=== PATIENT | female | born 1970 | race Caucasian/White ===

== ENCOUNTER 2018-09-27 21:00 | Emergency (ER) | payer OTHER ==
[~2018-09-27] VITALS: Ht 170.2 cm; Wt 120.2 kg
[~2018-09-27 21:00] MED LIST: ALPR.25T PO; ASP81TEC PO; LISI20TA PO; SERT25TA PO
--- OUTSIDE RECORDS SUMMARY | 2018-09-27 21:05 | XMS REPORT ---
Author Author Migration, Doctor Organization [facility] Address Unknown Phone Unavailable Care Team Providers Care Station Baggage Agent Name Role Phone Migration, Doctor Unavailable Unavailable PROBLEMS Type Condition ICD9-CM Code [id number] Code Onset Dates Condition Status SNOMED Code Problem Acute pyelonephritis N10 13 Jan, 2018 0 99858402 Problem Migraine, unspecified, without mention of intractable migraine without mention of status migrainosus G43.909 0 43272196 Problem History of pneumonia Z87.01 14 May, 2013 0 694378325 Problem Hiatal hernia K44.9 16 Oct, 2009 0 84796476 Problem Bipolar I disorder F31.9 0 586427400 Problem Tendonitis of wrist, left M77.8 Apr, 0 36341820 Problem Chest pain R07.9 May, 0 25902709 Problem Wheezing 786.07 Active 89149681 Problem Chronic blood loss anemia 280.0 Aug, 0 982618477 Problem Cough 786.2 Active 37353902 Problem Mammographic microcalcification R92.0 Mar, 0 98398319973813 Problem Chronic blood loss anemia D50.0 Aug, 0 281301012 Problem Migraine, unspecified, without mention of intractable migraine without mention of status migrainosus 346.90 0 08152000 Problem Hiatal hernia 553.3 16 Oct, 2009 0 88498877 Problem Acute pyelonephritis 590.10 13 Jan, 2018 0 04646702 Problem Essential hypertension 401.9 0 06935444 Problem Chest pain 786.50 May, 0 82612200 Problem Asthma 493.90 14 Jan, 2014 0 833804677 Problem Status post right breast biopsy V45.89 17 Mar, 2011 0 48082016 Problem Bipolar I disorder 296.7 0 296099634 Problem History of pneumonia V12.61 14 May, 2013 0 477677342 Problem Mammographic microcalcification 793.81 10 Mar, 2011 0 22469705008481 Problem Tendonitis of wrist, left 727.05 Apr, 0 905853418 Problem Fall from other slipping, tripping, or stumbling E885.9 Active 580969357 Problem Status post right breast biopsy Z98.890 17 Mar, 2011 0 137416007 Problem Disturbance of skin sensation 782.0 Active 485472212 Problem Fever, unspecified 780.60 Active 147198970 Problem Syncope and collapse 780.2 Active 001640577 Problem Acute sinusitis, unspecified 461.9 Active 60110581 Problem Essential hypertension I10 0 23760566 Problem Unspecified hereditary and idiopathic peripheral neuropathy 356.9 Active 362793438 Problem Acute bronchitis J20.9 Jul, 0 16077694 Problem Asthma J45.909 14 Jan, 2014 0 139387932 Problem Pain in joint, lower leg 719.46 Active 822287784 Problem Contact dermatitis and other eczema, due to unspecified cause 692.9 Active 17588111 Problem Acute bronchitis 466.0 Active 50760576 Problem Acute upper respiratory infections of unspecified site 465.9 Active 15933168 ALLERGIES No Information ENCOUNTERS Encounter Location Date Diagnosis [address] [address] Aug, [facility] [id number] [place] [address] Jun, [facility] [id number] [place] [address] Apr, [facility] [id number] [place] [address] Apr, [facility] [id number] [place] [address] Apr, [facility] [id number] [place] [address] Jan, [facility] [id number] [place] [address] 14 Aug, 2014 [facility] [id number] [place] [address] Aug, [facility] [id number] [place] [address] Jan, [facility] [address] [id number] [place] [address] Jan, [facility] [address] [id number] [place] [address] Dec, [facility] [place] [facility] [address] [id number] [place] [address] Oct, [facility] [place] [facility] [address] [id number] [place] [address] Aug, [facility] [place] [facility] [address] [id number] [place] [address] Aug, [facility] [place] [facility] [address] [id number] [place] [address] Aug, [facility] [address] [id number] [place] [address] Jul, [facility] [place] [facility] [address] [id number] [place] [address] Jun, [facility] [address] [id number] [place] [address] Jun, [facility] [address] [id number] [place] [address] Jun, [facility] [place] [facility] [address] [id number] [place] [address] May, [facility] [place] [facility] [address] [id number] [place] [address] May, [facility] [place] [facility] [address] [id number] [place] [address] Apr, [facility] [place] [facility] [address] [id number] [place] [address] Apr, [facility] [place] [facility] [address] [id number] [place] [address] Jan, [facility] [place] [facility] [address] [id number] [place] [address] Jan, [facility] [address] [facility][[address]] [id number] [place] [id number] Oct, [facility] [address] [facility] [address] [id number] [address] Oct, [facility] [address] [facility] [address] [id number] [place] [address] Oct, [facility] [address] [facility] [address] [id number] [address] August, IMMUNIZATIONS No Known Immunizations SOCIAL HISTORY Never Assessed REASON FOR VISIT EMR[place] PLAN OF CARE VITAL SIGNS MEDICATIONS Unknown Medications RESULTS No Results PROCEDURES No Known procedures INSTRUCTIONS MEDICATIONS ADMINISTERED No Known Medications
--- OUTSIDE RECORDS SUMMARY | 2018-09-27 21:05 | XMS REPORT ---
Author Author Migration, Doctor Organization [facility] Address Unknown Phone Unavailable Care Team Providers Care School Vocational Educator Name Role Phone Migration, Doctor Unavailable Unavailable PROBLEMS Type Condition ICD9-CM Code [id number] Code Onset Dates Condition Status SNOMED Code Problem Acute pyelonephritis N10 13 Jan, 2018 0 45265207 Problem Migraine, unspecified, without mention of intractable migraine without mention of status migrainosus G43.909 0 83169521 Problem History of pneumonia Z87.01 May, 0 269797498 Problem Hiatal hernia K44.9 16 Oct, 2009 0 43547999 Problem Bipolar I disorder F31.9 0 846832702 Problem Tendonitis of wrist, left M77.8 Apr, 0 82977885 Problem Chest pain R07.9 May, 0 21991966 Problem Wheezing 786.07 Active 76426307 Problem Chronic blood loss anemia 280.0 Aug, 0 811013710 Problem Cough 786.2 Active 11741088 Problem Mammographic microcalcification R92.0 Mar, 0 92078321168082 Problem Chronic blood loss anemia D50.0 Aug, 0 486643069 Problem Migraine, unspecified, without mention of intractable migraine without mention of status migrainosus 346.90 0 42708008 Problem Hiatal hernia 553.3 16 Oct, 2009 0 23773856 Problem Acute pyelonephritis 590.10 13 Jan, 2018 0 08497525 Problem Essential hypertension 401.9 0 48787269 Problem Chest pain 786.50 May, 0 26221910 Problem Asthma 493.90 14 Jan, 2014 0 755627763 Problem Status post right breast biopsy V45.89 17 Mar, 2011 0 40997405 Problem Bipolar I disorder 296.7 0 358212269 Problem History of pneumonia V12.61 14 May, 2013 0 707797430 Problem Mammographic microcalcification 793.81 10 Mar, 2011 0 76905804701195 Problem Tendonitis of wrist, left 727.05 Apr, 0 753646448 Problem Fall from other slipping, tripping, or stumbling E885.9 Active 537042284 Problem Status post right breast biopsy Z98.890 17 Mar, 2011 0 521478766 Problem Disturbance of skin sensation 782.0 Active 832784754 Problem Fever, unspecified 780.60 Active 404282136 Problem Syncope and collapse 780.2 Active 116337226 Problem Acute sinusitis, unspecified 461.9 Active 74504631 Problem Essential hypertension I10 0 57839813 Problem Unspecified hereditary and idiopathic peripheral neuropathy 356.9 Active 071980840 Problem Acute bronchitis J20.9 Jul, 0 55221354 Problem Asthma J45.909 14 Jan, 2014 0 555458868 Problem Pain in joint, lower leg 719.46 Active 040105940 Problem Contact dermatitis and other eczema, due to unspecified cause 692.9 Active 16175626 Problem Acute bronchitis 466.0 Active 15566457 Problem Acute upper respiratory infections of unspecified site 465.9 Active 56597596 ALLERGIES No Information ENCOUNTERS Encounter Location Date Diagnosis [address] [address] August, [facility] [id number] [place] [address] Jun, [facility] [id number] [place] [address] Apr, [facility] [id number] [place] [address] Apr, [facility] [id number] [place] [address] Apr, [facility] [id number] [place] [address] Jan, [facility] [id number] [place] [address] Aug, [facility] [id number] [place] [address] Aug, [facility] [id number] [place] [address] Jan, [facility] [address] [id number] [place] [address] Jan, [facility] [address] [id number] [place] [address] Dec, [facility] [place] [facility] [address] [id number] [place] [address] Oct, [facility] [place] [facility] [address] [id number] [place] [address] Aug, [facility] [place] [facility] [address] [id number] [place] [address] Aug, [facility] [place] [facility] [address] [id number] [place] [address] Aug, [facility] [address] [id number] [place] [address] Jul, [facility] [place] [facility] [address] [id number] [place] [address] Jun, [facility] [address] [id number] [place] [address] Jun, [facility] [address] [id number] [place] [address] Jun, [facility] [place] [facility] [address] [id number] [place] [address] May, [facility] [place] [facility] [address] [id number] [place] [address] May, [facility] [place] [facility] [address] [id number] [place] [address] Apr, [facility] [place] [facility] [address] [id number] [place] [address] Apr, [facility] [place] [facility] [address] [id number] [place] [address] Jan, [facility] [place] [facility] [address] [id number] [place] [address] Jan, [facility] [address] [facility] [id number] [place] [id number] Oct, [facility] [address] [facility] [id number] [address] Oct, [facility] [address] [facility] [id number][place] [address] Oct, [facility] [address] [facility] [id number], [place] [address] August, IMMUNIZATIONS No Known Immunizations SOCIAL HISTORY Never Assessed REASON FOR VISIT E[facility] PLAN OF CARE VITAL SIGNS MEDICATIONS Unknown Medications RESULTS No Results PROCEDURES No Known procedures INSTRUCTIONS MEDICATIONS ADMINISTERED No Known Medications
--- OUTSIDE RECORDS SUMMARY | 2018-09-27 21:05 | XMS REPORT ---
Author Author Migration, Doctor Organization [facility] Address Unknown Phone Unavailable Care Team Providers Care Centralized Traffic Control Operator Name Role Phone Migration, Doctor Unavailable Unavailable PROBLEMS Type Condition ICD9-CM Code TDA87-AS Code Onset Dates Condition Status SNOMED Code Problem Acute pyelonephritis N10 13 Jan, 2018 0 65908089 Problem Migraine, unspecified, without mention of intractable migraine without mention of status migrainosus G43.909 0 69916159 Problem History of pneumonia Z87.01 May, 0 167717211 Problem Hiatal hernia K44.9 16 Oct, 2009 0 60141874 Problem Bipolar I disorder F31.9 0 442576631 Problem Tendonitis of wrist, left M77.8 Apr, 0 52415900 Problem Chest pain R07.9 May, 0 95830200 Problem Wheezing 786.07 Active 20191232 Problem Chronic blood loss anemia 280.0 Aug, 0 905489137 Problem Cough 786.2 Active 26911760 Problem Mammographic microcalcification R92.0 Mar, 0 63271112648386 Problem Chronic blood loss anemia D50.0 Aug, 0 305243365 Problem Migraine, unspecified, without mention of intractable migraine without mention of status migrainosus 346.90 0 91102744 Problem Hiatal hernia 553.3 16 Oct, 2009 0 02969869 Problem Acute pyelonephritis 590.10 13 Jan, 2018 0 28284932 Problem Essential hypertension 401.9 0 03560195 Problem Chest pain 786.50 May, 0 82740345 Problem Asthma 493.90 14 Jan, 2014 0 216307670 Problem Status post right breast biopsy V45.89 17 Mar, 2011 0 39359158 Problem Bipolar I disorder 296.7 0 789813769 Problem History of pneumonia V12.61 14 May, 2013 0 659161053 Problem Mammographic microcalcification 793.81 10 Mar, 2011 0 50803302245734 Problem Tendonitis of wrist, left 727.05 Apr, 0 399345930 Problem Fall from other slipping, tripping, or stumbling E885.9 Active 785588674 Problem Status post right breast biopsy Z98.890 17 Mar, 2011 0 886685504 Problem Disturbance of skin sensation 782.0 Active 294472497 Problem Fever, unspecified 780.60 Active 086374366 Problem Syncope and collapse 780.2 Active 442704426 Problem Acute sinusitis, unspecified 461.9 Active 87218904 Problem Essential hypertension I10 0 17790562 Problem Unspecified hereditary and idiopathic peripheral neuropathy 356.9 Active 178692183 Problem Acute bronchitis J20.9 Jul, 0 05116578 Problem Asthma J45.909 14 Jan, 2014 0 337288587 Problem Pain in joint, lower leg 719.46 Active 132570768 Problem Contact dermatitis and other eczema, due to unspecified cause 692.9 Active 92530552 Problem Acute bronchitis 466.0 Active 84950468 Problem Acute upper respiratory infections of unspecified site 465.9 Active 45410733 ALLERGIES No Information ENCOUNTERS Encounter Location Date Diagnosis [address] [address] Aug, [facility] [id number] [place] [address] Jun, [facility] [id number] [place] [address] Apr, [facility] [id number] [place] [address] Apr, [facility] [id number] [place] [address] Apr, [facility] [id number] [place] [address] Jan, [facility] [id number] [place] [address] 14 Aug, 2014 [facility] [id number] [place] [address] Aug, [facility] [id number] [place] [address] Jan, [facility] [address] [id number] [place] [address] Jan, [facility] [address] [id number] [place] [address] Dec, [facility] [place] [facility] [address] [id number] [place] [address] Oct, [facility] [place] [facility] [address] [id number] [place] [address] Aug, [facility] [place] [facility] [address] [id number] [place] [address] Aug, [facility] [place] [facility] [address] [id number] [place] [address] Aug, [facility] [address] [id number] [place] [address] Jul, [facility] [place] [facility] [address] [id number] [place] [address] Jun, [facility] [address] [id number] [place] [address] Jun, [facility] [address] [id number] [place] [address] Jun, [facility] [place] [facility] [address] [id number] [place] [address] May, [facility] [place] [facility] [address] [id number] [place] [address] May, [facility] [place] [facility] [address] [id number] [place] [address] Apr, [facility] [place] [facility] [address] [id number] [place] [address] Apr, [facility] [place] [facility] [address] [id number] [place] [address] Jan, [facility] [place] [facility] [address] [id number] [place] [address] Jan, [facility] [address] [facility] [id number] [place] [id number] Oct, [facility] [address] [facility] [id number], [place] [address] Oct, [facility] [address] [facility] [id number], [place] [address] Oct, [facility] [address] [facility] [id number], [place] [address] August, IMMUNIZATIONS No Known Immunizations SOCIAL HISTORY Never Assessed REASON FOR VISIT [place] [place] C[place] VITAL SIGNS MEDICATIONS Unknown Medications RESULTS No Results PROCEDURES No Known procedures INSTRUCTIONS MEDICATIONS ADMINISTERED No Known Medications
--- OUTSIDE RECORDS SUMMARY | 2018-09-27 21:06 | XMS REPORT | Continuity of Care Document ---
Author Organization Unknown Address Unknown Allergies Active Description Code Type Severity Reaction Onset Reported/Identified Relationship to Patient Clinical Status Yes Penicillins Drug Allergy 09/03/2011 Yes Penicillins Drug Allergy N/A N/A 09/03/2011 Medications There is no data. Problems Date Dx Coded Attending Type Code Diagnosis Diagnosed By 09/03/2011 719.46 KNEE PAIN 09/03/2011 E885.9 ACCIDENTAL FALL FROM OTHER SLIPPING TRIPPING OR STUMBLING 09/03/2011 719.46 KNEE PAIN 09/03/2011 E885.9 ACCIDENTAL FALL FROM OTHER SLIPPING TRIPPING OR STUMBLING 09/03/2011 WARREN ORTEGA DO 719.46 KNEE PAIN 09/03/2011 WARREN ORTEGA DO E885.9 ACCIDENTAL FALL FROM OTHER SLIPPING TRIPPING OR STUMBLING 09/03/2011 719.46 KNEE PAIN 09/03/2011 E885.9 ACCIDENTAL FALL FROM OTHER SLIPPING TRIPPING OR STUMBLING 09/03/2011 PADMAJA GOMEZ APRN 719.46 KNEE PAIN 09/03/2011 PADMAJA GOMEZ APRN E885.9 ACCIDENTAL FALL FROM OTHER SLIPPING TRIPPING OR STUMBLING 09/03/2011 719.46 KNEE PAIN 09/03/2011 E885.9 ACCIDENTAL FALL FROM OTHER SLIPPING TRIPPING OR STUMBLING 09/03/2011 USMAN FERNANDEZ APRN 719.46 KNEE PAIN 09/03/2011 USMAN FERNANDEZ APRN E885.9 ACCIDENTAL FALL FROM OTHER SLIPPING TRIPPING OR STUMBLING 09/03/2011 WARREN ORTEGA DO 719.46 KNEE PAIN 09/03/2011 WARREN ORTEGA DO E885.9 ACCIDENTAL FALL FROM OTHER SLIPPING TRIPPING OR STUMBLING 11/25/2011 356.9 PERIPHERAL NEUROPATHY 11/25/2011 356.9 PERIPHERAL NEUROPATHY 11/25/2011 WARREN ORTEGA DO 356.9 PERIPHERAL NEUROPATHY 11/25/2011 356.9 PERIPHERAL NEUROPATHY 11/25/2011 PADMAJA GOMEZ APRN 356.9 PERIPHERAL NEUROPATHY 11/25/2011 356.9 PERIPHERAL NEUROPATHY 11/25/2011 USMAN FERNANDEZ APRN 356.9 PERIPHERAL NEUROPATHY 11/25/2011 ORTEGA DO, WARREN K 356.9 PERIPHERAL NEUROPATHY 04/06/2012 465.9 UPPER RESPIRATORY INFECTION 04/06/2012 786.07 WHEEZING 04/06/2012 786.2 COUGH 04/06/2012 465.9 UPPER RESPIRATORY INFECTION 04/06/2012 786.07 WHEEZING 04/06/2012 786.2 COUGH 04/06/2012 JORDAN DO WARREN K 465.9 UPPER RESPIRATORY INFECTION 04/06/2012 ORTEGA DO, WARREN K 786.07 WHEEZING 04/06/2012 ORTEGA DO, WARREN K 786.2 COUGH 04/06/2012 465.9 UPPER RESPIRATORY INFECTION 04/06/2012 786.07 WHEEZING 04/06/2012 786.2 COUGH 04/06/2012 PADMAJA GOMEZ APRN 465.9 UPPER RESPIRATORY INFECTION 04/06/2012 PADMAJA GOMEZ APRN 786.07 WHEEZING 04/06/2012 PADMAJA GOMEZ APRN 786.2 COUGH 04/06/2012 465.9 UPPER RESPIRATORY INFECTION 04/06/2012 786.07 WHEEZING 04/06/2012 786.2 COUGH 04/06/2012 USMAN FERNANDEZ APRN 465.9 UPPER RESPIRATORY INFECTION 04/06/2012 USMAN FERNANDEZ APRN 786.07 WHEEZING 04/06/2012 USMAN FERNANDEZ APRN 786.2 COUGH 04/06/2012 KYLE ORTEGA DOA K 465.9 UPPER RESPIRATORY INFECTION 04/06/2012 JORDAN DO WARREN K 786.07 WHEEZING 04/06/2012 ORTEGA DO, WARREN K 786.2 COUGH 05/06/2012 466.0 BRONCHITIS, ACUTE 05/06/2012 780.60 FEVER, UNSPECIFIED 05/06/2012 466.0 BRONCHITIS, ACUTE 05/06/2012 780.60 FEVER, UNSPECIFIED 05/06/2012 ORTEGA DO, WARREN K 466.0 BRONCHITIS, ACUTE 05/06/2012 ORTEGA DO, WARREN K 780.60 FEVER, UNSPECIFIED 05/06/2012 466.0 BRONCHITIS, ACUTE 05/06/2012 780.60 FEVER, UNSPECIFIED 05/06/2012 PADMAJA GOMEZ APRN 466.0 BRONCHITIS, ACUTE 05/06/2012 PADMAJA GOMEZ APRN 780.60 FEVER, UNSPECIFIED 05/06/2012 466.0 BRONCHITIS, ACUTE 05/06/2012 780.60 FEVER, UNSPECIFIED 05/06/2012 USMAN FERNANDEZ APRN 466.0 BRONCHITIS, ACUTE 05/06/2012 USMAN FERNANDEZ APRN 780.60 FEVER, UNSPECIFIED 06/07/2012 780.2 SYNCOPE AND COLLAPSE 06/07/2012 782.0 DISTURBANCE OF SKIN SENSATION 06/07/2012 ORTEGA DO, WARREN K 780.2 SYNCOPE AND COLLAPSE 06/07/2012 ORTEGA DO, WARREN K 782.0 DISTURBANCE OF SKIN SENSATION 06/07/2012 780.2 SYNCOPE AND COLLAPSE 06/07/2012 782.0 DISTURBANCE OF SKIN SENSATION 06/07/2012 PADMAJA GOMEZ APRN 780.2 SYNCOPE AND COLLAPSE 06/07/2012 PADMAJA GOMEZ APRN 782.0 DISTURBANCE OF SKIN SENSATION 06/07/2012 780.2 SYNCOPE AND COLLAPSE 06/07/2012 782.0 DISTURBANCE OF SKIN SENSATION 06/07/2012 USMAN FERNANDEZ APRN 780.2 SYNCOPE AND COLLAPSE 06/07/2012 USMNA FERNANDEZ APRN 782.0 DISTURBANCE OF SKIN SENSATION 08/02/2012 PADMAJA GOMEZ APRN 461.9 SINUSITIS ACUTE 08/02/2012 461.9 SINUSITIS ACUTE 08/02/2012 USMAN FERNANDEZ APRN 461.9 SINUSITIS ACUTE 11/05/2012 692.9 DERMATITIS CONTACT UNSPECIFIED 11/05/2012 USMAN FERNANDEZ APRN 692.9 DERMATITIS CONTACT UNSPECIFIED Procedures Code [place] [address] INFLUENZA A & B (IN-HOUSE) 04/06/2012 63899 INFLUENZA A & B (IN-HOUSE) 05/06/2012 42791 XRAY CHEST 2 VIEW 05/06/2012 78938 MRI BRAIN W/O CONTRAST 06/07/2012 02221 ECHO EXAMINATION PROCEDURE 06/07/2012 56302 EKG, TRACING (IN-HOUSE) 06/07/2012 79264 US CAROTID DOPPLER 06/07/2012 KENDRA GRACE 06/07/2012 65159 ROUTINE VENIPUNCTURE 06/08/2012 65007 CMP 06/08/2012 40127 LIPID PANEL 06/08/2012 60850 BNP 06/08/2012 47725 TSH 06/08/2012 79165 CBC 06/08/2012 07544 CRP HS (CARDIO) 06/08/2012 90865 NUCLEAR STRESS TESTING 07/06/2012 13397 EKG, TRACING (IN-HOUSE) 07/06/2012 42211 HOLTER MONITOR 07/06/2012 Results There is no data. Encounters ACCT No. Visit Date/Time Discharge Status Pt. Type Provider Facility Loc./Unit Complaint [id number] 01/31/2014 17:49:00 01/31/2014 23:59:59 CLS Outpatient USMAN FERNANDEZ APRN [id number] 08/02/2012 16:26:00 08/02/2012 23:59:59 CLS Outpatient PADMAJA GOMEZ APRN [id number] 07/06/2012 08:13:00 07/06/2012 23:59:59 CLS Outpatient [id number] 06/08/2012 08:00:00 06/08/2012 23:59:59 CLS Outpatient WARREN ORTEGA DO [id number] 06/07/2012 13:58:00 06/07/2012 23:59:59 CLS Outpatient [id number] 05/06/2012 08:29:00 05/06/2012 23:59:59 CLS Outpatient [id number] 03/03/2012 10:54:00 03/03/2012 23:59:59 CLS Outpatient WARREN ORTEGA DO [id number] 11/05/2012 10:40:00 Document Registration
--- OUTSIDE RECORDS SUMMARY | 2018-09-27 21:06 | XMS REPORT ---
Author Author Migration, Doctor Organization [facility] Address Unknown Phone Unavailable Care Team Providers Care Imaging Aide Name Role Phone Migration, Doctor Unavailable Unavailable PROBLEMS Type Condition ICD9-CM Code FYB26-IW Code Onset Dates Condition Status SNOMED Code Problem Acute pyelonephritis N10 13 Jan, 2018 0 38166931 Problem Migraine, unspecified, without mention of intractable migraine without mention of status migrainosus G43.909 0 44211789 Problem History of pneumonia Z87.01 May, 0 198054267 Problem Hiatal hernia K44.9 16 Oct, 2009 0 40224764 Problem Bipolar I disorder F31.9 0 318188650 Problem Tendonitis of wrist, left M77.8 Apr, 0 83518333 Problem Chest pain R07.9 May, 0 96625184 Problem Wheezing 786.07 Active 70371220 Problem Chronic blood loss anemia 280.0 Aug, 0 804043918 Problem Cough 786.2 Active 24270635 Problem Mammographic microcalcification R92.0 Mar, 0 [id number] Problem Chronic blood loss anemia D50.0 Aug, 0 828863847 Problem Migraine, unspecified, without mention of intractable migraine without mention of status migrainosus 346.90 0 68579251 Problem Hiatal hernia 553.3 16 Oct, 2009 0 31406166 Problem Acute pyelonephritis 590.10 13 Jan, 2018 0 19952145 Problem Essential hypertension 401.9 0 85192575 Problem Chest pain 786.50 May, 0 60811761 Problem Asthma 493.90 14 Jan, 2014 0 190402052 Problem Status post right breast biopsy V45.89 17 Mar, 2011 0 90832395 Problem Bipolar I disorder 296.7 0 232856466 Problem History of pneumonia V12.61 14 May, 2013 0 456730728 Problem Mammographic microcalcification 793.81 10 Mar, 2011 0 [id number] Problem Tendonitis of wrist, left 727.05 Apr, 0 751693443 Problem Fall from other slipping, tripping, or stumbling E885.9 Active 416820792 Problem Status post right breast biopsy Z98.890 17 Mar, 2011 0 940202192 Problem Disturbance of skin sensation 782.0 Active 253400051 Problem Fever, unspecified 780.60 Active 821278358 Problem Syncope and collapse 780.2 Active 437888916 Problem Acute sinusitis, unspecified 461.9 Active 72303207 Problem Essential hypertension I10 0 37340611 Problem Unspecified hereditary and idiopathic peripheral neuropathy 356.9 Active 681150349 Problem Acute bronchitis J20.9 Jul, 0 03920624 Problem Asthma J45.909 14 Jan, 2014 0 612325365 Problem Pain in joint, lower leg 719.46 Active 897242625 Problem Contact dermatitis and other eczema, due to unspecified cause 692.9 Active 71794900 Problem Acute bronchitis 466.0 Active 27320979 Problem Acute upper respiratory infections of unspecified site 465.9 Active 73822497 ALLERGIES No Information ENCOUNTERS Encounter Location Date Diagnosis [facility] [address] [address] Jun, [facility] [address] [address] Apr, [facility] [address] [address] Apr, [facility] [id number] [place] [address] Apr, [facility] [id number] [place] [address] Jan, [facility] [id number] [place] [address] Aug, [facility] [address] [address] Aug, [facility] [id number] [place] [address] Jan, [facility] [address] [address] Jan, [facility] [address] [id number], [place] [address] Dec, [facility] [address] [facility] [id number], [place] [address] Oct, [facility] [address] [facility] [id number], [place] [address] Aug, [facility] [address] [id number], [place] [address] Aug, [facility] [address] [facility] [id number], [place] [address] Aug, [facility] [address] [id number], [place] [address] Jul, [facility] [address] [id number], [place] [address] Jun, [facility] [address] [id number], [place] [address] Jun, [facility] [address] [facility] [id number], [place] [address] Jun, [facility] [address] [id number], [place] [address] May, [facility] [address] [facility] [id number], [place] [address] May, [facility] [address] [id number], [place] [address] Apr, [facility] [address] [facility] [id number], [place] [address] Apr, [facility] [address] [facility] [id number], [place] [address] Jan, [facility] [address] [id number], [place] [address] Jan, [facility] [address] [id number] [place] [id number] Oct, [facility] [address] [facility] [id number] [place] [address] Oct, [facility] [address] [facility] [id number], [place] [address] Oct, [facility] [address] [facility] [id number] [place] [address] August, IMMUNIZATIONS No Known Immunizations SOCIAL HISTORY Never Assessed REASON FOR VISIT EMR-[facility] [place] OF CARE VITAL SIGNS MEDICATIONS Unknown Medications RESULTS No Results PROCEDURES No Known procedures INSTRUCTIONS MEDICATIONS ADMINISTERED No Known Medications
[2018-09-27] MEDS ORDERED: ACETAMINOPHEN 500 MG TAB (TYLENOL) PO ONE (21:15)
--- NOTE | 2018-09-27 21:19 | ED Fall/Injury ---
General Stated Complaint: LT FOOT INJ Source: patient Exam Limitations: no limitations History of Present Illness Date Seen by Provider: September 27, 2018 Time Seen by Provider: 21:10 Initial Comments Patient presents to ER by private conveyance with her significant other and chief complaint that about 15 minutes prior to arrival she had a fall stumbling into a hole in the yard. She did not strike her head nor lose consciousness. She's having some pain in her left ankle and heel. She has chronic peripheral neuropathy secondary to diabetes on gabapentin. She has not taken anything for the pain or used any ice yet. She is had a fractured right ankle in the past. No previous surgery or injury to her left foot. No other injury or pain elsewhere. Allergies and Home Medications Allergies Coded Allergies: Penicillins (Verified Allergy, 07/28/12) Home Medications Alprazolam 0.25 Mg Tablet, 1 TAB PO DAILY, (Reported) Aspirin 81 Mg Tabec, 81 MG PO DAILY, (Reported) Lisinopril 20 Mg Tablet, 20 MG PO DAILY, (Reported) Sertraline Hcl 25 Mg Tablet, 25 MG PO DAILY, (Reported) Patient Home Medication List Home Medication List Reviewed: Yes Review of Systems Review of Systems Constitutional: No chills Eyes: Denies Blindness, Denies Blurred Vision Ears, Nose, Mouth, Throat: denies ear pain, denies ear discharge Respiratory: No cough, No phlegm, No short of breath Past Eqrfrjc-Qvsxvp-Xqylop Hx Patient Social History Alcohol Use: Denies Use Recreational Drug Use: No Smoking Status: Never a Smoker Recent Foreign Travel: No Contact w/Someone Who Travel: No Physical Exam Vital Signs Vital Signs - First Documented 09/27/18 21:12 Temp 98.4 Pulse 94 Resp 22 B/P (MAP) 124/73 (90) Pulse Ox 97 O2 Delivery Room Air Capillary Refill : Height, Weight, BMI Height: '" Weight: lbs. oz. kg; BMI Method: General Appearance: WD/WN, mild distress HEENT: normal ENT inspection, pharynx normal Cardiovascular: normal peripheral pulses, regular rate, rhythm, no edema Respiratory: no respiratory distress, no accessory muscle use Peripheral Pulses: 2+ Dorsalis Pedis (R), 2+ Left Dors-Pedis (L) Extremities: normal capillary refill, other (medial malleolus posteriorly is tender to palpation as well as the calcaneus medially is tender. Dorsum of the foot is nontender. Range of motion active and passive is completely intact.) 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: no motor/sensory deficits, alert, normal mood/affect, oriented x 3 Skin: normal color, warm/dry Lisa Coma Score Best Eye Response: (4) Open Spontaneously Best Verbal Response: (5) Oriented Best Motor Response: (6) Obeys Commands [place] Total: 15 Progress/Results/Core Measures Results/Orders My Orders Orders - GEMMA WASSERMAN Acetaminophen Tablet (Tylenol Tablet) (09/27/18 21:15) Ankle 3 View Left (09/27/18 21:13) Foot 3 View Left (09/27/18 21:13) Medications Given in ED Current Medications Medications Dose Ordered Sig/Gregg Route Start Time Stop Time Status Last Admin Dose Admin Acetaminophen 1,000 mg ONCE ONCE PO 09/27/18 21:15 09/27/18 21:16 DC 09/27/18 21:31 1,000 MG Vital Signs/I&O 09/27/18 21:12 Temp 98.4 Pulse 94 Resp 22 B/P (MAP) 124/73 (90) Pulse Ox 97 O2 Delivery Room Air Progress Progress Note : Time: 21:16 Progress Note Left foot 2-3 views of the ankle and get some views of the foot so he can make sure there is not a fracture on the calcaneus. Diagnostic Imaging Diagonstic Imaging: Xray Plain Films/CT/US/NM/MRI: ankle (left), other (left foot) Comments NAME: PAMELLA SALINAS MED REC#: [id number] PT STATUS: REG ER : 1970 PHYSICIAN: GEMMA WASSERMAN MD ADMIT DATE: 09/27/18/ER FS Draft Date of Exam:09/27/18 FOOT 3 VIEW LEFT INDICATION: Pain. TECHNIQUE: 3 views were obtained FINDINGS: The alignment is normal. There is no fracture or dislocation. There are mild degenerative changes. IMPRESSION: Mild degenerative changes however no acute fracture or dislocation Dictated on workstation # [id number] Dict: 09/27/182142 Trans: 09/27/182155 B [id number] Interpreted by: DOROTHEA BARCENAS MD Electronically signed by: NAME: PAMELLA SALINAS [facility] REC#: [id number] PT STATUS: REG ER : 1970 PHYSICIAN: GEMMA WASSERMAN MD ADMIT DATE: 09/27/18/ER FS Signed Date of Exam:09/27/18 ANKLE 3 VIEW LEFT INDICATION: Pain. TECHNIQUE: 3 views were obtained FINDINGS: Alignment is normal. The plafonds and talar dome are intact. Ankle mortise is symmetric. No fracture or dislocation. IMPRESSION: No acute fracture or dislocation. Dictated by: Dictated on workstation # [id number] Dict: 09/27/182136 Trans: 09/27/182151 [facility] [id number] Interpreted by: DOROTHEA BARCENAS MD Electronically signed by: DOROTHEA BARCENAS MD 09/27/182151 Reviewed: Reviewed by Me Departure Impression Primary Impression: Fall Qualified Codes: W19.XXXA - Unspecified fall, initial encounter Additional Impression: Acute left ankle pain Disposition: 01 HOME, SELF-CARE Condition: Stable Departure-Patient Inst. Decision time for Depature: 22:00 Referrals: ORIANA DEE MD (PCP) Primary Care Physician Patient Instructions: Ankle Sprain (DC) Add. Discharge Instructions: Stay off the foot and use the crutches and wrapped the ankle with an Oli bandage. Elevate the foot above the level of your heart for the next couple days when not in use and apply ice for 20 minutes every 4 hours for the first 2 days. Afterwards heat, topical creams such as icy hot or Biofreeze can be helpful. Tylenol 1000 g every 8 hours as needed for pain in addition to ibuprofen 800 mg every 8 hours as necessary. Follow-up with primary care if you're still having significant pain in 7-10 days. Expect improvement over 2-4 weeks. GEMMA WASSERMAN September 27, 2018 21:19
--- NOTE | 2018-09-27 21:41 | Diagnostic Imaging Report ---
INDICATION: Pain. TECHNIQUE: 3 views were obtained FINDINGS: Alignment is normal. The plafonds and talar dome are intact. Ankle mortise is symmetric. No fracture or dislocation. IMPRESSION: No acute fracture or dislocation. Dictated by: Dictated on workstation # [id number]
--- NOTE | 2018-09-27 21:56 | Diagnostic Imaging Report ---
INDICATION: Pain. TECHNIQUE: 3 views were obtained FINDINGS: The alignment is normal. There is no fracture or dislocation. There are mild degenerative changes. IMPRESSION: Mild degenerative changes however no acute fracture or dislocation Dictated by: Dictated on workstation # [id number]
[2018-09-27 22:13] VITALS: BP 124/73
== END 2018-09-27 22:13 | disposition home or self-care (01) ==
LOC: EDUNIT# 21:00 → ER FS 21:01
DX: M25.572 Pain in left ankle and joints of left foot (principal); E11.40 Type 2 diabetes mellitus with diabetic neuropathy, unspecified; R40.2142 Coma scale, eyes open, spontaneous, at arrival to emergency department; R40.2252 Coma scale, best verbal response, oriented, at arrival to emergency department; R40.2362 Coma scale, best motor response, obeys commands, at arrival to emergency department; Z88.0 Allergy status to penicillin; Z79.82 Long term (current) use of aspirin; W17.2XXA Fall into hole, initial encounter; Y92.007 Garden or yard of unspecified non-institutional (private) residence as the place of occurrence of the external cause
CPT/HCPCS: 73610; 73630

== ENCOUNTER 2018-12-17 13:05 | Emergency (ER) | payer OTHER ==
[~2018-12-17] VITALS: Ht 170.2 cm; Wt 117.0 kg
--- NOTE | 2018-12-17 13:08 | NUR ---
Ambulatory from registartion to ED Rm 6. See triage. Pt was referred to Ed from [facility] for severe bladder pain, dysuria with a fairly clear urinalysis verbally reported. Sx began Thur.
--- NOTE | 2018-12-17 13:10 | NUR ---
Urine obtained clean catch.
--- NOTE | 2018-12-17 13:13 | ED GU-Female ---
General Chief Complaint: - Urinary Stated Complaint: LOWER BACK PAIN,NAUSEA,PAINFUL URINATON Source: patient History of Present Illness Date Seen by Provider: Dec 17, 2018 Time Seen by Provider: 13:13 Initial Comments Patient is a 48-year-old female who comes to the emergency department today complaining of 2 day history of left flank pain. Her pain started as a dull ache yesterday. Today, her symptoms became much more severe. She had some associated nausea but no vomiting. No fevers. She does endorse a dark color and malodorous urine. She does have prior history of urinary tract infections as well as one kidney stone many years earlier which she passed without intervention. No fever. No recent travel. No ill contacts. No respiratory symptoms. No shortness of breath or chest pain. Allergies and Home Medications Allergies Coded Allergies: Penicillins (Verified Allergy, Unknown, 12/17/18) cephalexin (Unverified Adverse Reaction, Unknown, 12/17/18) Home Medications Alprazolam 0.25 Mg Tablet, 1 TAB PO DAILY, (Reported) Aspirin 81 Mg Tabec, 81 MG PO DAILY, (Reported) Cyclobenzaprine HCl 10 Mg Tablet, 10 MG PO TID PRN for MUSCLE SPASMS Prescribed by: PARIS MORALES on 12/17/18 1430 Hydrocodone/Acetaminophen 1 Each Tablet, 2 TAB PO Q6H Prescribed by: PARIS MORALES on 12/17/18 1430 Lisinopril 40 Mg Tablet, 40 MG PO DAILY, (Reported) Nitrofurantoin Monohyd/M-Cryst 100 Mg Capsule, 1 TAB PO BID Prescribed by: PARIS MORALES on 12/17/18 1430 Patient Home Medication List Home Medication List Reviewed: Yes Review of Systems Review of Systems Constitutional: no symptoms reported EENTM: no symptoms reported Respiratory: no symptoms reported Cardiovascular: no symptoms reported Gastrointestinal: no symptoms reported Genitourinary: flank pain, hematuria, pain Musculoskeletal: no symptoms reported Skin: no symptoms reported Endocrine: No Symptoms Reported All Other Systemes Reviewed Negative Unless Noted: Yes Past Hdbafyn-Buqanc-Rdtfgr Hx Patient Social History 2nd Hand Smoke Exposure: No Recent Hopitalizations: No Seasonal Allergies Seasonal Allergies: No Past Medical History Surgeries: Yes Appendectomy, Section, Gallbladder Respiratory: Yes COPD Cardiac: Yes Hypertension, Irregular Heartbeat Neurological: Yes Neuropathy Genitourinary: No Gastrointestinal: No Musculoskeletal: No Endocrine: No HEENT: No Cancer: No Psychosocial: No Integumentary: No Physical Exam Vital Signs Vital Signs - First Documented 12/17/18 13:08 Temp 97.2 Pulse 96 Resp 20 B/P (MAP) 141/84 (103) Pulse Ox 98 O2 Delivery Room Air Capillary Refill : Height, Weight, BMI Height: 5'7.00" Weight: 265lbs. 0oz. 120.393431fe; BMI Method:Stated General Appearance: WD/WN, mild distress HEENT: PERRL/EOMI, TMs normal Neck: non-tender, full range of motion Cardiovascular: regular rate, rhythm, no edema Respiratory: lungs clear, normal breath sounds Gastrointestinal: normal bowel sounds, non tender, soft Extremities: normal range of motion, no pedal edema 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: alert, oriented x 3 Skin: normal color Lymphatic: no adenopathy Progress/Results/Core Measures Suspected Sepsis SIRS Temperature: Pulse: Respiratory Rate: Laboratory Tests 12/17/18 13:42: White Blood Count 9.2 Blood Pressure / Mean: Laboratory Tests 12/17/18 13:42: Creatinine 0.84, Platelet Count 355 Results/Orders Lab Results Laboratory Tests Test 12/17/18 13:10 12/17/18 13:42 Range/Units Urine Color YELLOW Urine Clarity CLEAR Urine pH 6.5 5-9 Urine Specific Rupert 1.010 L 1.016-1.022 Urine Protein NEGATIVE NEGATIVE Urine Glucose (UA) NEGATIVE NEGATIVE Urine Ketones NEGATIVE NEGATIVE Urine Nitrite NEGATIVE NEGATIVE Urine Bilirubin NEGATIVE NEGATIVE Urine Urobilinogen 0.2 NORMAL MG/DL Urine Leukocyte Esterase NEGATIVE NEGATIVE Urine RBC (Auto) NEGATIVE NEGATIVE Urine RBC NONE /HPF Urine WBC NONE /HPF Urine Squamous Epithelial Cells 10-25 H /HPF Urine Crystals NONE /LPF Urine Bacteria TRACE /HPF Urine Casts NONE /LPF Urine Mucus NEGATIVE /LPF Urine Culture Indicated NO White Blood Count 9.2 4.3-11.0 10^3/uL Red Blood Count 4.13 L 4.35-5.85 10^6/uL Hemoglobin 12.5 11.5-16.0 G/DL Hematocrit 39 35-52 % Mean Corpuscular Volume 94 80-99 FL Mean Corpuscular Hemoglobin 30 25-34 PG Mean Corpuscular Hemoglobin Concent 32 32-36 G/DL Red Cell Distribution Width 12.3 10.0-14.5 % Platelet Count 355 130-400 10^3/uL Mean Platelet Volume 9.5 7.4-10.4 FL Neutrophils (%) (Auto) 53 42-75 % Lymphocytes (%) (Auto) 35 12-44 % Monocytes (%) (Auto) 9 0-12 % Eosinophils (%) (Auto) 2 0-10 % Basophils (%) (Auto) 1 0-10 % Neutrophils # (Auto) 4.8 1.8-7.8 X 10^3 Lymphocytes # (Auto) 3.3 1.0-4.0 X 10^3 Monocytes # (Auto) 0.8 0.0-1.0 X 10^3 Eosinophils # (Auto) 0.2 0.0-0.3 10^3/uL Basophils # (Auto) 0.1 0.0-0.1 10^3/uL Sodium Level 141 135-145 MMOL/L Potassium Level 4.6 3.6-5.0 MMOL/L Chloride Level 101 98-107 MMOL/L Carbon Dioxide Level 23 21-32 MMOL/L Anion Gap 17 H 5-14 MMOL/L Blood Urea Nitrogen 13 7-18 MG/DL Creatinine 0.84 0.60-1.30 MG/DL Estimat Glomerular Filtration Rate > 60 BUN/Creatinine Ratio 15 Glucose Level 107 H 70-105 MG/DL Calcium Level 9.8 8.5-10.1 MG/DL My Orders Orders - PARIS MORALES DO Urinalysis (12/17/18 13:12) Ct Abdomen/Pelvis Wo (12/17/18 13:33) Cbc With Automated Diff (12/17/18 13:33) Basic Metabolic Panel (12/17/18 13:33) Ketorolac Injection (Toradol Injection) (12/17/18 13:45) Ondansetron Injection (Zofran Injectio (12/17/18 13:45) Ns Iv 1000 Ml (Sodium Chloride 0.9%) (12/17/18 13:45) Ns Iv 1000 Ml (Sodium Chloride 0.9%) (12/17/18 13:30) Hydrocodone/Apap 5/325 Tablet (Lortab 5 (12/17/18 14:30) Medications Given in ED Current Medications Medications Dose Ordered Sig/Gregg Route Start Time Stop Time Status Last Admin Dose Admin Acetaminophen/ Hydrocodone Bitart 2 tab ONCE ONCE PO 12/17/18 14:30 12/17/18 14:31 DC 12/17/18 14:35 2 TAB Ketorolac Tromethamine 30 mg ONCE ONCE IVP 12/17/18 13:45 12/17/18 13:46 DC 12/17/18 13:44 30 MG Ondansetron HCl 4 mg ONCE ONCE IVP 12/17/18 13:45 12/17/18 13:46 DC 12/17/18 13:44 4 MG Vital Signs/I&O 12/17/18 12/17/18 13:08 14:35 Temp 97.2 97.2 Pulse 96 Resp 20 B/P (MAP) 141/84 (103) Pulse Ox 98 O2 Delivery Room Air Capillary Refill : Progress Note : Time: 13:37 Progress Note Patient is seen and examined. She does seem to be uncomfortable and currently complaining of nausea. Urinalysis is ordered along with CBC and BMP. CT scan without contrast to evaluate for kidney stone is also ordered. We'll give pain medication, nausea medication, and IV fluids. 14:45: All results are reviewed and discussed with the patient. Urine was contaminated but no acute additional findings on the urine dip. That said, the patient has prior history of UTIs. She endorses similar symptoms. I will treat her empirically today. CT scan does not reveal acute findings. Other considerations for her pain are musculoskeletal strain. Her pain is worse with certain movements. She has no red flags on her physical exam or history of present illness. No weakness, numbness, tingling. No radiation of pain symptoms. Overall, this is a nontoxic-appearing female who came to the emergency department with left flank pain. In the ER, she was given Toradol 30 mg as well as 2 [place] by mouth. These interventions did significantly improve her pain symptoms. She is discharged home with antibiotic as lety above. She is also given some [place] and Flexeril to use at home. Appropriate use of these medications is discussed prior to discharge and opiate precautions are also discussed. All of her questions were answered prior to discharge. She is accompanied by her today who is driving her home. Departure Impression Primary Impression: Urinary tract infection Additional Impression: Musculoskeletal pain Disposition: HOME, SELF-CARE Condition: Improved Departure-Patient Inst. Referrals: ORIANA DEE MD (PCP/Family) Primary Care Physician Scripts Nitrofurantoin Monohyd/M-Cryst (Macrobid 100 mg Capsule) 100 Mg Capsule 1 TAB PO BID for 5 Days, #10 CAP Prov: PARIS MORALES DO 12/17/18 Cyclobenzaprine HCl (Cyclobenzaprine HCl) 10 Mg Tablet 10 MG PO TID PRN for MUSCLE SPASMS for 7 Days, #21 TAB Prov: PARIS MORALES DO 12/17/18 Hydrocodone/Acetaminophen ([place] 5-325 Tablet) 1 Each Tablet 2 TAB PO Q6H for Pain MDD 10 TABS for 7 Days, #16 TAB Prov: PARIS MORALES DO 12/17/18 PARIS MORALES DO Dec 17, 2018 13:13
[2018-12-17] MEDS ORDERED: PRAZ1CAP2 (13:23)
[2018-12-17] MEDS ORDERED: LISI40TA PO (13:23)
[2018-12-17] MEDS ORDERED: LURA60TA2 (13:23)
[2018-12-17] MEDS ORDERED: GABA-486 (13:23)
[2018-12-17 13:30] LABS: BACTERIA,URINE TRACE /HPF; BILIRUBIN,URINE NEGATIVE (NEGATIVE); CLARITY,URINE CLEAR; COLOR,URINE YELLOW; GLUCOSE, URINE (UA) NEGATIVE (NEGATIVE); KETONES,URINE NEGATIVE (NEGATIVE); LEUKOCYTE ESTERASE ,URINE NEGATIVE (NEGATIVE); NITRITE,URINE NEGATIVE (NEGATIVE); PH,URINE 6.5 (5-9); PROTEIN,URINE NEGATIVE (NEGATIVE); UROBILINOGEN,URINE 0.2 MG/DL (NORMAL)
[2018-12-17] MEDS ORDERED: NS IV 1000 ML 1,000 ML ONE (13:30)
--- NOTE | 2018-12-17 13:30 | NUR ---
Dr Alarcon assessing patient. Discussed verbally orders planned.
--- NOTE | 2018-12-17 13:42 | NUR ---
20 ga SL placed to LAC without difficulty. Labs drawn.
--- NOTE | 2018-12-17 13:44 | NUR ---
Medications given IV per eMAR.
[2018-12-17] MEDS ORDERED: ONDANSETRON 4 MG/2 ML (SDV) Z0FRAN IVP ONE (13:45)
[2018-12-17] MEDS ORDERED: NS IV 1000 ML 1,000 ML IV SCH (13:45)
[2018-12-17] MEDS ORDERED: KETOROLAC 30 MG/ML VIAL IVP ONE (13:45)
--- NOTE | 2018-12-17 13:52 | NUR ---
To CT at this time.
[2018-12-17 13:55] LABS: BASOPHILS # (AUTO) 0.1 10^3/uL (0.0-0.1); BASOPHILS % (AUTO) 1 % (0-10); EOSINOPHILS # (AUTO) 0.2 10^3/uL (0.0-0.3); EOSINOPHILS % (AUTO) 2 % (0-10); HEMATOCRIT 39 % (35-52); HEMOGLOBIN 12.5 G/DL (11.5-16.0); LYMPHOCYTES # (AUTO) 3.3 X 10^3 (1.0-4.0); LYMPHOCYTES % (AUTO) 35 % (12-44); MEAN CORPUSCULAR HEMOGLOBIN 30 PG (25-34); MEAN CORPUSCULAR HGB CONC 32 G/DL (32-36); MEAN CORPUSCULAR VOLUME 94 FL (80-99); MEAN PLATELET VOLUME 9.5 FL (7.4-10.4); MONOCYTES # (AUTO) 0.8 X 10^3 (0.0-1.0); MONOCYTES % (AUTO) 9 % (0-12); NEUTROPHILS # (AUTO) 4.8 X 10^3 (1.8-7.8); NEUTROPHILS % (AUTO) 53 % (42-75); PLATELET COUNT 355 10^3/uL (130-400); RED CELL DISTRIBUTION WIDTH 12.3 % (10.0-14.5); WHITE BLOOD COUNT 9.2 10^3/uL (4.3-11.0)
--- NOTE | 2018-12-17 14:02 | NUR ---
Returned to room from CT, NS continues to infuse wide open. IV site patent, no redness or swelling.
--- NOTE | 2018-12-17 14:14 | Diagnostic Imaging Report ---
PROCEDURE: CT abdomen and pelvis without contrast. TECHNIQUE: Multiple contiguous axial images were obtained through the abdomen and pelvis without the use of intravenous contrast. Auto Exposure Controls were utilized during the CT exam to meet ALARA standards for radiation dose reduction. INDICATION: Bladder pain. FINDINGS: The heart size is normal. The lung bases are clear. There is some fatty Infiltration of liver. Gallbladder is surgically absent. No biliary duct dilatation. Spleen is normal. The pancreas and adrenal glands are unremarkable. Kidneys are normal in appearance. Aorta is nonaneurysmal. Bowel gas pattern is nonspecific. Small fat-containing umbilical hernia. There is no free air. No ascites. No focal inflammatory changes. Bladder is normal. There is no pelvic mass, adenopathy or free fluid. The osseous structures are unremarkable. IMPRESSION: 1. Fatty infiltration of liver. 2. No other acute abnormality in the abdomen or pelvis. 3. Small fat-containing umbilical hernia. Dictated by: Dictated on workstation # [id number]
[2018-12-17 14:24] LABS: BUN/CREATININE RATIO 15; CALCIUM 9.8 MG/DL (8.5-10.1); CARBON DIOXIDE 23 MMOL/L (21-32); CHLORIDE 101 MMOL/L (98-107); CREATININE SERUM 0.84 MG/DL (0.60-1.30); GFR ESTIMATED > 60; GLUCOSE 107 MG/DL (70-105); POTASSIUM 4.6 MMOL/L (3.6-5.0); SODIUM 141 MMOL/L (135-145)
[2018-12-17] MEDS ORDERED: CYCL10TA9 PO (14:30)
[2018-12-17] MEDS ORDERED: HYDR-4226 PO (14:30)
[2018-12-17] MEDS ORDERED: NITR-65 PO (14:30)
[2018-12-17] MEDS ORDERED: HYDROcodone/APAP 5 MG/325 MG (LORTAB) TAB PO ONE (14:30)
--- NOTE | 2018-12-17 14:35 | NUR ---
Hydrocodone 5/325 2 tabs given p.o. for c/o bladder pain "6 05/04 -. Pt states pain more intense before the bladder empties.
--- NOTE | 2018-12-17 15:00 | NUR ---
Pt discharged to home with . Pain was improved rated "4"/10. Pt reviewed home instructions and verbalizes understanding of this.
[2018-12-17 15:03] VITALS: BP 99/54
== END 2018-12-17 15:00 | disposition home or self-care (01) ==
LOC: EDUNIT# 13:05 → ER FS 13:07
DX: N39.0 Urinary tract infection, site not specified (principal); M79.10 Myalgia, unspecified site; J44.9 Chronic obstructive pulmonary disease, unspecified; I10 Essential (primary) hypertension; G62.9 Polyneuropathy, unspecified; Z88.0 Allergy status to penicillin; Z88.1 Allergy status to other antibiotic agents; Z79.82 Long term (current) use of aspirin; Z90.49 Acquired absence of other specified parts of digestive tract
CPT/HCPCS: 36415; 74176; 80048; 81000; 85025; 96374; 96375

== ENCOUNTER 2019-01-23 17:11 | Observation (INO) | payer OTHER ==
[~2019-01-23] VITALS: Ht 170.2 cm; Wt 115.9 kg
[~2019-01-23 17:11] MED LIST changes: +CYCL10TA9 PO; +GABA-486 PO; +HYDR-4226 PO; +LISI40TA PO; +LURA60TA2 PO; +NITR-65 PO; +PRAZ1CAP2
[2019-01-23] MEDS ORDERED: morphine INJ 10 MG/ML 1ML (SYR OR VIAL) IVP STA ×2 (17:34→20:20)
--- NOTE | 2019-01-23 17:42 | ED Chest Pain ---
General Chief Complaint: Chest Pain Stated Complaint: CHEST PAIN Nursing Triage Note: CHEST PAIN STARTED THIS AM. DR MURILLO NURSE SENT PT HERE. SHE REPORTS SHE HAS ANXIETY BUT THIS FEELS DIFFERENT THAN HER NORMAL ANXIETY. Nursing Sepsis Screen: No Definite Risk (SUGAR NOEL MD) History of Present Illness Date Seen by Provider: Jan 23, 2019 Time Seen by Provider: 17:37 Initial Comments The patient is a 48-year-old female with a history of hypertension and anxiety who presents with concern for acute onset of squeezing, dull, quite severe left- sided chest discomfort with radiation up toward the left shoulder, all with onset about 45 minutes prior to arrival. Discomfort was about 10 out of 10 in severity initially. It is now about 2 out of 10 in severity but still present. Associated nausea. Associated mild diaphoresis. No associated shortness of breath. No fevers, cough, abdominal pain, flank pain, back pain, dysuria or hematuria, changes in bowel habits. Patient states symptoms occurred in the setting of worsen usual palpitations. She has had these for years but noticed more of them prior to onset of symptoms earlier today. (SUGAR NOEL MD) Allergies and Home Medications Allergies Coded Allergies: Penicillins (Verified Allergy, Unknown, 12/17/18) cephalexin (Unverified Adverse Reaction, Unknown, 12/17/18) Home Medications Alprazolam 0.25 Mg Tablet, 1 TAB PO DAILY, (Reported) Aspirin 81 Mg Tabec, 81 MG PO DAILY, (Reported) Cyclobenzaprine HCl 10 Mg Tablet, 10 MG PO TID PRN for MUSCLE SPASMS Prescribed by: PARIS MORALES on 12/17/18 1430 Hydrocodone/Acetaminophen 1 Each Tablet, 2 TAB PO Q6H Prescribed by: PARIS MORALES on 12/17/18 1430 Lisinopril 40 Mg Tablet, 40 MG PO DAILY, (Reported) Nitrofurantoin Monohyd/M-Cryst 100 Mg Capsule, 1 TAB PO BID Prescribed by: PARIS MORALES on 12/17/18 1430 Patient Home Medication List Home Medication List Reviewed: Yes (SUGAR NOEL MD) Review of Systems Review of Systems Constitutional: see HPI (SUGAR NOEL MD) Respiratory: Denies Cough, Denies Shortness of Air Cardiovascular: See HPI, Chest Pain; Denies Edema Gastrointestinal: Denies Abdomen Distended, Denies Abdominal Pain, Denies Blood Streaked Stools Genitourinary: Denies Burning, Denies Discharge (GEMMA PALMER) All Other Systems Reviewed Negative Unless Noted: Yes (Negative excepted noted.) (SUGAR NOEL MD) Past Vylslrz-Krofbb-Rmjoye Hx Past Med/Social Hx: Reviewed Nursing Past Med/Soc Hx (SUGAR NOEL MD) Patient Social History 2nd Hand Smoke Exposure: No Recent Foreign Travel: No Contact w/Someone Who Travel: No Recent Infectious Disease Expo: No Recent Hopitalizations: No Physical Abuse: No Sexual Abuse: No Mistreated: No Fear: No (SUGAR NOEL MD) Immunizations Up To Date Date of Influenza Vaccine: Jan 01, 2018 (SUGAR NOEL MD) Seasonal Allergies Seasonal Allergies: No (SUGAR NOEL MD) Past Medical History Surgeries: Yes Appendectomy, Section, Gallbladder Respiratory: Yes COPD Cardiac: Yes Hypertension, Irregular Heartbeat Neurological: Yes Neuropathy Genitourinary: Yes UTI-Chronic Gastrointestinal: No Musculoskeletal: No Endocrine: No HEENT: No Cancer: No Psychosocial: Yes Anxiety Integumentary: No Blood Disorders: No (SUGAR NOEL MD) Family Medical History Reviewed Nursing Family Hx (SUGAR NOEL MD) Physical Exam Vital Signs Vital Signs - First Documented 01/23/19 17:28 Temp 36.3 Pulse 93 Resp 18 B/P (MAP) 135/87 (103) Pulse Ox 99 O2 Delivery Room Air (GEMMA PALMER) Vital Signs Capillary Refill : Less Than 3 Seconds (SUGAR NOEL MD) Height, Weight, BMI Height: 5'7.00" Weight: 258lbs. 0oz. [id number]; 40.00 BMI Method:Stated General Appearance: No Apparent Distress Other comments This is an older female appearing nontoxic and in no acute distress. Head is normocephalic and atraumatic. Neck is supple and nontender. Oropharynx is moist. Lungs are clear to auscultation in all stations. There is a normal S1 and S2 without rubs or gallops and capillary refill is appropriate, less than 2 seconds globally. Abdomen is soft, nontender and nondistended. Skin is warm and dry without cyanosis, clubbing or edema. Psychiatrically, the patient demonstrates appropriate mood and affect is alert. (SUGAR NOEL MD) HEENT: Normal ENT Inspection, Pharynx Normal, Moist Mucous Membranes Neck: Full Range of Motion, Normal Inspection Respiratory: Chest Non Tender, Lungs Clear, Normal Breath Sounds, No Accessory Muscle Use, No Respiratory Distress Cardiovascular: Regular Rate, Rhythm, No Edema, Normal Peripheral Pulses Gastrointestinal: Normal Bowel Sounds, No Organomegaly, Non Tender, Soft (LISY,GEMMA J) Progress/Results/Core Measures Results/Orders Lab Results Laboratory Tests Test 01/23/19 17:20 Range/Units White Blood Count 12.6 H 4.3-11.0 10^3/uL Red Blood Count 4.48 4.35-5.85 10^6/uL Hemoglobin 13.5 11.5-16.0 G/DL Hematocrit 42 35-52 % Mean Corpuscular Volume 95 80-99 FL Mean Corpuscular Hemoglobin 30 25-34 PG Mean Corpuscular Hemoglobin Concent 32 32-36 G/DL Red Cell Distribution Width 12.2 10.0-14.5 % Platelet Count 379 130-400 10^3/uL Mean Platelet Volume 10.0 7.4-10.4 FL Neutrophils (%) (Auto) 51 42-75 % Lymphocytes (%) (Auto) 40 12-44 % Monocytes (%) (Auto) 6 0-12 % Eosinophils (%) (Auto) 2 0-10 % Basophils (%) (Auto) 1 0-10 % Neutrophils # (Auto) 6.5 1.8-7.8 X 10^3 Lymphocytes # (Auto) 5.0 H 1.0-4.0 X 10^3 Monocytes # (Auto) 0.8 0.0-1.0 X 10^3 Eosinophils # (Auto) 0.2 0.0-0.3 10^3/uL Basophils # (Auto) 0.1 0.0-0.1 10^3/uL Prothrombin Time 13.5 12.2-14.7 SEC INR Comment 1.0 0.8-1.4 Activated Partial Thromboplast Time 26 24-35 SEC Sodium Level 141 135-145 MMOL/L Potassium Level 4.2 3.6-5.0 MMOL/L Chloride Level 104 98-107 MMOL/L Carbon Dioxide Level 24 21-32 MMOL/L Anion Gap 13 5-14 MMOL/L Blood Urea Nitrogen 10 7-18 MG/DL Creatinine 0.98 0.60-1.30 MG/DL Estimat Glomerular Filtration Rate 60 BUN/Creatinine Ratio 10 Glucose Level 128 H 70-105 MG/DL Calcium Level 9.6 8.5-10.1 MG/DL Corrected Calcium 8.5-10.1 MG/DL Total Bilirubin 0.4 0.1-1.0 MG/DL Aspartate Amino Transf (AST/SGOT) 22 5-34 U/L Alanine Aminotransferase (ALT/SGPT) 21 0-55 U/L Alkaline Phosphatase 80 40-136 U/L Troponin I < 0.30 <0.30 NG/ML Pro-B-Type Natriuretic Peptide 29.2 <75.0 PG/ML Total Protein 7.6 6.4-8.2 GM/DL Albumin 4.7 H 3.2-4.5 GM/DL (GEMMA PALMER) Medications Given in ED Current Medications Medications Dose Ordered Sig/Gregg Route Start Time Stop Time Status Last Admin Dose Admin Aspirin 324 mg ONCE ONCE PO 01/23/19 17:45 01/23/19 17:46 DC 01/23/19 17:55 324 MG Nitroglycerin 1 TAB Q 5 MIN X 3 NEEDED PRN SL 01/23/19 17:45 01/23/19 19:09 0.4 MG (GEMMA PALMER) Vital Signs/I&O 01/23/19 17:28 Temp 36.3 Pulse 93 Resp 18 B/P (MAP) 135/87 (103) Pulse Ox 99 O2 Delivery Room Air (GEMMA PALMER) Blood Pressure Mean: 103 Progress Progress Note : Progress Note Vital signs and clinical examination generally reassuring. Initial EKG nonacute. Patient with rather concerning episode of substernal chest pain, squeezing in character and initially quite severe with associated nausea and diaphoresis. Symptoms have nearly abated now but are still mildly present. We will check labs and chest x-ray and give a full strength aspirin and sublingual nitroglycerin small dose of morphine. We will then reevaluate. Patient will minimally be an admit for observation on telemetry, dictation from cardiology and further care as indicated. Transition of care to Dr. Palmer at this time. (SUGAR NOEL MD) Progress Note : Time: 19:15 Progress Note Assume care of the patient at shift change. Negative initial troponin and EKG 45 minutes after presentation of symptoms. Heart score 4 points based on convincing history of present illness. Dr. Noel has already spoke with Dr. Ortiz. We will update and elevate, Dr. Gar. (GEMMA PALMER) Comment Sinus rhythm, no acute ST elevation or depression, EP interpretation. (SUGAR NOEL MD) Initial ECG Impression Date: Jan 23, 2019 Initial ECG Impression Time: 17:20 Initial ECG Rate: 88 Initial ECG Rhythm: Normal Sinus Initial ECG Intervals: Normal Initial ECG Impression: Normal Comment No clinically significant ST changes. (GEMMA PALMER) Departure Communication (Admissions) Time/Spoke to Admitting Phy: 18:00 Dr Noel discussed with Dr Ortiz and she accepts observation. Time/Spoke to Consulting Phy: 19:35 Discussed case lab EKG imaging with Dr. Gar and he agrees to consult on the patient. (GEMMA PALMER) Impression Primary Impression: Other chest pain Disposition: ADMITTED INPATIENT Condition: Stable Admissions Decision to Admit Reason: Admit from ER (General) Decision to Admit/Date: Jan 23, 2019 Time/Decision to Admit Time: 18:00 (GEMMA PALMER) Departure-Patient Inst. Referrals: ORIANA DEE MD (PCP/Family) Primary Care Physician SUGAR NOEL MD Jan 23, 2019 17:42 GEMMA PALMER Jan 23, 2019 19:19
[2019-01-23] MEDS ORDERED: NITROGLYCERIN 0.4 MG SL TABS BTL 25'S SL PRN (17:45)
[2019-01-23] MEDS ORDERED: ASPIRIN 81 MG CHEW (CHILDREN'S ASA) PO ONE (17:45)
[2019-01-23 17:48] LABS: HEMATOCRIT 42 % (35-52); HEMOGLOBIN 13.5 G/DL (11.5-16.0); MEAN CORPUSCULAR HEMOGLOBIN 30 PG (25-34); MEAN CORPUSCULAR HGB CONC 32 G/DL (32-36); MEAN CORPUSCULAR VOLUME 95 FL (80-99); WHITE BLOOD COUNT 12.6 10^3/uL (4.3-11.0)
[2019-01-23 17:49] LABS: BASOPHILS # (AUTO) 0.1 10^3/uL (0.0-0.1); BASOPHILS % (AUTO) 1 % (0-10); EOSINOPHILS # (AUTO) 0.2 10^3/uL (0.0-0.3); EOSINOPHILS % (AUTO) 2 % (0-10); LYMPHOCYTES % (AUTO) 40 % (12-44); MONOCYTES # (AUTO) 0.8 X 10^3 (0.0-1.0); MONOCYTES % (AUTO) 6 % (0-12); NEUTROPHILS # (AUTO) 6.5 X 10^3 (1.8-7.8); NEUTROPHILS % (AUTO) 51 % (42-75); PLATELET COUNT 379 10^3/uL (130-400); RED CELL DISTRIBUTION WIDTH 12.2 % (10.0-14.5)
--- NOTE | 2019-01-23 18:06 | Diagnostic Imaging Report ---
INDICATION: Chest pain COMPARISON: None. FINDINGS: Frontal view of the chest demonstrates clear lungs bilaterally. The heart size is normal. There is no pneumothorax. Osseous structures are normal. IMPRESSION: No acute findings. Normal chest. Dictated by: Dictated on workstation # [id number]
[2019-01-23 18:22] LABS: PROTHROMBIN TIME PATIENT 13.5 SEC (12.2-14.7)
[2019-01-23 18:23] LABS: BUN/CREATININE RATIO 10; CARBON DIOXIDE 24 MMOL/L (21-32); CHLORIDE 104 MMOL/L (98-107); CREATININE SERUM 0.98 MG/DL (0.60-1.30); GFR ESTIMATED 60; GLUCOSE 128 MG/DL (70-105); POTASSIUM 4.2 MMOL/L (3.6-5.0); SODIUM 141 MMOL/L (135-145)
[2019-01-23 18:24] LABS: ALANINE AMINOTRANSFERASE 21 U/L (0-55); ALBUMIN 4.7 GM/DL (3.2-4.5); ALKALINE PHOSPHATASE 80 U/L (40-136); BILIRUBIN,TOTAL 0.4 MG/DL (0.1-1.0); CALCIUM 9.6 MG/DL (8.5-10.1); TOTAL PROTEIN 7.6 GM/DL (6.4-8.2)
[2019-01-23 21:41] VITALS: BP 110/62
[2019-01-23 21:56] VITALS: BP 98/65
[2019-01-23 22:10] VITALS: BP 134/64
[2019-01-23 22:25] VITALS: BP 116/80
[2019-01-23 22:45] VITALS: BP 110/62
[2019-01-23] MEDS ORDERED: morphine INJ 4 MG/ML 1 ML (VIAL/SYRINGE) IV PRN (22:45)
[2019-01-23] MEDS ORDERED: ONDANSETRON 4 MG/2 ML (SDV) Z0FRAN IV PRN (22:45)
[2019-01-23] MEDS ORDERED: LORazepam 0.5 MG (ATIVAN) TABLET PO PRN (22:45)
[2019-01-23 23:40] VITALS: BP 93/57
[2019-01-24 02:00] VITALS: BP 104/69
[2019-01-24 03:00] VITALS: BP 104/62
[2019-01-24 04:00] VITALS: BP 106/67
[2019-01-24 06:51] LABS: BASOPHILS # (AUTO) 0.1 10^3/uL (0.0-0.1); BASOPHILS % (AUTO) 1 % (0-10); EOSINOPHILS # (AUTO) 0.2 10^3/uL (0.0-0.3); EOSINOPHILS % (AUTO) 2 % (0-10); HEMATOCRIT 39 % (35-52); HEMOGLOBIN 12.5 G/DL (11.5-16.0); LYMPHOCYTES # (AUTO) 2.8 X 10^3 (1.0-4.0); LYMPHOCYTES % (AUTO) 35 % (12-44); MEAN CORPUSCULAR HEMOGLOBIN 30 PG (25-34); MEAN CORPUSCULAR HGB CONC 32 G/DL (32-36); MEAN CORPUSCULAR VOLUME 93 FL (80-99); MEAN PLATELET VOLUME 9.8 FL (7.4-10.4); MONOCYTES # (AUTO) 0.6 X 10^3 (0.0-1.0); MONOCYTES % (AUTO) 7 % (0-12); NEUTROPHILS # (AUTO) 4.3 X 10^3 (1.8-7.8); NEUTROPHILS % (AUTO) 55 % (42-75); PLATELET COUNT 317 10^3/uL (130-400); RED CELL DISTRIBUTION WIDTH 12.8 % (10.0-14.5); WHITE BLOOD COUNT 7.9 10^3/uL (4.3-11.0)
[2019-01-24 07:05] LABS: ALANINE AMINOTRANSFERASE 20 U/L (0-55); ALBUMIN 4.2 GM/DL (3.2-4.5); ALKALINE PHOSPHATASE 75 U/L (40-136); BILIRUBIN,TOTAL 0.5 MG/DL (0.1-1.0); BUN/CREATININE RATIO 15; CALCIUM 9.2 MG/DL (8.5-10.1); CARBON DIOXIDE 22 MMOL/L (21-32); CHLORIDE 108 MMOL/L (98-107); CHOLESTEROL 192 MG/DL (< 200); CREATININE SERUM 0.81 MG/DL (0.60-1.30); GFR ESTIMATED > 60; GLUCOSE 103 MG/DL (70-105); HDL CHOLESTEROL 35 MG/DL (40-60); POTASSIUM 4.3 MMOL/L (3.6-5.0); SODIUM 140 MMOL/L (135-145); TOTAL PROTEIN 6.9 GM/DL (6.4-8.2); TRIGLYCERIDES 249 MG/DL (<150); VLDL CHOLESTEROL 50 MG/DL (5-40)
--- NOTE | 2019-01-24 07:29 | Consultation-Cardiology ---
HPI-Cardiology Cardiology Consultation Date of Consultation 01/24/19 Date of Admission Time Seen by Provider: 07:26 Indication: Chest pain HPI 48 years old lady with history of hypertension, depression, anxiety, seen in [place] emergency room for chest pain, described it as dull achiness on the left side of her chest not radiating, responsive to nitroglycerin. Had another episode early this morning mild discomfort. Reported diaphoresis, no shortness of breath. No palpitation, no syncope or near syncopal episodes. No claudications Home Medications & Allergies Allergies: Coded Allergies: Penicillins (Verified Allergy, Unknown, 12/17/18) cephalexin (Unverified Adverse Reaction, Unknown, 12/17/18) Home Medication List Reviewed: Yes NUL-Zsygum-Tgmfox Hx Patient Social History Marital Status: Employed/Student: employed Alcohol Use: Denies Use Recreational Drug Use: No 2nd Hand Smoke Exposure: No Recent Foreign Travel: No Recent Infectious Disease Expo: No Recent Hopitalizations: No Immunizations Up To Date Date of Influenza Vaccine: Jan 01, 2018 Past Medical History Discussed below Family Medical History Family History: Cardiovascular disease 19 MOTHER Diabetes mellitus G8 BROTHER FH: breast cancer 19 MOTHER Hypertension G8 BROTHER Irregular Heartbeat 19 MOTHER Lung Cancer 19 FATHER Myocardial infarction 19 MOTHER Review of Systems-General Review of Systems Constitutional: see HPI, malaise EENTM: see HPI, no symptoms reported Respiratory: no symptoms reported, see HPI Cardiovascular: see HPI, chest pain; No edema, No Hx of Intervention, No palpitations, No syncope, No vascular heart diseas, No other Gastrointestinal: no symptoms reported, see HPI Genitourinary: no symptoms reported, see HPI Musculoskeletal: no symptoms reported, see HPI Skin: no symptoms reported, see HPI Psychiatric/Neurological: No Symptoms Reported, See HPI All Other Systems Reviewed Negative Unless Noted: Yes (Negative excepted noted.) Reviewed Test Results Reviewed Test Results Lab Laboratory Tests Test 01/23/19 17:20 01/23/19 23:31 01/24/19 06:36 Range/Units White Blood Count 12.6 H 7.9 4.3-11.0 10^3/uL Red Blood Count 4.48 4.21 L 4.35-5.85 10^6/uL Hemoglobin 13.5 12.5 11.5-16.0 G/DL Hematocrit 42 39 35-52 % Mean Corpuscular Volume 95 93 80-99 FL Mean Corpuscular Hemoglobin 30 30 25-34 PG Mean Corpuscular Hemoglobin Concent 32 32 32-36 G/DL Red Cell Distribution Width 12.2 12.8 10.0-14.5 % Platelet Count 379 317 130-400 10^3/uL Mean Platelet Volume 10.0 9.8 7.4-10.4 FL Neutrophils (%) (Auto) 51 55 42-75 % Lymphocytes (%) (Auto) 40 35 12-44 % Monocytes (%) (Auto) 6 7 0-12 % Eosinophils (%) (Auto) 2 2 0-10 % Basophils (%) (Auto) 1 1 0-10 % Neutrophils # (Auto) 6.5 4.3 1.8-7.8 X 10^3 Lymphocytes # (Auto) 5.0 H 2.8 1.0-4.0 X 10^3 Monocytes # (Auto) 0.8 0.6 0.0-1.0 X 10^3 Eosinophils # (Auto) 0.2 0.2 0.0-0.3 10^3/uL Basophils # (Auto) 0.1 0.1 0.0-0.1 10^3/uL Prothrombin Time 13.5 12.2-14.7 SEC INR Comment 1.0 0.8-1.4 Activated Partial Thromboplast Time 26 24-35 SEC Sodium Level 141 140 135-145 MMOL/L Potassium Level 4.2 4.3 3.6-5.0 MMOL/L Chloride Level 104 108 H 98-107 MMOL/L Carbon Dioxide Level 24 22 21-32 MMOL/L Anion Gap 13 10 5-14 MMOL/L Blood Urea Nitrogen 10 12 7-18 MG/DL Creatinine 0.98 0.81 0.60-1.30 MG/DL Estimat Glomerular Filtration Rate 60 > 60 BUN/Creatinine Ratio 10 15 Glucose Level 128 H 103 70-105 MG/DL Calcium Level 9.6 9.2 8.5-10.1 MG/DL Corrected Calcium 9.0 8.5-10.1 MG/DL Total Bilirubin 0.4 0.5 0.1-1.0 MG/DL Aspartate Amino Transf (AST/SGOT) 22 20 5-34 U/L Alanine Aminotransferase (ALT/SGPT) 21 20 0-55 U/L Alkaline Phosphatase 80 75 40-136 U/L Troponin I < 0.30 < 0.028 < 0.028 <0.028 NG/ML Pro-B-Type Natriuretic Peptide 29.2 <75.0 PG/ML Total Protein 7.6 6.9 6.4-8.2 GM/DL Albumin 4.7 H 4.2 3.2-4.5 GM/DL Triglycerides Level 249 H <150 MG/DL Cholesterol Level 192 < 200 MG/DL LDL Cholesterol Direct 124 1-129 MG/DL VLDL Cholesterol 50 H 5-40 MG/DL HDL Cholesterol 35 L 40-60 MG/DL Physical Exam Physical Exam Vital Signs Vital Signs - First Documented 01/23/19 17:28 Temp 36.3 Pulse 93 Resp 18 B/P (MAP) 135/87 (103) Pulse Ox 99 O2 Delivery Room Air Capillary Refill : Less Than 3 Seconds Height, Weight, BMI Height: 5'7.00" Weight: 258lbs. 0oz. 117.783656an; 40.00 BMI Method:Stated General Appearance: No Apparent Distress HEENT: Normal ENT Inspection, Pharynx Normal, Moist Mucous Membranes Neck: Full Range of Motion, Normal Inspection Respiratory: Chest Non Tender, Lungs Clear, Normal Breath Sounds, No Accessory Muscle Use, No Respiratory Distress Cardiovascular: Regular Rate, Rhythm, No Edema, Normal Peripheral Pulses Gastrointestinal: Normal Bowel Sounds, No Organomegaly, Non Tender, Soft A/P-Cardiology Admission Diagnosis Chest pain Hypertension Family history of atherosclerosis Depression Assessment/Plan Chest pain nonspecific etiology, resembling angina, responsive to nitroglycerin, EKG and Cardec and then did not show any acute abnormality, planning to evaluate exercise stress test Hypertension, restart home medication monitor blood pressure Depression, anxiety, managed by primary care physician Obesity, BMI 40, discussed weight loss Strong family history of atherosclerosis, mother had a stent in her 60s Clinical Quality Measures AMI/AHF: ASA po Prior to arrival: No DVT/VTE Risk/Contraindication: Risk Factor Score Per Nursin RFS Level Per Nursing on Admit: 4+=Very High ZAMZAM ARTHUR MD Jan 24, 2019 07:28
[2019-01-24] MEDS ORDERED: REGADENOSON 0.4 MG/5 ML SYR (LEXISCAN) IV ONE ×3 (07:30→08:30)
[2019-01-24 08:24] VITALS: BP 133/73
[2019-01-24] MEDS ORDERED: ASPIRIN E.C. 81 MG (ECOTRIN) TAB PO SCH (09:00)
[2019-01-24] MEDS ORDERED: meTOprolol TARTRATE 25 MG (LOPRESSOR) TABLET PO SCH (09:00)
[2019-01-24 10:04] VITALS: BP 122/78
[2019-01-24] MEDS ORDERED: LORA10TA76 PO (10:47)
[2019-01-24] MEDS ORDERED: ALPR0.254 PO (10:47)
[2019-01-24] MEDS ORDERED: SERT50TA9 PO (10:47)
[2019-01-24] MEDS ORDERED: RT-ALBUINH INH (10:47)
[2019-01-24] MEDS ORDERED: FERR-84 PO (10:47)
[2019-01-24] MEDS ORDERED: ASPI-983 PO (10:47)
--- NOTE | 2019-01-24 10:48 | NUR ---
SPOKE WITH THE PATIENT ABOUT HER MEDICATIONS. SHE WAS ABLE TO LIST WHAT SHE TAKES AND I VERIFIED IT WITH THE EXT MED HX. SHE NO LONGER TAKES PRAZOSIN 1MG THAT WAS FILLED 12-21-18. SHE TAKES THE FOLLOWING OTC: CLARITIN 10MG DAILY PRN ASPIRIN 81MG DAILY IRON DAILY
[2019-01-24 12:02] VITALS: BP 125/75
[2019-01-24] MEDS ORDERED: ATOR40TA PO (12:44)
[2019-01-24] MEDS ORDERED: METO-333 PO (12:44)
[2019-01-24] MEDS ORDERED: GABAPENTIN 100 MG (NEURONTIN) CAP PO SCH (13:00)
--- NOTE | 2019-01-24 13:49 | NUR ---
RD ASSESSMENT Pt was awake and pleasant during consult for MST score. Pt states current appetite is good and has been for the past several weeks. Pt states no issues with n/v/c/d at this time, and states last BM was 01/23. Pt states recent 30# wt loss x 6mon. Note unable to determine recent wt hx, per chart review. Note while weight loss is significant (10.6%), pt does not meet criteria for malnutrition per ASPEN guidelines. PES Statement: Inadequate oral intake related to NPO status as evidenced by patient interview Est. kcal needs: 3835-0394 kcal (15-20 kcal/kg) Est. Pro needs: 92-115 g Pro (0.8-1.0 g Pro/kg) INTERVENTION: Advance to Heart Healthy, when medically able. MONITOR/EVALUATE: PO Intake Weight Status Hydration Status Lab values Ester Dawson, MS, RD [phone]
--- NOTE | 2019-01-24 15:12 | STRESS TEST ---
DATE OF SERVICE: 01/24/2019 LEXISCAN MYOVIEW STRESS TEST REPORT REFERRING PHYSICIAN: Dr. Nassar. Baseline heart rate is 67. Baseline blood pressure 108/75. Baseline EKG is sinus rhythm with no ischemic changes. In summary, the patient was scheduled for exercise stress test. She was given 10.58 mCi of technetium-99 Myoview, was unable to exercise on treadmill, test was converted to Lexiscan Myoview stress, she received 0.4 mg of Lexiscan followed by 32.1 mCi of technetium-99 Myoview. Throughout the test, there were no EKG changes, she was asymptomatic. The resting and stress images were reviewed and compared in the short axis, horizontal long axis, and vertical long axis views. Review of the images showed breast attenuation. There is no significant ischemia or infarction. There is mild decreased uptake at the base of the inferior wall with mild reversibility. SSS is 4, SDS is 4, TID value 1.19. On the gated images, the left ventricle appeared to be normal size with normal contractility. Calculated ejection fraction 69%. IN CONCLUSION: 1. The patient tolerated Lexiscan well. 2. Breast attenuation with typical female pattern. No significant ischemia or infarction on SPECT images. 3. Normal left ventricular size with normal contractility. Calculated ejection fraction 69%. Job ID: [id number] DocumentID: [id number] Dictated Date: 01/24/2019 12:20:25 Financial Services Agent Date: 01/24/2019 15:10:35 Dictated By: ZAMZAM ARTHUR MD
--- NOTE | 2019-01-24 15:32 | NUR ---
Initial Community Educator visit made by Chaplain Zena Chavis.
--- NOTE | 2019-01-24 19:02 | Short Stay Summary-Hospitalist ---
[facility] 01/24/19 1902: History of Present Illness HPI/Chief Complaint CC: Chest Pain Mrs. Allen is a 48 yo WF who present to the [place] ER with complaint of Chest Pain. Her symptoms started Wednesday morning, where she didn't feel well. By the late afternoon she felt a squeezing in her chest that was accompanied by an unbearable, sharp chest pain. She rates the pain at its worst as 10/10. She states that the pain radiated to her L shoulder and was mildly diaphoretic. Nothing seemed to aggravate her chest pain. In order to make sure that her symptoms where anxiety related, the patient took XANAX. She stated that she has previously had one of these episodes before. She also took ASA 81 mg. Neither one of these provided relief. She called her PCP and was told by the office to go to the ER for IA eval. She has a history that is significant for A. Fib. Source: patient Date Seen 01/24/19 Time Seen by a Provider: 11:30 Attending Physician Lainey Mccallum Pankaj K MD Referring Physician Date of Admission Jan 23, 2019 at 19:40 Home Medications & Allergies Home Medications Reviewed patient Home Medication Reconciliation performed by pharmacy medication reconciliations pharmacy technician instructor and/or nursing. Patients Allergies have been reviewed. Allergies Allergies Coded Allergies Penicillins (Verified Allergy, Unknown, 12/17/18) cephalexin (Unverified Adverse Reaction, Unknown, 12/17/18) Past Dwdjwyz-Rselqt-Qslybo Hx Past Med/Social Hx: Reviewed Nursing Past Med/Soc Hx Patient Social History Marrital Status: Employed/Student: employed Alcohol Use: Denies Use Recreational Drug Use: No Smoking Status: Never a Smoker 2nd Hand Smoke Exposure: No Recent Foreign Travel: No Contact w/other who traveled: No Recent Hopitalizations: No Recent Infectious Disease Expo: No Immunizations Up To Date Date of Influenza Vaccine: Jan 01, 2018 Seasonal Allergies Seasonal Allergies: No Past Medical History Surgeries: Appendectomy, Section, Gallbladder, Tubal Ligation Cardiac: Hypertension, Irregular Heartbeat Neurological: Neuropathy : No 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: No Sexually Transmitted Disease: No Female 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 Disorders: Denies Tubal Ligation Genitourinary: UTI-Chronic Gastrointestinal: Hemorrhoids Are Your Blood Sugars Over 250: No Loss of Vision: Denies Hearing Impairment: Denies Psychosocial: Anxiety History of Blood Disorders: No Family History Reviewed Nursing Family Hx Cardiovascular disease 19 MOTHER Diabetes mellitus G8 BROTHER FH: breast cancer 19 MOTHER Hypertension G8 BROTHER Irregular Heartbeat 19 MOTHER Lung Cancer 19 FATHER Myocardial infarction 19 MOTHER Review of Systems Constitutional: No no symptoms reported, No see HPI, No chills, No diaphoresis, No dizziness, No fever, No malaise, No weakness, No weight gain, No weight loss, No other EENTM: No see HPI, No no symptoms reported, No ear discharge, No hearing loss, No ear pain, No blurred vision, No double vision, No eye pain, No tearing, No vision loss, No dental problems, No hoarseness, No mouth pain, No mouth swelling, No epistaxis, No nose congestion, No nose pain, No throat pain, No throat swelling, No other Respiratory: No no symptoms reported, No see HPI, No cough, No dyspnea on exertion, No hemoptysis, No orthopnea, No phlegm; short of breath; No stridor, No wheezing, No other Cardiovascular: No no symptoms reported, No see HPI; chest pain; No edema, No Hx of Intervention, No palpitations, No syncope, No vascular heart diseas, No other Gastrointestinal: No RUQ, No LUQ, No RLQ, No LLQ, No no symptoms reported, No see HPI, No abdominal pain, No constipation, No diarrhea, No dysphagia, No hematemesis, No heartburn, No jaundice, No loss of appetite, No melena; nausea; No vomiting, No other Genitourinary: No no symptoms reported, No see HPI, No decreased output, No discharge, No dysuria, No frequency, No hematuria, No hesitancy, No incontinence, No nocturia, No pain, No other : No Musculoskeletal: No no symptoms reported, No see HPI, No back pain, No gout, No joint pain, No joint swelling, No muscle pain, No muscle stiffness, No muscle cramps, No muscle twitching, No muscle weakness, No neck pain, No other Skin: No no symptoms reported, No see HPI, No change in color, No change in hair/nails, No dryness, No hx of skin cancer, No lesions, No lumps, No pruritus, No rash, No other Psychiatric/Neurological: Denies No Symptoms Reported, Denies See HPI; Anxiety; Denies Depressed, Denies Emotional Problems, Denies Headache, Denies Numbness, Denies Paresthesia, Denies Pre-Existing Deficit, Denies Seizure, Denies Tin gling, Denies Tremors, Denies Weakness, Denies Other Physical Exam Physical Exam Vital Signs Vital Signs - First Documented 01/23/19 17:28 Temp 36.3 Pulse 93 Resp 18 B/P (MAP) 135/87 (103) Pulse Ox 99 O2 Delivery Room Air Capillary Refill : Less Than 3 Seconds Height, Weight, BMI Height: 5'7.00" Weight: 258lbs. 0oz. 117.579206fk; 40.00 BMI Method:Stated General Appearance: No Apparent Distress Eyes: Bilateral Eye Normal Inspection, Bilateral Eye PERRL, Bilateral Eye EOMI HEENT: Normal ENT Inspection, Pharynx Normal, Moist Mucous Membranes Neck: Full Range of Motion, Normal Inspection, Supple Respiratory: Chest Non Tender, Lungs Clear, Normal Breath Sounds, No Accessory Muscle Use, No Respiratory Distress Cardiovascular: Regular Rate, Rhythm, No Edema, No Gallop, No JVD, No Murmur, Normal Peripheral Pulses Gastrointestinal: Normal Bowel Sounds, No Organomegaly, Non Tender, Soft Extremity: Normal Capillary Refill, Non Tender, No Calf Tenderness, No Pedal Edema 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: Alert, Oriented x3, No Motor/Sensory Deficits, Normal Mood/Affect, technical document writer II-XII Norm as Tested Skin: Normal Color, Warm/Dry Lymphatic: No Adenopathy Results Results/Procedures Labs Laboratory Tests 01/23/19 17:20 01/24/19 06:36 Patient resulted labs reviewed. Short Stay Diagnosis Discharge Diagnosis-Short Stay Admission Diagnosis Acute Chest pain and SOB Final Discharge Diagnosis Acute Chest Pain and SOB Conclusion Plan 1. Continue to take BP medicine. 2. Monitor BP 3. Look out for worsening symptoms 4. Continue to treat Anxiety 5. Continue to treat neuropathy symptoms Clinical Quality Measures AMI/AHF: ASA po Prior to arrival: No DVT/VTE Risk/Contraindication: Risk Factor Score Per Nursin RFS Level Per Nursing on Admit: 4+=Very High LAINEY MCCALLUM DO 01/24/192031: History of Present Illness HPI/Chief Complaint Chief complaint: Chest pain, Chest pressure. HPI: This is a 48yoWF clinic Pt of Dr. Nassar in [place] who presented to the ER with a squeezing chest pressure all afternoon yesterday. She was found to have a negative Troponin, so Dr. Gar was consulted, underwent lexiscan and the results are pending at this current time. She denies any other significant issues, she is hungry, wants to eat and denies any other significant problems. We will evaluate the results of the lexiscan and then likely discharge home. Past Xlzluvd-Ttvxyk-Fckedn Hx Family History Cardiovascular disease 19 MOTHER Diabetes mellitus G8 BROTHER FH: breast cancer 19 MOTHER Hypertension G8 BROTHER Irregular Heartbeat 19 MOTHER Lung Cancer 19 FATHER Myocardial infarction 19 MOTHER Short Stay Diagnosis Discharge Diagnosis-Short Stay Admission Diagnosis Chest pain Final Discharge Diagnosis Chest pain not cardiac Conclusion Plan DC home Diagnosis/Problems Diagnosis/Problems (1) CP R/O ACS (2) Musculoskeletal pain Status: Acute Supervisory-Addendum Brief Verification & Attestation Participated in pt care: history, MDM, physical Personally performed: exam, history, MDM, supervision of care Care discussed with: Medical Student Procedures: n/a Results interpretation: Verified all documentation Verification and Attestation of Medical Student E/M Service A medical student performed and documented this service in my presence. I reviewed and verified all information documented by the medical student and made modifications to such information, when appropriate. I personally performed the physical exam and medical decision making. Lainey Mccallum, Jan 24, 2019,20:30 [facility] Jan 24, 2019 19:02 LAINEY MCCALLUM DO Jan 24, 2019 20:32
== END 2019-01-24 14:10 | disposition home or self-care (01) ==
LOC: EDUNIT# 17:11 → ER FS 17:12 → 4TH 19:40
PROVIDERS: ADMIT Internal Medicine; ATTEND Internal Medicine
DX: R07.9 Chest pain, unspecified (principal); I10 Essential (primary) hypertension; J44.9 Chronic obstructive pulmonary disease, unspecified; G62.9 Polyneuropathy, unspecified; F41.9 Anxiety disorder, unspecified; Z88.1 Allergy status to other antibiotic agents; Z88.0 Allergy status to penicillin; Z79.82 Long term (current) use of aspirin; Z79.891 Long term (current) use of opiate analgesic; Z79.899 Other long term (current) drug therapy; Z90.89 Acquired absence of other organs; Z98.51 Tubal ligation status; Z82.49 Family history of ischemic heart disease and other diseases of the circulatory system; Z83.3 Family history of diabetes mellitus; Z80.1 Family history of malignant neoplasm of trachea, bronchus and lung; Z80.3 Family history of malignant neoplasm of breast
CPT/HCPCS: 36415; 71045; 78452; 80053; 80061; 83880; 84484; 85025; 85610; 85730; 93005; 93017; 96374; 96376; G0378

== ENCOUNTER 2019-11-15 05:53 | Outpatient (RCR) | payer OTHER ==
[~2019-11-15] VITALS: Ht 172.7 cm; Wt 121.8 kg
[~2019-11-15 05:53] MED LIST changes: -ARIP5TAB12 PO; -FLUT1DIS26 IH; -GABA300C PO
[2019-11-15] MEDS ORDERED: GABA300C PO (09:52)
[2019-11-15] MEDS ORDERED: METO-333 PO (09:54)
[2019-11-15] MEDS ORDERED: FLUT1DIS26 IH (09:54)
[2019-11-15] MEDS ORDERED: ARIP5TAB12 PO (09:54)
== END 2019-11-15 10:16 | disposition home or self-care (01) ==
LOC: PREOP 05:53
PROVIDERS: ATTEND Surgery
DX: Z01.818 Encounter for other preprocedural examination (principal)

== ENCOUNTER → 2019-11-15 | Outpatient (CLI) | payer OTHER ==
[~2019-11-15] MED LIST changes: +ALPR0.254 PO; +ARIP5TAB12 PO; +ASPI-983 PO; +ATOR40TA PO; +FERR-84 PO; +FLUT1DIS26 IH; +GABA300C PO; +LORA10TA76 PO; +METO-333 PO; +RT-ALBUINH INH; +SERT50TA9 PO
== END ==
LOC: LAB FS 09:59
PROVIDERS: ATTEND Surgery
DX: K92.1 Melena (principal); Z20.828 Contact with and (suspected) exposure to other viral communicable diseases; Z85.038 Personal history of other malignant neoplasm of large intestine
CPT/HCPCS: 87635

== ENCOUNTER 2019-11-20 08:24 | Day surgery (SDC) | payer OTHER ==
[~2019-11-20] VITALS: Ht 165 cm; Wt 121.8 kg
[~2019-11-20 08:24] MED LIST changes: +ARIP5TAB12 PO; +FLUT1DIS26 IH; +GABA300C PO
[2019-11-20] MEDS ORDERED: LACTATED RINGERS 1,000 ML IV ONE (08:31)
[2019-11-20] MEDS ORDERED: LACTATED RINGERS 1,000 ML IV STA (08:35)
[2019-11-20 08:40] VITALS: BP 115/89
--- OUTSIDE RECORDS SUMMARY | 2019-11-20 08:50 | XMS REPORT ---
Author Author Tiffanie MISHRA Organization [facility] Address [address] [place] [address] Care Team Providers Care Helicopter Engineer Name Role Phone ROSALINA MISHRA Unavailable PROBLEMS Type Condition ICD9-CM Code QAF42-LT Code Onset Dates Condition S tatus SNOMED Code Problem Status post right breast biopsy Z98.890 17 Mar, 2011 Active 363866078 Problem Chronic blood loss anemia D50.0 Aug, A ctive 059891263 Problem Mammographic microcalcification R92.0 10 Mar, 2011 Active 48637617323799 Problem Essential hypertension I10 Active 00435350 Problem Asthma J45.909 14 Jan, 2014 Active 4443902 01 Problem Hiatal hernia K44.9 16 Oct, 2009 Active 840 42795 Problem Mood disorder F39 Active 044586 05 Problem Migraine, unspecified, witho ut mention of intractable migraine without mention of status migrainosus G43.909 Active 23667041 Problem COPD with exacerbation J44.1 Active 485848013 Problem Acute pyelonephritis N10 13 Jan, 2018 Active 32440208 Problem PTSD (post-traumatic stress disorder) F43.10 Active 18761876 Problem Mixed hyperlipidemia E78.2 Active 799067916 Problem Angina pectoris, unstable I20.0 Acti ve 3020669 Problem Chronic bronchitis with COPD (chronic obstructiv e pulmonary disease) J44.9 Active 91220697 ALLERGIES No Information ENCOUNTERS Encounter Location Date Diagnosis [facility] [address] [facility] [id number] [address] [place] [address] Dec, [facility] [address] [facility] [id number] [address] [place] [address] Oct, [facility] [address] [facility] [id number] [address] [place] [address] 03 Oct, 2019 [facility] [address] [facility] [id number] [address] [place] [address] 14 Sep, 2019 PTSD (post-traumatic stress disorder) F43.10 and Mood disorder F39 [place] [address] [facility] [id number] [address] [place] [address] 23 Aug, 2019 PTSD (post-traumatic stress disorder) F43.10 and Bipolar I disorder F31.9 [place] [address] [facility] [id number] [address] [place] [address] Aug, PTSD (post-traumatic stress disorder) F43.10 and Mood disorder F39 [place] [address] [facility] [id number] [address] [place] [address] 14 Aug, 2019 PTSD (post-traumatic stress disorder) F43.10 and Bipolar I disorder F31.9 [place] [address] [facility] [id number] [address] [place] [address] 10 Jul, 2019 Bipolar I disorder F31.9 and PTSD (post-traumatic stress disorder) F43.10 [place] [address] [facility] [id number] [address] [place] [address] 10 Jul, [address] [id number], [place] [address] 04 Jul, 2019 Chronic bronchitis with COPD (chronic obstructive pulmonary disease) J44.9 ; Mixed hyperlipidemia E78.2 ; Essential hypertension I10 and Family history of colon cancer Z80.0 [facility] WALK IN [facility] [address] [id number], [place] [address] Jun, Influenza A J10.1 ; Wheezing R06.2 and Flu-like symptoms R68.89 [place] [address] [facility] [id number] [address] [place] [address] 19 Jun, 2019 PTSD (post-traumatic stress disorder) F43.10 [place] [address] [facility] [id number] [address] [place] [address] 18 Jun, [address] [id number], [place] [address] Jun, [facility] [address] [id number] [place] [address] May, PTSD (post-traumatic stress disorder) F43.10 [facility] [address] [facility] [id number] [address] [place] [address] May, PTSD (post-traumatic stress disorder) F43.10 and Bipolar I disorder F31.[address] [id number] [place] [address] Apr, PTSD (post-traumatic stress disorder) F43.[address] [id number], [place] [address] Apr, Chronic bronchitis with COPD (chronic obstructive pulmonary disease) J44.9 [facility] [place] [facility] IN [facility] [address] [id number] [place] [address] Apr, Puncture wound of plantar as pect of right foot, initial encounter S91.331A and Local infection of the skin and subcutaneous tissue, unspecified L08.9 [facility] [address] [id number] [place] [address] Mar, PTSD (post-traumatic stress disorder) F43.[address] [id number] [place] [address] Mar, [facility] [address] [id number], [place] [address] Mar, [address] [id number] [place] [address] Mar, PTSD (post-traumatic stress disorder) F43.10 [facility] [address] [id number] [place] [address] Mar, [facility] [address] [id number], [place] [address] Jan, Breast cancer screening Z12. 39 [facility] [address] [id number] [place] [address] Jan, [address] [id number], [place] [address] Jan, Essential hypertension I10 ; High risk medications (not anticoagulants) long-term use Z79.899 ; Angina pectoris, unstable I20.0 ; Mixed hyperlipidemia E78.2 ; Encounter for immunization Z23 ; Mammographic microcalcification R92.0 and Breast cancer screening Z12.[address] [id number], [place] [address] 07 Jan, 2019 PTSD (post-traumatic stress disorder) F43.[address] [id number], [place] [address] Jan, PTSD (post-traumatic stress disorder) F43.10 [facility] [address] [facility] [id number] [address] [place] [address] Jan, PTSD (post-traumatic stress disorder) F43.10 and Bipolar I disorder F31.9 [facility] [address] [id number] [address] [place] [address] Jan, Bipolar I disorder F31.9 and PTSD (post-traumatic stress disorder) F43.[address] [id number] [place] [address] Jan, PTSD (post-traumatic stress disorder) F43.10 [facility] [address] [id number] [address] [place] [address] Dec, [facility] [address] [id number] [address] [place] [address] Dec, Bipolar I disorder F31.9 and PTSD (post-traumatic stress disorder) F43.10 [facility] [address] [id number] [address] [place] [address] Dec, PTSD (post-traumatic stress disorder) F43.10 and Bipolar I disorder F31.[address] [id number] [place] [address] Dec, [facility] [address] [id number] [place] [address] Dec, Flank pain R10.9 and Dysuria R30.0 [facility] [address] [facility] [id number] [address] [place] [address] Dec, PTSD (post-traumatic stress disorder) F43.[address] [id number], [place] [address] Dec, PTSD (post-traumatic stress disorder) F43.10 [facility] [address] [facility] [id number] [address] [place] [address] Dec, Bipolar I disorder F31.9 and PTSD (post-traumatic stress disorder) F43.10 [facility] [address] [facility] [id number] [address] [place] [address] Oct, Bipolar I disorder F31.9 and PTSD (post-traumatic stress disorder) F43.10 [facility] [address] [id number], [place] [address] Oct, [facility] [address] [id number], [place] [address] Oct, Essential hypertension I10 [facility] [address] [facility] [id number] [address] [place] [address] Oct, [facility] [address] [facility] [id number] [address] [place] [address] Oct, Bipolar I disorder F31.9 and PTSD (post-traumatic stress disorder) F43.10 [facility] [address] [id number] [place] [address] Oct, [facility] [address] [id number] [place] [address] Oct, [facility] [address] [id number], [place] [address] Oct, Morbid obesity E66.01 ; Migr sundar, unspecified, without mention of intractable migraine without mention of status migrainosus G43.909 ; Bipolar I disorder F31.9 and Essential hypertension I10 [facility] [address] [id number] [place] [address] Oct, Well woman exam with routine gynecological exam Z01.419 ; Morbid obesity E66.01 ; Pap test, as part of routine gynecological examination Z01.419 and Breast cancer screening Z12.39 [facility] [address] [id number], [place] [address] Oct, [address] [id number], [place] [address] August, [facility] [address] [facility] [id number] [address] [place] [address] Jun, [facility] [address] [id number] [address] [place] [address] Apr, [facility] [address] [id number] [address] [place] [address] Apr, [facility] [address] [id number] [address] [place] [address] Apr, [facility] [address] [facility] [id number] [address] [place] [address] Jan, [facility] [address] [id number] [address] [place] [address] Aug, [facility] [address] [id number] [address] [place] [address] Aug, [facility] [address] [id number] [address] [place] [address] Jan, [facility] [address] [id number] [address] [place] [address] Jan, [facility] [address] [id number] [address] [place] [address] Dec, [facility] [address] [id number] [address] [place] [address], [place] [address] Oct, [facility] [address] [id number] [address] [place] [address], [place] [address] Aug, [facility] [address] [id number] [address] [place] [address], [place] [address] Aug, [facility] [address] [id number] [address] [place] [address], [place] [address] Aug, [facility] [address] [id number] [address] [place] [address], [place] [address] Jul, [facility] [address] [id number] [address] [place] [address], [place] [address] Jun, [facility] [address] [id number] [address] [place] [address], [place] [address] Jun, [facility] [address] [id number] [address] [place] [address] Jun, [facility] [address] [id number] [address] [place] [address] May, [facility] [address] [id number] [address] [place] [address] May, [facility] [address] [id number] [address] [place] [address] Apr, [facility] [address] [id number] [address] [place] [address] Apr, [facility] [address] [id number] [address] [place] [address] Jan, [facility] [address] [id number] [address] [place] [address] Jan, [facility] [address] [id number] [place] [id number] Oct, [facility] [address] [id number] [address] [place] [address] Oct, [facility] [address] [facility] [id number] [address] [place] [address] Oct, [facility] [address] [facility] [id number] [address] [place] [address] August, IMMUNIZATIONS No Known Immunizations SOCIAL HISTORY Never Assessed REASON FOR VISIT PLAN OF CARE VITAL SIGNS MEDICATIONS Unknown Medications RESULTS No Results PROCEDURES No Known procedures INSTRUCTIONS MEDICATIONS ADMINISTERED No Known Medications MEDICAL (GENERAL) HISTORY Type Description Date Medical History Hypertension Medical History Asthma Medical History no hx of seizures Medical History arrhythmia Medical History hands bilaterally numbness and tingling Medical History Depression Medical History pneumonia Surgical History appendectomy Surgical History Breast Bx Surgical History x2 Surgical History cholecystectomy Surgical History section Surgical History Lap Appy Surgical History Lap [place] Surgical History lumpectomy, right breast Surgical History Hemorroidectomy Hospitalization History early 20s inpatient psychiatric karen tment Hospitalization History [facility] 01/2019 Hospitalization History pneumona
--- OUTSIDE RECORDS SUMMARY | 2019-11-20 08:50 | XMS REPORT ---
Author Author Tiffanie MISHRA Organization [facility] Address [address] [place] [address] Care Team Providers Care Light Out Examiner Name Role Phone ROSALINA MISHRA Unavailable PROBLEMS Type Condition ICD9-CM Code [id number] Code Onset Dates Condition S tatus SNOMED Code Problem Status post right breast biopsy Z98.890 17 Mar, 2011 Active 684814532 Problem Chronic blood loss anemia D50.0 Aug, A ctive 380200465 Problem Mammographic microcalcification R92.0 10 Mar, 2011 Active [id number] Problem Essential hypertension I10 Active 62896354 Problem Asthma J45.909 14 Jan, 2014 Active 7708704 01 Problem Hiatal hernia K44.9 16 Oct, 2009 Active 840 14091 Problem Mood disorder F39 Active 349027 05 Problem Migraine, unspecified, witho ut mention of intractable migraine without mention of status migrainosus G43.909 Active 05717585 Problem COPD with exacerbation J44.1 Active 407572882 Problem Acute pyelonephritis N10 13 Jan, 2018 Active 21682606 Problem PTSD (post-traumatic stress disorder) F43.10 Active 72621024 Problem Mixed hyperlipidemia E78.2 Active 951489810 Problem Angina pectoris, unstable I20.0 Acti ve 5195337 Problem Chronic bronchitis with COPD (chronic obstructiv e pulmonary disease) J44.9 Active 00301012 ALLERGIES No Information ENCOUNTERS Encounter Location Date Diagnosis [facility] [address] [facility] [id number] [address] [place] [id number] Dec, [facility] [address] [facility] [id number] [address] [place] [address] Oct, [facility] [address] [facility] [id number] [address] [place] [address] August, [facility] [address] [facility] [id number] [address] [place] [id number] 14 Sep, 2019 PTSD (post-traumatic stress disorder) F43.10 and Mood disorder F39 [place] [address] [facility] [id number] [address] [place] [address] 23 Aug, 2019 PTSD (post-traumatic stress disorder) F43.10 and Bipolar I disorder F31.9 [place] [address] [facility] [id number] [address] [place] [address] Aug, PTSD (post-traumatic stress disorder) F43.10 and Mood disorder F39 [place] [address] [facility] [id number] [address] [place] [address] 14 Aug, 2019 PTSD (post-traumatic stress disorder) F43.10 and Bipolar I disorder F31.9 [place] [address] [facility] [id number] [address] [place] [address] 10 Jul, 2019 Bipolar I disorder F31.9 and PTSD (post-traumatic stress disorder) F43.10 [place] [address] [facility] [id number] [address] [place] [id number] 10 Jul, [address] [id number] [address] 04 Jul, 2019 Chronic bronchitis with COPD (chronic obstructive pulmonary disease) J44.9 ; Mixed hyperlipidemia E78.2 ; Essential hypertension I10 and Family history of colon cancer Z80.0 [facility] W[facility] IN [facility] [address] [id number] [address] Jun, Influenza A J10.1 ; Wheezing R06.2 and Flu-like symptoms R68.89 [place] [address] [facility] [id number] [address] [place] [id number] 19 Jun, 2019 PTSD (post-traumatic stress disorder) F43.10 [place] [address] [facility] [id number] [address] [place] [address] 18 Jun, [address] [id number], [place] [address] Jun, [facility] [address] [id number] [place] [address] May, PTSD (post-traumatic stress disorder) F43.10 [facility] [address] [facility] [id number] [address] [place] [address] May, PTSD (post-traumatic stress disorder) F43.10 and Bipolar I disorder F31.[address] [id number] [place] [address] Apr, PTSD (post-traumatic stress disorder) F43.[address] [id number], [place] [address] Apr, Chronic bronchitis with COPD (chronic obstructive pulmonary disease) J44.9 [facility] [place] [facility] [address] [id number] [place] [address] Apr, Puncture wound of plantar as pect of right foot, initial encounter S91.331A and Local infection of the skin and subcutaneous tissue, unspecified L08.9 [facility] [address] [id number] [place] [address] Mar, PTSD (post-traumatic stress disorder) F43.[address] [id number] [place] [address] Mar, [facility] [address] [id number], [place] [address] Mar, [address] [id number] [place] [address] Mar, PTSD (post-traumatic stress disorder) F43.10 [facility] [address] [id number] [place] [address] Mar, [facility] [address] [id number], [place] [address] Jan, Breast cancer screening Z12. 39 [facility] [address] [id number] [place] [address] Jan, [address] [id number], [place] [address] Jan, Essential hypertension I10 ; High risk medications (not anticoagulants) long-term use Z79.899 ; Angina pectoris, unstable I20.0 ; Mixed hyperlipidemia E78.2 ; Encounter for immunization Z23 ; Mammographic microcalcification R92.0 and Breast cancer screening Z12.[address] [id number], [place] [address] 07 Jan, 2019 PTSD (post-traumatic stress disorder) F43.[address] [id number], [place] [address] Jan, PTSD (post-traumatic stress disorder) F43.10 [facility] [address] [facility] [id number] [address] [place] [address] Jan, PTSD (post-traumatic stress disorder) F43.10 and Bipolar I disorder F31.9 [facility] [address] [id number] [address] [place] [address] Jan, Bipolar I disorder F31.9 and PTSD (post-traumatic stress disorder) F43.[address] [id number] [place] [address] Jan, PTSD (post-traumatic stress disorder) F43.10 [facility] [address] [id number] [address] [place] [address] Dec, [facility] [address] [id number] [address] [place] [address] Dec, Bipolar I disorder F31.9 and PTSD (post-traumatic stress disorder) F43.10 [facility] [address] [id number] [address] [place] [address] Dec, PTSD (post-traumatic stress disorder) F43.10 and Bipolar I disorder F31.[address] [id number] [place] [address] Dec, [facility] [address] [id number] [place] [address] Dec, Flank pain R10.9 and Dysuria R30.0 [facility] [address] [facility] [id number] [address] [place] [address] Dec, PTSD (post-traumatic stress disorder) F43.[address] [id number], [place] [address] Dec, PTSD (post-traumatic stress disorder) F43.10 [facility] [address] [facility] [id number] [address] [place] [address] Dec, Bipolar I disorder F31.9 and PTSD (post-traumatic stress disorder) F43.10 [facility] [address] [facility] [id number] [address] [place] [address] Oct, Bipolar I disorder F31.9 and PTSD (post-traumatic stress disorder) F43.10 [facility] [address] [id number], [place] [address] Oct, [facility] [address] [id number], [place] [address] Oct, Essential hypertension I10 [facility] [address] [facility] [id number] [address] [place] [address] Oct, [facility] [address] [facility] [id number] [address] [place] [address] Oct, Bipolar I disorder F31.9 and PTSD (post-traumatic stress disorder) F43.10 [facility] [address] [id number] [place] [address] Oct, [facility] [address] [id number] [place] [address] Oct, [facility] [address] [id number] [address] Oct, Morbid obesity E66.01 ; Migr sundar, unspecified, without mention of intractable migraine without mention of status migrainosus G43.909 ; Bipolar I disorder F31.9 and Essential hypertension I10 [facility] [address] [id number] [place] [address] Oct, Well woman exam with routine gynecological exam Z01.419 ; Morbid obesity E66.01 ; Pap test, as part of routine gynecological examination Z01.419 and Breast cancer screening Z12.39 [facility] [address] [id number], [place] [address] Oct, [address] [id number], [place] [address] August, [facility] [address] [facility] [id number] [address] [place] [address] Jun, [facility] [address] [id number] [address] [place] [address] Apr, [facility] [address] [id number] [address] [place] [address] Apr, [facility] [address] [id number] [address] [place] [address] Apr, [facility] [address] [facility] [id number] [address] [place] [address] Jan, [facility] [address] [id number] [address] [place] [address] Aug, [facility] [address] [id number] [address] [place] [address] Aug, [facility] [address] [id number] [address] [place] [address] Jan, [facility] [address] [id number] [address] [place] [address] Jan, [facility] [address] [id number] [address] [place] [address] Dec, [facility] [address] [id number] [address] [place] [address], [place] [address] Oct, [facility] [address] [id number] [address] [place] [address], [place] [address] Aug, [facility] [address] [id number] [address] [place] [address], [place] [address] Aug, [facility] [address] [id number] [address] [place] [address], [place] [address] Aug, [facility] [address] [id number] [address] [place] [address], [place] [address] Jul, [facility] [address] [id number] [address] [place] [address], [place] [address] Jun, [facility] [address] [id number] [address] [place] [address], [place] [address] Jun, [facility] [address] [id number] [address] [place] [address] Jun, [facility] [address] [id number] [address] [place] [address] May, [facility] [address] [id number] [address] [place] [address] May, [facility] [address] [id number] [address] [place] [address] Apr, [facility] [address] [id number] [address] [place] [address] Apr, [facility] [address] [id number] [address] [place] [id number] Jan, [facility] [address] [id number] [address] [place] [address] Jan, [facility] [address] [id number] [place] [id number] Oct, [facility] [address] [id number] [address] [place] [address] Oct, [facility] [address] [facility] [id number] [address] [place] [address] Oct, [facility] [address] [facility] [id number] [address] [place] [address] August, IMMUNIZATIONS No Known Immunizations SOCIAL HISTORY Never Assessed REASON FOR VISIT PLAN OF CARE VITAL SIGNS Height 67 in 2012-11-05 Weight 254.79 lbs 2012-11-05 Temperature 97.8 degrees Fahrenheit 2012-11-05 Heart Rate 88 bpm 2012-11-05 Respiratory Rate 20 2012-11-05 Blood pressure systolic 138 mmHg 2012-11-05 Blood pressure diastolic 80 mmHg 2012-11-05 MEDICATIONS Unknown Medications RESULTS No Results PROCEDURES Procedure Date Ordered Result Body Site INJ METHYLPRDNISLN SODIM TO 125 MG November 05, 2012 INSTRUCTIONS MEDICATIONS ADMINISTERED No Known Medications MEDICAL [...]
--- OUTSIDE RECORDS SUMMARY | 2019-11-20 08:50 | XMS REPORT ---
Author Author Tiffanie FERNANDEZ Organization [facility] Address [address] [place] [address] Care Team Providers Care Steffen House Supervisor Name Role Phone USMAN FERNANDEZ Unavailable PROBLEMS Type Condition ICD9-CM Code VWF40-WW Code Onset Dates Condition S tatus SNOMED Code Problem Hiatal hernia K44.9 16 Oct, 2009 Active 840 14173 Problem Mammographic microcalcification R92.0 10 Mar, 2011 Active [id number] Problem Status post right breast biopsy Z98.890 17 Mar, 2011 Active 967501911 Problem Migraine, unspecified, witho ut mention of intractable migraine without mention of status migrainosus G43.909 Active 84261320 Problem Bipolar I disorder F31.9 Active 3 38463360 Problem Asthma J45.909 14 Jan, 2014 Active 2939642 01 Problem Chronic bronchitis with COPD (chronic obstructiv e pulmonary disease) J44.9 Active 76836719 Problem Acute pyelonephritis N10 13 Jan, 2018 Active 18401369 Problem COPD with exacerbation J44.1 Active 791838652 Problem Chronic blood loss anemia D50.0 30 Aug, 2014 A ctive 862282181 Problem Essential hypertension I10 Active 00526524 Problem PTSD (post-traumatic stress disorder) F43.10 Active 42400309 Problem Mixed hyperlipidemia E78.2 Active 949214200 Problem Angina pectoris, unstable I20.0 Acti ve 0059452 ALLERGIES No Information ENCOUNTERS Encounter Location Date Diagnosis [facility] [address] [facility] [place] [id number] [address] [place] [address] August, [facility] [address] [facility] [place] [id number] [address] [place] [address] Aug, [facility] [address] [facility] [place] [id number] [address] [place] [address] Aug, [facility] [address] [facility] [place] [id number] [address] [place] [address] 14 Aug, 2019 PTSD (post-traumatic stress disorder) F43.10 and Bipolar I disorder F31.9 [facility] [address] [facility] [place] [id number] [address] [place] [address] 10 Jul, 2019 Bipolar I disorder F31.9 and PTSD (post-traumatic stress disorder) F43.10 [place] [address] [facility] [place] [id number] [address] [place] [address] 10 Jul, [address] [id number], [place] [address] 04 Jul, 2019 Chronic bronchitis with COPD (chronic obstructive pulmonary disease) J44.9 ; Mixed hyperlipidemia E78.2 ; Essential hypertension I10 and Family history of colon cancer Z80.0 [facility] [address] [id number] [place] [address] 28 Jun, 2019 Influenza A J10.1 ; Wheezing R06.2 and Flu-like symptoms R68.89 [place] [address] [facility] [place] [id number] [address] [place] [address] 19 Jun, 2019 PTSD (post-traumatic stress disorder) F43.10 [place] [address] [facility] [place] [id number] [address] [place] [address] 18 Jun, [address] [id number], [place] [address] Jun, [address] [id number], [place] [address] May, PTSD (post-traumatic stress disorder) F43.10 [place] [address] [facility] [place] [id number] [address] [place] [address] 21 May, 2019 PTSD (post-traumatic stress disorder) F43.10 and Bipolar I disorder F31.[address] [id number], [place] [address] Apr, PTSD (post-traumatic stress disorder) F43.10 [facility] [address] [id number] [place] [address] Apr, Chronic bronchitis with COPD (chronic obstructive pulmonary disease) J44.9 [facility] [address] [id number] [place] [address] Apr, Puncture wound of plantar as pect of right foot, initial encounter S91.331A and Local infection of the skin and subcutaneous tissue, unspecified L08.9 [facility] [address] [id number] [place] [address] Mar, PTSD (post-traumatic stress disorder) F43.10 [facility] [address] [id number] [place] [address] Mar, [facility] [address] [id number] [place] [address] Mar, [facility] [address] [id number] [place] [address] Mar, PTSD (post-traumatic stress disorder) F43.10 [facility] [address] [id number] [place] [address] Mar, [facility] [address] [id number] [place] [address] Jan, Breast cancer screening Z12. 39 [facility] [address] [id number] [place] [address] Jan, [facility] [address] [id number], [place] [address] Jan, Essential hypertension I10 ; High risk medications (not anticoagulants) long-term use Z79.899 ; Angina pectoris, unstable I20.0 ; Mixed hyperlipidemia E78.2 ; Encounter for immunization Z23 ; Mammographic microcalcification R92.0 and Breast cancer screening Z12.39 [facility] [address] [id number] [place] [address] Jan, PTSD (post-traumatic stress disorder) F43.10 [facility] [address] [id number] [place] [address] Jan, PTSD (post-traumatic stress disorder) F43.10 [facility] [address] [facility] [place] [id number] [address] [place] [address] Jan, PTSD (post-traumatic stress disorder) F43.10 and Bipolar I disorder F31.9 [facility] [address] [facility] [place] [id number] [address] [place] [address] Jan, Bipolar I disorder F31.9 and PTSD (post-traumatic stress disorder) F43.10 [facility] [address] 340[address] [id number], [place] [address] Jan, PTSD (post-traumatic stress disorder) F43.10 [place] [address] [facility] [place] [id number] [address] [place] [address] Dec, [facility] [address] [facility] [place] [id number] [address] [place] [address] Dec, Bipolar I disorder F31.9 and PTSD (post-traumatic stress disorder) F43.10 [facility] [address] [facility] [place] [id number] [address] [place] [address] Dec, PTSD (post-traumatic stress disorder) F43.10 and Bipolar I disorder F31.9 [facility] [address] [id number], [place] [address] Dec, [facility] [address] [id number] [place] [address] Dec, Flank pain R10.9 and Dysuria R30.0 [facility] [address] [facility] [place] [id number] [address] [place] [address] Dec, PTSD (post-traumatic stress disorder) F43.10 [facility] [address] [id number] [place] [address] Dec, PTSD (post-traumatic stress disorder) F43.10 [facility] [address] [facility] [place] [id number] [place] [address] Dec, Bipolar I disorder F31.9 and PTSD (post-traumatic stress disorder) F43.10 [facility] [address] [facility] [place] [id number] [place] [address] Oct, Bipolar I disorder F31.9 and PTSD (post-traumatic stress disorder) F43.10 [facility] [address] [id number] [place] [address] Oct, [address] [id number] [place] [address] Oct, Essential hypertension I10 [facility] [address] [facility] [place] [id number] [address] [place] [address] Oct, [facility] [address] [facility] [place] [id number] [address] [place] [address] Oct, Bipolar I disorder F31.9 and PTSD (post-traumatic stress disorder) F43.10 [facility] [place] [address] [id number], [place] [address] Oct, [facility] [address] [id number], [place] [address] Oct, [facility] [address] [id number], [place] [address] Oct, Morbid obesity E66.01 ; Migr sundar, unspecified, without mention of intractable migraine without mention of status migrainosus G43.909 ; Bipolar I disorder F31.9 and Essential hypertension I10 [facility] [address] [id number], [place] [address] Oct, Well woman exam with routine gynecological exam Z01.419 ; Morbid obesity E66.01 ; Pap test, as part of routine gynecological examination Z01.419 and Breast cancer screening Z12.39 [facility] [address] [id number], [place] [address] Oct, [facility] [address] [id number] [place] [address] August, [facility] [address] [id number] [address] [place] [address], [place] [address] Jun, [facility] [address] [id number] [address] [place] [address], [place] [address] Apr, [facility] [address] [id number] [address] [place] [address], [place] [address] Apr, [facility] [address] [id number] [address] [place] [address], [place] [address] Apr, [facility] [address] [id number] [address] [place] [address], [place] [address] Jan, [facility] [address] [id number] [address] [place] [address], [place] [address] Aug, [facility] [address] [id number] [address] [place] [address], [place] [address] Aug, [facility] [address] [id number] [address] [place] [address], [place] [address] Jan, [facility] [address] [id number] [address] [place] [address] Jan, [facility] [address] [id number] [address] [place] [address], [place] [address] Dec, [facility] [address] [id number] [address] [place] [address] Oct, [facility] [address] [id number] [address] [place] [address], [place] [address] Aug, [facility] [address] [id number] [address] [place] [address], [place] [address] Aug, [facility] [address] [id number] [address] [place] [address] Aug, [facility] [address] [id number] [address] [place] [address] Jul, [facility] [address] [id number] [address] [place] [address] Jun, [facility] [address] [id number] [address] [place] [address] Jun, [facility] [address] [id number] [address] [place] [address] Jun, [facility] [address] [id number] [address] [place] [address] May, [facility] [address] [id number] [address] [place] [address] May, [facility] [address] [id number] [address] [place] [address] Apr, [facility] [address] [id number] [address] [place] [address] Apr, [facility] [address] [id number] [address] [place] [address] Jan, [facility] [address] [facility] [place] [id number] [address] [place] [address] Jan, [facility] [address] [id number] [place] [id number] Oct, [facility] [address] [id number] [address] [place] [address] Oct, [facility] [address] [id number] [address] [place] [address] Oct, [facility] [address] [id number] [address] [place] [address] August, IMMUNIZATIONS No Known Immunizations SOCIAL HISTORY Never Assessed REASON FOR VISIT PLAN OF CARE VITAL SIGNS Height 67 in 2014-01-31 Weight 264.9 lbs 2014-01-31 Temperature 97.9 degrees Fahrenheit 2014-01-31 Heart Rate 90 bpm 2014-01-31 Respiratory Rate 22 2014-01-31 Blood pressure systolic 138 mmHg 2014-01-31 Blood pressure diastolic 84 mmHg 2014-01-31 MEDICATIONS Unknown Medications RESULTS No Results PROCEDURES [...]
[2019-11-20] MEDS ORDERED: MIDAZOLAM 2 MG/2 ML (VERSED) VIAL ONE (08:51)
[2019-11-20] MEDS ORDERED: proPOfol 200 MG/20 ML (DIPRIVAN) VIAL IV ONE ×2 (08:51→09:19)
--- OUTSIDE RECORDS SUMMARY | 2019-11-20 08:51 | XMS REPORT | Continuity of Care Document ---
Author Organization Unknown Address Unknown Phone Unavailable Allergies Active Description Code Type Severity Reaction Onset Reported/Identified Relationship to Patient Clinical Status Yes Penicillins Drug Allergy 09/03/2011 Yes Penicillins Drug Allergy N/A N/A 09/03/2011 Yes cephalexin [id number] Drug Allerg y Unknown N/A 12/17/2018 Yes Penicillins [id number] Drug Aller gy Unknown N/A 12/17/2018 Medications There is no data. Problems Date Dx Coded Attending Type Code Diagnosis Diagnosed By 04/01/1015 ROSARIO MERCHANT DO Ot Z01.8 18 ENCOUNTER FOR OTHER PREPROCEDURAL EXAMIN 09/03/2011 719.46 KNE E PAIN 09/03/2011 E885.9 ACC IDENTAL FALL FROM OTHER SLIPPING TRIPPING OR STUMBLING 09/03/2011 719.46 KNE E PAIN 09/03/2011 E885.9 ACC IDENTAL FALL FROM OTHER SLIPPING TRIPPING OR STUMBLING 09/03/2011 WARREN ORTEGA DO 719.46 KNEE PAIN 09/03/2011 WARREN ORTEGA DO E885.9 ACCIDENTAL FALL FROM OTHER SLIPPING TRIPPING OR STUMBLING 09/03/2011 719.46 KNE E PAIN 09/03/2011 E885.9 ACC IDENTAL FALL FROM OTHER SLIPPING TRIPPING OR STUMBLING 09/03/2011 PADMAJA GOMEZ APRN 719.46 KNEE PAIN 09/03/2011 PADMAJA GOMEZ APRN E885.9 ACCIDENTAL FALL FROM OTHER SLIPPING TRIPPING OR STUMBL ING 09/03/2011 719.46 KNE E PAIN 09/03/2011 E885.9 ACC IDENTAL FALL FROM OTHER SLIPPING TRIPPING OR STUMBLING 09/03/2011 USMAN FERNANDEZ APRN 719.46 KNEE PAIN 09/03/2011 USMAN FERNANDEZ APRN E885.9 ACCIDENTAL FALL FROM OTHER SLIPPING TRIPPING OR STUMBL ING 09/03/2011 WARREN ORTEGA DO 719.46 KNEE PAIN 09/03/2011 WARREN ORTEGA DO E885.9 ACCIDENTAL FALL FROM OTHER SLIPPING TRIPPING OR STUMBLING 11/25/2011 356.9 TOMMIE PHERAL NEUROPATHY 11/25/2011 356.9 TOMMIE PHERAL NEUROPATHY 11/25/2011 WARREN ORTEGA DO K 356.9 PERIPHERAL NEUROPATHY 11/25/2011 356.9 TOMMIE PHERAL NEUROPATHY 11/25/2011 PADMAJA GOMEZ APRN 356.9 PERIPHERAL NEUROPATHY 11/25/2011 356.9 TOMMIE PHERAL NEUROPATHY 11/25/2011 USMAN FERNANDEZ APRN 35 6.9 PERIPHERAL NEUROPATHY 11/25/2011 KYLE ORTEGA DOA K 356.9 PERIPHERAL NEUROPATHY 04/06/2012 465.9 UPPE R RESPIRATORY INFECTION 04/06/2012 786.07 WHE EZING 04/06/2012 786.2 COUGH 04/06/2012 465.9 UPPE R RESPIRATORY INFECTION 04/06/2012 786.07 WHE EZING 04/06/2012 786.2 COUGH 04/06/2012 KYLE ORTEGA DOA K 465.9 UPPER RESPIRATORY INFECTION 04/06/2012 KYLE ORTEGA DOA K 786.07 WHEEZING 04/06/2012 ORTEGA DO WARREN K 786.2 COUGH 04/06/2012 465.9 UPPE R RESPIRATORY INFECTION 04/06/2012 786.07 WHE EZING 04/06/2012 786.2 COUGH 04/06/2012 PADMAJA GOMEZ APRN 465.9 UPPER RESPIRATORY INFECTION 04/06/2012 PADMAJA GOMEZ APRN 786.07 WHEEZING 04/06/2012 PADMAJA GOMEZ APRN 786.2 COUGH 04/06/2012 465.9 UPPE R RESPIRATORY INFECTION 04/06/2012 786.07 WHE EZING 04/06/2012 786.2 COUGH 04/06/2012 USMAN FERNANDEZ APRN 46 5.9 UPPER RESPIRATORY INFECTION 04/06/2012 USMAN FERNANDEZ APRN 786.07 WHEEZING 04/06/2012 USMAN FERNANDEZ APRN 78 6.2 COUGH 04/06/2012 KYLE ORTEGA DOA K 465.9 UPPER RESPIRATORY INFECTION 04/06/2012 JORDAN DO WARREN K 786.07 WHEEZING 04/06/2012 ORTEGA DO, WARREN K 786.2 COUGH 05/06/2012 466.0 BRON CHITIS, ACUTE 05/06/2012 780.60 FEV ER, UNSPECIFIED 05/06/2012 466.0 BRON CHITIS, ACUTE 05/06/2012 780.60 FEV ER, UNSPECIFIED 05/06/2012 ORTEGA DO, WARREN K 466.0 BRONCHITIS, ACUTE 05/06/2012 ORTEGA DO, WARREN K 780.60 FEVER, UNSPECIFIED 05/06/2012 466.0 BRON CHITIS, ACUTE 05/06/2012 780.60 FEV ER, UNSPECIFIED 05/06/2012 PADMAJA GOMEZ APRN 466.0 BRONCHITIS, ACUTE 05/06/2012 PADMAJA GOMEZ APRN 780.60 FEVER, UNSPECIFIED 05/06/2012 466.0 BRON CHITIS, ACUTE 05/06/2012 780.60 FEV ER, UNSPECIFIED 05/06/2012 USMAN FERNANDEZ APRN 46 6.0 BRONCHITIS, ACUTE 05/06/2012 USMAN FERNANDEZ APRN 780.60 FEVER, UNSPECIFIED 06/07/2012 780.2 SYNC OPE AND COLLAPSE 06/07/2012 782.0 DIST URBANCE OF SKIN SENSATION 06/07/2012 ORTEGA DO WARREN K 780.2 SYNCOPE AND COLLAPSE 06/07/2012 KYLE ORTEGA DOA K 782.0 DISTURBANCE OF SKIN SENSATION 06/07/2012 780.2 SYNC OPE AND COLLAPSE 06/07/2012 782.0 DIST URBANCE OF SKIN SENSATION 06/07/2012 PADMAJA GOMEZ APRN 780.2 SYNCOPE AND COLLAPSE 06/07/2012 PADMAJA GOMEZ APRN 782.0 DISTURBANCE OF SKIN SENSATION 06/07/2012 780.2 SYNC OPE AND COLLAPSE 06/07/2012 782.0 DIST URBANCE OF SKIN SENSATION 06/07/2012 USMAN FERNANDEZ APRN 78 0.2 SYNCOPE AND COLLAPSE 06/07/2012 USMAN FERNANDEZ APRN 78 2.0 DISTURBANCE OF SKIN SENSATION 08/02/2012 PADMAJA GOMEZ APRN 461.9 SINUSITIS ACUTE 08/02/2012 461.9 SINU SITIS ACUTE 08/02/2012 USMAN FERNANDEZ APRN 46 1.9 SINUSITIS ACUTE 11/05/2012 692.9 DERM ATITIS CONTACT UNSPECIFIED 11/05/2012 USMAN FERNANDEZ APRN 69 2.9 DERMATITIS CONTACT UNSPECIFIED 09/27/2018 LISY FOWLER, GEMMA Romero Ot E11. 40 TYPE 2 DIABETES MELLITUS WITH DIABETIC N 09/27/2018 LISY FOWLER, GEMMA Romero Ot M25.572 PAIN IN LEFT ANKLE AND JOINTS OF LEFT FO 09/27/2018 GEMMA WASSERMAN MD Ot R40.2142 COMA SCALE, EYES OPEN, SPONTANEOUS, EMR 09/27/2018 GEMMA WASSERMAN MD Ot R40.2252 COMA SCALE, BEST VERBAL RESPONSE, ORIENT 09/27/2018 GEMMA WASSERMAN MD Ot R40.2362 COMA SCALE, BEST MOTOR RESPONSE, OBEYS C 09/27/2018 GEMMA WASSERMAN MD Ot W17.2XXA FALL INTO HOLE, INITIAL ENCOUNTER 09/27/2018 GEMMA WASSERMAN MD Ot Y92.007 [place] [facility] RESI 09/27/2018 GEMMA WASSERMAN MD, Ot Z79. 82 [facility] (CURRENT) USE OF ASPIRIN 09/27/2018 GEMMA WASSERMAN MD Ot Z88. 0 ALLERGY STATUS TO PENICILLIN 09/30/2018 GEMMA WASSERMAN MD Ot E11. 40 TYPE 2 DIABETES MELLITUS WITH DIABETIC N 09/30/2018 GEMMA WASSERMAN MD Ot M25.572 PAIN IN LEFT ANKLE AND JOINTS OF LEFT FO 09/30/2018 GEMMA WASSERMAN MD Ot R40.2142 COMA SCALE, EYES OPEN, SPONTANEOUS, EMR 09/30/2018 GEMMA WASSERMAN MD Ot R40.2252 COMA SCALE, BEST VERBAL RESPONSE, ORIENT 09/30/2018 GEMMA WASSERMAN MD Ot R40.2362 COMA SCALE, BEST MOTOR RESPONSE, OBEYS C 09/30/2018 GEMMA WASSERMAN MD Ot W17.2XXA FALL INTO HOLE, INITIAL ENCOUNTER 09/30/2018 GEMMA WASSERMAN MD Ot Y92.007 [place] [facility] RESI 09/30/2018 GEMMA WASSERMAN MD Ot Z79. 82 WAFER FABRICATION OPERATOR (CURRENT) USE OF ASPIRIN 09/30/2018 GEMMA WASSERMAN MD Ot Z88. 0 ALLERGY STATUS TO PENICILLIN 12/17/2018 PARIS MORALES DO Ot G62 .9 POLYNEUROPATHY, UNSPECIFIED 12/17/2018 PARIS MORALES DO Ot I10 ESSENTIAL (PRIMARY) HYPERTENSION 12/17/2018 PARIS MORALES DO, Ot J44 .9 CHRONIC OBSTRUCTIVE PULMONARY DISEASE, U 12/17/2018 MORALES DO, PARIS L Ot M79.10 MYALGIA, UNSPECIFIED SITE 12/17/2018 MORALES DO, PARIS L Ot N39 .0 URINARY TRACT INFECTION, SITE NOT SPECIF 12/17/2018 MORALES DO PARIS L Ot R30 .0 DYSURIA 12/17/2018 MORALES DO PARIS L Ot Z79.82 [facility] (CURRENT) USE OF ASPIRIN 12/17/2018 MORALES DORANPARIS L Ot Z88 .0 ALLERGY STATUS TO PENICILLIN 12/17/2018 MORALES DO PARIS L Ot Z88 .1 ALLERGY STATUS TO OTHER ANTIBIOTIC AGENT 12/17/2018 MORALES DO PARIS L Ot Z90.49 ACQUIRED ABSENCE OF OTHER SPECIFIED PART 12/20/2018 MORALES DO PARIS L Ot G62 .9 POLYNEUROPATHY, UNSPECIFIED 12/20/2018 MORALES DO, PARIS L Ot I10 ESSENTIAL (PRIMARY) HYPERTENSION 12/20/2018 MORALES DORANPARIS L Ot J44 .9 CHRONIC OBSTRUCTIVE PULMONARY DISEASE, U 12/20/2018 MORALES DORANPARIS L Ot M79.10 MYALGIA, UNSPECIFIED SITE 12/20/2018 MORALES DORANPARIS L Ot N39 .0 URINARY TRACT INFECTION, SITE NOT SPECIF 12/20/2018 MORALES DORANPARIS L Ot R30 .0 DYSURIA 12/20/2018 MORALES DORANPARIS L Ot Z79.82 WAFER FABRICATION OPERATOR (CURRENT) USE OF ASPIRIN 12/20/2018 MORALES DORANPARIS L Ot Z88 .0 ALLERGY STATUS TO PENICILLIN 12/20/2018 MORALES DORANPARIS L Ot Z88 .1 ALLERGY STATUS TO OTHER ANTIBIOTIC AGENT 12/20/2018 MORALES DORANPARIS L Ot Z90.49 ACQUIRED ABSENCE OF OTHER SPECIFIED PART 12/20/2018 MORALES DORANPARIS L Ot G62 .9 POLYNEUROPATHY, UNSPECIFIED 12/20/2018 MORALES DO, PARIS L Ot I10 ESSENTIAL (PRIMARY) HYPERTENSION 12/20/2018 MORALES DO PARIS L Ot J44 .9 CHRONIC OBSTRUCTIVE PULMONARY DISEASE, U 12/20/2018 MORALES DO PARIS L Ot M79.10 MYALGIA, UNSPECIFIED SITE 12/20/2018 MORALES DORANPARIS L Ot N39 .0 URINARY TRACT INFECTION, SITE NOT SPECIF 12/20/2018 MORALES DO, PARIS L Ot R30 .0 DYSURIA 12/20/2018 PARIS MORALES DO Ot Z79.82 WAFER FABRICATION OPERATOR (CURRENT) USE OF ASPIRIN 12/20/2018 PARIS MORALES DO Ot Z88 .0 ALLERGY STATUS TO PENICILLIN 12/20/2018 PARIS MORALES DO Ot Z88 .1 ALLERGY STATUS TO OTHER ANTIBIOTIC AGENT 12/20/2018 PARIS MORALES DO Ot Z90.49 ACQUIRED ABSENCE OF OTHER SPECIFIED PART 01/24/2019 ALESSIO CHURCH PATRICK Ot F41.9 ANXIETY DISORDER, UNSPECIFIED 01/24/2019 ALESSIO CHURCH PATRICK Ot G62.9 POLYNEUROPATHY, UNSPECIFIED 01/24/2019 ALESSIO CHURCH PATRICK Ot I10 ESSENTIAL (PRIMARY) HYPERTENSION 01/24/2019 CIELO MCCALLUM DOI Ot J44.9 CHRONIC OBSTRUCTIVE PULMONARY DISEASE, U 01/24/2019 CIELO MCCALLUM DOI Ot R07.9 CHEST PAIN, UNSPECIFIED 01/24/2019 CIELO MCCALLUM DOI Ot Z79.82 [facility] (CURRENT) USE OF ASPIRIN 01/24/2019 CIELO MCCALLUM DOI Ot Z79.89 1 [facility] (CURRENT) USE OF OPIATE ANALGE 01/24/2019 CIELO MCCALLUM DOI Ot Z79.89 9 OTHER WAFER FABRICATION OPERATOR (CURRENT) DRUG THERAPY 01/24/2019 CIELO MCCALLUM DOI Ot Z80.1 FAMILY HISTORY OF MALIG NEOPLASM OF TRAC 01/24/2019 ALESSIO CHURCH PATRICK Ot Z80.3 FAMILY HISTORY OF MALIGNANT NEOPLASM OF 01/24/2019 CIELO MCCALLUM DOI Ot Z82.49 FAMILY HX OF ISCHEM HEART DIS AND OTH DI 01/24/2019 CIELO MCCALLUM DOI Ot Z83.3 FAMILY HISTORY OF DIABETES MELLITUS 01/24/2019 CIELO MCCALLUM DOI Ot Z88.0 ALLERGY STATUS TO PENICILLIN 01/24/2019 ALESSIO CHURCH PATRICK Ot Z88.1 ALLERGY STATUS TO OTHER ANTIBIOTIC AGENT 01/24/2019 CIELO MCCALLUM DOI Ot Z90.89 ACQUIRED ABSENCE OF OTHER ORGANS 01/24/2019 ALESSIO CHURCH PATRICK Ot Z98.51 TUBAL LIGATION STATUS 01/24/2019 ALESSIO CHURCH PATRICK Ot F41.9 ANXIETY DISORDER, UNSPECIFIED 01/24/2019 ALESSIO CHURCH PATRICK Ot G62.9 POLYNEUROPATHY, UNSPECIFIED 01/24/2019 PATRICK MCCALLUM DO Ot I10 ESSENTIAL (PRIMARY) HYPERTENSION 01/24/2019 PATRICK MCCALLUM DO Ot J44.9 CHRONIC OBSTRUCTIVE PULMONARY DISEASE, U 01/24/2019 PATRICK MCCALLUM DO Ot R07.9 CHEST PAIN, UNSPECIFIED 01/24/2019 PATRICK MCCALLUM DO Ot Z79.82 WAFER FABRICATION OPERATOR (CURRENT) USE OF ASPIRIN 01/24/2019 PATRICK MCCALLUM DO Ot Z79.89 1 WAFER FABRICATION OPERATOR (CURRENT) USE OF OPIATE ANALGE 01/24/2019 CIELO MCCALLUM DOI Ot Z79.89 9 OTHER [facility] (CURRENT) DRUG THERAPY 01/24/2019 CIELO MCCALLUM DOI Ot Z80.1 FAMILY HISTORY OF MALIG NEOPLASM OF TRAC 01/24/2019 PATRICK MCCALLUM DO Ot Z80.3 FAMILY HISTORY OF MALIGNANT NEOPLASM OF 01/24/2019 CIELO MCCALLUM DOI Ot Z82.49 FAMILY HX OF ISCHEM HEART DIS AND OTH DI 01/24/2019 PATRICK MCCALLUM DO Ot Z83.3 FAMILY HISTORY OF DIABETES MELLITUS 01/24/2019 PATRICK MCCALLUM DO Ot Z88.0 ALLERGY STATUS TO PENICILLIN 01/24/2019 CIELO MCCALLUM DOI Ot Z88.1 ALLERGY STATUS TO OTHER ANTIBIOTIC AGENT 01/24/2019 CIELO MCCALLUM DOI Ot Z90.89 ACQUIRED ABSENCE OF OTHER ORGANS 01/24/2019 CIELO MCCALLUM DOI Ot Z98.51 TUBAL LIGATION STATUS 01/31/2019 PATRICK MCCALLUM DO Ot F41.9 ANXIETY DISORDER, UNSPECIFIED 01/31/2019 PATRICK MCCALLUM DO Ot G62.9 POLYNEUROPATHY, UNSPECIFIED 01/31/2019 PATRICK MCCALLUM DO Ot I10 ESSENTIAL (PRIMARY) HYPERTENSION 01/31/2019 PATRICK MCCALLUM DO Ot J44.9 CHRONIC OBSTRUCTIVE PULMONARY DISEASE, U 01/31/2019 PATRICK MCCALLUM DO Ot R07.9 CHEST PAIN, UNSPECIFIED 01/31/2019 PATRICK MCCALLUM DO Ot Z79.82 WAFER FABRICATION OPERATOR (CURRENT) USE OF ASPIRIN 01/31/2019 PATRICK MCCALLUM DO Ot Z79.89 1 WAFER FABRICATION OPERATOR (CURRENT) USE OF OPIATE ANALGE 01/31/2019 PATRICK MCCALLUM DO Ot Z79.89 9 OTHER WAFER FABRICATION OPERATOR (CURRENT) DRUG THERAPY 01/31/2019 PATRICK MCCALLUM DO Ot Z80.1 FAMILY HISTORY OF MALIG NEOPLASM OF TRAC 01/31/2019 PATRICK MCCALLUM DO Ot Z80.3 FAMILY HISTORY OF MALIGNANT NEOPLASM OF 01/31/2019 CIELO MCCALLUM DOI Ot Z82.49 FAMILY HX OF ISCHEM HEART DIS AND OTH DI 01/31/2019 CIELO MCCALLUM DOI Ot Z83.3 FAMILY HISTORY OF DIABETES MELLITUS 01/31/2019 PATRICK MCCALLUM DO Ot Z88.0 ALLERGY STATUS TO PENICILLIN 01/31/2019 CIELO MCCALLUM DOI Ot Z88.1 ALLERGY STATUS TO OTHER ANTIBIOTIC AGENT 01/31/2019 CIELO MCCALLUM DOI Ot Z90.89 ACQUIRED ABSENCE OF OTHER ORGANS 01/31/2019 CIELO MCCALLUM DOI Ot Z98.51 TUBAL LIGATION STATUS 01/31/2019 PATRICK MCCALLUM DO Ot F41.9 ANXIETY DISORDER, UNSPECIFIED 01/31/2019 CIELO MCCALLUM DOI Ot G62.9 POLYNEUROPATHY, UNSPECIFIED 01/31/2019 CIELO MCCALLUM DOI Ot I10 ESSENTIAL (PRIMARY) HYPERTENSION 01/31/2019 CIELO MCCALLUM DOI Ot J44.9 CHRONIC OBSTRUCTIVE PULMONARY DISEASE, U 01/31/2019 PATRICK MCCALLUM DO Ot R07.9 CHEST PAIN, UNSPECIFIED 01/31/2019 CIELO MCCALLUM DOI Ot Z79.82 [facility] (CURRENT) USE OF ASPIRIN 01/31/2019 CIELO MCCALLUM DOI Ot Z79.89 1 [facility] (CURRENT) USE OF OPIATE ANALGE 01/31/2019 PATRICK MCCALLUM DO Ot Z79.89 9 OTHER WAFER FABRICATION OPERATOR (CURRENT) DRUG THERAPY 01/31/2019 PATRICK MCCALLUM DO Ot Z80.1 FAMILY HISTORY OF MALIG NEOPLASM OF TRAC 01/31/2019 PATRICK MCCALLUM DO Ot Z80.3 FAMILY HISTORY OF MALIGNANT NEOPLASM OF 01/31/2019 PATRICK MCCALLUM DO Ot Z82.49 FAMILY HX OF ISCHEM HEART DIS AND OTH DI 01/31/2019 CIELO MCCALLUM DOI Ot Z83.3 FAMILY HISTORY OF DIABETES MELLITUS 01/31/2019 CIELO MCCALLUM DOI Ot Z88.0 ALLERGY STATUS TO PENICILLIN 01/31/2019 CIELO MCCALLUM DOI Ot Z88.1 ALLERGY STATUS TO OTHER ANTIBIOTIC AGENT 01/31/2019 PATRICK MCCALLUM DO Ot Z90.89 ACQUIRED ABSENCE OF OTHER ORGANS 01/31/2019 PATRICK MCCALLUM DO Ot Z98.51 TUBAL LIGATION STATUS 11/15/2019 ROSARIO MERCHANT DO Ot Z01.8 18 ENCOUNTER FOR OTHER PREPROCEDURAL EXAMIN Procedures Code Description [place] [address] INFL UENZA A & B (IN-HOUSE) 04/06/2012 17010 INFL UENZA A & B (IN-HOUSE) 05/06/2012 86660 XRAY CHEST 2 VIEW 05/06/2012 94617 MRI BRAIN W/O CONTRAST 06/07/2012 47998 ECHO EXAMINATION PROCEDURE 06/07/2012 88184 EKG, TRACING (IN-HOUSE) 06/07/2012 12676 US C AROTID DOPPLER 06/07/2012 CARDI BAQI R, KENDRA 06/07/2012 34455 ROUT INE VENIPUNCTURE 06/08/2012 40654 CMP 06/08/2012 84303 LIPI D PANEL 06/08/2012 24089 BNP 06/08/2012 99485 TSH 06/08/2012 19875 CBC 06/08/2012 14368 CRP HS (CARDIO) 06/08/2012 09192 NUCL EAR STRESS TESTING 07/06/2012 12392 EKG, TRACING (IN-HOUSE) 07/06/2012 35263 VELÁSQUEZ ER MONITOR 07/06/2012 Results Test Result Range SUREPATH PAP AND HPV mRNA E6/E7 - 14:44 CLINICAL INFORMATION: NRG LMP: NRG PREV. PAP: NRG PREV. BX: NRG SOURCE: Cervix NRG STATEMENT OF ADEQUACY: NRG INTERPRETATION/RESULT: NRG ROVING HAND: NRG HPV mRNA E6/E7, SUREPATH VIAL Not Detected NOT DETECTED COMMENT NRG LIPID PANEL - 11/24/18 08:05 CHOLESTEROL, TOTAL 210 mg/dL <200 HDL CHOLESTEROL 40 mg/dL >50 TRIGLYCERIDES 345 mg/dL <150 LDL-CHOLESTEROL 121 mg/dL (calc) NRG CHOL/HDLC RATIO 5.3 (calc) <5.0 NON HDL CHOLESTEROL 170 mg/dL (calc) <13 0 CMP - 11/24/18 08:05 GLUCOSE 101 mg/dL 65-99 UREA NITROGEN (BUN) 10 mg/dL 7-25 CREATININE 0.84 mg/dL 0.50-1.10 eGFR NON-AFR. BULGARIAN 82 mL/min/1.73m2 > OR = 60 eGFR 95 mL/min/1.73m2 > OR = 60 BUN/CREATININE RATIO NOT APPLICABLE (calc) 6-22 SODIUM 138 mmol/L 135-146 POTASSIUM 4.4 mmol/L 3.5-5.3 CHLORIDE 105 mmol/L 98-110 CARBON DIOXIDE 24 mmol/L 20-32 CALCIUM 9.5 mg/dL 8.6-10.2 PROTEIN, TOTAL 6.6 g/dL 6.1-8.1 ALBUMIN 4.3 g/dL 3.6-5.1 GLOBULIN 2.3 g/dL (calc) 1.9-3.7 ALBUMIN/GLOBULIN RATIO 1.9 (calc) 1.0-2. 5 BILIRUBIN, TOTAL 0.5 mg/dL 0.2-1.2 ALKALINE PHOSPHATASE 66 U/L 33-115 AST 17 U/L 10-35 ALT 15 U/L 6-29 CBC - 11/24/18 08:05 WHITE BLOOD CELL COUNT 8.8 Thousand/uL 3 .8-10.8 RED BLOOD CELL COUNT 4.18 Million/uL 3.8 0-5.10 HEMOGLOBIN 12.8 g/dL 11.7-15.5 HEMATOCRIT 39.4 % 35.0-45.0 MCV 94.3 fL 80.0-100.0 MCH 30.6 pg 27.0-33.0 MCHC 32.5 g/dL 32.0-36.0 RDW 12.6 % 11.0-15.0 PLATELET COUNT 329 Thousand/uL 140-400 MPV 9.9 fL 7.5-12.5 ABSOLUTE NEUTROPHILS 5298 cells/uL 1500- 7800 ABSOLUTE LYMPHOCYTES 2684 cells/uL 850-3 900 ABSOLUTE MONOCYTES 458 cells/uL 200-950 ABSOLUTE EOSINOPHILS 246 cells/uL 15-500 ABSOLUTE BASOPHILS 114 cells/uL 0-200 NEUTROPHILS 60.2 % NRG LYMPHOCYTES 30.5 % NRG MONOCYTES 5.2 % NRG EOSINOPHILS 2.8 % NRG BASOPHILS 1.3 % NRG Complete urinalysis with reflex to cultu re - 12/17/18 13:10 Urine color determination YELLOW NRG Urine clarity determination CLEAR NR G Urine pH measurement by test strip 6.5 5-9 Specific gravity of urine by test strip 1.010 1.016-1.022 Urine protein assay by test strip, semi-quantitative NEGATIVE NEGATIVE Urine glucose detection by automated test strip NE GATIVE NEGATIVE Erythrocytes detection in urine sediment by light micr oscopy NEGATIVE NEGATIVE Urine ketones detection by automated test strip NE GATIVE NEGATIVE Urine nitrite detection by test strip NEGATIVE NEGATIVE Urine total bilirubin detection by test strip NEGA TIVE NEGATIVE Urine urobilinogen measurement by automated test strip (mass/volume) 0.2 mg/dL NORMAL Urine leukocyte esterase detection by dipstick NEG ATIVE NEGATIVE Automated urine sediment erythrocyte cou nt by microscopy (number/high power field) NONE NRG Automated urine sediment leukocyte count by microscopy (number/high power field) NONE NRG Bacteria detection in urine sediment by light microsco py TRACE NRG Squamous epithelial cells detection in u rine sediment by light microscopy 10-25 NRG Crystals detection in urine sediment by light microsco py NONE NRG Casts detection in urine sediment by light microscopy NONE NRG Mucus detection in urine sediment by light microscopy NEGATIVE NRG Complete urinalysis with reflex to culture NO NRG Complete blood count (CBC) with automate d white blood cell (WBC) differential - 12/17/18 13:42 Blood leukocytes automated count (number/volume) 9.2 10*3/uL 4.3-11.0 Blood erythrocytes automated count (number/volume) 4.13 10*6/uL 4.35-5.85 Venous blood hemoglobin measurement (mass/volume) 12.5 g/dL 11.5-16.0 Blood hematocrit (volume fraction) 39 % 35-52 Automated erythrocyte mean corpuscular volume 94 [ foz_us] 80-99 Automated erythrocyte mean corpuscular h emoglobin (mass per erythrocyte) 30 pg 25-34 Automated erythrocyte mean corpuscular h emoglobin concentration measurement (mass/volume) 32 g/dL 32-36 Automated erythrocyte distribution width ratio 12. 3 % 10.0- 14.5 Automated blood platelet count (count/volume) 355 10*3/uL 130-400 Automated blood platelet mean volume measurement 9.5 [foz_us] 7.4-10.4 Automated blood neutrophils/100 leukocytes 53 % 42-75 Automated blood lymphocytes/100 leukocytes 35 % 12-44 Blood monocytes/100 leukocytes 9 % 0-12 Automated blood eosinophils/100 leukocytes 2 % 0-10 Automated blood basophils/100 leukocytes 1 % 0-10 Blood neutrophils automated count (number/volume) 4.8 10*3 1.8-7.8 Blood lymphocytes automated count (number/volume) 3.3 10*3 1.0-4.0 Blood monocytes automated count (number/volume) 0. 8 10*3 0.0-1.0 Automated eosinophil count 0.2 10*3/uL 0 .0-0.3 Automated blood basophil count (count/volume) 0.1 10*3/uL 0.0-0.1 Whole blood basic metabolic panel - 12/01 11/18 13:42 Serum or plasma sodium measurement (moles/volume) 141 mmol/L 135-145 Serum or plasma potassium measurement (moles/volume) 4.6 mmol/L 3.6-5.0 Serum or plasma chloride measurement (moles/volume) 101 mmol/L 98-107 Carbon dioxide 23 mmol/L 21-32 Serum or plasma anion gap determination (moles/volume) 17 mmol/L 5-14 Serum or plasma urea nitrogen measurement (mass/volume ) 13 mg/dL 7-18 Serum or plasma creatinine measurement (mass/volume) 0.84 mg/dL 0.60-1.30 Serum or plasma urea nitrogen/creatinine mass ratio 15 NRG Serum or plasma creatinine measurement w ith calculation of estimated glomerular filtration rate > NRG Serum or plasma glucose measurement (mass/volume) 107 mg/dL 70-105 Serum or plasma calcium measurement (mass/volume) 9.8 mg/dL 8.5-10.1 Complete blood count (CBC) with automate d white blood cell (WBC) differential - 01/23/19 17:20 Blood leukocytes automated count (number/volume) 12.6 10*3/uL 4.3-11.0 Blood erythrocytes automated count (number/volume) 4.48 10*6/uL 4.35-5.85 Venous blood hemoglobin measurement (mass/volume) 13.5 g/dL 11.5-16.0 Blood hematocrit (volume fraction) 42 % 35-52 Automated erythrocyte mean corpuscular volume 95 [ foz_us] 80-99 Automated erythrocyte mean corpuscular h emoglobin (mass per erythrocyte) 30 pg 25-34 Automated erythrocyte mean corpuscular h emoglobin concentration measurement (mass/volume) 32 g/dL 32-36 Automated erythrocyte distribution width ratio 12. 2 % 10.0- 14.5 Automated blood platelet count (count/volume) 379 10*3/uL 130-400 Automated blood platelet mean volume measurement 10.0 [foz_us] 7.4-10.4 Automated blood neutrophils/100 leukocytes 51 % 42-75 Automated blood lymphocytes/100 leukocytes 40 % 12-44 Blood monocytes/100 leukocytes 6 % 0-12 Automated blood eosinophils/100 leukocytes 2 % 0-10 Automated blood basophils/100 leukocytes 1 % 0-10 Blood neutrophils automated count (number/volume) 6.5 10*3 1.8-7.8 Blood lymphocytes automated count (number/volume) 5.0 10*3 1.0-4.0 Blood monocytes automated count (number/volume) 0. 8 10*3 0.0-1.0 Automated eosinophil count 0.2 10*3/uL 0 .0-0.3 Automated blood basophil count (count/volume) 0.1 10*3/uL 0.0-0.1 PT panel in platelet poor plasma by coag ulation assay - 01/23/19 17:20 Prothrombin time (PT) in platelet poor plasma by coagu lation assay 13.5 s 12.2-14.7 INR in platelet poor plasma or blood by coagulation as say 1.0 0.8-1.4 Activated partial thromboplastin time (a PTT) in platelet poor plasma bycoagulation assay - 01/23/19 17:20 Activated partial thromboplastin time (a PTT) in platelet poor plasma bycoagulation assay 26 s 24-35 Comprehensive metabolic panel - 01/23/19 17:20 Serum or plasma sodium measurement (moles/volume) 141 mmol/L 135-145 Serum or plasma potassium measurement (moles/volume) 4.2 mmol/L 3.6-5.0 Serum or plasma chloride measurement (moles/volume) 104 mmol/L 98-107 Carbon dioxide 24 mmol/L 21-32 Serum or plasma anion gap determination (moles/volume) 13 mmol/L 5-14 Serum or plasma urea nitrogen measurement (mass/volume ) 10 mg/dL 7-18 Serum or plasma creatinine measurement (mass/volume) 0.98 mg/dL 0.60-1.30 Serum or plasma urea nitrogen/creatinine mass ratio 10 NRG Serum or plasma creatinine measurement w ith calculation of estimated glomerular filtration rate 60 NRG Serum or plasma glucose measurement (mass/volume) 128 mg/dL 70-105 Serum or plasma calcium measurement (mass/volume) 9.6 mg/dL 8.5-10.1 Serum or plasma total bilirubin measurement (mass/volu me) 0.4 mg/dL 0.1-1.0 Serum or plasma alkaline phosphatase adriana surement (enzymatic activity/volume) 80 U/L 40-136 Serum or plasma aspartate aminotransfera se measurement (enzymatic activity/volume) 22 U/L 5-34 Serum or plasma alanine aminotransferase measurement (enzymatic activity/volume) 21 U/L 0-55 Serum or plasma protein measurement (mass/volume) 7.6 g/dL 6.4-8.2 Serum or plasma albumin measurement (mass/volume) 4.7 g/dL 3.2-4.5 Serum or plasma troponin i.cardiac measu rement (mass/volume) - 01/23/19 17:20 Serum or plasma troponin i.cardiac measurement (mass/v olume) < ng/mL <0.30 PROBNP FS - 01/23/19 17:20 PROBNP FS 29.2 pg/mL <75.0 Serum or plasma troponin i.cardiac measu rement (mass/volume) - 01/23/19 23:31 Serum or plasma troponin i.cardiac measurement (mass/v olume) < ng/mL <0.028 Complete blood count (CBC) with automate d white blood cell (WBC) differential - 01/24/19 06:36 Blood leukocytes automated count (number/volume) 7.9 10*3/uL 4.3-11.0 Blood erythrocytes automated count (number/volume) 4.21 10*6/uL 4.35-5.85 Venous blood hemoglobin measurement (mass/volume) 12.5 g/dL 11.5-16.0 Blood hematocrit (volume fraction) 39 % 35-52 Automated erythrocyte mean corpuscular volume 93 [ foz_us] 80-99 Automated erythrocyte mean corpuscular h emoglobin (mass per erythrocyte) 30 pg 25-34 Automated erythrocyte mean corpuscular h emoglobin concentration measurement (mass/volume) 32 g/dL 32-36 Automated erythrocyte distribution width ratio 12. 8 % 10.0- 14.5 Automated blood platelet count (count/volume) 317 10*3/uL 130-400 Automated blood platelet mean volume measurement 9.8 [foz_us] 7.4-10.4 Automated blood neutrophils/100 leukocytes 55 % 42-75 Automated blood lymphocytes/100 leukocytes 35 % 12-44 Blood monocytes/100 leukocytes 7 % 0-12 Automated blood eosinophils/100 leukocytes 2 % 0-10 Automated blood basophils/100 leukocytes 1 % 0-10 Blood neutrophils automated count (number/volume) 4.3 10*3 1.8-7.8 Blood lymphocytes automated count (number/volume) 2.8 10*3 1.0-4.0 Blood monocytes automated count (number/volume) 0. 6 10*3 0.0-1.0 Automated eosinophil count 0.2 10*3/uL 0 .0-0.3 Automated blood basophil count (count/volume) 0.1 10*3/uL 0.0-0.1 Comprehensive metabolic panel - 01/24/19 06:36 Serum or plasma sodium measurement (moles/volume) 140 mmol/L 135-145 Serum or plasma potassium measurement (moles/volume) 4.3 mmol/L 3.6-5.0 Serum or plasma chloride measurement (moles/volume) 108 mmol/L 98-107 Carbon dioxide 22 mmol/L 21-32 Serum or plasma anion gap determination (moles/volume) 10 mmol/L 5-14 Serum or plasma urea nitrogen measurement (mass/volume ) 12 mg/dL 7-18 Serum or plasma creatinine measurement (mass/volume) 0.81 mg/dL 0.60-1.30 Serum or plasma urea nitrogen/creatinine mass ratio 15 NRG Serum or plasma creatinine measurement w ith calculation of estimated glomerular filtration rate > NRG Serum or plasma glucose measurement (mass/volume) 103 mg/dL 70-105 Serum or plasma calcium measurement (mass/volume) 9.2 mg/dL 8.5-10.1 Serum or plasma total bilirubin measurement (mass/volu me) 0.5 mg/dL 0.1-1.0 Serum or plasma alkaline phosphatase adriana surement (enzymatic activity/volume) 75 U/L 40-136 Serum or plasma aspartate aminotransfera se measurement (enzymatic activity/volume) 20 U/L 5-34 Serum or plasma alanine aminotransferase measurement (enzymatic activity/volume) 20 U/L 0-55 Serum or plasma protein measurement (mass/volume) 6.9 g/dL 6.4-8.2 Serum or plasma albumin measurement (mass/volume) 4.2 g/dL 3.2-4.5 CALCIUM CORRECTED 9.0 mg/dL 8.5-10.1 Serum or plasma troponin i.cardiac measu rement (mass/volume) - 01/24/19 06:36 Serum or plasma troponin i.cardiac measurement (mass/v olume) < ng/mL <0.028 Lipid 1996 panel - 01/24/19 06:36 Serum or plasma triglyceride measurement (mass/volume) 249 mg/dL <150 Serum or plasma cholesterol measurement (mass/volume) 192 mg/dL < 200 Serum or plasma cholesterol in HDL measurement (mass/v olume) 35 mg/dL 40-60 Cholesterol in LDL [mass/volume] in serum or plasma by direct assay 124 mg/dL 1-129 Serum or plasma cholesterol in VLDL measurement (mass/ volume) 50 mg/dL 5-40 PANEL (PROFILE 1) - 02/14/19 14 :23 Prescribed Drug 1 Xanax(TM) NRG Creatinine 77.1 mg/dL > or = 20.0 pH 6.8 4.5-9.0 Oxidant NEGATIVE mcg/mL <200 Amphetamines NEGATIVE ng/mL <500 medMATCH Amphetamines CONSISTENT NRG Benzodiazepines POSITIVE ng/mL <100 Marijuana Metabolite NEGATIVE ng/mL <20 medMATCH Marijuana Metab CONSISTENT NRG Cocaine Metabolite NEGATIVE ng/mL <150 medMATCH Cocaine Metab CONSISTENT NRG Opiates NEGATIVE ng/mL <100 medMATCH Opiates CONSISTENT NRG Oxycodone NEGATIVE ng/mL <100 medMATCH Oxycodone CONSISTENT NRG COMMENT NRG Alphahydroxyalprazolam 67 ng/mL <25 medMATCH aOH alprazolam CONSISTENT NRG Alphahydroxymidazolam NEGATIVE ng/mL < 50 medMATCH aOH midazolam CONSISTENT NRG Alphahydroxytriazolam NEGATIVE ng/mL < 50 medMATCH aOH triazolam CONSISTENT NRG Aminoclonazepam NEGATIVE ng/mL <25 medMATCH Aminoclonazepam CONSISTENT NRG Hydroxyethylflurazepam NEGATIVE ng/mL <50 medMATCH OH,Et flurazepam CONSISTENT NR G Lorazepam NEGATIVE ng/mL <50 medMATCH Lorazepam CONSISTENT NRG Nordiazepam NEGATIVE ng/mL <50 medMATCH Nordiazepam CONSISTENT NRG Oxazepam NEGATIVE ng/mL <50 medMATCH Oxazepam CONSISTENT NRG Temazepam NEGATIVE ng/mL <50 medMATCH Temazepam CONSISTENT NRG Barbiturates NEGATIVE ng/mL <300 medMATCH Barbiturates CONSISTENT NRG Methadone Metabolite NEGATIVE ng/mL <100 medMATCH Methadone Metab CONSISTENT NRG Phencyclidine NEGATIVE ng/mL <25 medMATCH Phencyclidine CONSISTENT NRG LIPID PANEL - 07/05/19 08:56 CHOLESTEROL, TOTAL 164 mg/dL <200 HDL CHOLESTEROL 38 mg/dL > OR = 50 TRIGLYCERIDES 368 mg/dL <150 LDL-CHOLESTEROL 82 mg/dL (calc) NRG CHOL/HDLC RATIO 4.3 (calc) <5.0 NON HDL CHOLESTEROL 126 mg/dL (calc) <13 0 CMP - 07/05/19 08:56 GLUCOSE 98 mg/dL 65-99 UREA NITROGEN (BUN) 10 mg/dL 7-25 CREATININE 0.76 mg/dL 0.50-1.10 eGFR NON-AFR. BULGARIAN 92 mL/min/1.73m2 > OR = 60 eGFR 107 mL/min/1.73m2 > OR = 60 BUN/CREATININE RATIO NOT APPLICABLE (calc) 6-22 SODIUM 143 mmol/L 135-146 POTASSIUM 4.0 mmol/L 3.5-5.3 CHLORIDE 110 mmol/L 98-110 CARBON DIOXIDE 25 mmol/L 20-32 CALCIUM 8.9 mg/dL 8.6-10.2 PROTEIN, TOTAL 6.3 g/dL 6.1-8.1 ALBUMIN 4.1 g/dL 3.6-5.1 GLOBULIN 2.2 g/dL (calc) 1.9-3.7 ALBUMIN/GLOBULIN RATIO 1.9 (calc) 1.0-2. 5 BILIRUBIN, TOTAL 0.5 mg/dL 0.2-1.2 ALKALINE PHOSPHATASE 63 U/L 31-125 AST 14 U/L 10-35 ALT 14 U/L 6-29 CBC - 07/05/19 08:56 WHITE BLOOD CELL COUNT 10.3 Thousand/uL 3.8-10.8 RED BLOOD CELL COUNT 3.52 Million/uL 3.8 0-5.10 HEMOGLOBIN 10.9 g/dL 11.7-15.5 HEMATOCRIT 33.3 % 35.0-45.0 MCV 94.6 fL 80.0-100.0 MCH 31.0 pg 27.0-33.0 MCHC 32.7 g/dL 32.0-36.0 RDW 13.2 % 11.0-15.0 PLATELET COUNT 324 Thousand/uL 140-400 MPV 10.6 fL 7.5-12.5 ABSOLUTE NEUTROPHILS 6932 cells/uL 1500- 7800 ABSOLUTE LYMPHOCYTES 2544 cells/uL 850-3 900 ABSOLUTE MONOCYTES 556 cells/uL 200-950 ABSOLUTE EOSINOPHILS 206 cells/uL 15-500 ABSOLUTE BASOPHILS 62 cells/uL 0-200 NEUTROPHILS 67.3 % NRG LYMPHOCYTES 24.7 % NRG MONOCYTES 5.4 % NRG EOSINOPHILS 2.0 % NRG BASOPHILS 0.6 % NRG Coronavirus SARS-CoV-2 SO 2018 0 10:08 Coronavirus Ab [Units/volume] in Serum Negative Negative Encounters ACCT No. Visit Date/Time Discharge Status Pt. Type Provider Facility Loc./Unit Complaint [id number] 10/04/2019 12:00:00 10/04/2019 23:59: 59 CLS Outpatient [facility] [id number] 07/05/2019 08:30:00 Document Registration [id number] 02/14/2019 14:00:00 Document Registration [id number] 11/24/2018 08:00:00 Document Registration [id number] 10/18/2018 13:40:00 Document Registration [id number] 01/31/2014 17:49:00 01/31/2014 23:59: 59 CLS Outpatient USMAN FERNANDEZ APRN [id number] 08/02/2012 16:26:00 08/02/2012 23:59: 59 CLS Outpatient PADMAJA GOMEZ APRN [id number] 07/06/2012 08:13:00 07/06/2012 23:59: 59 CLS Outpatient [id number] 06/08/2012 08:00:00 06/08/2012 23:59: 59 CLS Outpatient WARREN ORTEGA DO [id number] 06/07/2012 13:58:00 06/07/2012 23:59: 59 CLS Outpatient [id number] 05/06/2012 08:29:00 05/06/2012 23:59: 59 CLS Outpatient [id number] 03/03/2012 10:54:00 03/03/2012 23:59:5 9 CLS Outpatient WARREN ORTEGA DO [id number] 11/05/2012 10:40:00 Document Registration [id number] 11/15/2019 09:59:00 23:59:59 CLS Outpatient ROSARIO MERCHANT DO [facility] LAB FS COVID SWAB [id number] 11/15/2019 05:53:00 10:16:00 DIS Outpatient ROSARIO MERCHANT DO [facility] PREOP COLONOSCOPY [id number] 01/23/2019 21:25:00 12:42:00 DIS Inpatient PATRICK MCCALLUM DO, [facility] 4TH CHEST PAIN, R/O ACS [id number] 12/17/2018 13:07:00 15:00:00 DIS Emergency PARIS MORALES DO [facility] ER FS LOWER BACK PAIN,NAUSEA, PAINFUL URINATON [id number] 09/27/2018 21:01:00 22:13:00 DIS Emergency GEMMA WASSERMAN MD [facility] ER FS LT FOOT INJ [id number] 11/20/2019 12:45:00 P EN Preadmit ROSARIO MERCHANT DO [facility] SDC BLOOD IN STOOL/FAMILY HX COL ON CA
--- NOTE | 2019-11-20 08:57 | Progress Note-Pre Operative ---
Pre-Operative Progress Note H&P Reviewed The H&P was reviewed, patient examined and no changes noted. Time Seen by Provider: 08:55 Date H&P Reviewed: Nov 20, 2019 Time H&P Reviewed: 08:55 Pre-Operative Diagnosis: rectal bleed, fam hx of colon ca ROSARIO MERCHANT DO Nov 20, 2019 08:57
[2019-11-20 09:25] VITALS: BP 92/54
[2019-11-20 09:30] VITALS: BP 85/54
--- NOTE | 2019-11-20 09:33 | Progress Note-Post Operative ---
Post-Operative Progess Note Surgeon (s)/Surveillance Officer (s) Surgeon ROSARIO MERCHANT DO Surveillance Officer: none Pre-Operative Diagnosis rectal bleed, fam hx of colon ca Post-Operative Diagnosis Colon polyps Diverticula Int Hemorrhoids Procedure & Operative Findings Date of Procedure 11/20/19 Procedure Performed/Findings Colon with snare Anesthesia Type IV sedation by anesthesia Estimated Blood Loss Estimated blood loss (mL): scant Specimens/Packing Specimens Removed transverse polyp cecal polyp asc polyp x 3 ROSARIO MERCHANT DO Nov 20, 2019 09:33
--- NOTE | 2019-11-20 09:34 | Endoscopy Discharge Instruct ---
Endo Procedure/Findings Findings 1.: Polyp 2.: Diverticulosis 3.: Internal Hemorrhoids Discharge Instructions - Activity: You might feel a little sleepy until tomorrow. This is due to the medicine you received to relax you. Until tomorrow, you should: NOT drive a car, operate machinery or power tools. NOT drink any alcoholic beverages. NOT make any important decisions or sign importortant papers. Do not return to work until tomorrow, unless otherwise instructed. Resume previous activities tomorrow. Diet: Start by taking liquids. If you tolerate liquids, advance to solid food. make an appoinment for one week 1.: Colonscopy in 3 years Notify Physician - If you experience excessive bleeding, unusual abdominal pain, fever, or chest pain, contact your doctor immediately. ROSARIO MERCHANT DO Nov 20, 2019 09:34
[2019-11-20 09:35] VITALS: BP 85/54
--- NOTE | 2019-11-20 09:42 | Anesthesia-General Post-Op ---
MAC Patient Condition Mental Status/LOC: Same as Preop Cardiovascular: Satisfactory Nausea/Vomiting: Absent Respiratory: Satisfactory Pain: Controlled Complications: Absent Post Op Complications Complications None Follow Up Care/Instructions Patient Instructions None needed. Anesthesiology Discharge Order Discharge Order Patient is doing well, no complaints, stable vital signs, no apparent adverse anesthesia problems. SEMAJ SHERIFF DO Nov 20, 2019 09:42
[2019-11-20 10:07] VITALS: BP 110/72
--- NOTE | 2019-11-21 04:06 | OPERATIVE REPORT ---
DATE OF SERVICE: 11/20/2019 PREOPERATIVE DIAGNOSES: Rectal bleed, family history of colon cancer. POSTOPERATIVE DIAGNOSES: Multiple colon polyps, diverticula, internal hemorrhoids. PROCEDURE: Colonoscopy with snare polypectomy. SURGEON: Eliezer Ybarra DO MEDICATION AIDE: None. ANESTHESIA: IV sedation by the anesthesiologist. SPECIMEN: Polyp from the transverse colon, one from the cecum and three from the ascending colon. BLOOD LOSS: Scant. FLUIDS: Per anesthesia. POSTOPERATIVE CONDITION: Stable. INDICATION FOR PROCEDURE: The patient is a 49-year-old female who noted some rectal bleeding and was very concerned because both her father and brother have stage IV colon cancer. She has never had a colonoscopy before. FINDINGS: The patient had multiple polyps seen transverse cecum and 3 in the ascending colon. No other obvious masses. She also had some internal hemorrhoids and some diverticula. PROCEDURE NOTE: After informed consent was obtained, the patient was brought to the endoscopy suite, placed in bed in the left lateral decubitus position. She was administered IV sedation by the anesthesiologist who then monitored her vitals the entire time, heart rate, blood pressure and pulse ox and the scope was inserted, pushing in on the way to about 160 cm, on the way in noted a polyp in the transverse colon, a snare polypectomy was done. Also saw diverticula on the right side and then actually some on the left side, able to get all the way to cecum, took a picture of appendiceal orifice, noted the ileocecal valve and then slowly withdrew the scope insufflating the circumferential grande looking the cecum. In the cecum, saw another polyp, did snare polypectomy of this and then pulled up into the ascending colon and saw three polyps next to each other, did snare polypectomies of these as well and suctioned all the way up to be sent to pathology, then continued up to the hepatic flexure and then down the transverse colon, the splenic flexure, into the descending colon and finally down through the sigmoid and into the rectum, retroflexed in the rectal vault, saw some minimal internal hemorrhoids, took a picture of this and then removed the scope. The patient tolerated the procedure, recovered in endoscopy suite. Job ID: [id number] DocumentID: [id number] Dictated Date: 11/20/2019 20:34:42 Blockers Skiver Date: 11/21/2019 04:06:08 Dictated By: ELIEZER YBARRA DO
== END 2019-11-20 10:00 | disposition home or self-care (01) ==
LOC: SDC 08:24
PROVIDERS: ATTEND Surgery
DX: D12.3 Benign neoplasm of transverse colon (principal); D12.0 Benign neoplasm of cecum; D12.2 Benign neoplasm of ascending colon; K64.8 Other hemorrhoids; K57.30 Diverticulosis of large intestine without perforation or abscess without bleeding; K62.5 Hemorrhage of anus and rectum; R19.4 Change in bowel habit; F32.9 Major depressive disorder, single episode, unspecified; F41.9 Anxiety disorder, unspecified; E78.1 Pure hyperglyceridemia; I10 Essential (primary) hypertension; J44.9 Chronic obstructive pulmonary disease, unspecified; D64.9 Anemia, unspecified; N39.0 Urinary tract infection, site not specified; G62.9 Polyneuropathy, unspecified; E66.9 Obesity, unspecified; Z68.41 Body mass index [BMI] 40.0-44.9, adult; Z79.82 Long term (current) use of aspirin; Z79.899 Other long term (current) drug therapy; Z79.51 Long term (current) use of inhaled steroids; Z88.0 Allergy status to penicillin; Z88.1 Allergy status to other antibiotic agents; Z83.3 Family history of diabetes mellitus; Z80.0 Family history of malignant neoplasm of digestive organs
CPT/HCPCS: 88305

== ENCOUNTER 2019-12-03 19:10 | Emergency (ER) | payer OTHER ==
--- OUTSIDE RECORDS SUMMARY | 2019-12-03 19:18 | XMS REPORT ---
Author Author Tiffanie MISHRA Organization [facility] Address [address] [place] [address] Care Team Providers Care Deputy Jailer Name Role Phone ROSALINA MISHRA Unavailable PROBLEMS Type Condition ICD9-CM Code RIS27-YE Code Onset Dates Condition S tatus SNOMED Code Problem Status post right breast biopsy Z98.890 17 Mar, 2011 Active 917281144 Problem Chronic blood loss anemia D50.0 Aug, A ctive 102527890 Problem Mammographic microcalcification R92.0 10 Mar, 2011 Active [id number] Problem Essential hypertension I10 Active 30132058 Problem Asthma J45.909 14 Jan, 2014 Active 4336787 01 Problem Hiatal hernia K44.9 16 Oct, 2009 Active 840 88316 Problem Mood disorder F39 Active 740465 05 Problem Migraine, unspecified, witho ut mention of intractable migraine without mention of status migrainosus G43.909 Active 03936549 Problem COPD with exacerbation J44.1 Active 892177843 Problem Acute pyelonephritis N10 13 Jan, 2018 Active 86162459 Problem PTSD (post-traumatic stress disorder) F43.10 Active 17797212 Problem Mixed hyperlipidemia E78.2 Active 084705047 Problem Angina pectoris, unstable I20.0 Acti ve 0788211 Problem Chronic bronchitis with COPD (chronic obstructiv e pulmonary disease) J44.9 Active 23918447 ALLERGIES No Information ENCOUNTERS Encounter Location Date Diagnosis [facility] [address] [facility] [id number] [address] [place] [address] Dec, [address] [id number], [place] [address] Oct, Mood disorder F39 [address] [id number], [place] [address] Oct, [address] [id number] [place] [address] Oct, [facility] [place] [address] [id number] [place] [address] Oct, Mood disorder F39 [facility] [address] [facility] [id number] [address] [place] [address] 03 Oct, 2019 PTSD (post-traumatic stress disorder) F43.10 and Bipolar I disorder F31.9 [facility] [address] [facility] [id number] [address] [place] [phone] August, PTSD (post-traumatic stress disorder) F43.10 and Mood disorder F39 [place] [address] [facility] [id number] [address] [place] [address] 23 Aug, 2019 PTSD (post-traumatic stress disorder) F43.10 and Bipolar I disorder F31.9 [facility] [address] [facility] [id number] [address] [place] [address] Aug, PTSD (post-traumatic stress disorder) F43.10 and Mood disorder F39 [facility] [address] [facility] [id number] [address] [place] [address] 14 Aug, 2019 PTSD (post-traumatic stress disorder) F43.10 and Bipolar I disorder F31.9 [facility] [address] [facility] [id number] [address] [place] [address] 10 Jul, 2019 Bipolar I disorder F31.9 and PTSD (post-traumatic stress disorder) F43.10 [facility] [address] [facility] [id number] [address] [place] [phone] 10 Jul, [address] [facility] [place] [address] 340B [id number] [place] [address] 04 Jul, 2019 Chronic bronchitis with COPD (chronic obstructive pulmonary disease) J44.9 ; Mixed hyperlipidemia E78.2 ; Essential hypertension I10 and Family history of colon cancer Z80.0 [facility] [place] [facility] [address] [id number] [place] [address] Jun, Influenza A J10.1 ; Wheezing R06.2 and Flu-like symptoms R68.89 [facility] [address] [facility] [id number] [address] [place] [phone] 19 Jun, 2019 PTSD (post-traumatic stress disorder) F43.10 [facility] [address] [facility] [id number] [address] [place] [address] 18 Jun, [address] 340B [id number], [place] [address] Jun, [address] 340[address] [id number], [place] [address] May, PTSD (post-traumatic stress disorder) F43.10 [facility] [address] [facility] [id number] [address] [place] [address] May, PTSD (post-traumatic stress disorder) F43.10 and Bipolar I disorder F31.[address] 340B [id number], [place] [address] Apr, PTSD (post-traumatic stress disorder) F43.[address] 340[address] [id number], [place] [address] Apr, Chronic bronchitis with COPD (chronic obstructive pulmonary disease) J44.9 [facility] WALK IN [facility] [address] [facility] [address] [id number] [place] [address] Apr, Puncture wound of plantar as pect of right foot, initial encounter S91.331A and Local infection of the skin and subcutaneous tissue, unspecified L08.[address] 340B [id number] [place] [address] Mar, PTSD (post-traumatic stress disorder) F43.[address] 340B [id number] [place] [address] Mar, [address] 340[address] [id number], [place] [address] Mar, [facility] [address] 340B [id number] [place] [address] Mar, PTSD (post-traumatic stress disorder) F43.[address] 340B [id number] [place] [address] Mar, [facility] [place] [address] 340[address] [id number] [place] [address] Jan, Breast cancer screening Z12. [address] [facility] [place] [address] 340 [id number], [place] [address] Jan, [address] 340 [id number], [place] [address] Jan, Essential hypertension I10 ; High risk medications (not anticoagulants) long-term use Z79.899 ; Angina pectoris, unstable I20.0 ; Mixed hyperlipidemia E78.2 ; Encounter for immunization Z23 ; Mammographic microcalcification R92.0 and Breast cancer screening Z12.[address] [facility] [place] [address] 340 [id number] [place] [address] Jan, PTSD (post-traumatic stress disorder) F43.[address] 340 [id number], [place] [address] Jan, PTSD (post-traumatic stress disorder) F43.10 [facility] [address] [facility] [id number] [address] [place] [address] Jan, PTSD (post-traumatic stress disorder) F43.10 and Bipolar I disorder F31.9 [facility] [address] [facility] [id number] [address] [place] [address] Jan, Bipolar I disorder F31.9 and PTSD (post-traumatic stress disorder) F43.[address] 340B [id number] [place] [address] Jan, PTSD (post-traumatic stress disorder) F43.10 [facility] [address] [facility] [id number] [address] [place] [address] Dec, [facility] [address] [facility] [id number] [address] [place] [address] Dec, Bipolar I disorder F31.9 and PTSD (post-traumatic stress disorder) F43.10 [facility] [address] [facility] [id number] [address] [place] [address] Dec, PTSD (post-traumatic stress disorder) F43.10 and Bipolar I disorder F31.[address] [facility] [place] [address] 340B [id number] [place] [address] Dec, [facility] [place] [facility] [address] 340 [id number] [place] [address] Dec, Flank pain R10.9 and Dysuria R30.0 [facility] [address] [facility] [id number] [address] [place] [address] Dec, PTSD (post-traumatic stress disorder) F43.[address] 340B [id number], [place] [address] Dec, PTSD (post-traumatic stress disorder) F43.10 [facility] [address] [facility] [id number] [address] [place] [address] Dec, Bipolar I disorder F31.9 and PTSD (post-traumatic stress disorder) F43.10 [facility] [address] [facility] [id number] [address] [place] [address] Oct, Bipolar I disorder F31.9 and PTSD (post-traumatic stress disorder) F43.[address] [facility] [place] [address] 340B [id number] [place] [address] Oct, [address] 340B [id number], [place] [address] Oct, Essential hypertension I10 [facility] [address] [facility] [id number] [address] [place] [address] Oct, [facility] [address] [facility] [id number] [address] [place] [address] Oct, Bipolar I disorder F31.9 and PTSD (post-traumatic stress disorder) F43.[address] [facility] [place] [address] 340B [id number], [place] [address] Oct, [facility] [place] [address] 340B [id number], [place] [address] Oct, [facility] [place] [address] 340B [id number], [place] [address] Oct, Morbid obesity E66.01 ; Migr sundar, unspecified, without mention of intractable migraine without mention of status migrainosus G43.909 ; Bipolar I disorder F31.9 and Essential hypertension I10 [facility] [place] [address] 340B [id number], [place] [address] Oct, Well woman exam with routine gynecological exam Z01.419 ; Morbid obesity E66.01 ; Pap test, as part of routine gynecological examination Z01.419 and Breast cancer screening Z12.[address] [facility] [place] [address] 340B [id number], [place] [address] Oct, [address] 340B [id number], [place] [address] August, [facility] [address] [facility] [id number] [address] [place] [address] Jun, [facility] [address] [facility] [id number] [address] [place] [address] Apr, [facility] [address] [id number] [address] [place] [address] Apr, [facility] [address] [id number] [address] [place] [address] Apr, [facility] [address] [facility] [id number] [address] [place] [address] Jan, [facility] [address] [id number] [address] [place] [address] Aug, [facility] [address] [id number] [address] [place] [address], [place] [address] Aug, [facility] [address] [id number] [address] [place] [address], [place] [address] Jan, [facility] [address] [id number] [address] [place] [address], [place] [address] Jan, [facility] [address] [id number] [address] [place] [address], [place] [address] Dec, [facility] [address] [id number] [address] [place] [address], [place] [address] Oct, [facility] [address] [id number] [address] [place] [address], [place] [address] Aug, [facility] [address] [id number] [address] [place] [address], [place] [address] Aug, [facility] [address] [id number] [address] [place] [address], [place] [address] Aug, [facility] [address] [id number] [address] [place] [address], [place] [address] Jul, [facility] [address] [id number] [address] [place] [address], [place] [address] Jun, [facility] [address] [id number] [address] [place] [address], [place] [address] Jun, [facility] [address] [id number] [address] [place] [address], [place] [address] Jun, [facility] [address] [id number] [address] [place] [address], [place] [address] May, [facility] [address] [id number] [address] [place] [address], [place] [address] May, [facility] [address] [id number] [address] [place] [address], [place] [address] Apr, [facility] [address] [id number] [address] [place] [address] Apr, [facility] [address] [facility] [id number] [address] [place] [address] Jan, [facility] [address] [facility] [id number] [address] [place] [address] Jan, [facility] [place] [facility] [address] [facility] [id number] [facility] [id number] Oct, [facility] [address] [facility] [id number] [address] [place] [address] Oct, [facility] [address] [facility] [id number] [address] [place] [address] Oct, [facility] [address] [facility] [id number] [address] [place] [address] August, IMMUNIZATIONS No Known Immunizations SOCIAL HISTORY [...]
--- OUTSIDE RECORDS SUMMARY | 2019-12-03 19:19 | XMS REPORT | Continuity of Care Document ---
Author Organization Unknown Address Unknown Phone Unavailable Allergies Active Description Code Type Severity Reaction Onset Reported/Identified Relationship to Patient Clinical Status Yes Penicillins Drug Allergy 09/03/2011 Yes Penicillins Drug Allergy N/A N/A 09/03/2011 Yes cephalexin [id number] Drug Allerg y Unknown N/A 12/17/2018 Yes Penicillins [id number] Drug Aller gy Unknown N/A 12/17/2018 Medications [...] DO, WARREN K 466.0 BRONCHITIS, ACUTE 05/06/2012 ORETGA DO, WARREN K 780.60 FEVER, UNSPECIFIED 05/06/2012 [...] MD Ot Y92.007 [place] [facility] 09/27/2018 GEMMA WASSERMAN MD, Ot Z79. 82 PENITENTIARY (CURRENT) USE OF ASPIRIN 09/27/2018 GEMMA WASSERMAN [...] MD Ot Y92.007 [place] 09/30/2018 GEMMA WASSERMAN MD Ot Z79. 82 GARMENT INSPECTOR (CURRENT) USE OF ASPIRIN 09/30/2018 GEMMA WASSERMAN [...] 12/17/2018 MORALES DO PARIS L Ot Z79.82 PENITENTIARY (CURRENT) USE OF ASPIRIN 12/17/2018 MORALES DORANPARIS [...] DYSURIA 12/20/2018 MORALES DORANPARIS L Ot Z79.82 GARMENT INSPECTOR (CURRENT) USE OF ASPIRIN 12/20/2018 MORALES DORANPARIS [...] DYSURIA 12/20/2018 PARIS MORALES DO Ot Z79.82 GARMENT INSPECTOR (CURRENT) USE OF ASPIRIN 12/20/2018 PARIS MORALES [...] UNSPECIFIED 01/24/2019 CIELO MCCALLUM DOI Ot Z79.82 PENITENTIARY (CURRENT) USE OF ASPIRIN 01/24/2019 CIELO MCCALLUM DOI Ot Z79.89 1 PENITENTIARY (CURRENT) USE OF OPIATE ANALGE 01/24/2019 CIELO MCCALLUM DOI Ot Z79.89 9 OTHER GARMENT INSPECTOR (CURRENT) DRUG THERAPY 01/24/2019 CIELO MCCALLUM DOI [...] UNSPECIFIED 01/24/2019 PATRICK MCCALLUM DO Ot Z79.82 GARMENT INSPECTOR (CURRENT) USE OF ASPIRIN 01/24/2019 PATRICK MCCALLUM DO Ot Z79.89 1 GARMENT INSPECTOR (CURRENT) USE OF OPIATE ANALGE 01/24/2019 CIELO MCCALLUM DOI Ot Z79.89 9 OTHER PENITENTIARY (CURRENT) DRUG THERAPY 01/24/2019 CIELO MCCALLUM DOI [...] UNSPECIFIED 01/31/2019 PATRICK MCCALLUM DO Ot Z79.82 GARMENT INSPECTOR (CURRENT) USE OF ASPIRIN 01/31/2019 PATRICK MCCALLUM DO Ot Z79.89 1 GARMENT INSPECTOR (CURRENT) USE OF OPIATE ANALGE 01/31/2019 PATRICK MCCALLUM DO Ot Z79.89 9 OTHER GARMENT INSPECTOR (CURRENT) DRUG THERAPY 01/31/2019 PATRICK MCCALLUM DO [...] UNSPECIFIED 01/31/2019 CIELO MCCALLUM DOI Ot Z79.82 PENITENTIARY (CURRENT) USE OF ASPIRIN 01/31/2019 CIELO MCCALLUM DOI Ot Z79.89 1 PENITENTIARY (CURRENT) USE OF OPIATE ANALGE 01/31/2019 PATRICK MCCALLUM DO Ot Z79.89 9 OTHER GARMENT INSPECTOR (CURRENT) DRUG THERAPY 01/31/2019 PATRICK MCCALLUM DO [...] Z01.8 18 ENCOUNTER FOR OTHER PREPROCEDURAL EXAMIN 11/20/2019 ROSARIO MERCHANT DO Ot K64.8 OTHER HEMORRHOIDS 11/20/2019 ROSARIO MERCHANT DO B Ot K92.1 MELENA 11/20/2019 ROSARIO MERCHANT DO B Ot Z20.8 28 CONTACT W AND EXPOSURE TO OTH VIRAL COMM 11/20/2019 ROSARIO MERCHANT DO B Ot Z85.0 38 PERSONAL HISTORY OF MALIGNANT NEOPLASM O 11/28/2019 ROSARIO MERCHANT DO Ot K92.1 MELENA 11/28/2019 ROSARIO MERCHANT DO B Ot Z20.8 28 CONTACT W AND EXPOSURE TO OTH VIRAL COMM 11/28/2019 ROSARIO MERCHANT DO B Ot Z85.0 38 PERSONAL HISTORY OF MALIGNANT NEOPLASM O Procedures Code [place] [address] INFL UENZA A & B (IN-HOUSE) 04/06/2012 55591 INFL UENZA A & B (IN-HOUSE) 05/06/2012 86441 XRAY CHEST 2 VIEW 05/06/2012 80249 MRI BRAIN W/O CONTRAST 06/07/2012 58250 ECHO EXAMINATION PROCEDURE 06/07/2012 89838 EKG, TRACING (IN-HOUSE) 06/07/2012 89791 US C AROTID DOPPLER 06/07/2012 CARDI BAQI R, KENDRA 06/07/2012 45505 ROUT INE VENIPUNCTURE 06/08/2012 85568 CMP 06/08/2012 47230 LIPI D PANEL 06/08/2012 85163 BNP 06/08/2012 36949 TSH 06/08/2012 90490 CBC 06/08/2012 40265 CRP HS (CARDIO) 06/08/2012 73768 NUCL EAR STRESS TESTING 07/06/2012 21058 EKG, TRACING (IN-HOUSE) 07/06/2012 30573 VELÁSQUEZ ER MONITOR 07/06/2012 Results Test Result Range SUREPATH PAP AND HPV mRNA E6/E7 - 14:44 CLINICAL INFORMATION: NRG LMP: NRG PREV. PAP: NRG PREV. BX: NRG SOURCE: Cervix NR STATEMENT OF ADEQUACY: NR INTERPRETATION/RESULT: NR WEATHER [place]: HOG HPV mRNA E6/E7, SUREPATH VIAL Not Detected NOT DETECTED COMMENT NR LIPID PANEL - 11/24/18 08:05 CHOLESTEROL, TOTAL 210 mg/dL <200 HDL CHOLESTEROL 40 mg/dL >50 TRIGLYCERIDES 345 mg/dL <150 LDL-CHOLESTEROL 121 mg/dL (calc) NRG CHOL/HDLC RATIO 5.3 (calc) <5.0 NON HDL CHOLESTEROL 170 mg/dL (calc) <13 0 CMP - 11/24/18 08:05 GLUCOSE 101 mg/dL 65-99 UREA NITROGEN (BUN) 10 mg/dL 7-25 CREATININE 0.84 mg/dL 0.50-1.10 eGFR NON-AFR. ICELANDIC 82 mL/min/1.73m2 > OR = 60 eGFR [...] 7-25 CREATININE 0.76 mg/dL 0.50-1.10 eGFR NON-AFR. ICELANDIC 92 mL/min/1.73m2 > OR = 60 eGFR [...] Status Pt. Type Provider Facility Loc./Unit Complaint [id number] 10/04/2019 12:00:00 10/04/2019 23:59: 59 CLS Outpatient [facility] [id number] 07/05/2019 08:30:00 Document Registration [id number] 02/14/2019 14:00:00 Document Registration [id number] 11/24/2018 08:00:00 Document Registration [id number] 10/18/2018 13:40:00 Document Registration [id number] 01/31/2014 17:49:00 01/31/2014 23:59: 59 CLS Outpatient USMAN FERNANDEZ APRN [id number] 08/02/2012 16:26:00 08/02/2012 23:59: 59 CLS Outpatient PADMAJA GOMEZ APRN [id number] 07/06/2012 08:13:00 07/06/2012 23:59: 59 CLS Outpatient [id number] 06/08/2012 08:00:00 06/08/2012 23:59: 59 CLS Outpatient WARREN ORTEGA DO [id number] 06/07/2012 13:58:00 06/07/2012 23:59: 59 CLS Outpatient [id number] 05/06/2012 08:29:00 05/06/2012 23:59: 59 CLS Outpatient [id number] 03/03/2012 10:54:00 03/03/2012 23:59:5 9 CLS Outpatient WARREN ORTEGA DO [id number] 11/05/2012 10:40:00 Document Registration [id number] 11/20/2019 08:24:00 10:00:00 DIS Outpatient ROSARIO MERCHANT DO [facility] SDC BLOOD IN STOOL/FAMILY H X COLON CA [id number] 11/15/2019 09:59:00 23:59:59 CLS Outpatient ROSARIO MERCHANT DO [facility] LAB FS COVID SWAB [id number] 11/15/2019 05:53:00 10:16:00 DIS Outpatient ROSARIO MERCHANT DO [facility] PREOP COLONOSCOPY [id number] 01/23/2019 21:25:00 019 12:42:00 DIS Inpatient PATRICK MCCALLUM DO, [facility] 4TH CHEST PAIN, R/O ACS [id number] 12/17/2018 13:07:00 019 15:00:00 DIS Emergency PARIS MORALES DO [facility] ER FS LOWER BACK PAIN,NAUSEA, PAINFUL URINATON [id number] 09/27/2018 21:01:00 019 22:13:00 DIS Emergency GEMMA WASSERMAN MD [facility] ER FS LT FOOT INJ
--- NOTE | 2019-12-03 19:36 | ED Lower Extremity ---
General Chief Complaint: Lower Extremity Stated Complaint: RIGHT KNEE INJURY History of Present Illness Date Seen by Provider: Dec 03, 2019 Time Seen by Provider: 19:10 Initial Comments Patient is here with there's been described as a dislocated right patella has had a previous dislocation on the left today was standing with her knee twisting and felt a pop out of place verified in urgent care and sent here in the brace for evaluation. She has pain in that area cannot bear weight on Onset: just prior to arrival Pain/Injury Location: right knee Method of Injury: twisted Modifying Factors: Improves With Immobilization; Worse With Movement Allergies and Home Medications Allergies Coded Allergies: Penicillins (Verified Allergy, Unknown, 12/17/18) cephalexin (Unverified Adverse Reaction, Unknown, 12/17/18) Home Medications Albuterol Sulfate 1 Puff Puff, 2 PUFF INH Q6H PRN for SHORTNESS OF BREATH, (Reported) Alprazolam 0.25 Mg Tablet, 0.25 MG PO TID PRN for ANXIETY, (Reported) Aripiprazole 5 Mg Tablet, 5 MG PO DAILY, (Reported) Aspirin 81 Mg Tablet.dr, 81 MG PO DAILY, (Reported) Ferrous Sulfate 325 Mg Tablet, 325 MG PO DAILY, (Reported) Fluticasone/Salmeterol 1 Each Blst.w.dev, 1 EACH IH BID, (Reported) Gabapentin 300 Mg Capsule, 300 MG PO TID, (Reported) Loratadine 10 Mg Tablet, 10 MG PO DAILY PRN for ALLERGIES, (Reported) Metoprolol Tartrate 25 Mg Tablet, 25 MG PO BID, (Reported) Sertraline HCl 50 Mg Tablet, 50 MG PO DAILY, (Reported) Patient Home Medication List Home Medication List Reviewed: Yes Review of Systems Constitutional: no symptoms reported; No chills, No fever Musculoskeletal: joint pain, joint swelling; No muscle weakness Skin: No lesions, No rash Past Zrstzid-Zwtlha-Vknqrb Hx Past Med/Social Hx: Reviewed Nursing Past Med/Soc Hx Patient Social History Alcohol Use: Denies Use Recreational Drug Use: No 2nd Hand Smoke Exposure: No Recent Foreign Travel: No Contact w/Someone Who Travel: No Recent Hopitalizations: No Immunizations Up To Date Date of Influenza Vaccine: Jan 01, 2018 Seasonal Allergies Seasonal Allergies: No Past Medical History Surgeries: Yes (c/s x2, hemorrhoidectomy, ) Appendectomy, Section, Gallbladder, Tubal Ligation Respiratory: Yes COPD Cardiac: Yes Hypertension, Irregular Heartbeat Neurological: Yes Neuropathy 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 Disorders: No Female 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 Disorders: Denies 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 Sexually Transmitted Disease: No Genitourinary: Yes UTI-Chronic Gastrointestinal: No Hemorrhoids Musculoskeletal: No Endocrine: No HEENT: No Loss of Vision: Denies Hearing Impairment: Denies Cancer: No Psychosocial: Yes Anxiety Integumentary: No Blood Disorders: Yes (anemia) Family Medical History Cardiovascular disease 19 MOTHER Diabetes mellitus G8 BROTHER FH: breast cancer 19 MOTHER Hypertension G8 BROTHER Irregular Heartbeat 19 MOTHER Lung Cancer 19 FATHER Myocardial infarction 19 MOTHER Physical Exam Vital Signs Vital Signs - First Documented 12/03/19 19:18 Temp 36.2 Pulse 86 Resp 18 B/P (MAP) 146/83 (104) Pulse Ox 98 O2 Delivery Room Air Capillary Refill : Height, Weight, BMI Height: 5'7.00" Weight: 258lbs. 0oz. 117.187974qt; 44.73 BMI Method:Stated General Appearance: WD/WN, mild distress HEENT: PERRL/EOMI Hips: bilateral hip non-tender, bilateral hip normal inspection Legs: bilateral leg non-tender, bilateral leg normal inspection Knees: left knee non-tender, left knee normal inspection, left knee normal range of motion; right knee other (kneecap displaced laterally gentle manipulation but it back into place with immediate resolution of pain.) Neurologic/Tendon: normal sensation, normal motor functions 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: no motor/sensory deficits, alert, normal mood/affect, oriented x 3 Skin: normal color, warm/dry Progress/Results/Core Measures Results/Orders My Orders Orders - NANNETTE KEN JR, MD Knee 3 View Right (12/03/19 19:20) Vital Signs/I&O 12/03/19 19:18 Temp 36.2 Pulse 86 Resp 18 B/P (MAP) 146/83 (104) Pulse Ox 98 O2 Delivery Room Air Departure Impression Primary Impression: Patellar dislocation Qualified Codes: S83.004A - Unspecified dislocation of right patella, initial encounter Disposition: HOME, SELF-CARE Condition: Stable Departure-Patient Inst. Referrals: ORIANA DEE MD (PCP/Family) Primary Care Physician Patient Instructions: Dislocated Kneecap (DC) NANNETTE KEN JR, MD Dec 03, 2019 19:35
--- NOTE | 2019-12-03 19:40 | Diagnostic Imaging Report ---
INDICATION: History of patellar subluxation, status post reduction. EXAMINATION: AP, oblique and lateral views of the right knee were obtained. FINDINGS: No acute fracture or acute bony abnormality is seen. There is mild posterior patellar spurring with questionable small joint effusion. There is no dislocation at this time. IMPRESSION: No dislocation at this time. No acute fracture. Mild posterior patellar spurring with small joint effusion. Dictated by: Dictated on workstation # [id number]
[2019-12-03 20:07] VITALS: BP 114/57
== END 2019-12-03 20:07 | disposition home or self-care (01) ==
LOC: EDUNIT# 19:10 → ER FS 19:13
DX: S83.004A Unspecified dislocation of right patella, initial encounter (principal); J44.9 Chronic obstructive pulmonary disease, unspecified; I10 Essential (primary) hypertension; I49.9 Cardiac arrhythmia, unspecified; F41.9 Anxiety disorder, unspecified; Z79.899 Other long term (current) drug therapy; Z79.82 Long term (current) use of aspirin; Z88.0 Allergy status to penicillin; Z88.1 Allergy status to other antibiotic agents; X50.1XXA Overexertion from prolonged static or awkward postures, initial encounter
CPT/HCPCS: 73562

== ENCOUNTER → 2020-01-01 | Outpatient (CLI) | payer OTHER ==
--- NOTE | 2020-01-01 10:30 | Diagnostic Imaging Report ---
PROCEDURE: MRI right joint lower extremity without contrast. TECHNIQUE: Multiplanar, multisequence non contrast-enhanced MRI of the right lower extremity was accomplished. INDICATION: Right knee pain FINDINGS: The anterior cruciate and posterior cruciate ligaments are intact. Both the superficial and deep components of the medial collateral ligament are intact. The biceps, femoris, tibial collateral and iliotibial band are intact. Popliteus tendon is intact. There is some mild myxoid degeneration in the posterior horn medial meniscus. There is no discrete tear. Lateral meniscus is normal signal intensity morphology. Quadriceps tendon and patellar tendons are intact. There is a small knee joint effusion. Small intra-articular loose bodies cannot be excluded. Also appears to be some synovitis. There is some irregularity of the articular cartilage along the medial femoral condyle with a small amount of underlying marrow edema. There are also degenerative changes in the patellofemoral joint. IMPRESSION: Irregularity of the articular cartilage along the medial femoral condyle with underlying marrow edema compatible with osteoarthritic change. There are also osteoarthritic changes in the patellofemoral joint. Small knee joint effusion with some questionable synovitis and possible small intra-articular loose bodies No other internal derangement of the knee. Dictated by: Dictated on workstation # [id number]
== END ==
LOC: RAD 08:09
PROVIDERS: ATTEND Nurse Practitioner
DX: S83.281A Other tear of lateral meniscus, current injury, right knee, initial encounter (principal); M17.11 Unilateral primary osteoarthritis, right knee
CPT/HCPCS: 73721

== ENCOUNTER → 2020-06-06 | Outpatient (CLI) | payer OTHER ==
[~2020-06-06] MED LIST changes: -ALPR0.254 PO; +ASPI-1238 PO; -ASPI-983 PO
[2020-06-06 14:07] LABS: BASOPHILS # (AUTO) 0.1 10^3/uL (0.0-0.1); BASOPHILS % (AUTO) 1 % (0-10); EOSINOPHILS # (AUTO) 0.2 10^3/uL (0.0-0.3); EOSINOPHILS % (AUTO) 2 % (0-10); HEMATOCRIT 40 % (35-52); HEMOGLOBIN 12.9 G/DL (11.5-16.0); LYMPHOCYTES # (AUTO) 4.2 X 10^3 (1.0-4.0); LYMPHOCYTES % (AUTO) 40 % (12-44); MEAN CORPUSCULAR HEMOGLOBIN 31 PG (25-34); MEAN CORPUSCULAR HGB CONC 32 G/DL (32-36); MEAN CORPUSCULAR VOLUME 95 FL (80-99); MEAN PLATELET VOLUME 9.8 FL (7.4-10.4); MONOCYTES # (AUTO) 0.8 X 10^3 (0.0-1.0); MONOCYTES % (AUTO) 7 % (0-12); NEUTROPHILS # (AUTO) 5.2 X 10^3 (1.8-7.8); NEUTROPHILS % (AUTO) 50 % (42-75); PLATELET COUNT 335 10^3/uL (130-400); WHITE BLOOD COUNT 10.4 10^3/uL (4.3-11.0)
--- NOTE | 2020-06-06 14:30 | Diagnostic Imaging Report ---
INDICATION: Left upper abdominal pain for five days. TIME OF EXAM: 01:30 p.m. FINDINGS: The heart size is normal. Lungs are clear. No infiltrates are seen. There is no effusion. Upright view is without evidence of free air. There are surgical clips in the gallbladder fossa. The bowel gas pattern is nonobstructed. No pathologic calcifications are seen. IMPRESSION: No acute abnormality is detected. Dictated by: Dictated on workstation # [id number]
[2020-06-06 15:06] LABS: ALANINE AMINOTRANSFERASE 21 U/L (0-55); ALBUMIN 4.2 GM/DL (3.2-4.5); ALKALINE PHOSPHATASE 80 U/L (40-136); BILIRUBIN,TOTAL 0.2 MG/DL (0.1-1.0); BUN/CREATININE RATIO 13; CALCIUM 9.5 MG/DL (8.5-10.1); CARBON DIOXIDE 25 MMOL/L (21-32); CHLORIDE 104 MMOL/L (98-107); CREATININE SERUM 0.89 MG/DL (0.60-1.30); GFR ESTIMATED > 60; GLUCOSE 89 MG/DL (70-105); POTASSIUM 4.6 MMOL/L (3.6-5.0); SODIUM 139 MMOL/L (135-145); TOTAL PROTEIN 7.2 GM/DL (6.4-8.2)
[2020-06-06 17:22] LABS: AMYLASE 35 U/L (25-125); LIPASE 37 U/L (8-78)
== END ==
LOC: LAB FS 13:17
PROVIDERS: ATTEND Family Medicine
DX: R10.84 Generalized abdominal pain (principal)
CPT/HCPCS: 36415; 74022; 80053; 82150; 83690; 85025

== ENCOUNTER 2020-08-02 02:10 | Emergency (ER) | payer OTHER ==
[~2020-08-02] VITALS: Ht 170 cm; Wt 117.0 kg
[~2020-08-02 02:10] MED LIST changes: -LISI40TA PO; +LISI40TA9 PO; +SERT-413 PO; -SERT50TA9 PO
[2020-08-02] MEDS ORDERED: NS IV 1000 ML 1,000 ML IV STA (02:31)
[2020-08-02] MEDS ORDERED: CLINDAMYCIN 600 MG/50 ML IVPB 50 ML IV STA (02:31)
[2020-08-02] MEDS ORDERED: ONDANSETRON 4 MG/2 ML (SDV) Z0FRAN IVP STA (02:31)
[2020-08-02] MEDS ORDERED: KETOROLAC 30 MG/ML VIAL IVP STA (02:36)
--- NOTE | 2020-08-02 02:36 | ED EENT ---
History of Present Illness General Chief Complaint: Dental Problems/Pain Stated Complaint: FACIAL INFECTION Nursing Triage Note: PT AMBULATE TO ROOM FS02 WITH C/O DENTAL INFECTION. PT STATES THAT SHE WAS SEEN IN CLINIC AND WAS PRESCRIBED ABX. PT STATES THAT SHE WAS TOLD TO COME TO THE ED IF SYMPTOMS BECAME WORSE. Source: patient History of Present Illness Date Seen by Provider: Aug 02, 2020 Time Seen by Provider: 02:11 Initial Comments 49 yo female presents with complaints of increasing dental pain and facial pain since Wednesday. She was seen in Urgent care on Wednesday and started on Clindamycin for infection. She was told that if her symptoms worsened or she was not getting better to come to the ED because she could get sepsis. She was having increased pain and felt it was swollen on left side of face in cheek and nose. She also started to have yellow drainage and congestion from her nose. She reports having fever up to 102 F at home and having to take medicine for it but that within a few hours her fever returns. She was worried it was getting worse and was upset about the pain and fever not improving. Timing/Duration: gradual (over the last 5 days) Severity: severe Location: mouth, facial, dental Prearrival Treatment: over the counter meds (acetaminophen at 0030 for fever and pain), prescription meds Associated Symptoms: No change in hearing, No cough, No drooling, No ear drainage; facial pain/swelling, fever, malaise, nasal congestion/drainage; No poor fluid intake, No poor solids intake, No sore throat; tooth pain; No voice change Allergies and Home Medications Allergies Coded Allergies: Penicillins (Verified Allergy, Unknown, 12/17/18) cephalexin (Unverified Adverse Reaction, Unknown, 12/17/18) Home Medications ALPRAZolam 0.25 Mg Tablet, 0.25 MG PO TID PRN for ANXIETY, (Reported) Albuterol Sulfate 1 Puff Puff, 2 PUFF INH Q6H PRN for SHORTNESS OF BREATH, (Reported) Aripiprazole 5 Mg Tablet, 5 MG PO DAILY, (Reported) Aspirin 81 Mg Tablet.dr, 81 MG PO DAILY, (Reported) Ferrous Sulfate 325 Mg Tablet, 325 MG PO DAILY, (Reported) Fluticasone/Salmeterol 1 Each Blst.w.dev, 1 EACH IH BID, (Reported) Gabapentin 300 Mg Capsule, 300 MG PO TID, (Reported) Loratadine 10 Mg Tablet, 10 MG PO DAILY PRN for ALLERGIES, (Reported) Metoprolol Tartrate 25 Mg Tablet, 25 MG PO BID, (Reported) Sertraline HCl 50 Mg Tablet, 50 MG PO DAILY, (Reported) Tramadol HCl 50 Mg Tablet, 50 MG PO Q6H PRN for PAIN-SEVERE (8-10) Prescribed by: ADELINE TAO on 08/02/20 0332 Patient Home Medication List Home Medication List Reviewed: Yes Review of Systems Review of Systems Constitutional: chills, fever, malaise Eyes: No Symptoms Reported Ears: No Symptoms Reported Nose: see HPI, congestion (yellow colored congestion draining since starting antibiotic Wednesday) Mouth: pain (dental pain and swelling on left upper mouth) Throat: no symptoms reported Respiratory: no symptoms reported Cardiovascular: no symptoms reported Gastrointestinal: nausea; No vomiting Musculoskeletal: no symptoms reported Skin: no symptoms reported Neurological: Headache (left facial pain); Denies Numbness, Denies Paresthesia Past Jkutrgm-Ujhlba-Qkciyr Hx Past Med/Social Hx: Reviewed Nursing Past Med/Soc Hx Patient Social History Alcohol Use: Denies Use Smoking Status: Never a Smoker 2nd Hand Smoke Exposure: No Recent Infectious Disease Expo: No Recent Hopitalizations: No Immunizations Up To Date Date of Influenza Vaccine: Jan 01, 2018 Seasonal Allergies Seasonal Allergies: No Past Medical History Surgeries: Yes (c/s x2, hemorrhoidectomy, ) Appendectomy, Section, Gallbladder, Tubal Ligation Respiratory: Yes COPD Cardiac: Yes Hypertension, Irregular Heartbeat Neurological: Yes Neuropathy 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 Disorders: No 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 Sexually Transmitted Disease: No Genitourinary: Yes UTI-Chronic Gastrointestinal: No Hemorrhoids Musculoskeletal: No Endocrine: No HEENT: No Loss of Vision: Denies Hearing Impairment: Denies Cancer: No Psychosocial: Yes Anxiety Integumentary: No Blood Disorders: Yes (anemia) Family Medical History Cardiovascular disease 19 MOTHER Diabetes mellitus G8 BROTHER FH: breast cancer 19 MOTHER Hypertension G8 BROTHER Irregular Heartbeat 19 MOTHER Lung Cancer 19 FATHER Myocardial infarction 19 MOTHER Physical Exam Vital Signs Vital Signs - First Documented 08/02/20 02:21 Temp 36.8 Pulse 108 Resp 17 B/P (MAP) 133/84 (100) O2 Delivery Room Air Height, Weight, BMI Height: 5'7.00" Weight: 258lbs. 0oz. 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 as tested, alert, oriented x 3 Skin: normal color, warm/dry Progress/Results/Core Measures Results/Orders Lab Results Laboratory Tests Test 08/02/20 02:37 Range/Units White Blood Count 9.0 4.3-11.0 10^3/uL Red Blood Count 4.21 L 4.35-5.85 10^6/uL Hemoglobin 13.1 11.5-16.0 G/DL Hematocrit 40 35-52 % Mean Corpuscular Volume 95 80-99 FL Mean Corpuscular Hemoglobin 31 25-34 PG Mean Corpuscular Hemoglobin Concent 33 32-36 G/DL Red Cell Distribution Width 12.5 10.0-14.5 % Platelet Count 309 130-400 10^3/uL Mean Platelet Volume 9.8 7.4-10.4 FL Immature Granulocyte % (Auto) 0 % Neutrophils (%) (Auto) 52 42-75 % Lymphocytes (%) (Auto) 38 12-44 % Monocytes (%) (Auto) 7 0-12 % Eosinophils (%) (Auto) 2 0-10 % Basophils (%) (Auto) 1 0-10 % Neutrophils # (Auto) 4.7 1.8-7.8 X 10^3 Lymphocytes # (Auto) 3.4 1.0-4.0 X 10^3 Monocytes # (Auto) 0.6 0.0-1.0 X 10^3 Eosinophils # (Auto) 0.2 0.0-0.3 10^3/uL Basophils # (Auto) 0.1 0.0-0.1 10^3/uL Immature Granulocyte # (Auto) 0.0 0.0-0.1 10^3/uL Sodium Level 136 135-145 MMOL/L Potassium Level 4.0 3.6-5.0 MMOL/L Chloride Level 104 98-107 MMOL/L Carbon Dioxide Level 20 L 21-32 MMOL/L Anion Gap 12 5-14 MMOL/L Blood Urea Nitrogen 14 7-18 MG/DL Creatinine 0.97 0.60-1.30 MG/DL Estimat Glomerular Filtration Rate > 60 BUN/Creatinine Ratio 14 Glucose Level 161 H 70-105 MG/DL Lactic Acid Level 1.75 0.50-2.00 MMOL/L Calcium Level 9.1 8.5-10.1 MG/DL Corrected Calcium 8.9 8.5-10.1 MG/DL Total Bilirubin 0.2 0.1-1.0 MG/DL Aspartate Amino Transf (AST/SGOT) 13 5-34 U/L Alanine Aminotransferase (ALT/SGPT) 12 0-55 U/L Alkaline Phosphatase 83 40-136 U/L C-Reactive Protein 1.48 H <0.50 MG/DL Total Protein 6.9 6.4-8.2 GM/DL Albumin 4.3 3.2-4.5 GM/DL My Orders Orders - ADELINE TAO MD Cbc With Automated Diff (08/02/20 02:29) Comprehensive Metabolic Panel (08/02/20 02:29) Lactic Acid Analyzer (08/02/20 02:29) Ed Iv/Invasive Line Start (08/02/20 02:29) Crp Fs (08/02/20 02:29) Ct Maxillofacial Wo (08/02/20 02:29) Ns Iv 1000 Ml (Sodium Chloride 0.9%) (08/02/20 02:31) Clindamycin 600 Mg/50 Ml Ivpb (Cleocin P (08/02/20 02:31) Dexamethasone Injection (Decadron Inje (08/02/20 02:31) Ondansetron Injection (Zofran Injectio (08/02/20 02:31) Ketorolac Injection (Toradol Injection) (08/02/20 02:36) Vital Signs/I&O 08/02/20 02:21 Temp 36.8 Pulse 108 Resp 17 B/P (MAP) 133/84 (100) O2 Delivery Room Air Blood Pressure Mean: 100 Progress Progress Note #1: Progress Note Reassured pt that it sounds like the dental infection was causing some sinus infection as well and that the antibiotics she has only been taking for just over 24 hours so they have not really had time to fully get up to an effective dose in her system. Will check labs and CT of her face to evaluate for sepsis and sinusitis or abscess. Try a dose of Clindamycin to boost her oral meds, Toradol for pain, Decadron for pain and swelling, Zofran for nausea. IVF for hydration. Since she has already been taking antibiotic will defer cultures but will check a lactic acid and CRP in addition to CBC and Chemistry. Differential Diagnosis includes sinusitis, sepsis, dental caries with abscess, facial cellulitis, facial abscess Progress Note #2: Time: 03:27 Progress Note CBC no acute significant abnormality. Chemistry stable as well with negative Lactic acid. CRP is elevated to go with infection and inflammation. On my review of her CT scan of maxillofacial area she has no large abscess or fluid collection. Will have her proceed with antibiotics and give more time for the medicine to work. 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 Pt does report improved pain and pressure and feels more comfortable. Will discharge to home and continue with plan as detailed above. Diagnostic Imaging Diagonstic Imaging: CT Plain Films/CT/US/NM/MRI: facial bones Comments Impression diagnostic sensitivity diminished by the absence of IV contrast utilization. Mild reticulation of the underlying subcutaneous fat bilateral periorbital and midline near the anterior body of the mandible extending into the submental space. Findings are consistent with cellulitis. Negative for loculated abscesses. There are no post septal inflammatory changes in the orbits. There are multiple dental caries. Read by radiologist Odin Handley, DO at [id number] and faxed at [phone] Reviewed: Reviewed Night Hawk Study, Reviewed by Me Departure Impression Primary Impression: Acute maxillary sinusitis Qualified Codes: J01.00 - Acute maxillary sinusitis, unspecified Additional Impressions: Pain due to dental caries Dental abscess Facial cellulitis Disposition: HOME, SELF-CARE Condition: Improved Departure-Patient Inst. Decision time for Depature: 03:30 Referrals: ORIANA DEE MD (PCP/Family) Primary Care Physician Patient Instructions: Sinusitis, Adult ED, Dental Pain ED, Tooth Abscess (DC) Add. Discharge Instructions: Continue on your antibiotics. Make sure to sleep with your head elevated at least 30 to 45 degrees to help limit swelling and pain in face. May try alternating ice and heat to your face to help with pain Check with Dentist for definitive care of your teeth as soon as possible. If your symptoms are worsening after another 48 to 72 hours of the medicine then get rechecked to see if you need further IV antibiotics All discharge instructions reviewed with patient and/or family. Voiced understanding. Scripts Tramadol HCl (Tramadol HCl) 50 Mg Tablet 50 MG PO Q6H PRN for PAIN-SEVERE (8-10) for 3 Days, #12 TAB 0 Refills Prov: ADELINE TAO MD 08/02/20 ADELINE TAO MD Aug 02, 2020 02:36
[2020-08-02 02:57] LABS: HEMATOCRIT 40 % (35-52); HEMOGLOBIN 13.1 G/DL (11.5-16.0); MEAN CORPUSCULAR HEMOGLOBIN 31 PG (25-34); MEAN CORPUSCULAR VOLUME 95 FL (80-99)
[2020-08-02 02:58] LABS: BASOPHILS # (AUTO) 0.1 10^3/uL (0.0-0.1); BASOPHILS % (AUTO) 1 % (0-10); EOSINOPHILS # (AUTO) 0.2 10^3/uL (0.0-0.3); EOSINOPHILS % (AUTO) 2 % (0-10); LYMPHOCYTES # (AUTO) 3.4 X 10^3 (1.0-4.0); LYMPHOCYTES % (AUTO) 38 % (12-44); MEAN CORPUSCULAR HGB CONC 33 G/DL (32-36); MEAN PLATELET VOLUME 9.8 FL (7.4-10.4); MONOCYTES # (AUTO) 0.6 X 10^3 (0.0-1.0); MONOCYTES % (AUTO) 7 % (0-12); NEUTROPHILS # (AUTO) 4.7 X 10^3 (1.8-7.8); NEUTROPHILS % (AUTO) 52 % (42-75); PLATELET COUNT 309 10^3/uL (130-400)
[2020-08-02 03:14] LABS: ALKALINE PHOSPHATASE 83 U/L (40-136); BILIRUBIN,TOTAL 0.2 MG/DL (0.1-1.0); BUN/CREATININE RATIO 14; CALCIUM 9.1 MG/DL (8.5-10.1); CARBON DIOXIDE 20 MMOL/L (21-32); CHLORIDE 104 MMOL/L (98-107); CREATININE SERUM 0.97 MG/DL (0.60-1.30); GFR ESTIMATED > 60; GLUCOSE 161 MG/DL (70-105); SODIUM 136 MMOL/L (135-145)
[2020-08-02 03:15] LABS: ALANINE AMINOTRANSFERASE 12 U/L (0-55); ALBUMIN 4.3 GM/DL (3.2-4.5); TOTAL PROTEIN 6.9 GM/DL (6.4-8.2)
[2020-08-02] MEDS ORDERED: TRM50T PO (03:31)
[2020-08-02 03:49] VITALS: BP 120/71
--- NOTE | 2020-08-02 07:26 | Diagnostic Imaging Report ---
PROCEDURE: CT maxillofacial without contrast. TECHNIQUE: Multiple contiguous axial images were obtained through the facial bones without the use of intravenous contrast. Auto Exposure Controls were utilized during the CT exam to meet ALARA standards for radiation dose reduction. INDICATION: Dental pain with history of infection. Now with left-sided facial swelling. COMPARISON: None FINDINGS: Multiple advanced bilateral maxillary and mandibular dental caries are identified. There is prominent periapical lucency involving the posterior mandibular molar on the right. Findings may be on the basis of periapical abscess. Overlying soft tissue structures are unremarkable, bilaterally. There is no significant soft tissue stranding. No suspicious focal fluid collection is identified to suggest abscess. There is no soft tissue emphysema. No unexpected radiopaque foreign bodies are seen. Paranasal sinuses show minimal mucosal thickening of the left maxillary sinus, but are otherwise clear. No abnormal air-fluid levels are seen. No other lytic or blastic osseous process is identified. Included portions of the intracranial structures show no additional acute abnormalities. IMPRESSION: 1. Advanced dental caries with findings concerning for periapical abscess of a posterior right mandibular molar. 2. No abnormality of the overlying soft tissues of the face to suggest soft tissue abscess. Dictated by: Dictated on workstation # [id number]
== END 2020-08-02 03:49 | disposition home or self-care (01) ==
LOC: EDUNIT# 02:10 → ER FS 02:12
DX: L03.211 Cellulitis of face (principal); K04.7 Periapical abscess without sinus; K02.9 Dental caries, unspecified; J01.00 Acute maxillary sinusitis, unspecified; R00.0 Tachycardia, unspecified; I10 Essential (primary) hypertension; J44.9 Chronic obstructive pulmonary disease, unspecified; F41.9 Anxiety disorder, unspecified; D64.9 Anemia, unspecified; Z85.3 Personal history of malignant neoplasm of breast; Z79.2 Long term (current) use of antibiotics; Z79.891 Long term (current) use of opiate analgesic; Z79.82 Long term (current) use of aspirin; Z88.0 Allergy status to penicillin; Z88.1 Allergy status to other antibiotic agents
CPT/HCPCS: 36415; 70486; 80053; 83605; 85025; 86141

== ENCOUNTER → 2020-10-07 | Outpatient (CLI) | payer OTHER ==
[~2020-10-07] MED LIST changes: +TRM50T PO
[2020-10-07 10:51] LABS: HEMATOCRIT 41 % (35-52); MEAN CORPUSCULAR HEMOGLOBIN 30 PG (25-34); MEAN CORPUSCULAR HGB CONC 32 G/DL (32-36); MEAN CORPUSCULAR VOLUME 95 FL (80-99); PLATELET COUNT 338 10^3/uL (130-400); WHITE BLOOD COUNT 9.3 10^3/uL (4.3-11.0)
[2020-10-07 10:52] LABS: BASOPHILS # (AUTO) 0.1 10^3/uL (0.0-0.1); BASOPHILS % (AUTO) 1 % (0-10); EOSINOPHILS # (AUTO) 0.1 10^3/uL (0.0-0.3); EOSINOPHILS % (AUTO) 2 % (0-10); LYMPHOCYTES # (AUTO) 3.1 X 10^3 (1.0-4.0); LYMPHOCYTES % (AUTO) 33 % (12-44); MEAN PLATELET VOLUME 9.6 FL (7.4-10.4); MONOCYTES # (AUTO) 0.5 X 10^3 (0.0-1.0); MONOCYTES % (AUTO) 6 % (0-12); NEUTROPHILS # (AUTO) 5.4 X 10^3 (1.8-7.8); NEUTROPHILS % (AUTO) 59 % (42-75)
[2020-10-07 12:50] LABS: POTASSIUM 5.4 MMOL/L (3.6-5.0)
[2020-10-07 12:51] LABS: ALBUMIN 4.2 GM/DL (3.2-4.5); BILIRUBIN,TOTAL 0.3 MG/DL (0.1-1.0); CALCIUM 9.8 MG/DL (8.5-10.1); CREATININE SERUM 1.09 MG/DL (0.60-1.30); TOTAL PROTEIN 7.2 GM/DL (6.4-8.2)
== END ==
LOC: LAB FS 10:35
PROVIDERS: ATTEND Nurse Practitioner Family
DX: D50.0 Iron deficiency anemia secondary to blood loss (chronic) (principal)
CPT/HCPCS: 36415; 80053; 84443; 85025

== ENCOUNTER 2020-10-10 10:26 | Observation (INO) | payer OTHER ==
[~2020-10-10] VITALS: Ht 170.1 cm; Wt 129.4 kg
--- NOTE | 2020-10-10 10:43 | ED Syncope ---
General Chief Complaint: Dizziness/Syncope Stated Complaint: FALL W/ LOC; HEAD/FACIAL INJ History of Present Illness Date Seen by Provider: Oct 10, 2020 Time Seen by Provider: 10:42 Initial Comments 49-year-old female presents with intermittent lightheadedness and dizziness over the past 2 weeks having 2 syncopal events the last several days, most recently this morning. Patient states both times she was standing when it occurred and she said that she was feeling fine and then suddenly she feels dizzy, lightheaded and she fell to the floor before she can catch her self. Did see her PCP on Wednesday after starting a fall this week and had lab work and was sent home. Denies any history of heart attack, however does have history of irregular heartbeat for which he takes metoprolol. She fell and hit her forehead on a door jam and she does have a headache as well as swelling between her eyes. Change her medication, no history of anemia, no change to her diet or activity. Recent illness, fever chills or weight loss. Allergies and Home Medications Allergies Coded Allergies: Penicillins (Verified Allergy, Unknown, 12/17/18) cephalexin (Unverified Adverse Reaction, Unknown, 12/17/18) Home Medications ALPRAZolam 0.25 Mg Tablet, 0.25 MG PO TID PRN for ANXIETY, (Reported) Albuterol Sulfate 1 Puff Puff, 2 PUFF INH Q6H PRN for SHORTNESS OF BREATH, (Reported) Aripiprazole 5 Mg Tablet, 5 MG PO DAILY, (Reported) Aspirin 81 Mg Tablet.dr, 81 MG PO DAILY, (Reported) Ferrous Sulfate 325 Mg Tablet, 325 MG PO DAILY, (Reported) Fluticasone/Salmeterol 1 Each Blst.w.dev, 1 EACH IH BID, (Reported) Gabapentin 300 Mg Capsule, 300 MG PO TID, (Reported) Loratadine 10 Mg Tablet, 10 MG PO DAILY PRN for ALLERGIES, (Reported) Metoprolol Tartrate 25 Mg Tablet, 25 MG PO BID, (Reported) Sertraline HCl 50 Mg Tablet, 50 MG PO DAILY, (Reported) Tramadol HCl 50 Mg Tablet, 50 MG PO Q6H PRN for PAIN-SEVERE (8-10) Prescribed by: ADELINE TAO on 08/02/20 1158 Patient Home Medication List Home Medication List Reviewed: Yes Review of Systems Constitutional: No fever, No malaise, No weakness EENTM: see HPI, other (injury to face/ nose 2 to fall) Respiratory: No cough, No short of breath Cardiovascular: see HPI; No chest pain, No edema, No palpitations; syncope; No vascular heart diseas Gastrointestinal: No abdominal pain, No loss of appetite, No nausea, No vomiting Musculoskeletal: No back pain, No joint pain, No muscle weakness, No neck pain Skin: No change in color, No lesions, No rash Psychiatric/Neurological: See HPI, Headache; Denies Numbness, Denies Paresthesia, Denies Seizure, Denies Tingling, Denies Tremors, Denies Weakness Past Aczggmf-Rqdldq-Wocbda Hx Past Med/Social Hx: Reviewed Nursing Past Med/Soc Hx Patient Social History Alcohol Use: Denies Use Smoking Status: Never a Smoker 2nd Hand Smoke Exposure: No Recent Hopitalizations: No Immunizations Up To Date Date of Influenza Vaccine: Jan 01, 2018 Seasonal Allergies Seasonal Allergies: No Past Medical History Surgeries: Yes (c/s x2, hemorrhoidectomy, ) Appendectomy, Section, Gallbladder, Tubal Ligation Respiratory: Yes COPD Cardiac: Yes Hypertension, Irregular Heartbeat Neurological: Yes Neuropathy 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 Disorders: No Female 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 Disorders: Denies 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 Sexually Transmitted Disease: No Genitourinary: Yes UTI-Chronic Gastrointestinal: No Hemorrhoids Musculoskeletal: No Endocrine: No HEENT: No Loss of Vision: Denies Hearing Impairment: Denies Cancer: No Psychosocial: Yes Anxiety Integumentary: No Blood Disorders: Yes (anemia) Family Medical History Cardiovascular disease 19 MOTHER Diabetes mellitus G8 BROTHER FH: breast cancer 19 MOTHER Hypertension G8 BROTHER Irregular Heartbeat 19 MOTHER Lung Cancer 19 FATHER Myocardial infarction 19 MOTHER Physical Exam Vital Signs Vital Signs - First Documented 10/10/20 10:41 Temp 36.3 Pulse 68 Resp 16 B/P (MAP) 130/75 (93) Pulse Ox 97 O2 Delivery Room Air Capillary Refill : Height, Weight, BMI Height: 5'7.00" Weight: 258lbs. 0oz. [id number]; 40.00 BMI Method:Stated General Appearance: No Apparent Distress, WD/WN, Obese HEENT: PERRL/EOMI, Normal ENT Inspection Neck: Full Range of Motion, Normal Inspection, Non Tender, Supple Cardiovascular: Regular Rate, Rhythm, No Edema, No JVD, Normal Peripheral Pulses Respiratory: Chest Non Tender, Lungs Clear, Normal Breath Sounds, No Accessory Muscle Use, No Respiratory Distress Gastrointestinal: Non Tender, Soft; No Distended, No Guarding Back: Normal Inspection, No CVA Tenderness, No Vertebral Tenderness Extremities: Normal Capillary Refill, Normal Inspection, Non Tender 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: Alert, Oriented x3, No Motor/Sensory Deficits, Normal Mood/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, 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 Cranial Nerves: Normal Hearing, Normal Speech, PERRL Coordination/Gait: Normal Finger to Nose, Normal Gait Motor/Sensory: No Motor Deficit, No Sensory Deficit, No Pronator Drift, Negative Babinski's Sign Skin: Normal Color, Warm/Dry + orthostatic BP drop when standing- see NN Progress/Results/Core Measures Results/Orders Lab Results Laboratory Tests Test 10/10/20 10:52 10/10/20 11:03 Range/Units White Blood Count 12.6 H 4.3-11.0 10^3/uL Red Blood Count 4.20 L 4.35-5.85 10^6/uL Hemoglobin 12.8 11.5-16.0 G/DL Hematocrit 39 35-52 % Mean Corpuscular Volume 94 80-99 FL Mean Corpuscular Hemoglobin 30 25-34 PG Mean Corpuscular Hemoglobin Concent 33 32-36 G/DL Red Cell Distribution Width 12.5 10.0-14.5 % Platelet Count 341 130-400 10^3/uL Mean Platelet Volume 9.7 7.4-10.4 FL Immature Granulocyte % (Auto) 0 % Neutrophils (%) (Auto) 73 42-75 % Lymphocytes (%) (Auto) 19 12-44 % Monocytes (%) (Auto) 6 0-12 % Eosinophils (%) (Auto) 1 0-10 % Basophils (%) (Auto) 1 0-10 % Neutrophils # (Auto) 9.1 H 1.8-7.8 X 10^3 Lymphocytes # (Auto) 2.4 1.0-4.0 X 10^3 Monocytes # (Auto) 0.7 0.0-1.0 X 10^3 Eosinophils # (Auto) 0.1 0.0-0.3 10^3/uL Basophils # (Auto) 0.1 0.0-0.1 10^3/uL Immature Granulocyte # (Auto) 0.1 0.0-0.1 10^3/uL Sodium Level 136 135-145 MMOL/L Potassium Level 5.0 3.6-5.0 MMOL/L Chloride Level 105 98-107 MMOL/L Carbon Dioxide Level 20 L 21-32 MMOL/L Anion Gap 11 5-14 MMOL/L Blood Urea Nitrogen 15 7-18 MG/DL Creatinine 1.00 0.60-1.30 MG/DL Estimat Glomerular Filtration Rate 59 BUN/Creatinine Ratio 15 Glucose Level 138 H 70-105 MG/DL Calcium Level 9.5 8.5-10.1 MG/DL Corrected Calcium 9.3 8.5-10.1 MG/DL Total Bilirubin 0.4 0.1-1.0 MG/DL Aspartate Amino Transf (AST/SGOT) 18 5-34 U/L Alanine Aminotransferase (ALT/SGPT) 14 0-55 U/L Alkaline Phosphatase 82 40-136 U/L Troponin I < 0.30 <0.30 NG/ML Total Protein 7.1 6.4-8.2 GM/DL Albumin 4.2 3.2-4.5 GM/DL Urine Color YELLOW Urine Clarity SLT CLOUDY Urine pH 6.0 5-9 Urine Specific [place] 1.015 L 1.016-1.022 Urine Protein NEGATIVE NEGATIVE Urine Glucose (UA) NEGATIVE NEGATIVE Urine Ketones NEGATIVE NEGATIVE Urine Nitrite NEGATIVE NEGATIVE Urine Bilirubin NEGATIVE NEGATIVE Urine Urobilinogen 0.2 < = 1.0 MG/DL Urine Leukocyte Esterase 2+ H NEGATIVE Urine RBC (Auto) 1+ H NEGATIVE Urine RBC NONE /HPF Urine WBC 10-25 H /HPF Urine Squamous Epithelial Cells 0-2 /HPF Urine Renal Epithelial Cells 0-2 /HPF Urine Crystals NONE /LPF Urine Bacteria TRACE /HPF Urine Casts NONE /LPF Urine Mucus NEGATIVE /LPF Urine Culture Indicated YES My Orders Orders - ROVENSTINE,ABRIL L DO Ed Iv/Invasive Line Start (10/10/20 10:43) Ekg Tracing (10/10/20 10:43) Chest 1 View Ap/Pa Only (10/10/20 10:43) Troponin I Fs (10/10/20 10:43) Urinalysis (10/10/20 10:43) Cbc With Automated Diff (10/10/20 10:43) Comprehensive Metabolic Panel (10/10/20 10:43) Ns Iv 1000 Ml (Sodium Chloride 0.9%) (10/10/20 11:00) Ct Head Wo (10/10/20 10:56) Urine Culture (10/10/20 11:03) Vital Signs/I&O 10/10/20 10:41 Temp 36.3 Pulse 68 Resp 16 B/P (MAP) 130/75 (93) Pulse Ox 97 O2 Delivery Room Air Initial ECG Impression Date: Oct 10, 2020 Initial ECG Impression Time: 10:49 Initial ECG Rate: 70 Initial ECG Rhythm: Normal Sinus Initial ECG Intervals: Normal Initial ECG Impression: Normal Initial ECG Comparisson: No Previous ECG Available Diagnostic Imaging Diagonstic Imaging: Xray, CT Comments Normal CT head, Normal CXR Departure Communication (Admissions) Time/Spoke to Admitting Phy: 11:[address] Mariza ann pt HPI, labs, CT and ECG without any acute changes. Agrees for OBS admisison to Cardiac step down w Cardio consult. Time/Spoke to Consulting Phy: 11:[address] Brittani ann consultation for Syncopal episodes Impression Primary Impression: Syncope Qualified Codes: R55 - Syncope and collapse Disposition: 30 STILL A PATIENT Condition: Stable Admissions Decision to Admit Reason: Admit from ER (General) Decision to Admit/Date: Oct 10, 2020 Time/Decision to Admit Time: 11:00 Departure-Patient Inst. Referrals: ORIANA DEE MD (PCP/Family) Primary Care Physician ABRIL STEVENSON DO Oct 10, 2020 10:43
--- NOTE | 2020-10-10 10:53 | Diagnostic Imaging Report ---
INDICATION: Syncope. Portal chest obtained at 10:37 a.m. and compared with 01/23/2019. Heart and mediastinal silhouette are normal in appearance. The lungs are clear. There is no pneumothorax or pleural fluid. IMPRESSION: Negative chest. Dictated by: Dictated on workstation # [id number]
[2020-10-10] MEDS ORDERED: NS IV 1000 ML 1,000 ML IV SCH (11:00)
[2020-10-10 11:04] LABS: HEMATOCRIT 39 % (35-52); HEMOGLOBIN 12.8 G/DL (11.5-16.0); MEAN CORPUSCULAR HEMOGLOBIN 30 PG (25-34); MEAN CORPUSCULAR VOLUME 94 FL (80-99); WHITE BLOOD COUNT 12.6 10^3/uL (4.3-11.0)
[2020-10-10 11:05] LABS: BASOPHILS # (AUTO) 0.1 10^3/uL (0.0-0.1); BASOPHILS % (AUTO) 1 % (0-10); EOSINOPHILS # (AUTO) 0.1 10^3/uL (0.0-0.3); EOSINOPHILS % (AUTO) 1 % (0-10); LYMPHOCYTES # (AUTO) 2.4 X 10^3 (1.0-4.0); LYMPHOCYTES % (AUTO) 19 % (12-44); MEAN CORPUSCULAR HGB CONC 33 G/DL (32-36); MEAN PLATELET VOLUME 9.7 FL (7.4-10.4); MONOCYTES # (AUTO) 0.7 X 10^3 (0.0-1.0); MONOCYTES % (AUTO) 6 % (0-12); NEUTROPHILS # (AUTO) 9.1 X 10^3 (1.8-7.8); NEUTROPHILS % (AUTO) 73 % (42-75); PLATELET COUNT 341 10^3/uL (130-400)
[2020-10-10 11:17] LABS: CLARITY,URINE SLT CLOUDY; COLOR,URINE YELLOW
[2020-10-10 11:18] LABS: BACTERIA,URINE TRACE /HPF; BILIRUBIN,URINE NEGATIVE (NEGATIVE); GLUCOSE, URINE (UA) NEGATIVE (NEGATIVE); KETONES,URINE NEGATIVE (NEGATIVE); LEUKOCYTE ESTERASE ,URINE 2+ (NEGATIVE); NITRITE,URINE NEGATIVE (NEGATIVE); PROTEIN,URINE NEGATIVE (NEGATIVE); RENAL EPITHELIAL CELLS,URINE 0-2 /HPF; SQUAMOUS EPITHELIAL CELL,UR 0-2 /HPF
--- NOTE | 2020-10-10 11:18 | Diagnostic Imaging Report ---
INDICATION: Syncope. Trauma to the head. TECHNIQUE: Routine non contrast-enhanced axial images were obtained from the skull base to the vertex. Auto Exposure Controls were utilized during the CT exam to meet ALARA standards for radiation dose reduction COMPARISON: None. FINDINGS: The ventricles and cortical sulci are age-appropriate. There is no midline shift or mass-effect. No acute intra-axial hemorrhage is seen. There are no abnormal areas of increased or decreased density to suggest acute hemorrhage or edema. No extra-axial masses or collections are present. The bony calvarium is intact. The visualized paranasal sinuses are unremarkable. The mastoid air cells are clear. IMPRESSION: 1. No acute intracranial abnormality. No CT evidence of mass, acute infarct or intracranial hemorrhage. Dictated by: Dictated on workstation # [id number]
[2020-10-10 11:27] LABS: BUN/CREATININE RATIO 15; CARBON DIOXIDE 20 MMOL/L (21-32); CHLORIDE 105 MMOL/L (98-107); GFR ESTIMATED 59; GLUCOSE 138 MG/DL (70-105); SODIUM 136 MMOL/L (135-145)
[2020-10-10 11:28] LABS: ALANINE AMINOTRANSFERASE 14 U/L (0-55); ALBUMIN 4.2 GM/DL (3.2-4.5); ALKALINE PHOSPHATASE 82 U/L (40-136); BILIRUBIN,TOTAL 0.4 MG/DL (0.1-1.0); CALCIUM 9.5 MG/DL (8.5-10.1); TOTAL PROTEIN 7.1 GM/DL (6.4-8.2)
[2020-10-10 13:45] VITALS: BP 113/69
[2020-10-10] MEDS ORDERED: TRZ50T PO (14:08)
[2020-10-10] MEDS ORDERED: CATHETER FLUSH 10 ML SYR IV PRN (14:15)
[2020-10-10] MEDS: NS IV 1000 ML 1,000 ML IV SCH (14:30)
[2020-10-10] MEDS ORDERED: ALPR0.254 PO (15:30)
[2020-10-10] MEDS ORDERED: TRAZ-227 PO (15:30)
[2020-10-10] MEDS ORDERED: LISI40TA9 PO (15:30)
[2020-10-10] MEDS ORDERED: ACET-2267 PO (15:30)
[2020-10-10 15:55] VITALS: BP 115/94
[2020-10-10] MEDS ORDERED: ACETAMINOPHEN 325 MG TABLET PO PRN (16:45)
--- NOTE | 2020-10-10 19:19 | Consultation-Cardiology ---
HPI-Cardiology Cardiology Consultation: Date of Consultation 10/10/20 Date of Admission Attending Physician Broko Dawkins MD Admitting Physician Damon Nassar MD Consulting Physician SUBHA GUERRA JR, MD HPI: Time Seen by a Provider: 19:13 Chief Complaint: Reason for consultation: Syncope. I had the pleasure of seeing Tiffanie in the cardiology stepdown unit today. She has no previous history of cardiac disease other than hypertension. On Wednesday she was in her kitchen with her and suddenly felt like she had passed out. Her saw that she was disoriented and went immediately to her side to prevent her from falling on the floor. He helped her sit down on the floor. He is not sure if she ever quite lost consciousness. However, within a few minutes, she was back to her normal self. They did not seek medical attention at that time. Then today she was going to the bathroom and she cannot remember if she was sitting down or had finished but the next thing she knew, she was on the floor and her was standing above her. She had somehow fallen off the toilet and hit her head on the door jam and suffered an abrasion to her face. She then went to [place] emergency room for further evaluation. Because of the syncope, she was transferred to our hospital for further evaluation. She denies any previous history of syncope other than these 2 recent events. She takes her antihypertensive medication every day and there have not been any recent changes in the medication. She did recently see her primary care provider due to some extreme fatigue and drowsiness during the day. She is supposed to have a sleep study arranged as an outpatient in the near future but this is not yet scheduled. She denies any chest discomfort. She does get some occasional dyspnea on exertion although she admits that she is not all that active. She is able to walk around the supermarket without difficulty. She denies paroxysmal nocturnal dyspnea, orthopnea, palpitations, or lower extremity edema. Review of Systems-Cardiology Review of Systems Other comments Review 10 organ systems is as per the history of present illness, otherwise negative. OID-Ppbtnv-Voqyxv Hx Patient Social History Marrital Status: Smoking Status: Never a Smoker 2nd Hand Smoke Exposure: No Alcohol Use?: No Pt feels they are or have been: No Immunizations Up To Date Date of Influenza Vaccine: Feb 06, 2020 Past Medical History PMH As described under Assessment. Family Medical History Family History: Cardiovascular disease 19 MOTHER Diabetes mellitus G8 BROTHER FH: breast cancer 19 MOTHER Hypertension G8 BROTHER Irregular Heartbeat 19 MOTHER Lung Cancer 19 FATHER Myocardial infarction 19 MOTHER Allergies and Home Medications Allergies Coded Allergies: Penicillins (Verified Allergy, Unknown, 12/17/18) cephalexin (Unverified Adverse Reaction, Unknown, 12/17/18) Home Medications ALPRAZolam 0.25 Mg Tablet, 0.25 MG PO DAILY, (Reported) Last Action: Reviewed ALPRAZolam 0.25 Mg Tablet, 0.25 MG PO BID PRN for ANXIETY, (Reported) Last Action: Reviewed Acetaminophen 500 Mg Tablet, 1,000 MG PO Q8H PRN for PAIN-MILD (1-4), (Reported) Last Action: Reviewed Albuterol Sulfate 1 Puff Puff, 2 PUFF INH Q6H PRN for SHORTNESS OF BREATH, (Reported) Last Action: Reviewed Aripiprazole 5 Mg Tablet, 5 MG PO DAILY, (Reported) Last Action: Reviewed Ferrous Sulfate 325 Mg Tablet, 325 MG PO 1200,1600, (Reported) Last Action: Reviewed Gabapentin 300 Mg Capsule, 300 MG PO TID, (Reported) Last Action: Reviewed Lisinopril 40 Mg Tablet, 40 MG PO DAILY, (Reported) Last Action: Reviewed Loratadine 10 Mg Tablet, 10 MG PO 1200, (Reported) Last Action: Reviewed Metoprolol Tartrate 25 Mg Tablet, 25 MG PO DAILY, (Reported) Last Action: Reviewed Sertraline HCl 50 Mg Tablet, 50 MG PO DAILY, (Reported) Last Action: Reviewed Trazodone HCl 100 Mg Tablet, 100 MG PO HS PRN for SLEEP, (Reported) Last Action: Reviewed Patient Home Medication List Home Medication List Reviewed: Yes Physical Exam-Cardiology Physical Exam Vital Signs/I&O 10/10/20 10/10/20 10/10/20 10/10/20 10:41 12:29 13:45 13:55 Temp 36.3 36.3 Pulse 68 72 72 Resp 16 16 20 B/P (MAP) 130/75 (93) 125/68 (93) 113/69 (84) Pulse Ox 97 98 97 O2 Delivery Room Air Room Air Room Air 10/10/20 10/10/20 15:55 16:06 Temp 37.3 Pulse 81 81 Resp 29 B/P (MAP) 115/94 (101) Pulse Ox 96 O2 Delivery Room Air Capillary Refill : Less Than 3 Seconds Constitutional: appears stated age, AAO x 3, well-developed, well-nourished, other (Reason for consultation: Atrial fibrillation.) HEENT: other (She has an abrasion on her cheek.), EOMI Neck: non-tender, full range of motion, supple, normal inspection, carotid pulses are 2 + bilaterally, with good upstrokes Respiratory: lungs clear to auscultation Cardiovascular: regular rate-rhythm, S1 and S2, other (No murmurs, rubs or gallops.) Gastrointestinal: other (Soft, nondistended and nontender.) Rectal: deferred Extremities: normal range of motion, non-tender, normal inspection, no lower extremity edema bilateral 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: 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 tested, no motor/sensory deficits, alert, normal mood/affect, oriented x 3 Data Review Labs Laboratory Tests 10/10/20 10:52: White Blood Count 12.6H, Red Blood Count 4.20L, Hemoglobin 12.8, Hematocrit 39, Mean Corpuscular Volume 94, Mean Corpuscular Hemoglobin 30, Mean Corpuscular Hemoglobin Concent 33, Red Cell Distribution Width 12.5, Platelet Count 341, Mean Platelet Volume 9.7, Immature Granulocyte % (Auto) 0, Neutrophils (%) (Auto) 73, Lymphocytes (%) (Auto) 19, Monocytes (%) (Auto) 6, Eosinophils (%) (Auto) 1, Basophils (%) (Auto) 1, Neutrophils # (Auto) 9.1H, Lymphocytes # (Auto) 2.4, Monocytes # (Auto) 0.7, Eosinophils # (Auto) 0.1, Basophils # (Auto) 0.1, Immature Granulocyte # (Auto) 0.1, Sodium Level 136, Potassium Level 5.0, Chloride Level 105, Carbon Dioxide Level 20L, Anion Gap 11, Blood Urea Nitrogen 15, Creatinine 1.00, Estimat Glomerular Filtration Rate 59, BUN/Creatinine Ratio 15, Glucose Level 138H, Calcium Level 9.5, Corrected Calcium 9.3, Total Bilirubin 0.4, Aspartate Amino Transf (AST/SGOT) 18, Alanine Aminotransferase (ALT/SGPT) 14, Alkaline Phosphatase 82, Troponin I < 0.30, Total Protein 7.1, Albumin 4.2 10/10/20 11:03: Urine Color YELLOW, Urine Clarity SLT CLOUDY, Urine pH 6.0, Urine Specific [place] 1.015L, Urine Protein NEGATIVE, Urine Glucose (UA) NEGATIVE, Urine Ketones NEGATIVE, Urine Nitrite NEGATIVE, Urine Bilirubin NEGATIVE, Urine Urobilinogen 0.2, Urine Leukocyte Esterase 2+H, Urine RBC (Auto) 1+H, Urine RBC NONE, Urine WBC 10-25H, Urine Squamous Epithelial Cells 0-2, Urine Renal Epithelial Cells 0-2, Urine Crystals NONE, Urine Bacteria TRACE, Urine Casts NONE, Urine Mucus NEGATIVE, Urine Culture Indicated YES 10/10/20 14:40: Troponin I < 0.028 ECG Impression ECG Comment Sinus rhythm with nonspecific T wave changes. A/P-Cardiology Assessment/Admission Diagnosis Syncope. Exact etiology unclear. There is no evidence of Emllj-Chyuorcts-Xjuyc, Brugada syndrome, or prolonged or short QT on her resting electrocardiogram. She is on beta-bob for her hypertension. It is conceivable she may have had a bradycardia event leading to syncope. She has not had any significant arrhyt hmias on telemetry monitoring. I recommend we hold her metoprolol for the time being. If her blood pressure becomes elevated, I would consider adding a non-AV nickolas blocking agent for the hypertension. I will obtain an echocardiogram in the morning. If we do not see any rhythm abnormalities on telemetry overnight, she can most likely be discharged home tomorrow morning after the ec hocardiogram. I will arrange for an outpatient 30-day external event monitor. At this point, I do not think a tilt table test would be of any utility. Essential hypertension.I recommend resuming lisinopril. We will need to watch her blood pressure closely when we stop the metoprolol. Morbid obesity.It sounds as though she may have symptoms consistent with sleep apnea. Obviously, this is much more frequent and obese patients. Sleep apnea can certainly cause bradycardia arrhythmias. She will need to proceed with her sleep study after discharge. She also needs lifestyle modification with exercise, diet, and weight loss. Plan As above. SUBHA GUERRA JR, MD Oct 10, 2020 19:19
[2020-10-10 19:27] VITALS: BP 100/57
[2020-10-11] VITALS: BP 111/60
[2020-10-11] MEDS: NS IV 1000 ML 1,000 ML IV SCH ×3 (00:23→11:00)
[2020-10-11 04:00] VITALS: BP 126/63
[2020-10-11 04:39] VITALS: BP 126/63
[2020-10-11 05:04] LABS: BASOPHILS # (AUTO) 0.1 10^3/uL (0.0-0.1); BASOPHILS % (AUTO) 1 % (0-10); EOSINOPHILS # (AUTO) 0.1 10^3/uL (0.0-0.3); EOSINOPHILS % (AUTO) 2 % (0-10); HEMATOCRIT 37 % (35-52); HEMOGLOBIN 11.6 g/dL (11.5-16.0); LYMPHOCYTES # (AUTO) 2.8 10^3/uL (1.0-4.0); LYMPHOCYTES % (AUTO) 41 % (12-44); MEAN CORPUSCULAR HEMOGLOBIN 30 pg (25-34); MEAN CORPUSCULAR HGB CONC 32 g/dL (32-36); MEAN CORPUSCULAR VOLUME 96 fL (80-99); MEAN PLATELET VOLUME 9.8 fL (9.0-12.2); MONOCYTES # (AUTO) 0.6 10^3/uL (0.0-1.0); MONOCYTES % (AUTO) 8 % (0-12); NEUTROPHILS # (AUTO) 3.4 10^3/uL (1.8-7.8); NEUTROPHILS % (AUTO) 49 % (42-75); PLATELET COUNT 252 10^3/uL (130-400); WHITE BLOOD COUNT 6.9 10^3/uL (4.3-11.0)
[2020-10-11 05:22] LABS: ALBUMIN 3.9 GM/DL (3.2-4.5); POTASSIUM 4.7 MMOL/L (3.6-5.0)
[2020-10-11 05:23] LABS: CALCIUM 9.2 MG/DL (8.5-10.1)
[2020-10-11 05:25] LABS: TOTAL PROTEIN 6.8 GM/DL (6.4-8.2)
[2020-10-11 05:27] LABS: BILIRUBIN,TOTAL 0.4 MG/DL (0.1-1.0)
[2020-10-11 05:28] LABS: CREATININE SERUM 0.98 MG/DL (0.60-1.30)
--- NOTE | 2020-10-11 06:22 | Short Stay Summary-Hospitalist ---
History of Present Illness HPI/Chief Complaint Chief complaint: Syncope History of present illness: This is a 49-year-old white female clinic patient of [facility] who presents to the ER with syncopal episode. Apparently she has had a few of these episodes. Cardiology has been consulted and will place an event monitor for 30 days and may need loop recorder placed. Echocardiogram done today reveals no acute findings and patient feels well and will have close follow-up with primary care provider and cardiology. Source: patient Exam Limitations: no limitations Date Seen 10/11/20 Time Seen by a Provider: 11:00 Attending Physician Brook Dawkins MD PCP Damon Nassar MD Referring Physician Date of Admission Oct 10, 2020 at 13:45 Home Medications & Allergies Home Medications Reviewed patient Home Medication Reconciliation performed by pharmacy medication reconciliations sleep technician and/or nursing. Patients Allergies have been reviewed. Allergies Allergies Coded Allergies Penicillins (Verified Allergy, Unknown, 12/17/18) cephalexin (Unverified Adverse Reaction, Unknown, 12/17/18) Past Mfvisqe-Lpibtf-Rhofwp Hx Patient Social History Marrital Status: Tobacco Use?: No Smoking Status: Never a Smoker Use of E-Cig and/or Vaping dev: No Substance use?: No Alcohol Use?: No Pt feels they are or have been: No Immunizations Up To Date Date of Influenza Vaccine: Feb 06, 2020 First/Initial COVID19 Vaccinat: July 2020 Second COVID19 Vaccination Nathan: August 2020 Hepatitis A: Yes Hepatitis B: Yes Seasonal Allergies Seasonal Allergies: No Current Status Advance Directives: No Communicates: Verbally Primary Language: Chinese Preferred Spoken Language: Chinese Is interpretation needed?: Yes Implanted or Applied Medical D: None Past Medical History Surgeries: Appendectomy, Section, Gallbladder, Tubal Ligation COPD Hypertension, Irregular Heartbeat Neuropathy 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 Sexually Transmitted Disease: No UTI-Chronic Hemorrhoids Loss of Vision: Denies Hearing Impairment: Denies Anxiety Blood Disorders: Yes (anemia) Family Medical History Cardiovascular disease 19 MOTHER Diabetes mellitus G8 BROTHER FH: breast cancer 19 MOTHER Hypertension G8 BROTHER Irregular Heartbeat 19 MOTHER Lung Cancer 19 FATHER Myocardial infarction 19 MOTHER Review of Systems Constitutional: see HPI, dizziness, malaise, weakness Physical Exam Physical Exam Vital Signs Vital Signs - First Documented 10/10/20 10:41 Temp 36.3 Pulse 68 Resp 16 B/P (MAP) 130/75 (93) Pulse Ox 97 O2 Delivery Room Air Capillary Refill : Less Than 3 Seconds Height, Weight, BMI Height: 5'7.00" Weight: 258lbs. 0oz. 117.020803cg; 42.51 BMI Method:Stated General Appearance: No Apparent Distress, WD/WN, Obese HEENT: PERRL/EOMI, Normal ENT Inspection Neck: Full Range of Motion, Normal Inspection, Non Tender, Supple Respiratory: Chest Non Tender, Lungs Clear, Normal Breath Sounds, No Accessory Muscle Use, No Respiratory Distress Cardiovascular: Regular Rate, Rhythm, No Edema, No JVD, Normal Peripheral Pulses Gastrointestinal: Non Tender, Soft; No Distended, No Guarding Back: Normal Inspection, No CVA Tenderness, No Vertebral Tenderness Extremity: Normal Capillary Refill, Normal Inspection, Non Tender 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: Alert, Oriented x3, No Motor/Sensory Deficits, Normal 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 Short Stay Diagnosis Discharge Diagnosis-Short Stay Admission Diagnosis Assessment: Syncope Final Discharge Diagnosis Assessment: Syncope Conclusion Plan Discharge home with event monitor Diagnosis/Problems Diagnosis/Problems (1) Syncope Status: Acute Qualifiers: Qualified Codes: R55 - Syncope and collapse (2) Morbid obesity (3) Essential hypertension PATRICK MCCALLUM DO Oct 11, 2020 06:22
[2020-10-11 07:47] VITALS: BP 102/66
--- NOTE | 2020-10-11 11:58 | Cardiology Progress Note ---
Cardiology Progess Note Progress Date Seen by Provider: Oct 11, 2020 Time Seen by Provider: 11:56 We are seeing her for syncope. She denies any recurrent syncope or lightheaded spells. She denies chest pain, dyspnea, palpitations, or lower extremity edema. She would like to go home. Focused Exam Respiratory: Lungs Clear, Normal Breath Sounds Cardiovascular: Regular Rate, Rhythm, No Edema, No JVD, No Murmur, Normal Peripheral Pulses Skin: normal color, warm/dry A/P-Cardiology Assessment/Plan Plan See below. Diagnosis/Problems Diagnosis/Problems (1) Syncope Status: Acute Assessment & Plan: No recurrent syncope. No arrhythmias on telemetry. Her echocardiogram did not show any structural heart disease that was worrisome in the setting of syncope. I suspect she may have had some sort of arrhythmogenic event. We will arrange for an outpatient 30-day event monitor. Then she will follow-up with me in the office in approximately 6 weeks. From a cardiac standpoint, the patient can be discharged home. Qualifiers: Qualified Codes: R55 - Syncope and collapse (2) Essential hypertension Assessment & Plan: Blood pressure has been reasonably controlled in the hospital. I stopped her beta-bob in the event she had bradycardia contributing to the syncope. I have asked her to monitor her blood pressures at home closely and either notify her primary provider or our office if her blood pressure becomes elevated when she stops the metoprolol. (3) Morbid obesity Assessment & Plan: She needs to continue with lifestyle modification with exercise, diet and weight loss. She probably would benefit from a sleep study. We can certainly suggest this to her primary provider after discharge. SUBHA GUERRA JR, MD Oct 11, 2020 11:58
[2020-10-11 12:17] VITALS: BP 101/63
== END 2020-10-11 13:33 | disposition home or self-care (01) ==
LOC: EDUNIT# 10:26 → ER FS 10:28 → CSD 13:45
PROVIDERS: ADMIT Family Medicine; ATTEND Family Medicine
DX: R55 Syncope and collapse (principal); I11.9 Hypertensive heart disease without heart failure; J44.9 Chronic obstructive pulmonary disease, unspecified; I49.9 Cardiac arrhythmia, unspecified; G62.9 Polyneuropathy, unspecified; N39.0 Urinary tract infection, site not specified; K64.9 Unspecified hemorrhoids; F41.9 Anxiety disorder, unspecified; D64.9 Anemia, unspecified; E66.01 Morbid (severe) obesity due to excess calories; Z98.51 Tubal ligation status; Z79.82 Long term (current) use of aspirin; Z79.899 Other long term (current) drug therapy; Z79.891 Long term (current) use of opiate analgesic; Z68.41 Body mass index [BMI] 40.0-44.9, adult
CPT/HCPCS: 36415; 70450; 71045; 80053; 80061; 81000; 84484; 85025; 87077; 87088; 87186; 93005; 93306

== ENCOUNTER 2020-10-22 13:00 | Outpatient (RCR) | payer OTHER ==
[~2020-10-22 13:00] MED LIST changes: +ACET-2267 PO; +ALPR0.254 PO; +TRAZ-227 PO; +TRZ50T PO
--- NOTE | 2020-11-25 12:05 | 30 Day Event Recorder ---
30-DAY EVENT RECORDER 30-DAY MOBILE CARDIAC OUTPATIENT TELEMETRY DATE OF PROCEDURE: 10/22/2020-11/20/2020. INDICATION: Syncope. PROCEDURE: A 30-day mobile cardiac outpatient telemetry was obtained for a total of 30 days. 32 rhythm strips were presented for review. The study quality is adequate. RESULTS: 1. Baseline sinus rhythm with an average heart rate of 80 bpm, ranging from 50- 160 bpm. 2. There were rare, isolated premature supraventricular complexes as well as one 11-second run of atrial tachycardia at a heart rate of 160 bpm. 2. There were rare, isolated premature ventricular complexes. 3. There is no evidence of atrial fibrillation. 4. There were 7 patient triggered events that correlated mainly to sinus tachycardia but also 1 episode of sinus rhythm with heart rates ranging from 82- 150 bpm with no significant arrhythmias. IMPRESSION: 1. This is a 30-day mobile cardiac outpatient telemetry report. 2. Baseline sinus rhythm with an average heart rate of 80 bpm, ranging from 50- 160 bpm with rare, isolated premature supraventricular and premature ventricular complexes as well as one 11-second run of atrial tachycardia at heart rate of 160 bpm. 3. There were 7 patient triggered events that correlated mainly to sinus tach ycardia but also 1 episode of sinus rhythm with heart rates ranging from 82-150 bpm with no significant arrhythmias. SUBHA GUERRA JR, MD Nov 25, 2020 12:05
== END 2021-01-20 | disposition home or self-care (01) ==
LOC: CARD 13:00
PROVIDERS: ATTEND Internal Medicine Cardiovascular Disease
DX: R55 Syncope and collapse (principal)

== ENCOUNTER 2021-02-09 23:50 | Emergency (ER) | payer OTHER ==
--- OUTSIDE RECORDS SUMMARY | 2021-02-09 23:57 | XMS REPORT | Clinical Summary ---
Author Author [facility] Organization [facility] Address Unknown Phone Unavailable Care Team Providers [employer] Name Role Phone Aditya Prieto MD PCP Mitesh Garcia MD Unavailable Source Comments Some departments are not documenting in the electronic medical record. If you d o not see the information that you expected, contact Release of Information in [facility] Information Management department at [phone] for further assistan ce in locating additional records.[facility] Allergies Comments Active Allergy Reactions Severity Noted Date Cephalexin HIVES 05/21/2011 Penicillins HIVES, 05/21/2011 SHORTNESS OF BREATH Medications End Date Status Medication Sig Dispensed Refills Start Date Active sertraline (ZOLOFT) 50 mg Take 50 mg by 0 tablet mouth daily. Active lisinopril (PRINIVIL, Take 40 mg by 0 ZESTRIL) 40 mg tablet mouth daily. Active ALPRAZolam (XANAX) 0.25 Take 0.25 mg 0 mg tablet by mouth twice daily. Active Problems Problem Noted Date Breast mass in female 05/31/2011 Surgical History Surgery Date Site/Laterality Comments HX CHOLECYSTECTOMY HX APPENDECTOMY BREAST BIOPSY 2011 right breast Medical History Medical History Date Comments Depression Anxiety Essential hypertension Family History Medical History Relation Name Comments Cancer Maternal lymphoma Grandfather Cancer-Breast Maternal Grandmother Cancer-Breast Mother Heart Disease Mother Cancer-Breast Paternal Grandmother Relation Name Status Comments Father Alive Maternal Grandfather Maternal Grandmother Mother Alive Paternal Grandmother Social History Date Tobacco Use Types Packs/Day Years Used Never Smoker Smokeless Tobacco: Never Used Comments Alcohol Use Standard Drinks/Week Yes 0 (1 standard drink = 0.6 o z pure alcohol) Sex Assigned at Date Recorded Not on file Last Filed Vital Signs Reading Time Taken Comments Vital Sign 123/85 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 Blood Pressure 109 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 Pulse 36.9 C (98.4 F) 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 Temperature - - Respiratory Rate 96% 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 Oxygen Saturation - - Inhaled Oxygen Concentration 112.7 kg (248 lb 6.4 oz) 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 Weight 174.6 cm (5' 8.75") 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 Height 36.95 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 Body Mass Index Plan of Treatment Health Maintenance Due Date Last Done Comments HIV SCREENING 1984 DTAP/TDAP VACCINES (1 - 10/27/1987 Tdap) HEPATITIS C SCREENING 10/27/1987 PHYSICAL (COMPREHENSIVE) 10/27/1987 EXAM CERVICAL CANCER SCREENING 1990 BREAST CANCER SCREENING 2009 COLORECTAL CANCER 10/27/2019 SCREENING SHINGLES RECOMBINANT 10/27/2019 VACCINE (1 of 2) INFLUENZA VACCINE 12/01/2020 Results Not on filefrom Last 3 Months 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
--- NOTE | 2021-02-10 00:01 | ED GU-Female ---
General Stated Complaint: LOWER BACK PAIN/UTI Source: patient Exam Limitations: no limitations History of Present Illness Date Seen by Provider: Feb 10, 2021 Time Seen by Provider: 00:01 Initial Comments 50-year-old female presents with right flank pain. Patient reports that the flank pain started around 7 PM this evening is gotten worse. Patient reports that she been having dysuria for about 2 weeks and has been treated with 2 different antibiotics. That she has a history of kidney stones in the past and this seems very similar. She does have some mild nausea. No fevers chills or other systemic complaints. Allergies and Home Medications Allergies Coded Allergies: Penicillins (Verified Allergy, Unknown, 12/17/18) cephalexin (Unverified Adverse Reaction, Unknown, 12/17/18) Patient Home Medication List Home Medication List Reviewed: Yes ALPRAZolam (Xanax Tablet) 0.25 Mg Tablet, 0.25 MG PO DAILY, (Reported) Entered as Reported by: TESSA HANEY on 01/24/19 1047 ALPRAZolam (ALPRAZolam) 0.25 Mg Tablet, 0.25 MG PO BID PRN for ANXIETY, (Reported) Entered as Reported by: ROLANDO AMADOR on 10/10/20 1530 Acetaminophen (Tylenol Extra Strength) 500 Mg Tablet, 1,000 MG PO Q8H PRN for PAIN-MILD (1-4), (Reported) Entered as Reported by: ROLANDO AMADOR on 10/10/20 1530 Albuterol Sulfate (Proair Hfa) 1 Puff Puff, 2 PUFF INH Q6H PRN for SHORTNESS OF BREATH, (Reported) Entered as Reported by: TESSA HANEY on 01/24/19 1047 Aripiprazole (Abilify) 5 Mg Tablet, 5 MG PO DAILY, (Reported) Entered as Reported by: IRASEMA MAGUIRE on 11/15/19 0954 Ferrous Sulfate (Iron) 325 Mg Tablet, 325 MG PO 1200,1600, (Reported) Entered as Reported by: TESSA HANEY on 01/24/19 1047 Gabapentin (Neurontin) 300 Mg Capsule, 300 MG PO TID, (Reported) Entered as Reported by: IRASEMA MAGUIRE on 11/15/19 0952 Hydrocodone/Acetaminophen (Hydrocodone-Acetamin 5-325 mg) 1 Each Tablet, 1 TAB PO Q8H PRN for PAIN-MODERATE (5-7) Prescribed by: BLAIRE ARNETT on 02/10/21 0302 Lisinopril (Lisinopril) 40 Mg Tablet, 40 MG PO DAILY, (Reported) Entered as Reported by: ROLANDO AMADOR on 10/10/20 1530 Loratadine (Claritin) 10 Mg Tablet, 10 MG PO 1200, (Reported) Entered as Reported by: TESSA HANEY on 01/24/19 1047 Metoprolol Tartrate (Metoprolol Tartrate) 25 Mg Tablet, 25 MG PO DAILY, (Reported) Entered as Reported by: IRASEMA MAGUIRE on 11/15/19 0954 Sertraline HCl (Sertraline HCl) 50 Mg Tablet, 50 MG PO DAILY, (Reported) Entered as Reported by: TESSA HANEY on 01/24/19 1047 Trazodone HCl (Trazodone HCl) 100 Mg Tablet, 100 MG PO HS PRN for SLEEP, (Reported) Entered as Reported by: ROLANDO AMADOR on 10/10/20 1530 Review of Systems Review of Systems Constitutional: No chills, No fever Respiratory: no symptoms reported Cardiovascular: no symptoms reported Gastrointestinal: see HPI Genitourinary: see HPI, dysuria, flank pain Musculoskeletal: no symptoms reported Skin: no symptoms reported Psychiatric/Neurological: No Symptoms Reported Endocrine: No Symptoms Reported Past Sddrrvc-Nksoil-Mlsznt Hx Seasonal Allergies Seasonal Allergies: No Past Medical History Surgeries: Yes (c/s x2, hemorrhoidectomy, ) Appendectomy, Section, Gallbladder, Tubal Ligation Respiratory: Yes COPD Cardiac: Yes Hypertension, Irregular Heartbeat Neurological: Yes Neuropathy 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 Disorders: No Female 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 Disorders: Denies [employer] History: Tubal Ligation Sexually Transmitted Disease: No Genitourinary: Yes UTI-Chronic Gastrointestinal: No Hemorrhoids Musculoskeletal: No Endocrine: No HEENT: No Loss of Vision: Denies Hearing Impairment: Denies Cancer: No Psychosocial: Yes Anxiety Integumentary: No Blood Disorders: Yes (anemia) Family Medical History Cardiovascular disease 19 MOTHER Diabetes mellitus G8 BROTHER FH: breast cancer 19 MOTHER Hypertension G8 BROTHER Irregular Heartbeat 19 MOTHER Lung Cancer 19 FATHER Myocardial infarction 19 MOTHER Physical Exam Vital Signs Vital Signs - First Documented 02/09/21 23:56 Pulse 102 Resp 20 B/P (MAP) 148/79 (102) Pulse Ox 97 O2 Delivery Room Air Capillary Refill : Height, Weight, BMI Height: 5'7.00" Weight: 258lbs. 0oz. [id number]; 42.51 BMI Method:Stated General Appearance: WD/WN, mild distress Cardiovascular: normal peripheral pulses, regular rate, rhythm Respiratory: lungs clear, normal breath sounds Gastrointestinal: non tender, soft Back: CVA tenderness (R) (Mild) Extremities: non-tender 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: alert, normal mood/affect, oriented x 3 Skin: normal color, warm/dry Progress/Results/Core Measures Suspected Sepsis SIRS Temperature: Pulse: Respiratory Rate: Laboratory Tests 02/10/21 00:14: White Blood Count 9.0 Blood Pressure / Mean: Laboratory Tests 02/10/21 00:14: Creatinine 1.38H, Platelet Count 310, Total Bilirubin 0.2 Results/Orders Lab Results Laboratory Tests Test 02/10/21 00:14 02/10/21 00:26 Range/Units White Blood Count 9.0 4.3-11.0 10^3/uL Red Blood Count 4.04 3.80-5.11 10^6/uL Hemoglobin 12.3 11.5-16.0 g/dL Hematocrit 39 35-52 % Mean Corpuscular Volume 97 80-99 fL Mean Corpuscular Hemoglobin 30 25-34 pg Mean Corpuscular Hemoglobin Concent 32 32-36 g/dL Red Cell Distribution Width 12.8 10.0-14.5 % Platelet Count 310 130-400 10^3/uL Mean Platelet Volume 9.9 9.0-12.2 fL Immature Granulocyte % (Auto) 1 % Neutrophils (%) (Auto) 46 42-75 % Lymphocytes (%) (Auto) 42 12-44 % Monocytes (%) (Auto) 9 0-12 % Eosinophils (%) (Auto) 2 0-10 % Basophils (%) (Auto) 1 0-10 % Neutrophils # (Auto) 4.1 1.8-7.8 X 10^3 Lymphocytes # (Auto) 3.8 1.0-4.0 X 10^3 Monocytes # (Auto) 0.8 0.0-1.0 X 10^3 Eosinophils # (Auto) 0.2 0.0-0.3 10^3/uL Basophils # (Auto) 0.1 0.0-0.1 10^3/uL Immature Granulocyte # (Auto) 0.1 0.0-0.1 10^3/uL Sodium Level 135 135-145 MMOL/L Potassium Level 5.7 H 3.6-5.0 MMOL/L Chloride Level 106 98-107 MMOL/L Carbon Dioxide Level 18 L 21-32 MMOL/L Anion Gap 11 5-14 MMOL/L Blood Urea Nitrogen 41 H 7-18 MG/DL Creatinine 1.38 H 0.60-1.30 MG/DL Estimat Glomerular Filtration Rate 40 BUN/Creatinine Ratio 30 Glucose Level 117 H 70-105 MG/DL Calcium Level 9.7 8.5-10.1 MG/DL Corrected Calcium 9.5 8.5-10.1 MG/DL Total Bilirubin 0.2 0.1-1.0 MG/DL Aspartate Amino Transf (AST/SGOT) 20 5-34 U/L Alanine Aminotransferase (ALT/SGPT) 23 0-55 U/L Alkaline Phosphatase 81 40-136 U/L Total Protein 7.1 6.4-8.2 GM/DL Albumin 4.2 3.2-4.5 GM/DL Urine Color YELLOW Urine Clarity CLEAR Urine pH 6.0 5-9 Urine Specific Caspar 1.015 L 1.016-1.022 Urine Protein NEGATIVE NEGATIVE Urine Glucose (UA) NEGATIVE NEGATIVE Urine Ketones NEGATIVE NEGATIVE Urine Nitrite NEGATIVE NEGATIVE Urine Bilirubin NEGATIVE NEGATIVE Urine Urobilinogen 0.2 < = 1.0 MG/DL Urine Leukocyte Esterase NEGATIVE NEGATIVE Urine RBC (Auto) NEGATIVE NEGATIVE Urine RBC NONE /HPF Urine WBC 0-2 /HPF Urine Squamous Epithelial Cells RARE /HPF Urine Crystals NONE /LPF Urine Bacteria NEGATIVE /HPF Urine Casts NONE /LPF Urine Mucus NEGATIVE /LPF Urine Culture Indicated NO My Orders Orders - ARNETT,BLAIRE L DO Ct Abdomen/Pelvis Wo (02/10/21 00:05) Ed Iv/Invasive Line Start (02/10/21 00:05) Ua Culture If Indicated (02/10/21 00:05) Cbc With Automated Diff (02/10/21 00:05) Comprehensive Metabolic Panel (02/10/21 00:05) Ketorolac Injection (Toradol Injection) (02/10/21 00:05) Ondansetron Injection (Zofran Injectio (02/10/21 00:15) Hydrocodone/Apap 5/325 Tablet (Lortab 5 (02/10/21 03:00) Medications Given in ED Current Medications Medications Dose Ordered Sig/Gregg Route Start Time Stop Time Status Last Admin Dose Admin Acetaminophen/ Hydrocodone Bitart 1 ea ONCE ONCE PO 02/10/21 03:00 02/10/21 03:01 DC 02/10/21 03:03 1 EA Ondansetron HCl 4 mg ONCE ONCE IVP 02/10/21 00:15 02/10/21 00:16 DC 02/10/21 00:18 4 MG Vital Signs/I&O 02/09/21 02/10/21 23:56 03:07 Pulse 102 88 Resp 20 18 B/P (MAP) 148/79 (102) 144/75 Pulse Ox 97 96 O2 Delivery Room Air Room Air Capillary Refill : Progress Note : Progress Note Patient has a negative CT abdomen pelvis. Patient has a negative UA. She does have elevated BUN and creatinine for mild acute kidney injury. Patient is able to oral intake fluids so I discussed her possibly being mildly dehydrated. I recommended she drink electrolyte containing replacement fluids such as Gatorade, smart water or body armor. Patient has taken 4 doses of her nitrofurantoin, this following a prior antibiotic. I recommended she stop this at this time. I would like her to follow-up with her primary care provider in approximately 3 to 5 days for recheck of her kidney function. Patient was having moderate flank pain so I prescribed her some hydrocodone that she would not take any ibuprofen for a few days. If her flank pain worsen she should follow-up with her primary care provider. Patient stable and discharged Diagnostic Imaging Diagonstic Imaging: CT Plain Films/CT/US/NM/MRI: abdomen Comments No hydronephrosis nephrolithiasis or ureteral stone, scattered diverticulosis but no diverticulitis, fatty liver [facility]ed: [facility] Primary Impression: Acute kidney injury (nontraumatic) Additional Impression: Flank pain Disposition: HOME, SELF-CARE Condition: Stable Departure-Patient Inst. Referrals: ORIANA DEE MD (PCP/Family) Primary Care Physician Patient Instructions: Flank Pain ED, Acute Kidney Injury Add. Discharge Instructions: Follow-up with your primary care provider in the next couple days to recheck your kidney labs Scripts Hydrocodone/Acetaminophen (Hydrocodone-Acetamin 5-325 mg) 1 Each Tablet 1 TAB PO Q8H PRN for PAIN-MODERATE (5-7), #10 TAB Prov: BLAIRE ARNETT DO 02/10/21 BLAIRE ARNETT DO Feb 10, 2021 00:01
[2021-02-10] MEDS ORDERED: KETOROLAC 30 MG/ML VIAL IVP STA (00:05)
[2021-02-10] MEDS ORDERED: ONDANSETRON 4 MG/2 ML (SDV) Z0FRAN IVP ONE (00:15)
[2021-02-10 00:40] LABS: BILIRUBIN,URINE NEGATIVE (NEGATIVE); CLARITY,URINE CLEAR; COLOR,URINE YELLOW; GLUCOSE, URINE (UA) NEGATIVE (NEGATIVE); KETONES,URINE NEGATIVE (NEGATIVE); LEUKOCYTE ESTERASE ,URINE NEGATIVE (NEGATIVE); NITRITE,URINE NEGATIVE (NEGATIVE); PROTEIN,URINE NEGATIVE (NEGATIVE)
[2021-02-10 00:51] LABS: BACTERIA,URINE NEGATIVE /HPF; SQUAMOUS EPITHELIAL CELL,UR RARE /HPF; WBC,URINE 0-2 /HPF
[2021-02-10 01:05] LABS: BASOPHILS % (AUTO) 1 % (0-10); EOSINOPHILS % (AUTO) 2 % (0-10); HEMATOCRIT 39 % (35-52); HEMOGLOBIN 12.3 g/dL (11.5-16.0); LYMPHOCYTES % (AUTO) 42 % (12-44); MEAN CORPUSCULAR HEMOGLOBIN 30 pg (25-34); MEAN CORPUSCULAR HGB CONC 32 g/dL (32-36); MEAN CORPUSCULAR VOLUME 97 fL (80-99); MEAN PLATELET VOLUME 9.9 fL (9.0-12.2); MONOCYTES % (AUTO) 9 % (0-12); NEUTROPHILS % (AUTO) 46 % (42-75); PLATELET COUNT 310 10^3/uL (130-400)
[2021-02-10 01:06] LABS: BASOPHILS # (AUTO) 0.1 10^3/uL (0.0-0.1); EOSINOPHILS # (AUTO) 0.2 10^3/uL (0.0-0.3); LYMPHOCYTES # (AUTO) 3.8 X 10^3 (1.0-4.0); MONOCYTES # (AUTO) 0.8 X 10^3 (0.0-1.0); NEUTROPHILS # (AUTO) 4.1 X 10^3 (1.8-7.8)
[2021-02-10 01:09] LABS: CREATININE SERUM 1.38 MG/DL (0.60-1.30); POTASSIUM 5.7 MMOL/L (3.6-5.0)
[2021-02-10 01:10] LABS: ALBUMIN 4.2 GM/DL (3.2-4.5); BILIRUBIN,TOTAL 0.2 MG/DL (0.1-1.0); CALCIUM 9.7 MG/DL (8.5-10.1); TOTAL PROTEIN 7.1 GM/DL (6.4-8.2)
[2021-02-10] MEDS ORDERED: HYDROcodone/APAP 5 MG/325 MG (LORTAB) TAB PO ONE (03:00)
[2021-02-10] MEDS ORDERED: ACHD5005 PO ×2 (03:01→06:55)
[2021-02-10 03:07] VITALS: BP 144/75
--- NOTE | 2021-02-10 06:52 | Diagnostic Imaging Report ---
PROCEDURE: CT abdomen and pelvis without contrast. TECHNIQUE: Multiple contiguous axial images were obtained through the abdomen and pelvis without the use of intravenous contrast. Auto Exposure Controls were utilized during the CT exam to meet ALARA standards for radiation dose reduction. INDICATION: Right flank pain COMPARISON: 12/17/2018 Low density is again seen throughout the liver. Gallbladder surgically absent. There is no biliary ductal dilatation. No pancreatic, adrenal gland or splenic abnormality is seen. Unenhanced images of the kidneys are unremarkable. There is no evidence of nephrolithiasis or urinary tract dilatation. Occasional calcified phleboliths are seen in the right retroperitoneum. There is a small fat-containing umbilical hernia. Urinary bladder is partially collapsed which limits evaluation. Otherwise, there is no evidence of focal inflammation or organized fluid collection. IMPRESSION: No acute abnormality is identified. There is hepatic steatosis similar to previous study. Dictated by: Dictated on workstation # [id number]
== END 2021-02-10 03:08 | disposition home or self-care (01) ==
LOC: EDUNIT# 23:50 → ER FS 23:54
DX: N17.9 Acute kidney failure, unspecified (principal); J44.9 Chronic obstructive pulmonary disease, unspecified; I10 Essential (primary) hypertension; F41.9 Anxiety disorder, unspecified; Z79.899 Other long term (current) drug therapy
CPT/HCPCS: 36415; 74176; 80053; 81000; 85025

== ENCOUNTER → 2021-02-13 | Outpatient (CLI) | payer OTHER ==
[~2021-02-13] MED LIST changes: +ACHD5005 PO
[2021-02-13 12:54] LABS: CALCIUM 9.4 MG/DL (8.5-10.1)
== END ==
LOC: LAB FS 12:20
PROVIDERS: ATTEND Family Medicine
DX: R79.9 Abnormal finding of blood chemistry, unspecified (principal)
CPT/HCPCS: 36415; 80048

== ENCOUNTER 2021-03-04 17:33 | Emergency (ER) | payer OTHER ==
[~2021-03-04] VITALS: Ht 170 cm; Wt 118.0 kg
[2021-03-04 18:11] LABS: CLARITY,URINE CLEAR; COLOR,URINE YELLOW; GLUCOSE, URINE (UA) NEGATIVE (NEGATIVE); KETONES,URINE TRACE (NEGATIVE); LEUKOCYTE ESTERASE ,URINE NEGATIVE (NEGATIVE); NITRITE,URINE NEGATIVE (NEGATIVE); PH,URINE 5.5 (5-9); PROTEIN,URINE NEGATIVE (NEGATIVE)
[2021-03-04 18:29] LABS: AMPHETAMINE SCREEN, URINE NEGATIVE (NEGATIVE); BARBITURATE SCREEN URINE NEGATIVE (NEGATIVE); BENZODIAZEPINES SCREEN URINE POSITIVE (NEGATIVE); CANNABINOID SCREEN, URINE NEGATIVE (NEGATIVE); COCAINE SCREEN URINE NEGATIVE (NEGATIVE); METHADONE STAT NEGATIVE (NEGATIVE); METHAMPHETAMINE SCREEN URINE S NEGATIVE (NEGATIVE); OPIATE SCREEN URINE NEGATIVE (NEGATIVE); OXYCODONE STAT POSITIVE (NEGATIVE); PROPOXYPHENE STAT NEGATIVE (NEGATIVE); TRICYCLIC ANTIDEPRESSANTS SCRE NEGATIVE (NEGATIVE)
--- NOTE | 2021-03-04 18:31 | ED General ---
General Chief Complaint: General Problems/Pain Stated Complaint: WEAKNESS,LIGHTHEADED,ALL OVER BODY PAIN Source of Information: Patient History of Present Illness Date Seen by Provider: Mar 04, 2021 Time Seen by Provider: 18:29 Initial Comments 50-year-old female presenting with complaints of generalized body aches and not feeling well. She states that she feels weak all over and lightheaded. This is worse when she stands up. This has been going on for several days but she felt that it was worse today. She was seen in the clinic yesterday for similar symptoms and told that she had blood in her urine and likely had kidney stones. She is scheduled for CT scan tomorrow but because of her symptoms feeling worse tonight she came to the emergency department. She has had something similar in the past with low blood pressure but the did not know why her blood pressure was low. She states that she has been drinking water throughout the day but does have nausea. She denies vomiting, diarrhea, cough, shortness of breath, headache, fever, chills. Timing/Duration: 2-3 Days Severity: Severe Associated Systoms: No Chest Pain, No Cough, No Diaphoresis, No Fever/Chills, No Headaches, No Loss of Appetite; Malaise, Nausea/Vomiting (nausea but no vomiting); No Rash, No Seizure, No Shortness of Air, No Syncope; Weakness (general) Allergies and Home Medications Allergies Coded Allergies: Penicillins (Verified Allergy, Unknown, 12/17/18) cephalexin (Unverified Adverse Reaction, Unknown, 12/17/18) Patient Home Medication List Home Medication List Reviewed: Yes ALPRAZolam (Xanax Tablet) 0.25 Mg Tablet, 0.25 MG PO DAILY, (Reported) Entered as Reported by: TESSA HANEY on 01/24/19 1047 ALPRAZolam (ALPRAZolam) 0.25 Mg Tablet, 0.25 MG PO BID PRN for ANXIETY, (Reported) Entered as Reported by: ROLANDO AMADOR on 10/10/20 1530 Acetaminophen (Tylenol Extra Strength) 500 Mg Tablet, 1,000 MG PO Q8H PRN for PAIN-MILD (1-4), (Reported) Entered as Reported by: ROLANDO AMADOR on 10/10/20 1530 Albuterol Sulfate (Proair Hfa) 1 Puff Puff, 2 PUFF INH Q6H PRN for SHORTNESS OF BREATH, (Reported) Entered as Reported by: TESSA HANEY on 01/24/19 104 Aripiprazole (Abilify) 5 Mg Tablet, 5 MG PO DAILY, (Reported) Entered as Reported by: IRASEMA MAGUIRE on 11/15/19 0954 Ferrous Sulfate (Iron) 325 Mg Tablet, 325 MG PO 1200,1600, (Reported) Entered as Reported by: TESSA HANEY on 01/24/19 104 Gabapentin (Neurontin) 300 Mg Capsule, 300 MG PO TID, (Reported) Entered as Reported by: IRASEMA MAGUIRE on 11/15/19 0952 Hydrocodone/Acetaminophen (Hydrocodone-Acetamin 5-325 mg) 1 Each Tablet, 1 TAB PO Q8H PRN for PAIN-MODERATE (5-7) Prescribed by: BLAIRE ARNETT on 02/10/21 0302 Hydrocodone/Acetaminophen (Hydrocodone-Acetamin 5-325 mg) 1 Each Tablet, 1 TAB PO Q8H PRN for PAIN-MODERATE (5-7) Prescribed by: BLAIRE ARNETT on 02/10/21 0656 Lisinopril (Lisinopril) 40 Mg Tablet, 40 MG PO DAILY, (Reported) Entered as Reported by: ROLANDO AMADOR on 10/10/20 153 Loratadine (Claritin) 10 Mg Tablet, 10 MG PO 1200, (Reported) Entered as Reported by: TESSA HANEY on 01/24/19 104 Methocarbamol (Methocarbamol) 500 Mg Tablet, 1,000 MG PO Q8H PRN for MUSCLE SPASMS Prescribed by: ADELINE TAO on 03/04/21 2243 Metoprolol Tartrate (Metoprolol Tartrate) 25 Mg Tablet, 25 MG PO DAILY, (Reported) Entered as Reported by: IRASEMA MAGUIRE on 11/15/19 0954 Sertraline HCl (Sertraline HCl) 50 Mg Tablet, 50 MG PO DAILY, (Reported) Entered as Reported by: TESSA HANEY on 01/24/19 104 Trazodone HCl (Trazodone HCl) 100 Mg Tablet, 100 MG PO HS PRN for SLEEP, (Reported) Entered as Reported by: ROLANDO AMADOR on 10/10/20 1530 Review of Systems Review of Systems Constitutional: see HPI, dizziness, malaise EENTM: No nose congestion Respiratory: no symptoms reported Cardiovascular: no symptoms reported Gastrointestinal: see HPI Genitourinary: see HPI Musculoskeletal: back pain (right flank pain), muscle pain (generalized body aches and pains) Skin: No rash Psychiatric/Neurological: Weakness (general) Past Wdtnkee-Ctqgdy-Faooqz Hx Patient Social History Tobacco Use?: No Smoking Status: Never a Smoker Smokeless Tobacco Frequency: Never a User Use of E-Cig and/or Vaping dev: No Use of E-Cig and/or Vaping Dawit: Never a User Substance use?: No Alcohol Use?: No Seasonal Allergies Seasonal Allergies: No Past Medical History Surgeries: Yes (c/s x2, hemorrhoidectomy, ) Appendectomy, Section, Gallbladder, Tubal Ligation Respiratory: Yes COPD Cardiac: Yes Hypertension, Irregular Heartbeat Neurological: Yes Neuropathy 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 Disorders: No Female 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 Disorders: Denies [employer] History: Tubal Ligation Sexually Transmitted Disease: No Genitourinary: Yes UTI-Chronic Gastrointestinal: No Hemorrhoids Musculoskeletal: No Endocrine: No HEENT: No Loss of Vision: Denies Hearing Impairment: Denies Cancer: No Psychosocial: Yes Anxiety Integumentary: No Blood Disorders: Yes (anemia) Family Medical History Cardiovascular disease 19 MOTHER Diabetes mellitus G8 BROTHER FH: breast cancer 19 MOTHER Hypertension G8 BROTHER Irregular Heartbeat 19 MOTHER Lung Cancer 19 FATHER Myocardial infarction 19 MOTHER Physical Exam Vital Signs Vital Signs - First Documented 03/04/21 18:24 Temp 36.0 Pulse 77 Resp 18 B/P (MAP) 97/63 (74) Pulse Ox 96 O2 Delivery Room Air Capillary Refill : Height, Weight, BMI Height: 5'7.00" Weight: 258lbs. 0oz. [id number]; 42.51 BMI Method:Stated General Appearance: No Apparent Distress, Obese HEENT: PERRL/EOMI; No Moist Mucous Membranes (slightly dry mucous membranes) Neck: Full Range of Motion, Normal Inspection, Non Tender, Supple Respiratory: Chest Non Tender, Lungs Clear, Normal Breath Sounds, No Accessory Muscle Use, No Respiratory Distress Cardiovascular: Regular Rate, Rhythm, Normal Peripheral Pulses Gastrointestinal: Normal Bowel Sounds, No Pulsatile Mass, Non Tender, Soft Rectal: Deferred Back: No Vertebral Tenderness, CVA Tenderness (R), Muscle Spasm Extremity: Normal Capillary Refill, Normal Inspection, No Pedal Edema 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: Alert, Oriented x3, home demonstrator II-XII Norm as Tested Skin: Normal Color, Warm/Dry Progress/Results/Core Measures Suspected Sepsis SIRS Temperature: Pulse: Respiratory Rate: Laboratory Tests 03/04/21 17:54: White Blood Count 12.3H Blood Pressure / Mean: Laboratory Tests 03/04/21 17:54: Creatinine 1.35H, Platelet Count 317, Total Bilirubin 0.2 Results/Orders Lab Results Laboratory Tests Test 03/04/21 17:54 03/04/21 17:55 Range/Units White Blood Count 12.3 H 4.3-11.0 10^3/uL Red Blood Count 3.86 3.80-5.11 10^6/uL Hemoglobin 11.7 11.5-16.0 g/dL Hematocrit 37 35-52 % Mean Corpuscular Volume 97 80-99 fL Mean Corpuscular Hemoglobin 30 25-34 pg Mean Corpuscular Hemoglobin Concent 31 L 32-36 g/dL Red Cell Distribution Width 13.1 10.0-14.5 % Platelet Count 317 130-400 10^3/uL Mean Platelet Volume 10.0 9.0-12.2 fL Immature Granulocyte % (Auto) 1 % Neutrophils (%) (Auto) 53 42-75 % Lymphocytes (%) (Auto) 36 12-44 % Monocytes (%) (Auto) 8 0-12 % Eosinophils (%) (Auto) 2 0-10 % Basophils (%) (Auto) 1 0-10 % Neutrophils # (Auto) 6.6 1.8-7.8 X 10^3 Lymphocytes # (Auto) 4.4 H 1.0-4.0 X 10^3 Monocytes # (Auto) 1.0 0.0-1.0 X 10^3 Eosinophils # (Auto) 0.3 0.0-0.3 10^3/uL Basophils # (Auto) 0.1 0.0-0.1 10^3/uL Immature Granulocyte # (Auto) 0.1 0.0-0.1 10^3/uL Sodium Level 137 135-145 MMOL/L Potassium Level 4.3 3.6-5.0 MMOL/L Chloride Level 102 98-107 MMOL/L Carbon Dioxide Level 24 21-32 MMOL/L Anion Gap 11 5-14 MMOL/L Blood Urea Nitrogen 17 7-18 MG/DL Creatinine 1.35 H 0.60-1.30 MG/DL Estimat Glomerular Filtration Rate 41 BUN/Creatinine Ratio 13 Glucose Level 110 H 70-105 MG/DL Calcium Level 9.3 8.5-10.1 MG/DL Corrected Calcium 9.1 8.5-10.1 MG/DL Total Bilirubin 0.2 0.1-1.0 MG/DL Aspartate Amino Transf (AST/SGOT) 24 5-34 U/L Alanine Aminotransferase (ALT/SGPT) 21 0-55 U/L Alkaline Phosphatase 79 40-136 U/L Total Protein 7.1 6.4-8.2 GM/DL Albumin 4.3 3.2-4.5 GM/DL Lipase 33 8-78 U/L Urine Color YELLOW Urine Clarity CLEAR Urine pH 5.5 5-9 Urine Specific [place] 1.015 L 1.016-1.022 Urine Protein NEGATIVE NEGATIVE Urine Glucose (UA) NEGATIVE NEGATIVE Urine Ketones TRACE H NEGATIVE Urine Nitrite NEGATIVE NEGATIVE Urine Bilirubin 1+ H NEGATIVE Urine Urobilinogen 0.2 < = 1.0 MG/DL Urine Leukocyte Esterase NEGATIVE NEGATIVE Urine RBC (Auto) NEGATIVE NEGATIVE Urine RBC NONE /HPF Urine WBC 2-5 /HPF Urine Squamous Epithelial Cells 0-2 /HPF Urine Crystals NONE /LPF Urine Bacteria TRACE /HPF Urine Casts PRESENT /LPF Urine Hyaline Casts 0-2 H /LPF Urine Mucus SMALL H /LPF Urine Culture Indicated NO Urine Opiates Screen NEGATIVE NEGATIVE Urine Oxycodone Screen POSITIVE H NEGATIVE Urine Methadone Screen NEGATIVE NEGATIVE Urine Propoxyphene Screen NEGATIVE NEGATIVE Urine Barbiturates Screen NEGATIVE NEGATIVE Ur Tricyclic Antidepressants Screen NEGATIVE NEGATIVE Urine Phencyclidine Screen NEGATIVE NEGATIVE Urine Amphetamines Screen NEGATIVE NEGATIVE Urine Methamphetamines Screen NEGATIVE NEGATIVE Urine Benzodiazepines Screen POSITIVE H NEGATIVE Urine Cocaine Screen NEGATIVE NEGATIVE Urine Cannabinoids Screen NEGATIVE NEGATIVE My Orders Orders - ADELINE TAO MD Ua Culture If Indicated (03/04/21 18:05) Drug Screen Stat (Urine) (03/04/21 18:05) Comprehensive Metabolic Panel (03/04/21 18:31) Lipase (03/04/21 18:31) Ed Iv/Invasive Line Start (03/04/21 18:31) Cbc With Automated Diff (03/04/21 18:31) Ns Iv 1000 Ml (Sodium Chloride 0.9%) (03/04/21 19:11) Ketorolac Injection (Toradol Injection) (03/04/21 19:11) Ondansetron Injection (Zofran Injectio (03/04/21 19:11) Ct Abd/Pelvis Wo(Kidney Stone) (03/04/21 19:11) Orphenadrine Inj (Ed Only) (Norflex Inje (03/04/21 21:08) Orthostatic Vital Signs (Adult (03/04/21 21:08) Ns Iv 1000 Ml (Sodium Chloride 0.9%) (03/04/21 21:21) Medications Given in ED Current Medications Medications Dose Ordered Sig/Gregg Route Start Time Stop Time Status Last Admin Dose Admin Sodium Chloride 1,000 ml @ STK-MED ONCE .ROUTE 03/04/21 21:21 03/04/21 21:23 DC 03/04/21 21:25 1,000 MLS/HR Vital Signs/I&O 03/04/21 03/04/21 03/04/21 18:24 21:45 22:30 Temp 36.0 Pulse 77 61 63 63 70 Resp 18 17 B/P (MAP) 97/63 (74) 100/52 (68) 124/79 113/62 (79) 105/62 (76) Pulse Ox 96 97 O2 Delivery Room Air Room Air Capillary Refill : Progress Note #1: Progress Note Obtain urinalysis as well as basic labs. Try IV fluids for hydration, Zofran for nausea, Toradol for possible kidney stone pain. Obtain a CT scan of the abdomen pelvis without contrast for evaluation of kidney stones. Progress Note #2: Progress Note Urinalysis is not showing any definite blood or sign of infection. Her CBC had a mild elevation of the white blood cell count to 12.3. Hemoglobin is low normal at 11.7. Chemistry did not show any acute significant abnormality other than mild elevation of her creatinine to 1.35. The CT scan came back with no definite kidney stone or signs of obstruction. Updated patient and spouse about results. Reassured that there is no findings for severe disease such as pyelonephritis, diverticulitis, colitis, cholecystitis, appendicitis, perforated bowel, liver disease, abscess, ascites. It did look like she might be slightly dehydrated with the elevated creatinine. will give additional fluid and since Toradol helped some but was having continued pain, worse with palpation to right flank and muscles will try Norflex for muscle relaxer. Check orthostatic vital signs and see if she tilts as well. If she does tilt with orthostatic vital signs and she may need additional fluids and/or consider observation for overnight hydration. Progress Note #3: Progress Note With the Norflex she did have further improvement in her pain. With the additional fluids her blood pressure was improved and she was feeling a little bit better. Prior to the second bag of IV fluids she had an episode where she was not feeling well and had a systolic blood pressure around 70. This quickly rebounded and improved. Orthostatic vitals done while the 2nd Liter bolus was infusing did not show any significant change in her vitals. She reported mild dizziness with going from laying to sitting. The blood pressure cuff appeared to be slipping down over her elbow so it was not giving accurate blood pressure readings. A radial wrist cuff was applied and her blood pressure was 124/79 after the second bag of fluids. Counseled on continued pushing fluids and rest. Advised if her symptoms worsen to return or seek medical care for further evaluation. If this was secondary to some dehydration and low blood pressure then hold the lisinopril in the morning if her blood pressure was not over 110. If this is just too early and what ever process is causing her symptoms has not fully come to fruition where it would show up on testing then it would continue to progress and hopefully get to the point that we could find more of an answer for her. Diagnostic Imaging Diagonstic Imaging: CT Plain Films/CT/US/NM/MRI: abdomen, pelvis Comments [facility], [place] NAME: PAMELLA SALINAS [facility] REC#: [id number] PT STATUS: REG ER : 1970 PHYSICIAN: ADELINE TAO MD ADMIT DATE: 03/04/21/ER FS Signed Date of Exam:03/04/21 CT ABD/PELVIS WO(KIDNEY STONE) EXAMINATION: CT abdomen and pelvis without contrast. TECHNIQUE: Multiple contiguous axial images were obtained through the abdomen and pelvis without the use of intravenous contrast. All CT scans use one or more of the following dose optimizing techniques: automated exposure control, MA and/or KvP adjustment based on patient size and exam type or iterative reconstruction. HISTORY: Right flank pain COMPARISON: 02/10/2021 FINDINGS: Limited views of the lower thorax are unremarkable. Liver is steatotic. No focal lesion is seen. There is no biliary ductal dilation. Gallbladder is surgically absent. Pancreas is normal. Spleen is normal. Adrenal glands are normal. The kidneys are normal. There is no hydronephrosis. Urinary bladder is normal. There are no renal or ureteral stones. Visualized bowel is normal in caliber without obstruction or inflammation. No free fluid or air. No abdominal or pelvic lymphadenopathy. Aorta is normal in caliber without aneurysm. There are no suspicious osseus lesions. IMPRESSION: 1. No acute abnormality, no renal or ureteral stones. Dictated by: Dictated on workstation # [id number] Dict: 03/04/211929 Trans: 03/04/212057 [facility] [id number] Interpreted by: MACI SAAB MD Electronically signed by: MACI SAAB MD 03/04/212057 Reviewed: Reviewed by Me Departure Impression Primary Impression: Right flank pain Additional Impressions: Dehydration Renal insufficiency Hypotension Qualified Codes: I95.89 - Other hypotension; E86.1 - Hypovolemia Disposition: 01 HOME, SELF-CARE Condition: Improved Departure-Patient Inst. Decision time for Depature: 22:41 Referrals: ORIANA DEE MD (PCP/Family) Primary Care Physician Patient Instructions: Flank Pain ED, Dehydration, Adult ED, Low Blood Pressure (DC) Add. Discharge Instructions: Continue to stay well-hydrated and drink plenty of fluids. Use the muscle relaxer for muscle pain and body aches. Your test tonight showed some dehydration contribute to your muscle pain and low blood pressure but there were no findings for infection, kidney stone, liver problems, colon infection. If your symptoms worsen in the next 24 to 48 hours then return for repeat evaluation. Otherwise keep seeing you to follow-up with your regular doctor. Check your blood pressure in the morning before taking the lisinopril and if your blood pressure is not at least 110-120 for the top number then hold your lisinopril for the day. All discharge instructions reviewed with patient and/or family. Voiced understanding. Scripts Methocarbamol (Methocarbamol) 500 Mg Tablet 1000 MG PO Q8H PRN for MUSCLE SPASMS for 7 Days, #42 TAB 0 Refills Prov: ADELINE TAO MD 03/04/21 Work/School Note: Family Work Note Patient Received Medical Care In the Emergency Department On: Mar 04, 2021 Patient Will Be Able to Return to Work/School On: Mar 05, 2021 Patient Restrictions: Please excuse Alfonso rowell so he may help care for ADELINE De Paz MD Mar 04, 2021 18:31
[2021-03-04 18:35] LABS: BACTERIA,URINE TRACE /HPF; SQUAMOUS EPITHELIAL CELL,UR 0-2 /HPF
[2021-03-04 18:36] LABS: HYALINE CASTS, URINE 0-2 /LPF
[2021-03-04 18:42] LABS: BASOPHILS % (AUTO) 1 % (0-10); EOSINOPHILS % (AUTO) 2 % (0-10); HEMATOCRIT 37 % (35-52); HEMOGLOBIN 11.7 g/dL (11.5-16.0); LYMPHOCYTES % (AUTO) 36 % (12-44); MEAN CORPUSCULAR HEMOGLOBIN 30 pg (25-34); MEAN CORPUSCULAR HGB CONC 31 g/dL (32-36); MEAN CORPUSCULAR VOLUME 97 fL (80-99); MONOCYTES % (AUTO) 8 % (0-12); NEUTROPHILS % (AUTO) 53 % (42-75); PLATELET COUNT 317 10^3/uL (130-400); WHITE BLOOD COUNT 12.3 10^3/uL (4.3-11.0)
[2021-03-04 18:43] LABS: BASOPHILS # (AUTO) 0.1 10^3/uL (0.0-0.1); EOSINOPHILS # (AUTO) 0.3 10^3/uL (0.0-0.3); LYMPHOCYTES # (AUTO) 4.4 X 10^3 (1.0-4.0); NEUTROPHILS # (AUTO) 6.6 X 10^3 (1.8-7.8)
[2021-03-04 18:56] LABS: BILIRUBIN,TOTAL 0.2 MG/DL (0.1-1.0); CALCIUM 9.3 MG/DL (8.5-10.1); CREATININE SERUM 1.35 MG/DL (0.60-1.30); POTASSIUM 4.3 MMOL/L (3.6-5.0)
[2021-03-04 18:57] LABS: ALBUMIN 4.3 GM/DL (3.2-4.5); TOTAL PROTEIN 7.1 GM/DL (6.4-8.2)
[2021-03-04] MEDS ORDERED: NS IV 1000 ML 1,000 ML IV STA (19:11)
[2021-03-04] MEDS ORDERED: KETOROLAC 30 MG/ML VIAL IVP STA (19:11)
[2021-03-04] MEDS ORDERED: ONDANSETRON 4 MG/2 ML (SDV) Z0FRAN IVP STA (19:11)
--- NOTE | 2021-03-04 19:34 | Diagnostic Imaging Report ---
EXAMINATION: CT abdomen and pelvis without contrast. TECHNIQUE: Multiple contiguous axial images were obtained through the abdomen and pelvis without the use of intravenous contrast. All CT scans use one or more of the following dose optimizing techniques: automated exposure control, MA and/or KvP adjustment based on patient size and exam type or iterative reconstruction. HISTORY: Right flank pain COMPARISON: 02/10/2021 FINDINGS: Limited views of the lower thorax are unremarkable. Liver is steatotic. No focal lesion is seen. There is no biliary ductal dilation. Gallbladder is surgically absent. Pancreas is normal. Spleen is normal. Adrenal glands are normal. The kidneys are normal. There is no hydronephrosis. Urinary bladder is normal. There are no renal or ureteral stones. Visualized bowel is normal in caliber without obstruction or inflammation. No free fluid or air. No abdominal or pelvic lymphadenopathy. Aorta is normal in caliber without aneurysm. There are no suspicious osseus lesions. IMPRESSION: 1. No acute abnormality, no renal or ureteral stones. Dictated by: Dictated on workstation # [id number]
[2021-03-04] MEDS ORDERED: ORPHENADRINE 60 MG/2 ML (NORFLEX) AMP (ED ONLY) IVP STA (21:08)
[2021-03-04] MEDS ORDERED: NS IV 1000 ML 1,000 ML ONE (21:21)
[2021-03-04 21:45] VITALS: BP_SYST 100; BP_SYST 105; BP_SYST 113; BP_DIAS 52; BP_DIAS 62
[2021-03-04] MEDS ORDERED: METH-731 PO (22:43)
[2021-03-05 11:38] LABS: BILIRUBIN,URINE 1+ (NEGATIVE)
== END 2021-03-04 22:48 | disposition home or self-care (01) ==
LOC: EDUNIT# 17:33 → ER FS 17:34
DX: R10.9 Unspecified abdominal pain (principal); E86.0 Dehydration; N28.9 Disorder of kidney and ureter, unspecified; I95.9 Hypotension, unspecified; E66.9 Obesity, unspecified; J44.9 Chronic obstructive pulmonary disease, unspecified; I10 Essential (primary) hypertension; F41.9 Anxiety disorder, unspecified; Z68.41 Body mass index [BMI] 40.0-44.9, adult; Z79.899 Other long term (current) drug therapy
CPT/HCPCS: 36415; 74176; 80053; 80306; 81000; 83690; 85025

== ENCOUNTER → 2021-08-21 | Outpatient (CLI) | payer OTHER ==
[~2021-08-21] MED LIST changes: +CYCL10TA25 PO; -CYCL10TA9 PO; +METH-731 PO; +OXC5T PO
== END ==
LOC: ORTHO 16:27
PROVIDERS: ATTEND Orthopaedic Surgery
DX: Z47.89 Encounter for other orthopedic aftercare (principal); Z98.890 Other specified postprocedural states

== ENCOUNTER 2021-08-25 05:29 | Outpatient (CLI) | payer OTHER ==
[~2021-08-25] VITALS: Ht 170.2 cm; Wt 129.9 kg
[~2021-08-25 05:29] MED LIST changes: -OXC5T PO
== END 2021-08-25 10:32 | disposition home or self-care (01) ==
LOC: PREOP 05:29
PROVIDERS: ATTEND Orthopaedic Surgery
DX: Z01.818 Encounter for other preprocedural examination (principal)

== ENCOUNTER 2021-08-27 06:10 | Day surgery (SDC) | payer OTHER ==
[2021-08-27] VITALS (13 sets, daily range): BP systolic 101–150; BP diastolic 50–98
[~2021-08-27] VITALS: Ht 170.2 cm; Wt 129.9 kg
[2021-08-27] MEDS ORDERED: NEO/POLY/BAC (NEOSPORIN) OINT 15 GM TUBE ONE (06:29)
[2021-08-27] MEDS ORDERED: BUPIVACAINE 0.25% 10 ML (SENSORCAINE) VIAL ONE (06:29)
[2021-08-27] MEDS: LACTATED RINGERS 1,000 ML IV PRN ×2 (06:51→08:08)
[2021-08-27] MEDS ORDERED: CLINDAMYCIN 600 MG/50 ML IVPB 50 ML IV ONE ×2 (06:53→07:00)
[2021-08-27] MEDS ORDERED: proPOfol 200 MG/20 ML (DIPRIVAN) VIAL IV ONE (06:54)
[2021-08-27] MEDS ORDERED: ONDANSETRON 4 MG/2 ML (SDV) Z0FRAN ONE (06:54)
[2021-08-27] MEDS ORDERED: LIDOCAINE PF 2% 5 ML (XYLOCAINE) VIAL ONE (06:54)
[2021-08-27] MEDS ORDERED: MIDAZOLAM 2 MG/2 ML (VERSED) VIAL ONE (06:54)
[2021-08-27] MEDS ORDERED: SEVOFLURANE (ULTANE) 15 ML INHAL SOLN ONE ×2 (06:54→08:44)
[2021-08-27] MEDS ORDERED: fentaNYL INJ 100 MCG/2 ML AMP ONE ×2 (06:54→08:07)
[2021-08-27] MEDS ORDERED: meTOprolol 5 MG/5 ML (LOPRESSOR) VIAL ONE (08:42)
[2021-08-27] MEDS ORDERED: ESMOLOL 100 MG/10 ML (BREVIBLOC) VIAL ONE (08:56)
[2021-08-27] MEDS ORDERED: morphine INJ 10 MG/ML 1ML (SYR OR VIAL) ONE (08:57)
--- NOTE | 2021-08-27 09:40 | Progress Note-Pre Operative ---
Pre-Operative Progress Note H&P Reviewed The H&P was reviewed, patient examined and no changes noted. Date Seen by Provider: Aug 27, 2021 Time Seen by Provider: 07:05 Date H&P Reviewed: Aug 27, 2021 Time H&P Reviewed: 07:05 Pre-Operative Diagnosis: Left Trimalleolar Ankle Fracture CARISSA ALMARAZ MD Aug 27, 2021 09:40
[2021-08-27] MEDS ORDERED: MEPERIDINE (DEMEROL) INJ 50 MG/ML IVP ONE (09:45)
[2021-08-27] MEDS ORDERED: fentaNYL INJ 100 MCG/2 ML AMP IVP ONE (09:45)
[2021-08-27] MEDS ORDERED: HYDROmorphone 2 MG/ML VIAL (DILAUDID) IV ONE (09:45)
[2021-08-27] MEDS ORDERED: morphine INJ 10 MG/ML 1ML (SYR OR VIAL) IVP ONE (09:45)
--- NOTE | 2021-08-27 09:45 | Operative Report - Ortho ---
Operative Report Surgeon (s)/Blocker And Polisher Gold Wheel (s) Surgeon CARISSA ALMARAZ MD Blocker And Polisher Gold Wheel n/a Pre-Operative Diagnosis Left Trimalleolar Ankle Fracture Post-Operative Diagnosis same Operative Report Date of Procedure: Aug 27, 2021 Name of Procedure Performed: Open Reduction and Internal Fixation of Left Trimalleolar Ankle Fracture Description & Findings After obtaining informed consent and marking the patient, patient did receive intravenous antibiotics. Taken to the operating room and general anesthesia was induced. Surgical timeout was taken. The left lower extremity was prepped and draped in the usual sterile fashion. Attention was initially turned to the fibula fracture, incision was made centered over the fracture. Dissection was carried down to the fracture and a periosteal elevator was used to expose the fibula proximally and distally. The fracture was provisionally reduced using clamps. A [employer] distal fibular plate was selected and placed. A wire was placed distally to position and temporarily hold the plate. A nonlocking screw was placed in the diaphysis of the fibula. A nonlocking screw was then placed distally. C-arm demonstrated good position of the plate with near anatomic reduction of the fracture. Wire was removed. Locking screws were used to fill the distal holes of the plate. Two additional locking screws were placed in the proximal portion of the plate. The nonlocking screws were then replaced with locking screws. Wires and clamp were removed. C-arm demonstrated appropriate position of the plate and screws and maintained reduction of the fracture with known posterior butterfly fragment. Attention was turned to the medial side. The medial malleolar fracture required reduction. An incision was made over the fracture. Blunt dissection was carried down to the fracture site. Fracture site was irrigated, curretted, and provisionally reduced. A wire was placed through the medial malleolar fragment and across the fracture site. C-arm was used to confirm position of the wire. After drilling the distal cortex, a 4.0 mm cannulated screw was then placed over the wire, seated by hand, and provided good approximation of the frature site. Wire was removed. Final C-arm images were obtained in the AP, mortise, and lateral views and demonstrated appropriate reduction of the fractures and hardware in good posi tion. The posterior malleolus fragment had reduced into near anatomic position and it was elected to manage it without additional fixation. Images were transferred to PACS. Wounds were irrigated with normal saline. Closed with 2-0 vicryl, 3-0 vicryl, and a combination of 3-0 and 4-0 nylon. Wounds were injected with local anesthetic. Dressed with xeroform, 4x4s, ABD, cast padding, soft roll, posterior splint, and BERNARDO wrap. Patient tolerated the procedure well and was stable to the recovery room. Anesthesia Type General Estimated Blood Loss 50 ml Specimen(s) collected/removed None CARISSA ALMARAZ MD Aug 27, 2021 09:45
[2021-08-27] MEDS ORDERED: OXC5T PO (09:53)
[2021-08-27] MEDS: ONDANSETRON 4 MG/2 ML (SDV) Z0FRAN IVP PRN ×2 (10:02→10:17)
[2021-08-27] MEDS: morphine INJ 4 MG/ML 1 ML (VIAL/SYRINGE) IVP PRN ×2 (12:32→16:08)
[2021-08-27] MEDS ORDERED: HYDROcodone/APAP 5 MG/325 MG (LORTAB) TAB PO PRN (16:15)
--- NOTE | 2021-08-27 16:55 | Diagnostic Imaging Report ---
INDICATION: Left ankle fracture follow-up. IMPRESSION: 3.5 seconds of fluoroscopy and three intraoperative digital images were used in surgery by Dr. Estrada during internal fixation of the bimalleolar fracture of the ankle. Hardware appears to be transfixing the fractures in good alignment. Dictated by: Dictated on workstation # [id number]
== END 2021-08-27 17:52 | disposition home or self-care (01) ==
LOC: SDC 06:10 → 4TH 14:14 → SDC 17:52
PROVIDERS: ATTEND Orthopaedic Surgery
DX: S82.852A Displaced trimalleolar fracture of left lower leg, initial encounter for closed fracture (principal); E66.01 Morbid (severe) obesity due to excess calories; Z68.42 Body mass index [BMI] 45.0-49.9, adult
CPT/HCPCS: 27822; 76000; 87081; C1713 ×6

== ENCOUNTER → 2021-09-04 | Outpatient (CLI) | payer OTHER ==
[~2021-09-04] MED LIST changes: +OXC5T PO
--- NOTE | 2021-09-04 13:31 | Diagnostic Imaging Report ---
INDICATION: Recent surgery. Pain with a fall yesterday. EXAMINATION: Left ankle, 09/04/2021. COMPARISON: 08/09/2021. FINDINGS: There is an overlying splint which obscures fine bony detail. There is a sideplate and multiple screws, new since previous examination along the lateral aspect of the distal fibula. The previously noted fracture is in good anatomic alignment. There is a distally threaded screw through the medial malleolar fracture which is in good anatomic alignment as well. The orthopedic hardware appears intact. Mild early callus formation is seen about the ankle. There are no new fractures identified. IMPRESSION: 1. Uncomplicated postoperative findings with known fractures in good anatomic alignment. Dictated by: Dictated on workstation # [id number]
== END ==
LOC: RAD FS 12:14
PROVIDERS: ATTEND Orthopaedic Surgery
DX: M25.572 Pain in left ankle and joints of left foot (principal); Z98.890 Other specified postprocedural states
CPT/HCPCS: 73610

== ENCOUNTER → 2021-10-01 | Outpatient (CLI) | payer OTHER ==
--- NOTE | 2021-10-01 13:27 | Diagnostic Imaging Report ---
INDICATION: Fracture. Comparison is made with prior exam of 09/04/2021. FINDINGS: There has been open reduction and internal fixation of the distal fibular fracture with plate and screws. There is a single partially threaded cannulated screw in the medial malleolus. Alignment is grossly normal. Talar dome is intact. No other fracture or dislocation IMPRESSION: Postsurgical changes in the distal fibula and tibia as described. Dictated by: Dictated on workstation # [id number]
== END ==
LOC: RAD FS 12:50
PROVIDERS: ATTEND Orthopaedic Surgery
DX: Z47.89 Encounter for other orthopedic aftercare (principal); Z98.890 Other specified postprocedural states
CPT/HCPCS: 73610

== ENCOUNTER → 2021-10-02 | Outpatient (CLI) | payer OTHER | LOC: ORTHO 15:23 | PROVIDERS: ATTEND Orthopaedic Surgery | DX: Z47.89 Encounter for other orthopedic aftercare (principal) ==

== ENCOUNTER → 2021-10-21 | Outpatient (CLI) | payer OTHER ==
--- NOTE | 2021-10-21 15:07 | Diagnostic Imaging Report ---
Indication: Trimalleolar fracture. Time of Exam: 1:22 PM Correlation is made with prior radiographs from 10/01/2021. Postop changes of the left ankle are again noted. There is a lateral plate and numerous screws transfixing the distal fibula. A single partially threaded screw transfixes the medial malleolus. Ankle mortise is maintained. The transversely oriented fracture through the medial malleolus is again noted with no significant healing identified. The fibular fracture line is not well-visualized. There is a large plantar calcaneal spur. There appears to be a probable healing fracture of the posterior malleolus. IMPRESSION: Postoperative and post traumatic changes, as described. The medial malleolar fracture is still visible. Dictated by: Dictated on workstation # [id number]
== END ==
LOC: ORTHO 13:14
PROVIDERS: ATTEND Orthopaedic Surgery
DX: S82.852A Displaced trimalleolar fracture of left lower leg, initial encounter for closed fracture (principal); X58.XXXA Exposure to other specified factors, initial encounter
CPT/HCPCS: 73610

== ENCOUNTER → 2021-11-19 | Outpatient (CLI) | payer OTHER ==
--- NOTE | 2021-11-19 13:37 | Diagnostic Imaging Report ---
INDICATION: Followup left ankle. TIME OF EXAM: 1:19 PM. COMPARISON: Correlation is made with the prior radiographs from 10/21/2021. FINDINGS: Lateral plate and screw transfix the distal fibula. A partially threaded screw transfixes the medial malleolus. The fracture lines of the fibula remain blurred, consistent with healing. The transversely oriented fracture of the medial malleolus is again noted and appears similar to the prior study. The ankle mortise is maintained. The talar dome is smooth. There is a large plantar calcaneal spur. IMPRESSION: Stable appearance of the left ankle when compared with the exam from 10/21/2021. Fracture line of the medial malleolus remains clearly visible. Dictated by: Dictated on workstation # [id number]
== END ==
LOC: RAD FS 13:00
PROVIDERS: ATTEND Orthopaedic Surgery
DX: S82.852A Displaced trimalleolar fracture of left lower leg, initial encounter for closed fracture (principal); X58.XXXA Exposure to other specified factors, initial encounter
CPT/HCPCS: 73610

== ENCOUNTER 2022-01-20 18:52 | Emergency (ER) | payer OTHER ==
[~2022-01-20] VITALS: Ht 172.7 cm; Wt 129.9 kg
--- NOTE | 2022-01-20 19:10 | ED Respiratory ---
General Chief Complaint: Respiratory Problems Stated Complaint: SOB Source: patient, other (urgent care [employer]) Exam Limitations: no limitations History of Present Illness Date Seen by Provider: Jan 20, 2022 Time Seen by Provider: 18:55 Initial Comments 51yoF with PMH of COPD and HTN most notably coming in as a referral from urgent care due to dyspnea. Reportedly her oxygen was transiently 88% and went up to the 90's. She has been dealing with a respiratory infection for a couple weeks. Finished a zpac and had a steroid shot over a week ago. Was not feeling better so called her PCP who started her on a Medrol dosepack today. Went to urgent care later and was referred here. She says she had COVID early December and was developing pneumonia at that time was on antibiotics at that time as well. Denies any hemoptysis, but does have a productive cough with green sputum, no fevers that she knows of, no chest pain, abdominal pain, nausea, vomiting, diarrhea, rash, weakness, numbness, dysuria, or any other concerns. She does not smoke and has never smoked Allergies and Home Medications Allergies Coded Allergies: Penicillins (Verified Allergy, Unknown, 08/27/21) cephalexin (Verified Adverse Reaction, Unknown, 08/27/21) Patient Home Medication List Home Medication List Reviewed: Yes ALPRAZolam (Xanax Tablet) 0.25 Mg Tablet, 0.25 MG PO DAILY, (Reported) Entered as Reported by: TESSA HANEY on 01/24/19 1047 ALPRAZolam (ALPRAZolam) 0.25 Mg Tablet, 0.25 MG PO BID PRN for ANXIETY, (Reported) Entered as Reported by: ROLANDO AMAODR on 10/10/20 1530 Albuterol Sulfate (Proair Hfa) 1 Puff Puff, 2 PUFF INH Q6H PRN for SHORTNESS OF BREATH, (Reported) Entered as Reported by: TESSA HANEY on 01/24/19 1047 Aripiprazole (Abilify) 5 Mg Tablet, 5 MG PO DAILY, (Reported) Entered as Reported by: IRASEMA MAGUIRE on 11/15/19 0954 Ferrous Sulfate (Iron) 325 Mg Tablet, 325 MG PO 1200,1600, (Reported) Entered as Reported by: TESSA HANEY on 01/24/19 1047 Gabapentin (Neurontin) 300 Mg Capsule, 300 MG PO TID, (Reported) Entered as Reported by: IRASEMA MAGUIRE on 11/15/19 0952 Hydrocodone/Acetaminophen (Hydrocodone-Acetamin 5-325 mg) 1 Each Tablet, 1 TAB PO Q8H PRN for PAIN-MODERATE (5-7) Prescribed by: BLAIRE ARNETT on 02/10/21 0302 Loratadine (Claritin) 10 Mg Tablet, 10 MG PO 1200, (Reported) Entered as Reported by: TESSA HANEY on 01/24/19 1047 Methocarbamol (Methocarbamol) 500 Mg Tablet, 1,000 MG PO Q8H PRN for MUSCLE SPASMS Prescribed by: ADELINE TAO on 03/04/21 2243 Sertraline HCl (Sertraline HCl) 50 Mg Tablet, 50 MG PO DAILY, (Reported) Entered as Reported by: TESSA HANEY on 01/24/19 1047 Trazodone HCl (Trazodone HCl) 100 Mg Tablet, 100 MG PO HS PRN for SLEEP, (Reported) Entered as Reported by: ROLANDO AMADOR on 10/10/20 1530 Review of Systems Review of Systems Constitutional: No fever EENTM: No blurred vision Respiratory: cough, short of breath Cardiovascular: No chest pain Gastrointestinal: No abdominal pain Genitourinary: no symptoms reported Musculoskeletal: no symptoms reported Skin: no symptoms reported Psychiatric/Neurological: No Symptoms Reported Hematologic/Lymphatic: No Symptoms Reported Immunological/Allergic: no symptoms reported All Other Systems Reviewed Negative Unless Noted: Yes Past Wmsctzl-Bxezaj-Jrzvel Hx Patient Social History Tobacco Use?: No Immunizations Up To Date First/Initial COVID19 Vaccinat: July 2020 Second COVID19 Vaccination Nathan: August 2020 Third COVID19 Vaccination Date: July 2020 Seasonal Allergies Seasonal Allergies: No Past Medical History Surgeries: Yes (c/s x2, hemorrhoidectomy) Appendectomy, Section, Gallbladder, Tubal Ligation Respiratory: Yes COPD Currently Using CPAP: No Currently Using BIPAP: No Cardiac: Yes Hypertension, Syncope Neurological: Yes Neuropathy 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 Disorders: No Female 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 Disorders: Denies [employer] History: Tubal Ligation Sexually Transmitted Disease: No Genitourinary: Yes UTI-Chronic Gastrointestinal: No Hemorrhoids Musculoskeletal: Yes Arthritis, Fractures Endocrine: No HEENT: Yes (GLASSES) Loss of Vision: Denies Hearing Impairment: Denies Cancer: No Psychosocial: Yes Anxiety, Depression Integumentary: No Blood Disorders: Yes (anemia) Adverse Reaction/Blood Tranf: No Family Medical History Cardiovascular disease 19 MOTHER Diabetes mellitus G8 BROTHER FH: breast cancer 19 MOTHER Hypertension G8 BROTHER Irregular Heartbeat 19 MOTHER Lung Cancer 19 FATHER Myocardial infarction 19 MOTHER Physical Exam Vital Signs - First Documented Capillary Refill : Height: 5'7.00" Weight: 258lbs. 0oz. [id number]; 44.84 BMI Method:Stated General Appearance: WD/WN, no apparent distress Eyes: Bilateral Eye Normal Inspection HEENT: PERRL/EOMI, normal ENT inspection, pharynx normal Neck: non-tender, full range of motion, supple, normal inspection Respiratory: chest non-tender, lungs clear, normal breath sounds, no respiratory distress, no accessory muscle use Cardiovascular: no edema, no murmur, tachycardia Gastrointestinal: normal bowel sounds, non tender, soft; No distended, No guarding Extremities: normal range of motion, non-tender, normal inspection, no pedal edema, no calf tenderness, normal capillary refill 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: no motor/sensory deficits, alert, normal mood/affect Skin: normal color, warm/dry Lymphatic: no adenopathy Progress/Results/Core Measures Suspected Sepsis SIRS Temperature: Pulse: Respiratory Rate: Laboratory Tests 01/20/22 19:05: White Blood Count 14.6H Blood Pressure / Mean: Laboratory Tests 01/20/22 19:05: Creatinine 1.04, INR Comment 1.0, Platelet Count 282, Total Bilirubin 0.4 Results/Orders Lab Results Laboratory Tests Test 01/20/22 19:05 Range/Units White Blood Count 14.6 H 4.3-11.0 10^3/uL Red Blood Count 4.72 3.80-5.11 10^6/uL Hemoglobin 13.8 11.5-16.0 g/dL Hematocrit 43 35-52 % Mean Corpuscular Volume 91 80-99 fL Mean Corpuscular Hemoglobin 29 25-34 pg Mean Corpuscular Hemoglobin Concent 32 32-36 g/dL Red Cell Distribution Width 14.2 10.0-14.5 % Platelet Count 282 130-400 10^3/uL Mean Platelet Volume 10.0 9.0-12.2 fL Immature Granulocyte % (Auto) 1 % Neutrophils (%) (Auto) 81 H 42-75 % Lymphocytes (%) (Auto) 14 12-44 % Monocytes (%) (Auto) 3 0-12 % Eosinophils (%) (Auto) 1 0-10 % Basophils (%) (Auto) 1 0-10 % Neutrophils # (Auto) 11.9 H 1.8-7.8 10^3/uL Lymphocytes # (Auto) 2.1 1.0-4.0 10^3/uL Monocytes # (Auto) 0.4 0.0-1.0 10^3/uL Eosinophils # (Auto) 0.1 0.0-0.3 10^3/uL Basophils # (Auto) 0.1 0.0-0.1 10^3/uL Immature Granulocyte # (Auto) 0.1 0.0-0.1 10^3/uL Neutrophils % (Manual) 63 % Lymphocytes % (Manual) 12 % Monocytes % (Manual) 3 % Band Neutrophils 22 % Platelet Estimate NORMAL Blood Morphology Comment NORMAL Prothrombin Time 13.4 12.2-14.7 SEC INR Comment 1.0 0.8-1.4 Activated Partial Thromboplast Time 27 24-35 SEC D-Dimer 0.33 0.00-0.49 UG/ML Sodium Level 138 135-145 MMOL/L Potassium Level 4.7 3.6-5.0 MMOL/L Chloride Level 100 98-107 MMOL/L Carbon Dioxide Level 23 21-32 MMOL/L Anion Gap 15 H 5-14 MMOL/L Blood Urea Nitrogen 10 7-18 MG/DL Creatinine 1.04 0.60-1.30 MG/DL Estimat Glomerular Filtration Rate 65 BUN/Creatinine Ratio 10 Glucose Level 225 H 70-105 MG/DL Calcium Level 9.5 8.5-10.1 MG/DL Corrected Calcium 9.2 8.5-10.1 MG/DL Magnesium Level 1.8 1.6-2.4 MG/DL Total Bilirubin 0.4 0.1-1.0 MG/DL Aspartate Amino Transf (AST/SGOT) 41 H 5-34 U/L Alanine Aminotransferase (ALT/SGPT) 28 0-55 U/L Alkaline Phosphatase 128 40-136 U/L Troponin I < 0.30 <0.30 NG/ML Pro-B-Type Natriuretic Peptide 23.1 <125.0 PG/ML Total Protein 7.5 6.4-8.2 GM/DL Albumin 4.4 3.2-4.5 GM/DL Influenza Type A (RT-PCR) Not Detected Not Detecte Influenza Type B (RT-PCR) Not Detected Not Detecte SARS-CoV-2 RNA (RT-PCR) Not Detected Not Detecte My Orders Orders - ARIANA GONZALEZ MD Cbc With Automated Diff (01/20/22 19:04) Comprehensive Metabolic Panel (01/20/22 19:04) Fibrin Degradation Products (01/20/22 19:04) Ekg Tracing (01/20/22 19:04) Covid 19 Inhouse Test (01/20/22 19:04) Magnesium (01/20/22 19:04) Chest 1 View Ap/Pa Only (01/20/22 19:04) Protime With Inr (01/20/22 19:04) Partial Thromboplastin Time (01/20/22 19:04) O2 (01/20/22 19:04) Monitor-Rhythm Ecg Trace Only (01/20/22 19:04) Ed Iv/Invasive Line Start (01/20/22 19:04) Troponin I Fs (01/20/22 19:04) Probnp Fs (01/20/22 19:04) Influenza A And B By Pcr (01/20/22 19:04) Manual Differential (01/20/22 19:05) Vital Signs/I&O 01/20/22 01/20/22 01/20/22 18:59 18:59 18:59 Temp 37.0 Pulse 111 Resp 24 B/P (MAP) 148/85 (106) Pulse Ox 96 96 O2 Delivery Room Air Room Air Room Air Capillary Refill : Progress Note : Progress Note 51-year-old female with above history coming in due to worsening cough, congestion, dyspnea. ABCs were intact and vitals were stable on presentation. Even with ambulation her oxygen saturation is greater than 96%. EKG with no acute ischemic changes but does show some sinus tachycardia. Chest x-ray with no acute changes. Troponin negative, BNP normal, D-dimer negative, white blood cell count elevated but she just started steroids which is expected. Given her history of COPD with the increasing productive sputum, we will start her on a course of antibiotics for likely COPD exacerbation. COVID and flu testing were also negative. ECG Initial ECG Impression Date: Jan 20, 2022 Initial ECG Impression Time: 19:14 Initial ECG Rate: 102 Initial ECG Rhythm: S.Tach Comment Narrow QRS, normal axis, no significant ST changes or T wave abnormalities, LVH by aVL criteria Diagnostic Imaging Diagonstic Imaging: Xray Plain Films/CT/US/NM/MRI: chest Comments [facility], [place] NAME: [facility] REC#: [id number] PT STATUS: REG ER : 1970 PHYSICIAN: ARIANA GONZALEZ MD ADMIT DATE: 01/20/22/ER FS Signed Date of Exam:01/20/22 CHEST 1 VIEW AP/PA ONLY INDICATION: Short of breath EXAMINATION: Chest 01/20/2022 COMPARISON: 10/10/2020 FINDINGS: The cardiomediastinal silhouette is unremarkable. The pulmonary vasculature is within normal limits. The lungs and pleural spaces are clear. IMPRESSION: No evidence of an acute cardiopulmonary process. Dictated by: Dictated on workstation # [id number] Dict: 01/20/221913 Trans: 01/20/221923 [facility] [id number] Interpreted by: NHUNG MURRAY MD Electronically signed by: NHUNG MURRAY MD 01/20/221923 Departure Impression Primary Impression: COPD exacerbation Disposition: 01 HOME, SELF-CARE Condition: Stable Departure-Patient Inst. Decision time for Depature: 19:55 Referrals: ORIANA DEE MD (PCP/Family) Primary Care Physician Patient Instructions: COPD Exacerbation, Adult ED Add. Discharge Instructions: You will be on antibiotics for the next 5 days. Continue to take your steroids as prescribed. Follow-up with your regular doctor if things are not improving. Scripts Doxycycline Hyclate (Doxycycline Hyclate) 100 Mg Tablet 100 MG PO BID for 5 Days, #10 TAB 0 Refills Prov: ARIANA GONZALEZ MD 01/20/22 Work/School Note: Work Release Form Date Seen in the Emergency Department: Jan 20, 2022 Return to Work: Jan 22, 2022 Restrictions: No Restrictions ARIANA GONZALEZ MD Jan 20, 2022 19:10
[2022-01-20 19:16] LABS: BASOPHILS # (AUTO) 0.1 10^3/uL (0.0-0.1); BASOPHILS % (AUTO) 1 % (0-10); EOSINOPHILS # (AUTO) 0.1 10^3/uL (0.0-0.3); EOSINOPHILS % (AUTO) 1 % (0-10); HEMATOCRIT 43 % (35-52); HEMOGLOBIN 13.8 g/dL (11.5-16.0); LYMPHOCYTES # (AUTO) 2.1 10^3/uL (1.0-4.0); LYMPHOCYTES % (AUTO) 14 % (12-44); MEAN CORPUSCULAR HEMOGLOBIN 29 pg (25-34); MEAN CORPUSCULAR HGB CONC 32 g/dL (32-36); MEAN CORPUSCULAR VOLUME 91 fL (80-99); MONOCYTES # (AUTO) 0.4 10^3/uL (0.0-1.0); MONOCYTES % (AUTO) 3 % (0-12); NEUTROPHILS # (AUTO) 11.9 10^3/uL (1.8-7.8); NEUTROPHILS % (AUTO) 81 % (42-75); PLATELET COUNT 282 10^3/uL (130-400); WHITE BLOOD COUNT 14.6 10^3/uL (4.3-11.0)
--- NOTE | 2022-01-20 19:23 | Diagnostic Imaging Report ---
INDICATION: Short of breath EXAMINATION: Chest 01/20/2022 COMPARISON: 10/10/2020 FINDINGS: The cardiomediastinal silhouette is unremarkable. The pulmonary vasculature is within normal limits. The lungs and pleural spaces are clear. IMPRESSION: No evidence of an acute cardiopulmonary process. Dictated by: Dictated on workstation # [id number]
[2022-01-20 19:39] LABS: BAND NEUTROPHILS 22 %; LYMPHOCYTES % (MANUAL) 12 %; MONOCYTES % (MANUAL) 3 %; NEUTROPHILS % (MANUAL) 63 %; PLATELET ESTIMATE NORMAL
[2022-01-20 19:40] LABS: RBC MORPH NORMAL
[2022-01-20 19:41] LABS: PROTHROMBIN TIME PATIENT 13.4 SEC (12.2-14.7)
[2022-01-20 19:48] LABS: BUN/CREATININE RATIO 10; CALCIUM 9.5 MG/DL (8.5-10.1); CARBON DIOXIDE 23 MMOL/L (21-32); CHLORIDE 100 MMOL/L (98-107); CREATININE SERUM 1.04 MG/DL (0.60-1.30); GFR ESTIMATED 65; GLUCOSE 225 MG/DL (70-105); POTASSIUM 4.7 MMOL/L (3.6-5.0); SODIUM 138 MMOL/L (135-145)
[2022-01-20 19:49] LABS: ALANINE AMINOTRANSFERASE 28 U/L (0-55); ALBUMIN 4.4 GM/DL (3.2-4.5); ALKALINE PHOSPHATASE 128 U/L (40-136); BILIRUBIN,TOTAL 0.4 MG/DL (0.1-1.0); TOTAL PROTEIN 7.5 GM/DL (6.4-8.2)
[2022-01-20] MEDS ORDERED: DOXY100T2 PO (19:56)
[2022-01-20] MEDS ORDERED: DOXYCYCLINE 100 MG (VIBRAMYCIN) TABLET PO STA (19:56)
[2022-01-20 20:01] VITALS: BP 118/77
== END 2022-01-20 20:01 | disposition home or self-care (01) ==
LOC: EDUNIT# 18:52 → ER FS 18:53
DX: J44.1 Chronic obstructive pulmonary disease with (acute) exacerbation (principal); D72.829 Elevated white blood cell count, unspecified; Z20.822 Contact with and (suspected) exposure to COVID-19
CPT/HCPCS: 36415; 71045; 80053; 83735; 83880; 84484; 85007; 85027; 85379; 85610; 85730; 87636; 93005

== ENCOUNTER 2022-02-27 01:45 | Emergency (ER) | payer OTHER ==
[~2022-02-27] VITALS: Ht 170.3 cm; Wt 129.1 kg
[~2022-02-27 01:45] MED LIST changes: +DOXY100T2 PO
[2022-02-27] MEDS ORDERED: NS IV 1000 ML 1,000 ML IV STA (02:02)
[2022-02-27] MEDS ORDERED: morphine INJ 10 MG/ML 1ML (SYR OR VIAL) IVP STA (02:02)
[2022-02-27 02:09] LABS: BASOPHILS # (AUTO) 0.1 10^3/uL (0.0-0.1); BASOPHILS % (AUTO) 1 % (0-10); EOSINOPHILS # (AUTO) 0.2 10^3/uL (0.0-0.3); EOSINOPHILS % (AUTO) 2 % (0-10); HEMATOCRIT 44 % (35-52); HEMOGLOBIN 14.3 g/dL (11.5-16.0); LYMPHOCYTES # (AUTO) 3.9 10^3/uL (1.0-4.0); LYMPHOCYTES % (AUTO) 38 % (12-44); MEAN CORPUSCULAR HEMOGLOBIN 30 pg (25-34); MEAN CORPUSCULAR HGB CONC 33 g/dL (32-36); MEAN CORPUSCULAR VOLUME 91 fL (80-99); MEAN PLATELET VOLUME 9.5 fL (9.0-12.2); MONOCYTES # (AUTO) 0.7 10^3/uL (0.0-1.0); MONOCYTES % (AUTO) 7 % (0-12); NEUTROPHILS # (AUTO) 5.4 10^3/uL (1.8-7.8); NEUTROPHILS % (AUTO) 52 % (42-75); PLATELET COUNT 348 10^3/uL (130-400); WHITE BLOOD COUNT 10.4 10^3/uL (4.3-11.0)
--- NOTE | 2022-02-27 02:11 | ED Abdominal Pain ---
General Stated Complaint: STOMACH ACHE Source of Information: Patient Exam Limitations: No Limitations History of Present Illness Date Seen by Provider: Feb 27, 2022 Time Seen by Provider: 01:50 Initial Comments 51-year-old female with past medical history of COPD, hypertension, hyperlipidemia coming in due to abdominal pain. Its been happening off and on for the past 3 weeks. Its in the center of her abdomen, throbbing/aching/severe at this time. No nausea or vomiting with it. Had a normal bowel movement earlier on in the day. Has never really had pain like this before. Did have her gallbladder removed as well as appendix removed in the past. Otherwise denies any other acute complaints including fever, chest pain, shortness of breath, dysuria, urinary frequency, vaginal discharge, rash, or any other concerns. Symptoms do worsen with food, and she was concerned it could be pancreatitis. She used to drink alcohol but quit several decades ago. Allergies and Home Medications Allergies Coded Allergies: Penicillins (Verified Allergy, Unknown, 08/27/21) cephalexin (Verified Adverse Reaction, Unknown, 08/27/21) Patient Home Medication List Home Medication List Reviewed: Yes ALPRAZolam (ALPRAZolam) 0.25 Mg Tablet, 0.25 MG PO BID PRN for ANXIETY, (Reported) Entered as Reported by: ROLANDO AMADOR on 10/10/20 1530 Last Action: Last Taken Edited Albuterol Sulfate (Proair Hfa) 1 Puff Puff, 2 PUFF INH Q6H PRN for SHORTNESS OF BREATH, (Reported) Entered as Reported by: TESSA HANEY on 01/24/19 1047 Last Action: Last Taken Edited Aripiprazole (Abilify) 5 Mg Tablet, 5 MG PO DAILY, (Reported) Entered as Reported by: IRASEMA MAGUIRE on 11/15/19 0954 Last Action: Last Taken Edited Atorvastatin Calcium (Atorvastatin Calcium) 10 Mg Tablet, 10 MG PO HS, (Reported) Entered as Reported by: MAX SHEPHERD on 02/27/22250 Last Action: New Order Budesonide/Formoterol Fumarate (Symbicort 80-4.5 Mcg Inhaler) 80 Mcg-4.5 Mcg/Actuation Hfa.aer.ad, (Reported) Entered as Reported by: MAX SHEPHERD on 02/27/22250 Last Action: New Order Ferrous Sulfate (Iron) 325 Mg Tablet, 325 MG PO 1200,1600, (Reported) Entered as Reported by: TESSA HANEY on 01/24/191046 Last Action: Last Taken Edited Gabapentin (Neurontin) 300 Mg Capsule, 300 MG PO TID, (Reported) Entered as Reported by: IRASEMA MAGUIRE on 11/15/1952 Last Action: Last Taken Edited Hyoscyamine Sulfate (Levsin-Sl) 0.125 Mg Tab.subl, 0.125 MG SL Q6H Prescribed by: ARIANA GONZALEZ on 02/27/22304 Lisinopril (Lisinopril) 20 Mg Tablet, 20 MG PO DAILY, (Reported) Entered as Reported by: MAX SHEPHERD on 02/27/22250 Last Action: New Order Loratadine (Claritin) 10 Mg Tablet, 10 MG PO 1200, (Reported) Entered as Reported by: TESSA HANEY on 01/24/191046 Last Action: Last Taken Edited Ondansetron (Ondansetron Odt) 4 Mg Tab.rapdis, 4 MG SL Q8H PRN for NAUSEA/VOMITING, (Reported) Entered as Reported by: MAX SHEPHERD on 02/27/22250 Last Action: New Order Ondansetron (Ondansetron Odt) 4 Mg Tab.rapdis, 4 MG SL Q6H PRN for NAUSEA/VOMITING Prescribed by: ARIANA GONZALEZ on 02/27/22304 Oxycodone HCl/Acetaminophen (Oxycodone-Acetaminophen 5-325) 5 Mg-325 Mg Tablet, 1 TAB PO Q6H PRN for PAIN-MODERATE (5-7), (Reported) Entered as Reported by: MAX SHEPHERD on 02/27/22250 Last Action: Edited Pantoprazole Sodium (Pantoprazole Sodium) 40 Mg Tablet.dr, 40 MG PO DAILY Prescribed by: ARIANA GONZALEZ on 02/27/22304 Discontinued Medications ALPRAZolam (Xanax Tablet) 0.25 Mg Tablet, 0.25 MG PO DAILY, (Reported) Discontinued Reason: Referral/FU Appt-Addtl Entered as Reported by: TESSA HANEY on 9/24/19 1047 Last Action: Discontinued Doxycycline Hyclate (Doxycycline Hyclate) 100 Mg Tablet, 100 MG PO BID Discontinued Reason: Referral/FU Appt-Addtl Prescribed by: ARIANA GONZALEZ on 01/20/221955 Last Action: Discontinued Hydrocodone/Acetaminophen (Hydrocodone-Acetamin 5-325 mg) 1 Each Tablet, 1 TAB PO Q8H PRN for PAIN-MODERATE (5-7) Discontinued Reason: Referral/FU Appt-Addtl Prescribed by: BLAIRE ARNETT on 02/10/21 0302 Last Action: Discontinued Methocarbamol (Methocarbamol) 500 Mg Tablet, 1,000 MG PO Q8H PRN for MUSCLE SPASMS Discontinued Reason: Referral/FU Appt-Addtl Prescribed by: ADELINE TAO on 03/04/21 224 Last Action: Discontinued Sertraline HCl (Sertraline HCl) 50 Mg Tablet, 50 MG PO DAILY, (Reported) Discontinued Reason: Referral/FU Appt-Addtl Entered as Reported by: TESSA HANEY on 01/24/19 104 Last Action: Discontinued Trazodone HCl (Trazodone HCl) 100 Mg Tablet, 100 MG PO HS PRN for SLEEP, (Reported) Discontinued Reason: Referral/FU Appt-Addtl Entered as Reported by: ROLANDO AMADOR on 10/10/20 1530 Last Action: Discontinued Review of Systems Review of Systems Constitutional: No fever EENTM: No Symptoms Reported Respiratory: No Symptoms Reported Cardiovascular: No Symptoms Reported Gastrointestinal: See HPI Genitourinary: No Symptoms Reported Musculoskeletal: no symptoms reported Skin: no symptoms reported Psychiatric/Neurological: No Symptoms Reported Endocrine: No Symptoms Reported Hematologic/Lymphatic: No Symptoms Reported All Other Systems Reviewed Negative Unless Noted: Yes Past [id number]-[id number] Hx Patient Social History Substance use?: No Immunizations Up To Date First/Initial COVID19 Vaccinat: July 2020 Second COVID19 Vaccination Nathan: August 2020 Third COVID19 Vaccination Date: July 2020 Seasonal Allergies Seasonal Allergies: No Past Medical History Surgery/Hospitalization HX: Cholecystectomy, Appendectomy, X 2, Ankle surgery, COPD, Anxiety, HTN, Obesity, 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 Surgeries: Yes (c/s x2, hemorrhoidectomy) Appendectomy, Section, Gallbladder, Tubal Ligation Respiratory: Yes COPD Currently Using CPAP: No Currently Using BIPAP: No Cardiac: Yes Hypertension, Syncope Neurological: Yes Neuropathy 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 Disorders: No Female 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 Disorders: Denies [employer]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 History: Tubal Ligation Sexually Transmitted Disease: No Genitourinary: Yes UTI-Chronic Gastrointestinal: No Hemorrhoids Musculoskeletal: Yes Arthritis, Fractures Endocrine: No HEENT: Yes (GLASSES) Loss of Vision: Denies Hearing Impairment: Denies Cancer: No Psychosocial: Yes Anxiety, Depression Integumentary: No Blood Disorders: Yes (anemia) Adverse Reaction/Blood Tranf: No Family Medical History Cardiovascular disease 19 MOTHER Diabetes mellitus G8 BROTHER FH: breast cancer 19 MOTHER Hypertension G8 BROTHER Irregular Heartbeat 19 MOTHER Lung Cancer 19 FATHER Myocardial infarction 19 MOTHER Physical Exam Vital Signs Vital Signs - First Documented 02/27/22 01:50 Temp 36.9 Pulse 100 Resp 18 B/P (MAP) 138/80 (99) Pulse Ox 97 O2 Delivery Room Air Capillary Refill : Height/Weight/BMI Height: 5'7.00" Weight: 258lbs. 0oz. [id number]; 43.00 BMI Method:Stated General Appearance: WD/WN, no apparent distress HEENT: PERRL/EOMI, normal ENT inspection, pharynx normal Neck: non-tender, full range of motion, supple, normal inspection Respiratory: chest non-tender, lungs clear, normal breath sounds, no respiratory distress, no accessory muscle use Cardiovascular: regular rate, rhythm, no edema, no murmur Gastrointestinal: normal bowel sounds, soft; No distended, No guarding, No rebound; tenderness Extremities: normal range of motion, non-tender, normal inspection, no pedal edema, no calf tenderness, normal capillary refill Back: normal inspection, no CVA tenderness 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: no motor/sensory deficits, alert, normal mood/affect Skin: normal color, warm/dry Lymphatic: no adenopathy Progress/Results/Core Measures Results/Orders Lab Results Laboratory Tests Test 02/27/22 02:00 Range/Units White Blood Count 10.4 4.3-11.0 10^3/uL Red Blood Count 4.81 3.80-5.11 10^6/uL Hemoglobin 14.3 11.5-16.0 g/dL Hematocrit 44 35-52 % Mean Corpuscular Volume 91 80-99 fL Mean Corpuscular Hemoglobin 30 25-34 pg Mean Corpuscular Hemoglobin Concent 33 32-36 g/dL Red Cell Distribution Width 13.5 10.0-14.5 % Platelet Count 348 130-400 10^3/uL Mean Platelet Volume 9.5 9.0-12.2 fL Immature Granulocyte % (Auto) 0 % Neutrophils (%) (Auto) 52 42-75 % Lymphocytes (%) (Auto) 38 12-44 % Monocytes (%) (Auto) 7 0-12 % Eosinophils (%) (Auto) 2 0-10 % Basophils (%) (Auto) 1 0-10 % Neutrophils # (Auto) 5.4 1.8-7.8 10^3/uL Lymphocytes # (Auto) 3.9 1.0-4.0 10^3/uL Monocytes # (Auto) 0.7 0.0-1.0 10^3/uL Eosinophils # (Auto) 0.2 0.0-0.3 10^3/uL Basophils # (Auto) 0.1 0.0-0.1 10^3/uL Immature Granulocyte # (Auto) 0.0 0.0-0.1 10^3/uL Prothrombin Time 12.9 12.2-14.7 SEC INR Comment 0.9 0.8-1.4 Sodium Level 136 135-145 MMOL/L Potassium Level 4.4 3.6-5.0 MMOL/L Chloride Level 99 98-107 MMOL/L Carbon Dioxide Level 21 21-32 MMOL/L Anion Gap 16 H 5-14 MMOL/L Blood Urea Nitrogen 15 7-18 MG/DL Creatinine 0.80 0.60-1.30 MG/DL Estimat Glomerular Filtration Rate 89 BUN/Creatinine Ratio 19 Glucose Level 140 H 70-105 MG/DL Calcium Level 9.3 8.5-10.1 MG/DL Corrected Calcium 9.1 8.5-10.1 MG/DL Magnesium Level 1.8 1.6-2.4 MG/DL Total Bilirubin 0.4 0.1-1.0 MG/DL Aspartate Amino Transf (AST/SGOT) 44 H 5-34 U/L Alanine Aminotransferase (ALT/SGPT) 35 0-55 U/L Alkaline Phosphatase 111 40-136 U/L C-Reactive Protein 1.89 H <0.50 MG/DL Total Protein 7.3 6.4-8.2 GM/DL Albumin 4.3 3.2-4.5 GM/DL Lipase 41 8-78 U/L My Orders Orders - ARIANA GONZALEZ MD Ct Abdomen/Pelvis W (02/27/22 02:02) Cbc With Automated Diff (02/27/22 02:02) Comprehensive Metabolic Panel (02/27/22 02:02) Lipase (02/27/22 02:02) Magnesium (02/27/22 02:02) Protime With Inr (02/27/22 02:02) Crp Fs (02/27/22 02:02) Morphine Injection (Morphine Injection (02/27/22 02:02) Ketorolac Injection (Toradol Injection) (02/27/22 02:15) Ondansetron Injection (Zofran Injectio (02/27/22 02:15) Ns Iv 1000 Ml (Sodium Chloride 0.9%) (02/27/22 02:02) Iohexol Injection (Omnipaque 350 Mg/Ml 1 (02/27/22 02:45) Received Contrast (Hold Metformin- Contr (02/27/22 02:45) Sodium Chloride Flush (Catheter Flush Sy (02/27/22 02:45) Ns (Ivpb) (Sodium Chloride 0.9% Ivpb Bag (02/27/22 02:45) Lidocaine 2% Viscous 15 Ml (Xylocaine Vi (02/27/22 03:15) Famotidine Tablet (Pepcid Tablet) (02/27/22 03:14) Antacid Suspension (Mylanta Suspension (02/27/22 03:15) Hyoscyamine Sl Tablet (Levsin Sl Tablet) (02/27/22 03:15) Medications Given in ED Current Medications Medications Dose Ordered Sig/Gregg Route Start Time Stop Time Status Last Admin Dose Admin Al Hydrox/Mg Hydrox/Simethicone 30 ml ONCE ONCE PO 02/27/22 03:15 02/27/22 03:16 DC 02/27/22 03:24 30 ML Hyoscyamine Sulfate 0.125 mg ONCE ONCE SL 02/27/22 03:15 02/27/22 03:16 DC 02/27/22 03:24 0.125 MG Iohexol 100 ml ONCE ONCE IV 02/27/22 02:45 02/27/22 02:46 DC 02/27/22 02:51 100 ML Ketorolac Tromethamine 15 mg ONCE ONCE IVP 02/27/22 02:15 02/27/22 02:16 DC 02/27/22 02:20 15 MG Lidocaine HCl 15 ml ONCE ONCE PO 02/27/22 03:15 02/27/22 03:16 DC 02/27/22 03:24 15 ML Ondansetron HCl 4 mg ONCE ONCE IVP 02/27/22 02:15 02/27/22 02:16 DC 02/27/22 02:19 4 MG Sodium Chloride 10 ml NEEDED PRN IV 02/27/22 02:45 02/27/22 02:52 10 ML Sodium Chloride 100 ml ONCE ONCE IV 02/27/22 02:45 02/27/22 02:46 DC 02/27/22 02:52 100 ML Vital Signs/I&O 02/27/22 01:50 Temp 36.9 Pulse 100 Resp 18 B/P (MAP) 138/80 (99) Pulse Ox 97 O2 Delivery Room Air Progress Progress Note : Progress Note 51-year-old female with above history coming in due to abdominal pain. ABCs were intact and vitals were stable on presentation. Physical exam with mostly epigastric pain with no signs of peritonitis. An IV was placed and basic labs were obtained and were significant for normal lipase, CRP only slightly elevated, no leukocytosis. CT abdomen pelvis ordered to assess for abnormalities such as pancreatitis versus infection versus bowel obstruction versus some other etiology. She was given morphine and Toradol for pain. She was given Zofran for nausea. CT with no significant findings other than she did have some under distention of the urinary bladder which they recommended correlation with urinalysis. She is not having any dysuria or urinary frequency. Essentially she is not having any symptoms of cystitis so we will forego urinalysis at this time. I believe the patient is stable for discharge with outpatient follow-up. She was found with strict return precautions Diagnostic Imaging Diagonstic Imaging: CT (abd/pelvis) Comments Stat rad read hepatomegaly with steatosis again noted, status postcho lecystectomy, mild splenomegaly of unknown significance, underdistention or wall thickening of the urinary bladder. Reviewed: [facility]ed [facility] Departure Impression Primary Impression: Abdominal pain Qualified Codes: R10.13 - Epigastric pain Disposition: HOME, SELF-CARE Condition: Stable Departure-Patient Inst. Decision time for Depature: 03:45 Referrals: ORIANA DEE MD (PCP/Family) Primary Care Physician Patient Instructions: Abdominal Pain, Adult ED Add. Discharge Instructions: It does not appear like you are having pancreatitis at this time. Nausea medicines and medicines to try to help with your abdominal pain were sent to your pharmacy. Follow-up with your regular doctor as soon as possible especially if things are not improving. You may need a referral to a general surgeon for potential GI scope if nothing is improving. Scripts Pantoprazole Sodium (Pantoprazole Sodium) 40 Mg Tablet.dr 40 MG PO DAILY for 30 Days, #30 TAB Prov: ARIANA GONZALEZ MD 02/27/22 Hyoscyamine Sulfate (Levsin-Sl) 0.125 Mg Tab.subl 0.125 MG SL Q6H for 5 Days, #20 TAB 0 Refills Prov: ARIANA GONZALEZ MD 02/27/22 Ondansetron (Ondansetron Odt) 4 Mg Tab.rapdis 4 MG SL Q6H PRN for NAUSEA/VOMITING for 5 Days, #20 TAB Prov: ARIANA GONZALEZ MD 02/27/22 Work/School Note: Work Release Form Date Seen in the Emergency Department: Feb 27, 2022 Return to Work: Feb 28, 2022 Restrictions: No Restrictions ARIANA GONZALEZ MD Feb 27, 2022 02:11
[2022-02-27] MEDS ORDERED: ONDANSETRON 4 MG/2 ML (SDV) Z0FRAN IVP ONE (02:15)
[2022-02-27] MEDS ORDERED: KETOROLAC 30 MG/ML VIAL IVP ONE (02:15)
[2022-02-27 02:21] LABS: INR 0.9 (0.8-1.4); PROTHROMBIN TIME PATIENT 12.9 SEC (12.2-14.7)
[2022-02-27 02:26] LABS: POTASSIUM 4.4 MMOL/L (3.6-5.0)
[2022-02-27 02:27] LABS: ALBUMIN 4.3 GM/DL (3.2-4.5); BILIRUBIN,TOTAL 0.4 MG/DL (0.1-1.0); CALCIUM 9.3 MG/DL (8.5-10.1); CREATININE SERUM 0.8 MG/DL (0.60-1.30); MAGNESIUM 1.8 MG/DL (1.6-2.4); TOTAL PROTEIN 7.3 GM/DL (6.4-8.2)
[2022-02-27] MEDS ORDERED: CATHETER FLUSH 10 ML SYR IV PRN (02:45)
[2022-02-27] MEDS ORDERED: IOHEXOL 350 MG/ML 100 ML (OMNIPAQUE 350) VIAL IV ONE (02:45)
[2022-02-27] MEDS ORDERED: HOLD METFORMIN - RECEIVED CONTRAST 20 ML VIAL IV SCH (02:45)
[2022-02-27] MEDS ORDERED: NS 100 ML (IVPB) BAG IV ONE (02:45)
[2022-02-27] MEDS ORDERED: ONDA4TAB11 SL ×2 (02:51→03:05)
[2022-02-27] MEDS ORDERED: LISI20TA26 PO (02:51)
[2022-02-27] MEDS ORDERED: BUDE10.22 (02:51)
[2022-02-27] MEDS ORDERED: OXYC1TAB11 PO (02:51)
[2022-02-27] MEDS ORDERED: ATOR10TA66 PO (02:51)
[2022-02-27] MEDS ORDERED: PANT40TA52 PO (03:05)
[2022-02-27] MEDS ORDERED: HYOS0.1283 SL (03:05)
[2022-02-27] MEDS ORDERED: FAMOTIDINE 20 MG (PEPCID) TABLET PO STA (03:14)
[2022-02-27] MEDS ORDERED: LIDOCAINE 2% VISCOUS 15 ML UDC PO ONE (03:15)
[2022-02-27] MEDS ORDERED: HYOSCYAMINE 0.125 MG (LEVSIN) TAB SL ONE (03:15)
[2022-02-27] MEDS ORDERED: ANTACID SUSP 30 ML UDC (MYLANTA) PO ONE (03:15)
[2022-02-27 03:49] VITALS: BP 141/84
--- NOTE | 2022-02-27 06:29 | Diagnostic Imaging Report ---
PROCEDURE: CT abdomen and pelvis with contrast. TECHNIQUE: Multiple contiguous axial images were obtained through the abdomen and pelvis after administration of intravenous contrast. Auto Exposure Controls were utilized during the CT exam to meet ALARA standards for radiation dose reduction. All CT scans use one or more of the following dose optimizing techniques: automated exposure control, MA and/or KvP adjustment based on patient size and exam type or iterative reconstruction. INDICATION: Right upper quadrant pain. Lung bases are clear. There is fatty infiltration of liver. The gallbladder is surgically absent. Portal vein is patent. Common duct is not dilated. The pancreas appears normal. The spleen is not enlarged. Kidneys and adrenals appear normal. Small bowel is not dilated. There is no evidence of appendicitis. There is a moderate amount of stool in the colon. Uterus is normal. Adnexa are normal. Urinary bladder is normal. There is no intraperitoneal free air or free fluid. IMPRESSION: Hepatic steatosis. Fecal stasis. No acute abnormality seen. I agree with preliminary interpretation. Dictated by: Dictated on workstation # [id number]
== END 2022-02-27 03:49 | disposition home or self-care (01) ==
LOC: EDUNIT# 01:45 → ER FS 01:47
DX: R10.13 Epigastric pain (principal); R11.0 Nausea; R79.82 Elevated C-reactive protein (CRP); E66.9 Obesity, unspecified; Z90.49 Acquired absence of other specified parts of digestive tract; Z68.41 Body mass index [BMI] 40.0-44.9, adult; Z86.16 Personal history of COVID-19
CPT/HCPCS: 36415; 74177; 80053; 83690; 83735; 85025; 85610; 86141

== ENCOUNTER 2022-03-02 13:52 | Observation (INO) | payer OTHER ==
[~2022-03-02] VITALS: Ht 170.2 cm; Wt 129.6 kg
[~2022-03-02 13:52] MED LIST changes: +ALBU8.5H6 INH; +ATOR10TA66 PO; +BUDE10.22 INH; +HYOS0.1283 SL; +LISI20TA26 PO; +ONDA4TAB11 SL; +OXYC1TAB11 PO; +PANT40TA52 PO; -RT-ALBUINH INH
[2022-03-02 14:09] LABS: BILIRUBIN,URINE NEGATIVE (NEGATIVE); CLARITY,URINE CLEAR; COLOR,URINE YELLOW; GLUCOSE, URINE (UA) NEGATIVE (NEGATIVE); KETONES,URINE NEGATIVE (NEGATIVE); LEUKOCYTE ESTERASE ,URINE TRACE (NEGATIVE); NITRITE,URINE NEGATIVE (NEGATIVE); PROTEIN,URINE NEGATIVE (NEGATIVE)
[2022-03-02 14:14] LABS: BACTERIA,URINE TRACE /HPF; SQUAMOUS EPITHELIAL CELL,UR 0-2 /HPF; WBC,URINE 0-2 /HPF
[2022-03-02] MEDS ORDERED: KETOROLAC 30 MG/ML VIAL IVP STA (14:23)
[2022-03-02] MEDS ORDERED: ONDANSETRON 4 MG/2 ML (SDV) Z0FRAN IVP STA ×3 (14:23→18:09)
[2022-03-02] MEDS ORDERED: morphine INJ 10 MG/ML 1ML (SYR OR VIAL) IVP STA (14:23)
[2022-03-02] MEDS ORDERED: PANTOPRAZOLE 40 MG (PROTONIX) VIAL IV STA (14:23)
--- NOTE | 2022-03-02 14:28 | ED GI ---
General Chief Complaint: Abdominal/GI Problems Stated Complaint: ABD PAIN Nursing Triage Note: PT REPORTS SHE HAS CONTINUED TO HAVE THE ABDOMINAL PAIN FROM HER ER VISIT 3 DAYS AGO. SHE CALLED THE GENERAL SURGEON INSTRUCTED AND THEY TOLD HER TO CALL HER PCP SO SHE COULD GET REFERRAL. DR MURILLO OFFICE TOLD HER TO GO THE ER WHEN SHE IS NEEDING A REFERRAL TO SEE A GENERAL SURGEON SINCE EVERYTHING ON THE WAS WDL. Source of Information: Patient, Old Records History of Present Illness Date Seen by Provider: Mar 02, 2022 Time Seen by Provider: 13:58 Initial Comments 51-year-old female presenting with continued abdominal pain present for almost 4 weeks now. She was seen and evaluated in the emergency department on Wednesday, February 27 for the same complaints. At that time her testing did not demonstrate any acute pathology to explain her symptoms. She had improvement in her pain and symptoms with treatment for gastritis and possible peptic ulcer disease. She was advised to have her primary care doctor help get her set up for a scope to take a look at her lining of the stomach and esophagus. She states that today when she called her primary care provider they directed her to the emergency department rather than trying to help her from the clinic. Patient denies any acute changes since Wednesday but states that her pain is just persisted. She did take Percocet around 1130 today with short-term improvement in her symptoms. She denies having fever, chills, pain with urination, cough, acute injury. Timing/Duration: Other (Almost 4 weeks of intermittent symptoms) Severity/Quality: Severe, Sharp Location: Epigastric, Periumbilical Radiation: No Radiation Modifying Factors: Worsens With Eating Associated Symptoms: No Back Pain, No Chest Pain, No Diaphoresis, No Fever/Chills; Fatigue; No Headache; Heartburn, Nausea/Vomiting; No Shortness of Air, No Swelling/Mass in Abdomen, No Syncope, No Weakness Allergies and Home Medications Allergies Coded Allergies: Penicillins (Verified Allergy, Unknown, 08/27/21) cephalexin (Verified Adverse Reaction, Unknown, 08/27/21) Patient Home Medication List Home Medication List Reviewed: Yes ALPRAZolam (ALPRAZolam) 0.25 Mg Tablet, 0.25 MG PO BID PRN for ANXIETY, (Reported) Entered as Reported by: ROLANDO AMADOR on 10/10/20 1530 Albuterol Sulfate (Proair Hfa) 1 Puff Puff, 2 PUFF INH Q6H PRN for SHORTNESS OF BREATH, (Reported) Entered as Reported by: TESSA HANEY on 01/24/19 104 Aripiprazole (Abilify) 5 Mg Tablet, 5 MG PO DAILY, (Reported) Entered as Reported by: IRASEMA MAGUIRE on 11/15/19 0954 Atorvastatin Calcium (Atorvastatin Calcium) 10 Mg Tablet, 10 MG PO HS, (Reported) Entered as Reported by: MAX SHEPHERD on 02/27/22250 Budesonide/Formoterol Fumarate (Symbicort 80-4.5 Mcg Inhaler) 80 Mcg-4.5 Mcg/Actuation Hfa.aer.ad, (Reported) Entered as Reported by: MAX SHEPHERD on 02/27/22250 Ferrous Sulfate (Iron) 325 Mg Tablet, 325 MG PO 1200,1600, (Reported) Entered as Reported by: TESSA HANEY on 01/24/191046 Gabapentin (Neurontin) 300 Mg Capsule, 300 MG PO TID, (Reported) Entered as Reported by: IRASEMA MAGUIRE on 11/15/19 0952 Hyoscyamine Sulfate (Levsin-Sl) 0.125 Mg Tab.subl, 0.125 MG SL Q6H Prescribed by: ARIANA GONZALEZ on 02/27/22304 Lisinopril (Lisinopril) 20 Mg Tablet, 20 MG PO DAILY, (Reported) Entered as Reported by: MAX SHEPHERD on 02/27/22250 Loratadine (Claritin) 10 Mg Tablet, 10 MG PO 1200, (Reported) Entered as Reported by: TESSA HANEY on 01/24/19 104 Ondansetron (Ondansetron Odt) 4 Mg Tab.rapdis, 4 MG SL Q8H PRN for NAUSEA/VOMITING, (Reported) Entered as Reported by: MAX SHEPHERD on 02/27/22250 Ondansetron (Ondansetron Odt) 4 Mg Tab.rapdis, 4 MG SL Q6H PRN for NAUSEA/VOMITING Prescribed by: ARIANA GONZALEZ on 02/27/22304 Oxycodone HCl/Acetaminophen (Oxycodone-Acetaminophen 5-325) 5 Mg-325 Mg Tablet, 1 TAB PO Q6H PRN for PAIN-MODERATE (5-7), (Reported) Entered as Reported by: MAX SHEPHERD on 02/27/22 0251 Pantoprazole Sodium (Pantoprazole Sodium) 40 Mg Tablet.dr, 40 MG PO DAILY Prescribed by: ARIANA GONZALEZ on 02/27/22 0305 Discontinued Medications ALPRAZolam (Xanax Tablet) 0.25 Mg Tablet, 0.25 MG PO DAILY, (Reported) Discontinued Reason: Referral/FU Appt-Addtl Entered as Reported by: TESSA HANEY on 01/24/19 104 Doxycycline Hyclate (Doxycycline Hyclate) 100 Mg Tablet, 100 MG PO BID Discontinued Reason: Referral/FU Appt-Addtl Prescribed by: ARIANA GONZALEZ on 01/20/221955 Hydrocodone/Acetaminophen (Hydrocodone-Acetamin 5-325 mg) 1 Each Tablet, 1 TAB PO Q8H PRN for PAIN-MODERATE (5-7) Discontinued Reason: Referral/FU Appt-Addtl Prescribed by: BLAIRE ARNETT on 02/10/21 0302 Methocarbamol (Methocarbamol) 500 Mg Tablet, 1,000 MG PO Q8H PRN for MUSCLE SPASMS Discontinued Reason: Referral/FU Appt-Addtl Prescribed by: ADELINE TAO on 03/04/21 2243 Sertraline HCl (Sertraline HCl) 50 Mg Tablet, 50 MG PO DAILY, (Reported) Discontinued Reason: Referral/FU Appt-Addtl Entered as Reported by: TESSA HANEY on 01/24/19 104 Trazodone HCl (Trazodone HCl) 100 Mg Tablet, 100 MG PO HS PRN for SLEEP, (Reported) Discontinued Reason: Referral/FU Appt-Addtl Entered as Reported by: ROLANDO AMADOR on 10/10/20 1530 Review of Systems Review of Systems Constitutional: No chills, No fever EENTM: No Symptoms Reported Respiratory: No Symptoms Reported Cardiovascular: No Symptoms Reported Gastrointestinal: See HPI Genitourinary: Denies Drainage, Denies Frequency Musculoskeletal: no symptoms reported Skin: No rash Psychiatric/Neurological: Anxiety Past Kiuuknb-Ewhhke-Irevje Hx Patient Social History Tobacco Use?: No Use of E-Cig and/or Vaping dev: No Substance use?: No Alcohol Use?: No Pt feels they are or have been: No Immunizations Up To Date First/Initial COVID19 Vaccinat: July 2020 Second COVID19 Vaccination Nathan: August 2020 Third COVID19 Vaccination Date: unknown date Seasonal Allergies Seasonal Allergies: No Past Medical History Surgery/Hospitalization HX: Cholecystectomy, Appendectomy, X 2, Ankle surgery, COPD, Anxiety, HTN, Obesity, 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, Hyperlipidemia, Neuropathy Surgeries: Yes (c/s x2, hemorrhoidectomy) Appendectomy, Section, Gallbladder, Tubal Ligation Respiratory: Yes COPD Currently Using CPAP: No Currently Using BIPAP: No Cardiac: Yes Hypertension, Syncope Neurological: Yes Neuropathy 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 Disorders: No Female 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 Disorders: Denies [employer] History: Tubal Ligation Sexually Transmitted Disease: No Genitourinary: Yes UTI-Chronic Gastrointestinal: No Hemorrhoids Musculoskeletal: Yes Arthritis, Fractures Endocrine: No HEENT: Yes (GLASSES) Loss of Vision: Denies Hearing Impairment: Denies Cancer: No Psychosocial: Yes Anxiety, Depression Integumentary: No Blood Disorders: Yes (anemia) Adverse Reaction/Blood Tranf: No Family Medical History Cardiovascular disease 19 MOTHER Diabetes mellitus G8 BROTHER FH: breast cancer 19 MOTHER Hypertension G8 BROTHER Irregular Heartbeat 19 MOTHER Lung Cancer 19 FATHER Myocardial infarction 19 MOTHER Physical Exam Vital Signs Vital Signs - First Documented 03/02/22 14:07 Temp 35.8 Pulse 126 Resp 16 B/P (MAP) 184/86 (118) Pulse Ox 99 O2 Delivery Room Air Capillary Refill : Less Than 3 Seconds Height/Weight/BMI Height: 5'7.00" Weight: 258lbs. 0oz. 117.384441qu; 44.00 BMI Method:Stated General Appearance: WD/WN, no apparent distress, obese HEENT: PERRL/EOMI, normal ENT inspection, pharynx normal Neck: non-tender, full range of motion, supple, normal inspection Respiratory: chest non-tender, lungs clear, normal breath sounds, no respiratory distress, no accessory muscle use Cardiovascular: normal peripheral pulses, tachycardia Gastrointestinal: soft, no pulsatile mass, abnormal bowel sounds (hypoactive), guarding; No rebound; tenderness (epigastric and periumbilical) Rectal: deferred Extremities: normal range of motion, non-tender, normal capillary refill Back: no CVA tenderness, no vertebral tenderness 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: alert, oriented x 3 Skin: normal color, warm/dry Progress/Results/Core Measures Results/Orders Lab Results Laboratory Tests Test 03/02/22 14:00 03/02/22 14:47 Range/Units Urine Color YELLOW Urine Clarity CLEAR Urine pH 7.0 5-9 Urine Specific [place] 1.015 L 1.016-1.022 Urine Protein NEGATIVE NEGATIVE Urine Glucose (UA) NEGATIVE NEGATIVE Urine Ketones NEGATIVE NEGATIVE Urine Nitrite NEGATIVE NEGATIVE Urine Bilirubin NEGATIVE NEGATIVE Urine Urobilinogen 0.2 < = 1.0 MG/DL Urine Leukocyte Esterase TRACE H NEGATIVE Urine RBC (Auto) NEGATIVE NEGATIVE Urine RBC NONE /HPF Urine WBC 0-2 /HPF Urine Squamous Epithelial Cells 0-2 /HPF Urine Crystals NONE /LPF Urine Bacteria TRACE /HPF Urine Casts NONE /LPF Urine Mucus NEGATIVE /LPF Urine Culture Indicated NO White Blood Count 8.6 4.3-11.0 10^3/uL Red Blood Count 4.60 3.80-5.11 10^6/uL Hemoglobin 13.8 11.5-16.0 g/dL Hematocrit 42 35-52 % Mean Corpuscular Volume 91 80-99 fL Mean Corpuscular Hemoglobin 30 25-34 pg Mean Corpuscular Hemoglobin Concent 33 32-36 g/dL Red Cell Distribution Width 13.2 10.0-14.5 % Platelet Count 321 130-400 10^3/uL Mean Platelet Volume 10.2 9.0-12.2 fL Immature Granulocyte % (Auto) 1 % Neutrophils (%) (Auto) 53 42-75 % Lymphocytes (%) (Auto) 36 12-44 % Monocytes (%) (Auto) 8 0-12 % Eosinophils (%) (Auto) 2 0-10 % Basophils (%) (Auto) 1 0-10 % Neutrophils # (Auto) 4.5 1.8-7.8 10^3/uL Lymphocytes # (Auto) 3.1 1.0-4.0 10^3/uL Monocytes # (Auto) 0.7 0.0-1.0 10^3/uL Eosinophils # (Auto) 0.1 0.0-0.3 10^3/uL Basophils # (Auto) 0.1 0.0-0.1 10^3/uL Immature Granulocyte # (Auto) 0.1 0.0-0.1 10^3/uL Sodium Level 136 135-145 MMOL/L Potassium Level 4.6 3.6-5.0 MMOL/L Chloride Level 100 98-107 MMOL/L Carbon Dioxide Level 22 21-32 MMOL/L Anion Gap 14 5-14 MMOL/L Blood Urea Nitrogen 9 7-18 MG/DL Creatinine 0.75 0.60-1.30 MG/DL Estimat Glomerular Filtration Rate 96 BUN/Creatinine Ratio 12 Glucose Level 152 H 70-105 MG/DL Calcium Level 9.4 8.5-10.1 MG/DL Corrected Calcium 9.3 8.5-10.1 MG/DL Total Bilirubin 0.3 0.1-1.0 MG/DL Aspartate Amino Transf (AST/SGOT) 52 H 5-34 U/L Alanine Aminotransferase (ALT/SGPT) 39 0-55 U/L Alkaline Phosphatase 106 40-136 U/L Total Protein 7.1 6.4-8.2 GM/DL Albumin 4.1 3.2-4.5 GM/DL Lipase 39 8-78 U/L My Orders Orders - ADELINE TAO MD Ua Culture If Indicated (03/02/22 13:59) Comprehensive Metabolic Panel (03/02/22 14:23) Lipase (03/02/22 14:23) Ed Iv/Invasive Line Start (03/02/22 14:23) Cbc With Automated Diff (03/02/22 14:23) Ct Abdomen/Pelvis W (03/02/22 14:23) Morphine Injection (Morphine Injection (03/02/22 14:23) Ketorolac Injection (Toradol Injection) (03/02/22 14:23) Ondansetron Injection (Zofran Injectio (03/02/22 14:23) Pantoprazole Injection (Protonix Injecti (03/02/22 14:23) Lidocaine 2% Viscous 15 Ml (Xylocaine Vi (03/02/22 14:30) Antacid Suspension (Mylanta Suspension (03/02/22 14:30) Iohexol Injection (Omnipaque 350 Mg/Ml 1 (03/02/22 14:45) Received Contrast (Hold Metformin- Contr (03/02/22 14:45) Ns (Ivpb) (Sodium Chloride 0.9% Ivpb Bag (03/02/22 14:45) Ed Admission (Communication) (03/02/22 16:31) Ng Tube To Low Wall Suction (03/02/22 16:32) Ng Tube Insert & Assessment (03/02/22 16:32) Ns Iv 1000 Ml (Sodium Chloride 0.9%) (03/02/22 16:34) Chest 1 View Ap/Pa Only (03/02/22 16:55) Fentanyl Inj (Sublimaze Injection) (03/02/22 16:58) Ondansetron Injection (Zofran Injectio (03/02/22 16:58) Ondansetron Injection (Zofran Injectio (03/02/22 18:09) Ondansetron Injection (Zofran Injectio (03/02/22 18:10) Medications Given in ED Current Medications Medications Dose Ordered Sig/Gregg Route Start Time Stop Time Status Last Admin Dose Admin Al Hydrox/Mg Hydrox/Simethicone 30 ml ONCE ONCE PO 03/02/22 14:30 03/02/22 14:31 DC 03/02/22 14:41 30 ML Iohexol 100 ml ONCE ONCE IV 03/02/22 14:45 03/02/22 14:46 DC 03/02/22 15:30 100 ML Lidocaine HCl 15 ml ONCE ONCE PO 03/02/22 14:30 03/02/22 14:31 DC 03/02/22 14:41 15 ML Sodium Chloride 100 ml ONCE ONCE IV 03/02/22 14:45 03/02/22 14:46 DC 03/02/22 15:30 100 ML Vital Signs/I&O 03/02/22 03/02/22 14:07 17:48 Temp 35.8 36.4 Pulse 126 72 Resp 16 16 B/P (MAP) 184/86 (118) 123/62 Pulse Ox 99 99 O2 Delivery Room Air Room Air Blood Pressure Mean: 118 Progress Progress Note #1: Progress Note Obtain basic labs and urinalysis. Urine drug screen. Repeat CT scan and blood work to look for any acute change from 3 days ago when she was seen and advised to follow-up through the clinic. The clinic had refused to see her today and sent her to the emergency department. Advised patient we could repeat her testing from 3 days ago to see if there has been anything different. If nothing new shows on testing can try adding medicine for acid suppression and PUD/Gastritis. Differential diagnosis includes bowel obstruction, gastritis, peptic ulcer disease, colitis, diverticulitis Progress Note #2: Progress Note CBC stable from blood count on 1028. Her chemistry panel and lipase were also stable without acute significant abnormality from February 27. Urinalysis was showing nitrites or bacteria. She had trace amount of leukocyte Estrace. Awaiting CT scan to see if there is any acute change from February 27. Progress Note #3: Time: 16:[address] scan shows some dilated small bowel loops concerning for small bowel obstruction. This would be consistent with her hypoactive bowel sounds and pain worsening with eating or drinking. Will check with Dr. Ortiz who is covering for [facility] about possible admission for bowel rest. Progress Note #4: Time: 18:08 Progress Note just before patient left with EMS Radiology called to suggest the NG tube be advanced further as they felt it was mid esophagus. She was getting return of gastric contents but when re-examined it was noted the NG tube was initially at 70 cm but had been pushed out to 55 cm. She had the NG tube advanced back to 70 which caused gagging so she was given an additional zofran 4 mg IV dose prior to leaving with EMS> Diagnostic Imaging Diagonstic Imaging: CT Plain Films/CT/US/NM/MRI: abdomen, pelvis Comments NAME: PAMELLA SALINAS [facility] REC#: [id number] PT STATUS: REG ER : 1970 PHYSICIAN: ADELINE TAO MD ADMIT DATE: 03/02/22/ER FS Signed Date of Exam:03/02/22 CT ABDOMEN/PELVIS W PROCEDURE: CT abdomen and pelvis with contrast. TECHNIQUE: Multiple contiguous axial images were obtained through the abdomen and pelvis after administration of intravenous contrast. Auto Exposure Controls were utilized during the CT exam to meet ALARA standards for radiation dose reduction. All CT scans use one or more of the following dose optimizing techniques: Automated exposure control, MA and/or KvP adjustment based on patient size and exam type or iterative reconstruction. INDICATION: Abdominal pain. COMPARISON: Correlation is made with recent CT from 02/27/2022. FINDINGS: The lung bases are clear. Diffuse low attenuation throughout the liver is again noted consistent with hepatic steatosis. Gallbladder is surgically absent. No biliary ductal dilatation is seen. Pancreas and spleen are unremarkable. No adrenal mass is detected. Kidneys are unremarkable. There is no hydronephrosis. Aorta is nonaneurysmal. There is a small fat-containing umbilical hernia. Bowel loops demonstrate scattered mildly distended and fluid-filled small bowel loops in the lower abdomen. There are multiple normal-caliber small bowel loops present as well, and the possibility of small bowel obstruction cannot be entirely excluded. There is no free air. No free fluid or fluid collection is seen. Uterus and bladder are unremarkable. No definite inflammatory changes are seen. IMPRESSION: There are some fluid-filled mildly distended small bowel loops with normal-caliber small bowel loops present as well, and possibility of small bowel obstruction cannot be entirely excluded. Small bowel study would be useful for further evaluation, if clinically indicated. No other significant abnormality is identified. Dictated by: Dictated on workstation # [id number] Dict: 03/02/22 1548 Trans: 03/02/22 1557 [id number] Interpreted by: LATONYA SHERIFF MD Electronically signed by: LATONYA SHERIFF MD 03/02/22 1557 Reviewed: Reviewed by Me Departure Communication (Admissions) Time/Spoke to Admitting Phy: 16:25 d/w Dr. Ortiz and she accepted pt for observation admit for bowel rest, IVF hydration and pain and nausea control. Consult Dr. Fontanez with surgery regarding her case and if he would like anything additional or different will let Dr. Ortzi know about it. Time/Spoke to Consulting Phy: 16:31 d/w Dr. Fontanez for general surgery consult. I reviewed that the CT scan shows dilated small bowel loops concerning for small bowel obstruction. This was new since Tuesday 02/27 when she was evaluated previously. He requested NG tube for bowel decompression and small bowel follow through for tomorrow. Keep her NPO and he will follow in consult Impression Primary Impression: Intermittent small bowel obstruction due to adhesions Additional Impression: Epigastric abdominal pain Disposition: 30 STILL A PATIENT Condition: Stable Admissions Decision to Admit Reason: Admit from ER (General) Decision to Admit/Date: Mar 02, 2022 Time/Decision to Admit Time: 16:25 Departure-Patient Inst. Referrals: ORIANA DEE MD (PCP) Primary Care Physician ADELINE TAO MD Mar 02, 2022 14:28
[2022-03-02] MEDS ORDERED: ANTACID SUSP 30 ML UDC (MYLANTA) PO ONE (14:30)
[2022-03-02] MEDS ORDERED: LIDOCAINE 2% VISCOUS 15 ML UDC PO ONE (14:30)
[2022-03-02] MEDS ORDERED: NS 100 ML (IVPB) BAG IV ONE (14:45)
[2022-03-02] MEDS ORDERED: HOLD METFORMIN - RECEIVED CONTRAST 20 ML VIAL IV SCH (14:45)
[2022-03-02] MEDS ORDERED: IOHEXOL 350 MG/ML 100 ML (OMNIPAQUE 350) VIAL IV ONE (14:45)
[2022-03-02 15:15] LABS: BASOPHILS # (AUTO) 0.1 10^3/uL (0.0-0.1); BASOPHILS % (AUTO) 1 % (0-10); EOSINOPHILS # (AUTO) 0.1 10^3/uL (0.0-0.3); EOSINOPHILS % (AUTO) 2 % (0-10); HEMATOCRIT 42 % (35-52); HEMOGLOBIN 13.8 g/dL (11.5-16.0); LYMPHOCYTES # (AUTO) 3.1 10^3/uL (1.0-4.0); LYMPHOCYTES % (AUTO) 36 % (12-44); MEAN CORPUSCULAR HEMOGLOBIN 30 pg (25-34); MEAN CORPUSCULAR HGB CONC 33 g/dL (32-36); MEAN CORPUSCULAR VOLUME 91 fL (80-99); MEAN PLATELET VOLUME 10.2 fL (9.0-12.2); MONOCYTES # (AUTO) 0.7 10^3/uL (0.0-1.0); MONOCYTES % (AUTO) 8 % (0-12); NEUTROPHILS # (AUTO) 4.5 10^3/uL (1.8-7.8); NEUTROPHILS % (AUTO) 53 % (42-75); PLATELET COUNT 321 10^3/uL (130-400); WHITE BLOOD COUNT 8.6 10^3/uL (4.3-11.0)
[2022-03-02 15:18] LABS: BILIRUBIN,TOTAL 0.3 MG/DL (0.1-1.0); CALCIUM 9.4 MG/DL (8.5-10.1); CREATININE SERUM 0.75 MG/DL (0.60-1.30); POTASSIUM 4.6 MMOL/L (3.6-5.0)
[2022-03-02 15:19] LABS: ALBUMIN 4.1 GM/DL (3.2-4.5); TOTAL PROTEIN 7.1 GM/DL (6.4-8.2)
--- NOTE | 2022-03-02 15:57 | Diagnostic Imaging Report ---
PROCEDURE: CT abdomen and pelvis with contrast. TECHNIQUE: Multiple contiguous axial images were obtained through the abdomen and pelvis after administration of intravenous contrast. Auto Exposure Controls were utilized during the CT exam to meet ALARA standards for radiation dose reduction. All CT scans use one or more of the following dose optimizing techniques: Automated exposure control, MA and/or KvP adjustment based on patient size and exam type or iterative reconstruction. INDICATION: Abdominal pain. COMPARISON: Correlation is made with recent CT from 02/27/2022. FINDINGS: The lung bases are clear. Diffuse low attenuation throughout the liver is again noted consistent with hepatic steatosis. Gallbladder is surgically absent. No biliary ductal dilatation is seen. Pancreas and spleen are unremarkable. No adrenal mass is detected. Kidneys are unremarkable. There is no hydronephrosis. Aorta is nonaneurysmal. There is a small fat-containing umbilical hernia. Bowel loops demonstrate scattered mildly distended and fluid-filled small bowel loops in the lower abdomen. There are multiple normal-caliber small bowel loops present as well, and the possibility of small bowel obstruction cannot be entirely excluded. There is no free air. No free fluid or fluid collection is seen. Uterus and bladder are unremarkable. No definite inflammatory changes are seen. IMPRESSION: There are some fluid-filled mildly distended small bowel loops with normal-caliber small bowel loops present as well, and possibility of small bowel obstruction cannot be entirely excluded. Small bowel study would be useful for further evaluation, if clinically indicated. No other significant abnormality is identified. Dictated by: Dictated on workstation # [id number]
[2022-03-02] MEDS ORDERED: NS IV 1000 ML 1,000 ML IV STA (16:34)
[2022-03-02] MEDS ORDERED: fentaNYL INJ 100 MCG/2 ML AMP IVP STA (16:58)
--- NOTE | 2022-03-02 18:06 | Diagnostic Imaging Report ---
HISTORY: NG tube placement. TECHNIQUE: Frontal view of the chest. COMPARISON: 01/20/2022. FINDINGS: Lung volumes are normal. No consolidation is seen. There is no pleural effusion or pneumothorax. The cardiac silhouette is normal in size. There is haziness in the lung bases, thought to be due to the overlying soft tissues. An NG tube is last seen projecting over the mid esophagus. It is not seen distally on these radiographs. IMPRESSION: 1. The NG tube tip appears to terminate at the level of the mid esophagus. Report given to [employer]in[employer] MANLEY (RT Annemarie) at 6:03 PM 03/02/2022/divya Dictated by: Dictated on workstation # [id number]
[2022-03-02] MEDS ORDERED: ONDANSETRON 4 MG/2 ML (SDV) Z0FRAN ONE (18:10)
[2022-03-02] MEDS ORDERED: ACETAMINOPHEN 325 MG TABLET PO PRN (19:15)
[2022-03-02] MEDS ORDERED: ONDANSETRON 4 MG/2 ML (SDV) Z0FRAN IV PRN (19:15)
[2022-03-02] MEDS ORDERED: polyethylene glycoL POWDER 17 GM (MIRALAX) PACK PO PRN ×2 (19:15→19:30)
[2022-03-02] MEDS ORDERED: diphenhydrAMINE 25 MG TAB (BENADRYL) PO PRN ×2 (19:15→19:30)
[2022-03-02] MEDS ORDERED: BISACODYL 10 MG SUPP (DULCOLAX) PR PRN ×2 (19:15→19:30)
[2022-03-02] MEDS ORDERED: ONDANSETRON 4 MG (ZOFRAN) ORAL DISSOLVE TAB PO PRN ×2 (19:15→19:30)
[2022-03-02] MEDS ORDERED: NS IV 1000 ML 1,000 ML IV SCH (19:15)
[2022-03-02] MEDS ORDERED: ANTACID SUSP 30 ML UDC (MYLANTA) PO PRN ×2 (19:15→19:30)
[2022-03-02] MEDS ORDERED: MELATONIN 3 MG TABLET PO PRN ×2 (19:15→19:30)
[2022-03-02] MEDS ORDERED: LORazepam INJ 2 MG/ML (ATIVAN) VIAL IVP PRN (19:15)
[2022-03-02] MEDS ORDERED: diphenhydrAMINE 50 MG/ML INJ (BENADRYL) IVP PRN (19:15)
[2022-03-02] MEDS ORDERED: ENOXAPARIN 40 MG/0.4 ML (LOVENOX) SYR SC SCH (19:15)
[2022-03-02] MEDS ORDERED: ACETAMINOPHEN 650 MG SUPP (TYLENOL) PR PRN ×2 (19:15→19:30)
[2022-03-02 19:24] VITALS: BP 184/86
[2022-03-02] MEDS ORDERED: diphenhydrAMINE 50 MG/ML INJ (BENADRYL) IV PRN (19:30)
[2022-03-02] MEDS ORDERED: RT-ALBUTEROL SULF 2.5 MG/3 ML PRE-MIX VIAL INH PRN (19:30)
[2022-03-02] MEDS: NS IV 1000 ML 1,000 ML IV SCH ×2 (19:52→22:43)
[2022-03-02] MEDS: LORazepam INJ 2 MG/ML (ATIVAN) VIAL IV PRN (19:54)
[2022-03-02] MEDS: ENOXAPARIN 40 MG/0.4 ML (LOVENOX) SYR SC SCH (19:55)
[2022-03-02] MEDS: DOCUSATE SODIUM 100 MG (COLACE) CAP PO SCH (19:55)
[2022-03-02] MEDS: HYDROmorphone 2 MG/ML VIAL (DILAUDID) IV PRN ×2 (19:55→22:43)
[2022-03-02 20:13] VITALS: BP 103/64
--- NOTE | 2022-03-02 20:39 | Diagnostic Imaging Report ---
INDICATION: Respiratory failure COMPARISON: Earlier same day FINDINGS: Single frontal radiographic view of the chest was obtained. Indwelling endotracheal tube is identified. Tip is not well visualized, but appears to terminate at the clavicular heads. Gastric tube extends into the right upper abdominal quadrant. The lungs are clear. There is no focal consolidation, large effusion, or pneumothorax. Cardiac silhouette and pulmonary vasculature are within normal limits. Osseous structures show no gross acute abnormalities. IMPRESSION: 1. Lines and tubes, as above. 2. No new acute cardiopulmonary process. Dictated by: Dictated on workstation # [id number]
[2022-03-02] MEDS ORDERED: DOCUSATE SODIUM 100 MG (COLACE) CAP PO SCH (21:00)
[2022-03-02 23:16] VITALS: BP 108/75
[2022-03-03] MEDS: ONDANSETRON 4 MG/2 ML (SDV) Z0FRAN IV PRN ×5 (00:19→22:47)
[2022-03-03] MEDS: HYDROmorphone 2 MG/ML VIAL (DILAUDID) IV PRN ×6 (02:04→20:33)
[2022-03-03 03:14] VITALS: BP 115/74
[2022-03-03] MEDS: LORazepam INJ 2 MG/ML (ATIVAN) VIAL IV PRN ×3 (04:46→22:47)
[2022-03-03 06:05] LABS: BASOPHILS # (AUTO) 0.1 10^3/uL (0.0-0.1); BASOPHILS % (AUTO) 1 % (0-10); EOSINOPHILS # (AUTO) 0.1 10^3/uL (0.0-0.3); EOSINOPHILS % (AUTO) 1 % (0-10); HEMATOCRIT 41 % (35-52); LYMPHOCYTES # (AUTO) 3.6 10^3/uL (1.0-4.0); LYMPHOCYTES % (AUTO) 38 % (12-44); MEAN CORPUSCULAR HEMOGLOBIN 31 pg (25-34); MEAN CORPUSCULAR HGB CONC 32 g/dL (32-36); MEAN CORPUSCULAR VOLUME 95 fL (80-99); MEAN PLATELET VOLUME 10.2 fL (9.0-12.2); MONOCYTES # (AUTO) 0.7 10^3/uL (0.0-1.0); MONOCYTES % (AUTO) 8 % (0-12); NEUTROPHILS # (AUTO) 4.8 10^3/uL (1.8-7.8); NEUTROPHILS % (AUTO) 52 % (42-75); PLATELET COUNT 319 10^3/uL (130-400); WHITE BLOOD COUNT 9.3 10^3/uL (4.3-11.0)
[2022-03-03 06:10] LABS: ALBUMIN 3.9 GM/DL (3.2-4.5); POTASSIUM 4.5 MMOL/L (3.6-5.0)
[2022-03-03 06:12] LABS: TOTAL PROTEIN 6.9 GM/DL (6.4-8.2)
[2022-03-03 06:14] LABS: BILIRUBIN,TOTAL 0.5 MG/DL (0.1-1.0)
[2022-03-03 06:16] LABS: CREATININE SERUM 0.9 MG/DL (0.60-1.30)
[2022-03-03] MEDS: NS IV 1000 ML 1,000 ML IV SCH ×3 (06:19→22:47)
[2022-03-03] MEDS: ENOXAPARIN 40 MG/0.4 ML (LOVENOX) SYR SC SCH ×2 (06:20→18:15)
[2022-03-03] MEDS: DOCUSATE SODIUM 100 MG (COLACE) CAP PO SCH ×2 (07:31→20:33)
--- NOTE | 2022-03-03 07:37 | Consultation - Surgery ---
[facility] 03/03/22 0737: History of Present Illness History of Present Illness Patient Consulted On(radha/time) 03/03/22 07:26 Date Seen by Provider: Mar 03, 2022 Time Seen by Provider: 07:26 History of Present Illness This is a 51F with PMH of multiple abdominal surgeries who presented by ambulance to ED on 03/02/22 with worsening abdominal pain x [address] with IV contrast revealed dilated SB loops which was new since her prior evaluation on 02/27/22 when she went to ED. She described the pain as worse with eating, sharp in the epigastric and periumbilical regions at that time. Today she reports she has no change in pain levels. 6/10 with pain meds, 8-10 without. Describes worst pain in RUQ and feels "like I got hit". She endorses passing flatus this AM and she has been belching frequently. No BM since yesterday. Urinating without issue. Endorses nausea somewhat improved with zof ran. She has vomited green liquid multiple times. She is able to sit on the side of her bed at times but reports feeling best laying on her back with her legs pulled toward her chest. She is using a bedside commode but requires help to move from bed. Pt reports her throat is hurting from the NG tube that is still in place. She is very anxious and concerned as her father and brother had "bowel cancer" that started with obstructions. Allergies and Home Medications Allergies Coded Allergies: Penicillins (Verified Allergy, Unknown, 08/27/21) cephalexin (Verified Adverse Reaction, Unknown, 08/27/21) Patient Home Medication List Home Medication List Reviewed: Yes ALPRAZolam (ALPRAZolam) 0.25 Mg Tablet, 0.25 MG PO DAILY, (Reported) Entered as Reported by: ROLANDO AMADOR on 10/10/20 1530 Last Action: Reviewed Albuterol Sulfate (Ventolin Hfa) 1 Puff Puff, 2 PUFF INH Q6H PRN for SHORTNESS OF BREATH, (Reported) Entered as Reported by: TESSA HANEY on 01/24/19 1047 Last Action: Reviewed Aripiprazole (Aripiprazole) 5 Mg Tablet, 5 MG PO 1200, (Reported) Entered as Reported by: ROLANDO AMADOR on 03/03/22 1507 Last Action: Reviewed Atorvastatin Calcium (Atorvastatin Calcium) 10 Mg Tablet, 10 MG PO HS, (Reported) Entered as Reported by: MAX SHEPHERD on 02/27/22250 Last Action: Reviewed Budesonide/Formoterol Fumarate (Symbicort 80-4.5 Mcg Inhaler) 80 Mcg-4.5 Mcg/Actuation Hfa.aer.ad, 1 PUFF INH DAILY, (Reported) Entered as Reported by: MAX SHEPHERD on 02/27/22250 Last Action: Reviewed Gabapentin (Neurontin) 300 Mg Capsule, 300 MG PO TID, (Reported) Entered as Reported by: IRASEMA MAGUIRE on 11/15/19 0952 Last Action: Reviewed Hyoscyamine Sulfate (Levsin-Sl) 0.125 Mg Tab.subl, 0.125 MG SL Q6H Prescribed by: ARIANA GONZALEZ on 02/27/22 030 Last Action: Reviewed Ipratropium/Albuterol Sulfate (Iprat-Albut 0.5-3(2.5) mg/3 ml) 0.5 Mg-3 Mg (2.5 Mg Base)/3 Ml Ampul.neb, 3 ML IH Q6H PRN for SHORTNESS OF BREATH, (Reported) Entered as Reported by: ROLANDO AMADOR on 03/03/22 150 Last Action: Reviewed Lisinopril (Lisinopril) 20 Mg Tablet, 20 MG PO 1200, (Reported) Entered as Reported by: MAX SHEPHERD on 02/27/22250 Last Action: Reviewed Ondansetron (Ondansetron Odt) 4 Mg Tab.rapdis, 4 MG SL Q6H PRN for NAUSEA/ VOMITING-1ST LINE, (Reported) Entered as Reported by: MAX SHEPHERD on 02/27/22250 Last Action: Reviewed Oxycodone HCl/Acetaminophen (Oxycodone-Acetaminophen 5-325) 5 Mg-325 Mg Tablet, 1 TAB PO Q6H PRN for PAIN-MODERATE (5-7), (Reported) Entered as Reported by: MAX SHEPHERD on 02/27/22250 Last Action: Reviewed Pantoprazole Sodium (Pantoprazole Sodium) 40 Mg Tablet.dr, 40 MG PO DAILY Prescribed by: ARIANA GONZALEZ on 02/27/22 0305 Last Action: Reviewed Sertraline HCl (Sertraline HCl) 50 Mg Tablet, 50 MG PO DAILY, (Reported) Entered as Reported by: ROLANDO AMADOR on 03/03/22 150 Last Action: Reviewed Trazodone HCl (Trazodone HCl) 100 Mg Tablet, 100 MG PO HS PRN for SLEEP, (Reported) Entered as Reported by: ROLANDO AMADOR on 03/03/22 150 Last Action: Reviewed Discontinued Medications ALPRAZolam (Xanax Tablet) 0.25 Mg Tablet, 0.25 MG PO DAILY, (Reported) Discontinued Reason: Referral/FU Appt-Addtl Entered as Reported by: TESSA HANEY on 01/24/191046 Aripiprazole (Abilify) 5 Mg Tablet, 5 MG PO DAILY, (Reported) Discontinued Reason: Duplicate Order Entered as Reported by: IRASEMA MAGUIRE on 11/15/19 0954 Last Action: Discontinued Doxycycline Hyclate (Doxycycline Hyclate) 100 Mg Tablet, 100 MG PO BID Discontinued Reason: Referral/FU Appt-Addtl Prescribed by: ARIANA GONZALEZ on 01/20/221955 Ferrous Sulfate (Iron) 325 Mg Tablet, 325 MG PO 1200,1600, (Reported) Discontinued Reason: Duplicate Order Entered as Reported by: TESSA HANEY on 01/24/191046 Last Action: Discontinued Hydrocodone/Acetaminophen (Hydrocodone-Acetamin 5-325 mg) 1 Each Tablet, 1 TAB PO Q8H PRN for PAIN-MODERATE (5-7) Discontinued Reason: Referral/FU Appt-Addtl Prescribed by: BLAIRE ARNETT on 02/10/21 030 Loratadine (Claritin) 10 Mg Tablet, 10 MG PO 1200, (Reported) Discontinued Reason: No Longer Taking Entered as Reported by: TESSA HANEY on 01/24/191046 Last Action: Discontinued Methocarbamol (Methocarbamol) 500 Mg Tablet, 1,000 MG PO Q8H PRN for MUSCLE SPASMS Discontinued Reason: Referral/FU Appt-Addtl Prescribed by: ADELINE TAO on 03/04/21 2243 Ondansetron (Ondansetron Odt) 4 Mg Tab.rapdis, 4 MG SL Q6H PRN for NAUSEA/VOMITING Discontinued Reason: Duplicate Order Prescribed by: ARIANA GONZALEZ on 02/27/22 0305 Last Action: Discontinued Sertraline HCl (Sertraline HCl) 50 Mg Tablet, 50 MG PO DAILY, (Reported) Discontinued Reason: Referral/FU Appt-Addtl Entered as Reported by: TESSA HANEY on 01/24/19 1047 Trazodone HCl (Trazodone HCl) 100 Mg Tablet, 100 MG PO HS PRN for SLEEP, (Repor gilma) Discontinued Reason: Referral/FU Appt-Addtl Entered as Reported by: ROLANDO AMADOR on 10/10/20 1530 Past Yjhdvxj-Xvzadx-Xsfkko Hx Patient Social History Smoking Status: Never a Smoker 2nd Hand Smoke Exposure: No Recent Hopitalizations: Yes (08/10 FOR HYPOTENSION/PASSING OUT - BROKE FOOT) Alcohol Use?: No Have you traveled recently?: No Immunizations Up To Date Date of Influenza Vaccine: Feb 05, 2021 Seasonal Allergies Seasonal Allergies: No Surgeries History of Surgeries: Yes (c/s x2, hemorrhoidectomy) Surgeries: Appendectomy, Section, Gallbladder, Tubal Ligation Respiratory History of Respiratory Disorde: Yes Respiratory Disorders: COPD Cardiovascular History of Cardiac Disorders: Yes Cardiac Disorders: Hypertension, Syncope Neurological History of Neurological Disord: Yes Neurological Disorders: Neuropathy 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 System Hx 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 Disorders: No Sexually Transmitted Disease: No Female 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 Disorders: Denies [employer] ATTEND[employer] History: Tubal Ligation Genitourinary History of Genitourinary Disor: Yes Genitourinary Disorders: UTI-Chronic Gastrointestinal History of Gastrointestinal Di: No Gastrointestinal Disorders: Hemorrhoids Musculoskeletal History of Musculoskeletal Dis: Yes Musculoskeletal Disorders: Arthritis, Fractures Endocrine History of Endocrine Disorders: No HEENT History of HEENT Disorders: Yes (GLASSES) Loss of Vision: Denies Hearing Impairment: Denies Cancer History of Cancer: No Psychosocial History of Psychiatric Problem: Yes Behavioral Health Disorders: Anxiety, Depression Integumentary History of Skin or Integumenta: No Blood Transfusions History of Blood Disorders: Yes (anemia) Adverse Reaction to a Blood Tr: No Family Medical History Significant Family History: Cancer ("bowel" father and brother) Family Medial History: Cardiovascular disease 19 MOTHER Diabetes mellitus G8 BROTHER FH: breast cancer 19 MOTHER Hypertension G8 BROTHER Irregular Heartbeat 19 MOTHER Lung Cancer 19 FATHER Myocardial infarction 19 MOTHER Review of Systems-General Constitutional: No chills, No fever EENTM: No ear discharge, No blurred vision Respiratory: No cough, No hemoptysis Cardiovascular: No chest pain, No palpitations Gastrointestinal: RUQ, abdominal pain (mild pain diffusely, concentrated in RUQ), nausea, vomiting Genitourinary: No decreased output, No discharge Musculoskeletal: No gout, No joint swelling Skin: No change in color, No change in hair/nails Psychiatric/Neurological: Denies Depressed, Denies Numbness, Denies Weakness All Other Systems Reviewed Negative Unless Noted: Yes Physical Exam-General Problems Physical Exam Vital Signs Vital Signs - First Documented 03/02/22 03/02/22 14:07 19:24 Temp 35.8 Pulse 126 Resp 16 B/P (MAP) 184/86 (118) Pulse Ox 99 O2 Delivery Room Air FiO2 21 Capillary Refill : Less Than 3 Seconds General Appearance: WD/WN, mild distress HEENT: PERRL/EOMI, normal ENT inspection Neck: non-tender, supple Respiratory: chest non-tender, lungs clear, normal breath sounds, no resp iratory distress, no accessory muscle use Cardiovascular: regular rate, rhythm, no murmur Gastrointestinal: soft, tenderness (RUQ worst TTP) Rectal: deferred Back: normal inspection, no CVA tenderness Extremities: normal range of motion, non-tender 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: alert, normal mood/affect, oriented x 3 Skin: normal color, warm/dry Lymphatic: no adenopathy Data Review Labs Laboratory Tests 03/02/22 14:00: Urine Color YELLOW, Urine Clarity CLEAR, Urine pH 7.0, Urine Specific [place] 1.015L, Urine Protein NEGATIVE, Urine Glucose (UA) NEGATIVE, Urine Ketones NEGATIVE, Urine Nitrite NEGATIVE, Urine Bilirubin NEGATIVE, Urine Urobilinogen 0.2, Urine Leukocyte Esterase TRACEH, Urine RBC (Auto) NEGATIVE, Urine RBC NONE, Urine WBC 0-2, Urine Squamous Epithelial Cells 0-2, Urine Crystals NONE, Urine Bacteria TRACE, Urine Casts NONE, Urine Mucus NEGATIVE, Urine Culture Indicated NO 03/02/22 14:47: White Blood Count 8.6, Red Blood Count 4.60, Hemoglobin 13.8, Hematocrit 42, Mean Corpuscular Volume 91, Mean Corpuscular Hemoglobin 30, Mean Corpuscular Hemoglobin Concent 33, Red Cell Distribution Width 13.2, Platelet Count 321, Mean Platelet Volume 10.2, Immature Granulocyte % (Auto) 1, Neutrophils (%) (Auto) 53, Lymphocytes (%) (Auto) 36, Monocytes (%) (Auto) 8, Eosinophils (%) (Auto) 2, Basophils (%) (Auto) 1, Neutrophils # (Auto) 4.5, Lymphocytes # (Auto) 3.1, Monocytes # (Auto) 0.7, Eosinophils # (Auto) 0.1, Basophils # (Auto) 0.1, Immature Granulocyte # (Auto) 0.1, Sodium Level 136, Potassium Level 4.6, Chloride Level 100, Carbon Dioxide Level 22, Anion Gap 14, Blood Urea Nitrogen 9, Creatinine 0.75, Estimat Glomerular Filtration Rate 96, BUN/Creatinine Ratio 12, Glucose Level 152H, Calcium Level 9.4, Corrected Calcium 9.3, Total Bilirubin 0.3, Aspartate Amino Transf (AST/SGOT) 52H, Alanine Aminotransferase (ALT/SGPT) 39, Alkaline Phosphatase 106, Total Protein 7.1, Albumin 4.1, Lipase 39 03/03/22 05:09: White Blood Count 9.3, Red Blood Count 4.25, Hemoglobin 13.0, Hematocrit 41, Mean Corpuscular Volume 95, Mean Corpuscular Hemoglobin 31, Mean Corpuscular Hemoglobin Concent 32, Red Cell Distribution Width 13.6, Platelet Count 319, Mean Platelet Volume 10.2, Immature Granulocyte % (Auto) 0, Neutrophils (%) (Auto) 52, Lymphocytes (%) (Auto) 38, Monocytes (%) (Auto) 8, Eosinophils (%) (Auto) 1, Basophils (%) (Auto) 1, Neutrophils # (Auto) 4.8, Lymphocytes # (Auto) 3.6, Monocytes # (Auto) 0.7, Eosinophils # (Auto) 0.1, Basophils # (Auto) 0.1, Immature Granulocyte # (Auto) 0.0, Sodium Level 138, Potassium Level 4.5, Chloride Level 105, Carbon Dioxide Level 21, Anion Gap 12, Blood Urea Nitrogen 14, Creatinine 0.90, Estimat Glomerular Filtration Rate 77, BUN/Creatinine Ratio 16, Glucose Level 107H, Calcium Level 9.0, Corrected Calcium 9.1, Total Bilirubin 0.5, Aspartate Amino Transf (AST/SGOT) 38H, Alanine Aminotransferase (ALT/SGPT) 39, Alkaline Phosphatase 91, Total Protein 6.9, Albumin 3.9 Radiology [facility], [facility]. [place], [place] NAME: PAMELLA SALINAS [facility] REC#: [id number] PT STATUS: ADM Adam : 1970 PHYSICIAN: PATRICK MCCALLUM DO ADMIT DATE: 03/02/22 Signed Date of Exam:03/03/22 SMALL BOWEL STUDY ONLY INDICATION: Bowel obstruction, pain. COMPARISON: CT dated 03/02/2022. TECHNIQUE: Small bowel follow-through was performed on 03/03/2022. Imaging was performed before and after the administration of 120 mL of water mixed with 120 mL of Gastrografin instilled through the patient's nasoenteric catheter. FINDINGS: Weatherization Operations Manager imaging demonstrates an enteric catheter present coiled within the body of the stomach. Surgical clips are present within the right upper abdomen. Gas and stool are noted throughout the colon including extending into the lower pelvis. No definite abnormally dilated loops of small bowel. After contrast was instilled through the nasogastric catheter, contrast is identified within the colon at 45 minutes. No definite pathologically enlarged loops of small bowel. The patient did experience pain during the examination with resulting emesis which slightly limits examination. No free intraperitoneal contrast. IMPRESSION: Small bowel transit time of less than 45 minutes; therefore, there is no evidence of high-grade bowel obstruction. No abnormally dilated loops of small bowel on this examination within the limits of the exam. The patient did experience emesis during the examination which slightly limits the exam. Additional findings as above. Dictated by: Dictated on workstation # [id number] Dict: 03/03/22 1325 Trans: 03/03/22 1454 [id number] Interpreted by: SPENSER AGUAYO MD Electronically signed by: SPENSER AGUAYO MD 03/03/22 1454 Assessment/Plan Assessment/Plan Assessment/Plan RUQ pain - ruled out SBO with normal SBFT today npo ivf pain/nausea management as needed start protonix 40 mg BID today continue NG decompression RADHA KELSEY DO 03/03/22 1608: History of Present Illness History of Present Illness History of Present Illness Patient 51-year-old female who presents to the emergency department yesterday with abdominal pain that she been having for approximately 4 weeks. Patient pain at worst about 8 or 9 out of 10. Its in the right upper quadrant. It feels like she got hit she states. Patient states there is no radiation of pain. Nothing seems to make it better. She been having significant nausea and vomiting as well. She states that she still having emesis and is also taking Zofran and has an NG tube placed. Patient not had anything like this before. She has CT scan which demonstrated some dilated loops of small bowel that could be consistent with small bowel obstruction. She had a small bowel follow- through which demonstrated contrast into the colon. Patient states today she has been having a very minimal amount of gas and had a bowel movement last night. Allergies and Home Medications Allergies Coded Allergies: Penicillins (Verified Allergy, Unknown, 08/27/21) cephalexin (Verified Adverse Reaction, Unknown, 08/27/21) Patient Home Medication List Home Medication List Reviewed: Yes ALPRAZolam (ALPRAZolam) 0.25 Mg Tablet, 0.25 MG PO DAILY, (Reported) Entered as Reported by: ROLANDO AMADOR on 10/10/20 1530 Last Action: Reviewed Albuterol Sulfate (Ventolin Hfa) 1 Puff Puff, 2 PUFF INH Q6H PRN for SHORTNESS OF BREATH, (Reported) Entered as Reported by: TESSA HANEY on 01/24/19 1047 Last Action: Reviewed Aripiprazole (Aripiprazole) 5 Mg Tablet, 5 MG PO 1200, (Reported) Entered as Reported by: ROLANDO AMADOR on 03/03/22 1507 Last Action: Reviewed Atorvastatin Calcium (Atorvastatin Calcium) 10 Mg Tablet, 10 MG PO HS, (Report ed) Entered as Reported by: MAX SHEPHERD on 02/27/22 0251 Last Action: Reviewed Budesonide/Formoterol Fumarate (Symbicort 80-4.5 Mcg Inhaler) 80 Mcg-4.5 Mcg/Actuation Hfa.aer.ad, 1 PUFF INH DAILY, (Reported) Entered as Reported by: MAX SHEPHERD on 02/27/22 0251 Last Action: Reviewed Gabapentin (Neurontin) 300 Mg Capsule, 300 MG PO TID, (Reported) Entered as Reported by: IRASEMA MAGUIRE on 11/15/19 0952 Last Action: Reviewed Hyoscyamine Sulfate (Levsin-Sl) 0.125 Mg Tab.subl, 0.125 MG SL Q6H Prescribed by: ARIANA GONZALEZ on 02/27/22304 Last Action: Reviewed Ipratropium/Albuterol Sulfate (Iprat-Albut 0.5-3(2.5) mg/3 ml) 0.5 Mg-3 Mg (2.5 Mg Base)/3 Ml Ampul.neb, 3 ML IH Q6H PRN for SHORTNESS OF BREATH, (Reported) Entered as Reported by: ROLANDO AMADOR on 03/03/221506 Last Action: Reviewed Lisinopril (Lisinopril) 20 Mg Tablet, 20 MG PO 1200, (Reported) Entered as Reported by: MAX SHEPHERD on 02/27/22250 Last Action: Reviewed Ondansetron (Ondansetron Odt) 4 Mg Tab.rapdis, 4 MG SL Q6H PRN for NAUSEA/VOMITING-1ST LINE, (Reported) Entered as Reported by: MAX SHEPHERD on 02/27/22250 Last Action: Reviewed Oxycodone HCl/Acetaminophen (Oxycodone-Acetaminophen 5-325) 5 Mg-325 Mg Tablet, 1 TAB PO Q6H PRN for PAIN-MODERATE (5-7), (Reported) Entered as Reported by: MAX SHEPHERD on 02/27/22250 Last Action: Reviewed Pantoprazole Sodium (Pantoprazole Sodium) 40 Mg Tablet.dr, 40 MG PO DAILY Prescribed by: ARIAAN GONZALEZ on 02/27/22304 Last Action: Reviewed Sertraline HCl (Sertraline HCl) 50 Mg Tablet, 50 MG PO DAILY, (Reported) Entered as Reported by: ROLANDO AMADOR on 03/03/221506 Last Action: Reviewed Trazodone HCl (Trazodone HCl) 100 Mg Tablet, 100 MG PO HS PRN for SLEEP, (Reported) Entered as Reported by: ROLANDO AMADOR on 03/03/221506 Last Action: Reviewed Discontinued Medications ALPRAZolam (Xanax Tablet) 0.25 Mg Tablet, 0.25 MG PO DAILY, (Reported) Discontinued Reason: Referral/FU Appt-Addtl Entered as Reported by: TESSA HANEY on 01/24/19 7176 Aripiprazole (Abilify) 5 Mg Tablet, 5 MG PO DAILY, (Reported) Discontinued Reason: Duplicate Order Entered as Reported by: IRASEMA MAGUIRE on 11/15/19 0954 Last Action: Discontinued Doxycycline Hyclate (Doxycycline Hyclate) 100 Mg Tablet, 100 MG PO BID Discontinued Reason: Referral/FU Appt-Addtl Prescribed by: ARIANA GONZALEZ on 01/20/22 195 Ferrous Sulfate (Iron) 325 Mg Tablet, 325 MG PO 1200,1600, (Reported) Discontinued Reason: Duplicate Order Entered as Reported by: TESSA HANEY on 01/24/19 104 Last Action: Discontinued Hydrocodone/Acetaminophen (Hydrocodone-Acetamin 5-325 mg) 1 Each Tablet, 1 TAB PO Q8H PRN for PAIN-MODERATE (5-7) Discontinued Reason: Referral/FU Appt-Addtl Prescribed by: BLAIRE ARNETT on 02/10/21 030 Loratadine (Claritin) 10 Mg Tablet, 10 MG PO 1200, (Reported) Discontinued Reason: No Longer Taking Entered as Reported by: TESSA HANEY on 01/24/19 104 Last Action: Discontinued Methocarbamol (Methocarbamol) 500 Mg Tablet, 1,000 MG PO Q8H PRN for MUSCLE SPASMS Discontinued Reason: Referral/FU Appt-Addtl Prescribed by: ADELINE TAO on 03/04/21 2243 Ondansetron (Ondansetron Odt) 4 Mg Tab.rapdis, 4 MG SL Q6H PRN for NAUSEA/VOMITING Discontinued Reason: Duplicate Order Prescribed by: ARIANA GONZALEZ on 02/27/22 0305 Last Action: Discontinued Sertraline HCl (Sertraline HCl) 50 Mg Tablet, 50 MG PO DAILY, (Reported) Discontinued Reason: Referral/FU Appt-Addtl Entered as Reported by: TESSA HANEY on 01/24/19 104 Trazodone HCl (Trazodone HCl) 100 Mg Tablet, 100 MG PO HS PRN for SLEEP, (Reported) Discontinued Reason: Referral/FU Appt-Addtl Entered as Reported by: ROLANDO AMADOR on 10/10/20 1530 Past Ikgbdrm-Tncybg-Deldim Hx Reviewed Nursing Assessment Reviewed/Agree w Nursing PMH: Yes Family Medical History Significant Family History: Cancer ("bowel" father and brother) Family Medial History: Cardiovascular disease 19 MOTHER Diabetes mellitus G8 BROTHER FH: breast cancer 19 MOTHER Hypertension G8 BROTHER Irregular Heartbeat 19 MOTHER Lung Cancer 19 FATHER Myocardial infarction 19 MOTHER Review of Systems-General Constitutional: No chills, No fever EENTM: No blurred vision, No double vision Respiratory: No cough, No dyspnea on exertion Cardiovascular: No chest pain, No palpitations Gastrointestinal: RUQ, abdominal pain (RUQ), nausea, vomiting Genitourinary: No decreased output, No discharge Musculoskeletal: No gout, No joint pain Skin: No change in color, No change in hair/nails Psychiatric/Neurological: Denies Depressed, Denies Numbness, Denies Weakness All Other Systems Reviewed Negative Unless Noted: Yes (Negative excepted noted.) Physical Exam-General Problems Physical Exam General Appearance: WD/WN, no apparent distress HEENT: PERRL/EOMI, normal ENT inspection Neck: non-tender, supple Respiratory: chest non-tender, no respiratory distress, no accessory muscle use Cardiovascular: regular rate, rhythm, no JVD Gastrointestinal: soft, tenderness (RUQ ) Rectal: deferred Back: normal inspection, no CVA tenderness Extremities: normal range of motion, non-tender 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: alert, normal mood/affect, oriented x 3 Skin: normal color, warm/dry Lymphatic: no adenopathy Assessment/Plan Assessment/Plan Assessment/Plan RUQ abdominal pain Nausea and vomiting partial small bowel obstruction patient on Zofran and NG tube for n/v and decompression of small bowel pain still persistent, possible ulcer causing pain? starting Protonix NPO Small bowel follow through no obstruction Conservative management at this time. Ct changes suggestive of sbo no other significant findings Supervisory-Addendum Brief Verification & Attestation Participated in pt care: history, MDM, physical Personally performed: exam, history, MDM, supervision of care Care discussed with: Medical Student Procedures: n/a Results interpretation: Verified all documentation Verification and Attestation of Medical Student E/M Service A medical student performed and documented this service in my presence. I reviewed and verified all information documented by the medical student and made modifications to such information, when appropriate. I personally performed the physical exam and medical decision making. Radha Kelsey, Mar 03, 2022,16:13 BECCA JENNINGS Mar 03, 2022 07:37 RADHA KELSEY DO Mar 03, 2022 16:08
[2022-03-03 07:39] VITALS: BP 112/64
[2022-03-03] MEDS ORDERED: DIATRIZOATE MEGLUM/SODIUM 37% 120 ML (GASTROGRAFIN) NG NR (08:30)
--- NOTE | 2022-03-03 08:55 | History & Physical-Hospitalist ---
History of Present Illness HPI/Chief Complaint CC: Abdominal pain HPI: This is a 51 yr old female, clinic pt of Dr. Nassar with multiple abdominal surgeries. She presents with presumed small bowel obstruction. Dr. Fontanez has been consulted. She is still having a lot of pain. She remains NPO on IV fluid. NG tube is in place. We will await Dr. Fontanez's plan. Source: patient, RN/MD Exam Limitations: no limitations Date Seen 03/03/22 Time Seen by a Provider: 11:00 Attending Physician Damon Nassar MD PCP Admitting Physician: Lainey Ortiz DO Attending Physician: Lainey Ortiz DO Referring Physician Date of Admission Mar 02, 2022 at 19:00 Home Medications & Allergies Home Medications Reviewed patient Home Medication Reconciliation performed by pharmacy medication reconciliations certified master safe technician and/or nursing. Patients Allergies have been reviewed. Allergies Allergies Coded Allergies Penicillins (Verified Allergy, Unknown, 08/27/21) cephalexin (Verified Adverse Reaction, Unknown, 08/27/21) Past [id number] Hx Patient Social History Marrital Status: Employed/Student: employed Tobacco Use?: No Smoking Status: Never a Smoker Smokeless Tobacco Frequency: Never a User Use of E-Cig and/or Vaping dev: No Substance use?: No Alcohol Use?: No Pt feels they are or have been: No Immunizations Up To Date Date of Influenza Vaccine: Feb 05, 2021 First/Initial COVID19 Vaccinat: July 2020 Second COVID19 Vaccination Nathan: August 2020 Tetanus Booster (TDap): Unknown Hepatitis A: No Hepatitis B: No Seasonal Allergies Seasonal Allergies: No Current Status status: No status: No Advance Directives: No Communicates: Verbally Primary Language: Urdu Preferred Spoken Language: Urdu Is interpretation needed?: No Implanted or Applied Medical D: Orthopedic hardware Past Medical History Surgeries: Appendectomy, Section, Gallbladder, Tubal Ligation COPD Currently Using CPAP: No Currently Using BIPAP: No Hypertension, Syncope 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 Sexually Transmitted Disease: No UTI-Chronic Hemorrhoids Arthritis, Fractures Loss of Vision: Denies Hearing Impairment: Denies Anxiety, Depression Blood Disorders: Yes (anemia) Adverse Reaction/Blood Tranf: No Family Medical History Cardiovascular disease 19 MOTHER Diabetes mellitus G8 BROTHER FH: breast cancer 19 MOTHER Hypertension G8 BROTHER Irregular Heartbeat 19 MOTHER Lung Cancer 19 FATHER Myocardial infarction 19 MOTHER Review of Systems Constitutional: see HPI, malaise, weakness EENTM: no symptoms reported Respiratory: no symptoms reported Cardiovascular: no symptoms reported Gastrointestinal: abdominal pain, loss of appetite, nausea, vomiting Genitourinary: no symptoms reported Musculoskeletal: no symptoms reported Skin: no symptoms reported Psychiatric/Neurological: Anxiety, Depressed, Emotional Problems All Other Systems Reviewed Negative Unless Noted: Yes Physical Exam Physical Exam Vital Signs Vital Signs - First Documented 03/02/22 03/02/22 14:07 19:24 Temp 35.8 Pulse 126 Resp 16 B/P (MAP) 184/86 (118) Pulse Ox 99 O2 Delivery Room Air FiO2 21 Capillary Refill : Less Than 3 Seconds Height, Weight, BMI Height: 5'7.00" Weight: 258lbs. 0oz. [id number]; 44.73 BMI Method:Stated General Appearance: Anxious, Chronically ill, Mild Distress Eyes: Right Eye Normal Inspection, Right Eye PERRL HEENT: PERRL/EOMI, Normal ENT Inspection, Pharynx Normal, Moist Mucous Membranes Neck: Full Range of Motion, Normal Inspection, Non Tender Respiratory: Chest Non Tender, Lungs Clear, Normal Breath Sounds, No Accessory Muscle Use, No Respiratory Distress Cardiovascular: Regular Rate, Rhythm, No Edema, No Gallop, No JVD, No Murmur, Normal Peripheral Pulses Gastrointestinal: Normal Bowel Sounds, No Organomegaly, No Pulsatile Mass, Soft, Tenderness Back: Normal Inspection, No CVA Tenderness, No Vertebral Tenderness Extremity: Normal Capillary Refill, Normal Inspection, Normal Range of Motion, Non Tender, No Calf Tenderness, No Pedal Edema 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: Alert, Oriented x3, No Motor/Sensory Deficits, Normal Mood/Affect Skin: Normal Color, Warm/Dry Lymphatic: No Adenopathy Results Results/Procedures Labs Laboratory Tests 03/02/22 14:47 03/03/22 05:09 Patient resulted labs reviewed. Assessment/Plan Admission Diagnosis Assessment: Acute abdominal pain from small bowel obstruction Nausea and vomiting Anxiety Multiple abdominal surgeries in the past Plan: Supportive care Pain control Antiemetics Surgery consult appreciated Admission Status: Observation Reason for Inpatient Admission: LAINEY VASQUEZ DO Mar 03, 2022 08:55
[2022-03-03] MEDS ORDERED: DIATRIZOATE MEGLUM/SODIUM 37% 120 ML (GASTROGRAFIN) NG ONE (09:00)
[2022-03-03 11:48] VITALS: BP 113/74
--- NOTE | 2022-03-03 13:37 | Diagnostic Imaging Report ---
INDICATION: Bowel obstruction, pain. COMPARISON: CT dated 03/02/2022. TECHNIQUE: Small bowel follow-through was performed on 03/03/2022. Imaging was performed before and after the administration of 120 mL of water mixed with 120 mL of Gastrografin instilled through the patient's nasoenteric catheter. FINDINGS: Flight Line Mechanic imaging demonstrates an enteric catheter present coiled within the body of the stomach. Surgical clips are present within the right upper abdomen. Gas and stool are noted throughout the colon including extending into the lower pelvis. No definite abnormally dilated loops of small bowel. After contrast was instilled through the nasogastric catheter, contrast is identified within the colon at 45 minutes. No definite pathologically enlarged loops of small bowel. The patient did experience pain during the examination with resulting emesis which slightly limits examination. No free intraperitoneal contrast. IMPRESSION: Small bowel transit time of less than 45 minutes; therefore, there is no evidence of high-grade bowel obstruction. No abnormally dilated loops of small bowel on this examination within the limits of the exam. The patient did experience emesis during the examination which slightly limits the exam. Additional findings as above. Dictated by: Dictated on workstation # [id number]
[2022-03-03] MEDS: PANTOPRAZOLE 40 MG (PROTONIX) VIAL IV SCH ×2 (15:02→20:33)
[2022-03-03] MEDS ORDERED: IPRA3AMP31 IH (15:07)
[2022-03-03] MEDS ORDERED: ARIP5TAB57 PO (15:07)
[2022-03-03] MEDS ORDERED: TRAZ-227 PO (15:07)
[2022-03-03] MEDS ORDERED: SERT-413 PO (15:07)
[2022-03-03 16:00] VITALS: BP 126/78
[2022-03-03 20:24] VITALS: BP 112/66
[2022-03-03] MEDS ORDERED: PROMETHAZINE INJ 25 MG/ML (PHENERGAN) AMP ONE (20:27)
[2022-03-03] MEDS ORDERED: PROMETHAZINE INJ 25 MG/ML (PHENERGAN) AMP IVP PRN (20:30)
[2022-03-03 23:04] VITALS: BP 141/88
[2022-03-04] MEDS: HYDROmorphone 2 MG/ML VIAL (DILAUDID) IV PRN ×4 (00:13→17:54)
[2022-03-04 03:21] VITALS: BP 130/70
[2022-03-04] MEDS: ONDANSETRON 4 MG/2 ML (SDV) Z0FRAN IV PRN ×2 (03:21→09:55)
[2022-03-04] MEDS: LORazepam INJ 2 MG/ML (ATIVAN) VIAL IV PRN (04:05)
[2022-03-04 05:39] LABS: BASOPHILS # (AUTO) 0.1 10^3/uL (0.0-0.1); BASOPHILS % (AUTO) 1 % (0-10); EOSINOPHILS # (AUTO) 0.1 10^3/uL (0.0-0.3); EOSINOPHILS % (AUTO) 2 % (0-10); HEMATOCRIT 39 % (35-52); HEMOGLOBIN 12.1 g/dL (11.5-16.0); LYMPHOCYTES # (AUTO) 2.3 10^3/uL (1.0-4.0); LYMPHOCYTES % (AUTO) 28 % (12-44); MEAN CORPUSCULAR HEMOGLOBIN 30 pg (25-34); MEAN CORPUSCULAR HGB CONC 31 g/dL (32-36); MEAN CORPUSCULAR VOLUME 96 fL (80-99); MEAN PLATELET VOLUME 9.6 fL (9.0-12.2); MONOCYTES # (AUTO) 0.8 10^3/uL (0.0-1.0); MONOCYTES % (AUTO) 9 % (0-12); NEUTROPHILS # (AUTO) 5.1 10^3/uL (1.8-7.8); NEUTROPHILS % (AUTO) 61 % (42-75); PLATELET COUNT 268 10^3/uL (130-400); WHITE BLOOD COUNT 8.4 10^3/uL (4.3-11.0)
[2022-03-04 06:06] LABS: ALBUMIN 3.8 GM/DL (3.2-4.5); BILIRUBIN,TOTAL 0.6 MG/DL (0.1-1.0); CALCIUM 9.2 MG/DL (8.5-10.1); CREATININE SERUM 0.96 MG/DL (0.60-1.30); POTASSIUM 4.1 MMOL/L (3.6-5.0); TOTAL PROTEIN 6.6 GM/DL (6.4-8.2)
[2022-03-04] MEDS: ENOXAPARIN 40 MG/0.4 ML (LOVENOX) SYR SC SCH ×2 (06:09→19:56)
--- NOTE | 2022-03-04 06:33 | Progress Note - Surgery ---
[facility] 03[facility]04[facility]22 0633: Subjective Date Seen by a Provider: Mar 04, 2022 Time Seen by a Provider: 06:28 Subjective/Events-last exam Last night, her NG tube was replaced after pt removed it during sleep. Today pt is reporting decreased pain at a 6/10 that is worse with putting pressure on her RUQ. No radiation of pain to back. She reports vomiting green liquid due to gagging on NG tube. Her vomiting improved with Phenergan. She is passing gas and denies having BM. Objective Exam Vital Signs Date Time Temp Pulse Resp B/P (MAP) Pulse Ox O2 Delivery O2 Flow Rate FiO2 03/04/22 03:21 35.8 89 18 130/70 (90) 93 Room Air 03/04/22 01:00 76 03/03/22 23:04 35.8 92 18 141/88 (105) 92 Room Air 03/03/22 20:24 35.9 94 18 112/66 (81) 92 Room Air 03/03/22 20:00 Room Air 03/03/22 19:00 84 03/03/22 16:00 36.1 88 18 126/78 (94) 91 Room Air 03/03/22 12:40 87 03/03/22 11:48 36.5 75 20 113/74 (87) 96 Room Air 03/03/22 08:30 Room Air 03/03/22 07:39 36.4 87 20 112/64 (80) 93 Room Air 03/03/22 07:07 84 I & O 03/04/22 07:00 Intake Total 0 ml Output Total 2600 ml Balance -2600 ml Capillary Refill : Less Than 3 Seconds General Appearance: Anxious, Chronically ill, Mild Distress HEENT: PERRL/EOMI, Pharynx Normal, Moist Mucous Membranes Neck: Full Range of Motion, Normal Inspection, Non Tender Respiratory: Chest Non Tender, Lungs Clear, Normal Breath Sounds, No Accessory Muscle Use, No Respiratory Distress Cardiovascular: Regular Rate, Rhythm, No Edema, No Gallop, No JVD, No Murmur Gastrointestinal: soft, tenderness (RUQ ) Extremity: Normal Capillary Refill, Normal Inspection, Normal Range of Motion, Non Tender, No Calf Tenderness, No Pedal Edema 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: Alert, Oriented x3, No Motor/Sensory Deficits, Normal Mood/Affect Skin: Normal Color, Warm/Dry Lymphatic: No Adenopathy Results Lab Laboratory Tests 03/04/22 05:10: White Blood Count 8.4, Red Blood Count 4.06, Hemoglobin 12.1, Hematocrit 39, Mean Corpuscular Volume 96, Mean Corpuscular Hemoglobin 30, Mean Corpuscular Hemoglobin Concent 31L, Red Cell Distribution Width 13.4, Platelet Count 268, Mean Platelet Volume 9.6, Immature Granulocyte % (Auto) 0, Neutrophils (%) (Auto) 61, Lymphocytes (%) (Auto) 28, Monocytes (%) (Auto) 9, Eosinophils (%) (Auto) 2, Basophils (%) (Auto) 1, Neutrophils # (Auto) 5.1, Lymphocytes # (Auto) 2.3, Monocytes # (Auto) 0.8, Eosinophils # (Auto) 0.1, Basophils # (Auto) 0.1, Immature Granulocyte # (Auto) 0.0, Sodium Level 141, Potassium Level 4.1, Chloride Level 107, Carbon Dioxide Level 23, Anion Gap 11, Blood Urea Nitrogen 14, Creatinine 0.96, Estimat Glomerular Filtration Rate 71, BUN/Creatinine Ratio 15, Glucose Level 116H, Calcium Level 9.2, Corrected Calcium 9.4, Total Bilirubin 0.6, Aspartate Amino Transf (AST/SGOT) 30, Alanine Aminotransferase (ALT/SGPT) 34, Alkaline Phosphatase 83, Total Protein 6.6, Albumin 3.8 Assessment/Plan Assessment/Plan Assessment/Plan RUQ abdominal pain nausea and vomiting partial small bowel obstruction patient on Zofran for n/v and decompression of small bowel, one dose Phenergan given remove NG tube pain still persistent, possible ulcer causing pain? started Protonix yesterday start liquid diet Ct changes suggestive of sbo no other significant findings small bowel follow through no obstruction conservative management at this time. RADHA FONTANEZ DO 03/04/221934: Subjective Subjective/Events-last exam Patient states that she actually removed her NG tube last night. It was replaced. Patient states that her pain is improved compared to yesterday. But still present in right upper quadrant. She states that she feels like the NG tube been gagging her which is causing her to have emesis. She is passing gas. Currently NPO. Her small bowel follow-through demonstrated transit within to the colon at 45 minutes no evidence of high-grade obstruction. Denies any fever sweats chills shortness of breath or chest pain. Objective Exam General Appearance: No Apparent Distress, Chronically ill, Obese HEENT: PERRL/EOMI, Normal ENT Inspection Neck: Normal Inspection, Non Tender Respiratory: Chest Non Tender, No Accessory Muscle Use, No Respiratory Distress Cardiovascular: Regular Rate, Rhythm, No JVD Gastrointestinal: soft, tenderness (RUQ -less) Extremity: Normal Inspection, Non Tender 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: Alert, Oriented x3 Skin: Normal Color, Warm/Dry Lymphatic: No Adenopathy Assessment/Plan Assessment/Plan Assessment/Plan RUQ abdominal pain nausea and vomiting partial small bowel obstruction vs ileus Possible ulcer Patient passing gas and thinks NG tube causing nausea/pain will remove NG tube Possible ulcer on Protonix start liquid diet if patient not having nausea later today Ct changes suggestive of sbo no other significant findings small bowel follow through no obstruction continue conservative management at this time. Supervisory-Addendum Brief Verification & Attestation Participated in pt care: history, MDM, physical Personally performed: exam, history, MDM, supervision of care Care discussed with: Medical Student Procedures: n/a Results interpretation: Verified all documentation Verification and Attestation of Medical Student E/M Service A medical student performed and documented this service in my presence. I reviewed and verified all information documented by the medical student and made modifications to such information, when appropriate. I personally performed the physical exam and medical decision making. Radha Fontanez, Mar 04, 2022,19:36 BECCA JENNINGS Mar 04, 2022 06:33 RADHA FONTANEZ DO Mar 04, 2022 19:35
[2022-03-04] MEDS: NS IV 1000 ML 1,000 ML IV SCH ×3 (06:49→23:20)
[2022-03-04 07:42] VITALS: BP 131/78
[2022-03-04] MEDS: DOCUSATE SODIUM 100 MG (COLACE) CAP PO SCH ×2 (09:33→19:56)
[2022-03-04] MEDS: PANTOPRAZOLE 40 MG (PROTONIX) VIAL IV SCH ×2 (09:33→19:56)
[2022-03-04 12:21] VITALS: BP 135/80
--- NOTE | 2022-03-04 13:37 | Progress Note - Hospitalist ---
[facility] 03/04/22 1337: Subjective HPI/CC On Admission Date Seen by Provider: Mar 04, 2022 Time Seen by Provider: 09:30 CC: Abdominal pain HPI: This is a 51 yr old female, clinic pt of Dr. Nassar with multiple abdominal surgeries. She presents with presumed small bowel obstruction. Dr. Fontanez has been consulted. She is still having a lot of pain. She remains NPO on IV fluid. NG tube is in place. We will await Dr. Fontanez's plan. Subjective/Events-last exam Patient is a 51 yo F admitted after 4 weeks abdominal pain and found to have possible intermittent small bowel obstructions due to adhesions. She has a history of multiple abdominal surgeries including: cholycystectomy, tubal ligations, appendectomy, and multiple caesarian sections. She states that she is feeling about the same as she did yesterday but notes that her nausea and vomiting are significantly worse. She notes that her abdominal pain is around a 6 or 7 out of 10. She has not had a BM yet but is passing gas. Review of Systems General: No Chills, No Night Sweats HEENT: No Head Aches, No Visual Changes Pulmonary: No Dyspnea, No Cough Cardiovascular: No: Chest Pain, Palpitations, Lt Headedness Gastrointestinal: Nausea, Vomiting, Abdominal Pain; No: Diarrhea, Constipation Neurological: No: Change in speech, Confusion Focused Exam Sepsis Stage: Ruled Out Reason for ruling out sepsis: Patient does not meet SIRS criteria needed for sepsis diagnosis Objective Exam Vital Signs Vital Signs Date Time Temp Pulse Resp B/P (MAP) Pulse Ox O2 Delivery O2 Flow Rate FiO2 03/04/22 12:21 36.0 74 17 135/80 (98) 95 Room Air 03/02/22 19:24 21 Capillary Refill : Less Than 3 Seconds General Appearance: Anxious, Mild Distress, Obese Neck: Full Range of Motion, Normal Inspection, Non Tender, Supple; No Carotid Bruit, No JVD Respiratory: Chest Non Tender, Lungs Clear, Normal Breath Sounds, No Accessory Muscle Use, No Respiratory Distress Cardiovascular: Regular Rate, Rhythm, No Edema, No Gallop, No JVD, No Murmur, Normal Peripheral Pulses Gastrointestinal: No Organomegaly, Soft, Abnormal Bowel Sounds (Diminished but present), Distended, Tenderness (Tenderness to light palpation in RUQ and RLQ) Extremity: Normal Capillary Refill, Normal Inspection, Non Tender 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: Alert, Oriented x3, No Motor/Sensory Deficits, Normal Mood/Affect Skin: Normal Color, Warm/Dry Results/Procedures Lab Laboratory Tests 03/04/22 05:10 Patient resulted labs reviewed. Radiology Date of Exam:03/03/22 SMALL BOWEL STUDY ONLY INDICATION: Bowel obstruction, pain. COMPARISON: CT dated 03/02/2022. TECHNIQUE: Small bowel follow-through was performed on 03/03/2022. Imaging was performed before and after the administration of 120 mL of water mixed with 120 mL of Gastrografin instilled through the patient's nasoenteric catheter. FINDINGS: Fleet Operations Manager imaging demonstrates an enteric catheter present coiled within the body of the stomach. Surgical clips are present within the right upper abdomen. Gas and stool are noted throughout the colon including extending into the lower pelvis. No definite abnormally dilated loops of small bowel. After contrast was instilled through the nasogastric catheter, contrast is identified within the colon at 45 minutes. No definite pathologically enlarged loops of small bowel. The patient did experience pain during the examination with resulting emesis which slightly limits examination. No free intraperitoneal contrast. IMPRESSION: Small bowel transit time of less than 45 minutes; therefore, there is no evidence of high-grade bowel obstruction. No abnormally dilated loops of small bowel on this examination within the limits of the exam. The patient did experience emesis during the examination which slightly limits the exam. Additional findings as above. Dictated by: Dictated on workstation # [id number] Dict: 03/03/22 1325 Trans: 03/03/22 1454 [id number] Interpreted by: SPENSER AGUAYO MD Electronically signed by: SPENSER AGUAYO MD 03/03/22 1454 Date of Exam:03/02/22 CT ABDOMEN/PELVIS W PROCEDURE: CT abdomen and pelvis with contrast. TECHNIQUE: Multiple contiguous axial images were obtained through the abdomen and pelvis after administration of intravenous contrast. Auto Exposure Controls were utilized during the CT exam to meet ALARA standards for radiation dose reduction. All CT scans use one or more of the following dose optimizing techniques: Automated exposure control, MA and/or KvP adjustment based on patient size and exam type or iterative reconstruction. INDICATION: Abdominal pain. COMPARISON: Correlation is made with recent CT from 02/27/2022. FINDINGS: The lung bases are clear. Diffuse low attenuation throughout the liver is again noted consistent with hepatic steatosis. Gallbladder is surgically absent. No biliary ductal dilatation is seen. Pancreas and spleen are unremarkable. No adrenal mass is detected. Kidneys are unremarkable. There is no hydronephrosis. Aorta is nonaneurysmal. There is a small fat-containing umbilical hernia. Bowel loops demonstrate scattered mildly distended and fluid-filled small bowel loops in the lower abdomen. There are multiple normal-caliber small bowel loops present as well, and the possibility of small bowel obstruction cannot be entirely excluded. There is no free air. No free fluid or fluid collection is seen. Uterus and bladder are unremarkable. No definite inflammatory changes are seen. IMPRESSION: There are some fluid-filled mildly distended small bowel loops with normal-caliber small bowel loops present as well, and possibility of small bowel obstruction cannot be entirely excluded. Small bowel study would be useful for further evaluation, if clinically indicated. No other significant abnormality is identified. Dictated by: Dictated on workstation # [id number] Dict: 03/02/22 1548 Trans: 03/02/22 [id number] Interpreted by: LATONYA SHERIFF MD Electronically signed by: LATONYA SHERIFF MD 03/02/22 2520 Meds As listed in medications list. Promethazine and ondansetron for nausea. Pantoprazole for GERD Enoxaparin sodium for DVT prophylaxis Hydromorphone for pain Lorazepam NaCl for fluid replacement Assessment/Plan Assessment and Plan Assess & Plan/Chief Complaint Abdominal pain - no evidence of high grade bowel obstruction, continue pain management, bowel rest, remove NG tube. Surgical consult appreciated. Nausea and vomiting - continue treatment with promethazine and ondansetron Anxiety - continue treatment with benzodiazepines History of multiple abdominal surgeries DVT prophylaxis - enoxaparin sodium Clinical Quality Measures DVT/VTE Risk/Contraindication: VTE Addressed: Yes VTE Present on Admission: No LAINEY MCCALLUM DO 03/04/222042: Subjective Subjective/Events-last exam Pt is still having abdominal pain Nausea and vomiting continue NG tube will hopefully be able to be removed because that seems to be making her nauseated Labs have no concerns Supervisory-Addendum Brief Verification & Attestation Participated in pt care: history, MDM, physical Personally performed: exam, history, MDM, supervision of care Care discussed with: Medical Student Procedures: n/a Results interpretation: Verified all documentation Verification and Attestation of Medical Student E/M Service A medical student performed and documented this service in my presence. I reviewed and verified all information documented by the medical student and made modifications to such information, when appropriate. I personally performed the physical exam and medical decision making. Lainey Mccallum, Mar 04, 2022,20:44 [facility] Mar 04, 2022 13:37 LAINEY MCCALLUM DO Mar 04, 2022 20:43
[2022-03-04 15:47] VITALS: BP 131/74
[2022-03-04 20:10] VITALS: BP 123/72
[2022-03-05 00:44] VITALS: BP 131/82
[2022-03-05 04:15] VITALS: BP 127/77
[2022-03-05 05:46] LABS: BASOPHILS # (AUTO) 0.1 10^3/uL (0.0-0.1); BASOPHILS % (AUTO) 1 % (0-10); EOSINOPHILS # (AUTO) 0.2 10^3/uL (0.0-0.3); EOSINOPHILS % (AUTO) 3 % (0-10); HEMATOCRIT 37 % (35-52); HEMOGLOBIN 11.7 g/dL (11.5-16.0); LYMPHOCYTES # (AUTO) 2.7 10^3/uL (1.0-4.0); LYMPHOCYTES % (AUTO) 29 % (12-44); MEAN CORPUSCULAR HEMOGLOBIN 30 pg (25-34); MEAN CORPUSCULAR HGB CONC 32 g/dL (32-36); MEAN CORPUSCULAR VOLUME 95 fL (80-99); MONOCYTES # (AUTO) 0.7 10^3/uL (0.0-1.0); MONOCYTES % (AUTO) 8 % (0-12); NEUTROPHILS # (AUTO) 5.3 10^3/uL (1.8-7.8); NEUTROPHILS % (AUTO) 59 % (42-75); PLATELET COUNT 263 10^3/uL (130-400)
[2022-03-05 06:11] LABS: ALBUMIN 3.5 GM/DL (3.2-4.5); BILIRUBIN,TOTAL 0.6 MG/DL (0.1-1.0); CALCIUM 8.8 MG/DL (8.5-10.1); CREATININE SERUM 0.78 MG/DL (0.60-1.30); POTASSIUM 3.7 MMOL/L (3.6-5.0); TOTAL PROTEIN 6.2 GM/DL (6.4-8.2)
--- NOTE | 2022-03-05 06:42 | Progress Note - Surgery ---
[facility] 03/05/22 0642: Subjective Date Seen by a Provider: Mar 05, 2022 Time Seen by a Provider: 06:37 Subjective/Events-last exam Today pt reports she is feeling better rating her pain a 3/10 that can reach a 5/10 in her RUQ. She has had 3 BM since yesterday morning without pain or blood and continues to pass gas. Endorses NOLAND and sore throat post NGT but did stop vomiting and nausea improved after NGT removal. She agrees to start ambulating. Objective Exam Vital Signs Date Time Temp Pulse Resp B/P (MAP) Pulse Ox O2 Delivery O2 Flow Rate FiO2 03/05/22 04:15 36.4 72 20 127/77 (94) 97 Room Air 03/05/22 00:44 36.2 78 18 131/82 (98) 96 Room Air 03/04/22 20:40 Room Air 03/04/22 20:10 36.1 87 16 123/72 (89) 95 Room Air 03/04/22 15:47 36.4 83 16 131/74 (93) 94 Room Air 03/04/22 12:21 36.0 74 17 135/80 (98) 95 Room Air 03/04/22 08:00 Room Air 03/04/22 07:42 35.8 85 18 131/78 (95) 93 Room Air 03/04/22 07:02 78 I & O 03/05/22 07:00 Intake Total 2140 ml Output Total 850 ml Balance 1290 ml Capillary Refill : Less Than 3 Seconds General Appearance: No Apparent Distress, Chronically ill, Obese HEENT: PERRL/EOMI, Normal ENT Inspection Neck: Normal Inspection, Non Tender Respiratory: Chest Non Tender, No Accessory Muscle Use, No Respiratory Distress Cardiovascular: Regular Rate, Rhythm, No JVD Gastrointestinal: soft, tenderness (RUQ -less) Extremity: Normal Inspection, Non Tender 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: Alert, Oriented x3 Skin: Normal Color, Warm/Dry Lymphatic: No Adenopathy Results Lab Laboratory Tests 03/05/22 05:39: White Blood Count 9.0, Red Blood Count 3.85, Hemoglobin 11.7, Hematocrit 37, Mean Corpuscular Volume 95, Mean Corpuscular Hemoglobin 30, Mean Corpuscular Hemoglobin Concent 32, Red Cell Distribution Width 13.2, Platelet Count 263, Mean Platelet Volume 10.0, Immature Granulocyte % (Auto) 0, Neutrophils (%) (Auto) 59, Lymphocytes (%) (Auto) 29, Monocytes (%) (Auto) 8, Eosinophils (%) (Auto) 3, Basophils (%) (Auto) 1, Neutrophils # (Auto) 5.3, Lymphocytes # (Auto) 2.7, Monocytes # (Auto) 0.7, Eosinophils # (Auto) 0.2, Basophils # (Auto) 0.1, Immature Granulocyte # (Auto) 0.0, Sodium Level 139, Potassium Level 3.7, Chloride Level 108H, Carbon Dioxide Level 20L, Anion Gap 11, Blood Urea Nitrogen 9, Creatinine 0.78, Estimat Glomerular Filtration Rate 91, BUN/Creatinine Ratio 12, Glucose Level 119H, Calcium Level 8.8, Corrected Calcium 9.2, Total Bilirubin 0.6, Aspartate Amino Transf (AST/SGOT) 33, Alanine Aminotransferase (ALT/SGPT) 30, Alkaline Phosphatase 74, Total Protein 6.2L, Albumin 3.5 Assessment/Plan Assessment/Plan Assessment/Plan RUQ abdominal pain- improved nausea and vomiting- improved partial small bowel obstruction vs ileus Possible ulcer Patient passing gas and having BM Possible ulcer on Protonix clear liquids without issue Ct changes suggestive of sbo no other significant findings small bowel follow through no obstruction continue conservative management at this time. Clinical Quality Measures DVT/VTE Risk/Contraindication: VTE Addressed: Yes VTE Present on Admission: No RADHA FONTANEZ DO 03/06/22 0031: Subjective Subjective/Events-last exam Patient states she is starting to feel better. Her pain is decreasing in the right upper quadrant. Patient had bowel movements. She is tolerating clear liquids since having the NG tube removed. She is wanting food. She has no other complaints. Denies nausea vomiting fever sweats chills shortness of breath or chest pain at this time. Objective Exam General Appearance: No Apparent Distress, Chronically ill, Obese HEENT: PERRL/EOMI, Normal ENT Inspection Neck: Normal Inspection, Non Tender Respiratory: Chest Non Tender, No Accessory Muscle Use, No Respiratory Distress Cardiovascular: Regular Rate, Rhythm, No JVD Gastrointestinal: soft, tenderness (RUQ -less) Extremity: Normal Inspection, Non Tender 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: Alert, Oriented x3 Skin: Normal Color, Warm/Dry Lymphatic: No Adenopathy Assessment/Plan Assessment/Plan Assessment/Plan RUQ abdominal pain- improved nausea and vomiting- improved partial small bowel obstruction vs ileus Possible ulcer Patient passing gas and having BM Possible ulcer on Protonix clear liquids without issue- advance diet small bowel follow through no obstruction continue conservative management at this time. If tolerating diet and continues to improve home soon Supervisory-Addendum Brief Verification & Attestation Participated in pt care: history, MDM, physical Personally performed: exam, history, MDM, supervision of care Care discussed with: Medical Student Procedures: n/a Results interpretation: Verified all documentation Verification and Attestation of Medical Student E/M Service A medical student performed and documented this service in my presence. I reviewed and verified all information documented by the medical student and made modifications to such information, when appropriate. I personally performed the physical exam and medical decision making. Radha Fontanez, Mar 05, 2022,23:31 BECCA JENNINGS Mar 05, 2022 06:42 RADHA FONTANEZ DO Mar 06, 2022 00:31
[2022-03-05] MEDS: NS IV 1000 ML 1,000 ML IV SCH ×3 (08:03→23:36)
[2022-03-05] MEDS: PANTOPRAZOLE 40 MG (PROTONIX) VIAL IV SCH ×2 (08:04→20:03)
[2022-03-05] MEDS: ENOXAPARIN 40 MG/0.4 ML (LOVENOX) SYR SC SCH ×2 (08:04→20:03)
[2022-03-05] MEDS: DOCUSATE SODIUM 100 MG (COLACE) CAP PO SCH ×2 (08:04→20:04)
[2022-03-05 08:30] VITALS: BP 129/77
[2022-03-05] MEDS ORDERED: SIMETHICONE 80 MG (MYLICON) CHEW PO ONE (09:00)
[2022-03-05] MEDS ORDERED: SIMETHICONE 80 MG (MYLICON) CHEW PO PRN (10:00)
[2022-03-05 12:37] VITALS: BP 124/83
[2022-03-05] MEDS: ACETAMINOPHEN 325 MG TABLET PO PRN ×2 (13:19→23:36)
--- NOTE | 2022-03-05 14:19 | Progress Note - Hospitalist ---
[facility] 03/05/22 1419: Subjective HPI/CC On Admission Date Seen by Provider: Mar 05, 2022 Time Seen by Provider: 09:45 CC: Abdominal pain HPI: This is a 51 yr old female, clinic pt of Dr. Nassar with multiple abdominal surgeries. She presents with presumed small bowel obstruction. Dr. Fontanez has been consulted. She is still having a lot of pain. She remains NPO on IV fluid. NG tube is in place. We will await Dr. Fontanez's plan. Subjective/Events-last exam Patient is a 51 yo woman admitted after 4 weeks of right-sided abdominal pain and found to have possible intermittent small bowel obstructions due to adhesions. She has a history of multiple abdominal surgeries including a c holecystectomy, appendectomy, tubal ligation, and multiple caesarian sections. Initial abdominal CT noted some fluid-filled mildly distended small bowel loops with normal-caliber small bowel loops present as well without any other significant abnormalities identified. An NG tube was placed and a small bowel study was performed on 03/03. The small bowel study showed a transit time of less than 45 minutes, showing no evidence for high-grade bowel obstruction. No abnormally dilated loops of small bowel were seen on exam. Patient nausea and vomiting increased in severity until the NG tube was eventually removed, practically resolving these symptoms in their entirety. As of 03/05, telemetry has been discontinued, the patient has had 3 bowel movements, and is ambulating well throughout the hallways. She denies further N/V, blood in stool, lightheadedness, or chills. She reports continued mild right-sided abdominal pain as well as a headache that she relates to her lack of eating. She is inter ested in advancing her diet. Review of Systems General: No Chills, No Malaise HEENT: Head Aches; No Visual Changes Pulmonary: No Dyspnea, No Cough Cardiovascular: No: Chest Pain, Lt Headedness Gastrointestinal: Abdominal Pain (Mostly relegated to RUQ); No: Nausea, Vomiting, Melena, Hematochezia Neurological: No: Weakness, Numbness, Change in speech, Confusion Focused Exam Sepsis Stage: Ruled Out Reason for ruling out sepsis: Patient does not meet SIRS criteria needed for sepsis diagnosis Objective Exam Vital Signs Vital Signs Date Time Temp Pulse Resp B/P (MAP) Pulse Ox O2 Delivery O2 Flow Rate FiO2 03/05/22 12:37 35.4 64 19 124/83 (97) 96 Room Air 03/05/22 10:57 21 Capillary Refill : Less Than 3 Seconds General Appearance: No Apparent Distress, WD/WN, Obese Neck: Full Range of Motion, Normal Inspection, Non Tender, Supple; No Carotid Bruit, No JVD Respiratory: Chest Non Tender, Lungs Clear, Normal Breath Sounds, No Accessory Muscle Use, No Respiratory Distress Cardiovascular: Regular Rate, Rhythm, No Edema, No Gallop, No JVD, No Murmur, Normal Peripheral Pulses (Radial and dorsalis pedis) Gastrointestinal: Normal Bowel Sounds, No Organomegaly, No Pulsatile Mass, Soft, Tenderness (Mostly relegated to RUQ) Extremity: Normal Capillary Refill, Normal Inspection, Non Tender, No Calf Tenderness 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: Alert, Oriented x3, No Motor/Sensory Deficits, Normal Mood/Affect Skin: Normal Color, Warm/Dry Results/Procedures Lab Laboratory Tests 03/05/22 05:39 Patient resulted labs reviewed. Radiology No new imaging studies Meds As listed in medications list. Promethazine and ondansetron for nausea. Pantoprazole for GERD Enoxaparin sodium for DVT prophylaxis Hydromorphone for pain Lorazepam NaCl for fluid replacement Assessment/Plan Assessment and Plan Assess & Plan/Chief Complaint Abdominal pain - no evidence of high grade bowel obstruction, continue pain management, bowel rest, remove NG tube. Surgical consult appreciated. Advance diet under surgery's discretion. Nausea and vomiting - continue treatment with promethazine and ondansetron. Nausea and vomiting have mostly resolved since removal of NG tube. Anxiety - continue treatment with benzodiazepines History of multiple abdominal surgeries DVT prophylaxis - enoxaparin sodium Clinical Quality Measures DVT/VTE Risk/Contraindication: VTE Addressed: Yes VTE Present on Admission: No LAINEY MCCALLUM DO 03/06/22 0511: Assessment/Plan Assessment and Plan Assess & Plan/Chief Complaint Much improved status Supervisory-Addendum Brief Verification & Attestation Participated in pt care: history, MDM, physical Personally performed: exam, history, MDM, supervision of care Care discussed with: Medical Student Procedures: n/a Results interpretation: Verified all documentation Verification and Attestation of Medical Student E/M Service A medical student performed and documented this service in my presence. I reviewed and verified all information documented by the medical student and made modifications to such information, when appropriate. I personally performed the physical exam and medical decision making. Lainey Mccallum, Mar 06, 2022,05:11 [facility] Mar 05, 2022 14:19 LAINEY MCCALLUM DO Mar 06, 2022 05:11
[2022-03-05 16:01] VITALS: BP 165/74
[2022-03-05 19:30] VITALS: BP 147/84
[2022-03-06 00:43] VITALS: BP 153/72
[2022-03-06 03:14] VITALS: BP 142/74
[2022-03-06 04:19] VITALS: BP 140/74
[2022-03-06 06:07] LABS: BASOPHILS # (AUTO) 0.1 10^3/uL (0.0-0.1); BASOPHILS % (AUTO) 1 % (0-10); EOSINOPHILS # (AUTO) 0.3 10^3/uL (0.0-0.3); EOSINOPHILS % (AUTO) 4 % (0-10); HEMATOCRIT 35 % (35-52); HEMOGLOBIN 11.1 g/dL (11.5-16.0); LYMPHOCYTES # (AUTO) 2.5 10^3/uL (1.0-4.0); LYMPHOCYTES % (AUTO) 33 % (12-44); MEAN CORPUSCULAR HEMOGLOBIN 30 pg (25-34); MEAN CORPUSCULAR HGB CONC 32 g/dL (32-36); MEAN CORPUSCULAR VOLUME 94 fL (80-99); MONOCYTES # (AUTO) 0.5 10^3/uL (0.0-1.0); MONOCYTES % (AUTO) 7 % (0-12); NEUTROPHILS # (AUTO) 4.2 10^3/uL (1.8-7.8); NEUTROPHILS % (AUTO) 55 % (42-75); PLATELET COUNT 245 10^3/uL (130-400); WHITE BLOOD COUNT 7.6 10^3/uL (4.3-11.0)
[2022-03-06 06:37] LABS: ALBUMIN 3.5 GM/DL (3.2-4.5)
[2022-03-06 06:38] LABS: POTASSIUM 3.6 MMOL/L (3.6-5.0)
[2022-03-06 06:39] LABS: CALCIUM 8.6 MG/DL (8.5-10.1)
[2022-03-06 06:42] LABS: BILIRUBIN,TOTAL 0.4 MG/DL (0.1-1.0)
[2022-03-06 06:44] LABS: CREATININE SERUM 0.95 MG/DL (0.60-1.30)
[2022-03-06] MEDS: ENOXAPARIN 40 MG/0.4 ML (LOVENOX) SYR SC SCH (07:38)
[2022-03-06] MEDS: NS IV 1000 ML 1,000 ML IV SCH (07:38)
[2022-03-06 08:04] VITALS: BP 143/88
[2022-03-06] MEDS: PANTOPRAZOLE 40 MG (PROTONIX) VIAL IV SCH (08:31)
[2022-03-06] MEDS: DOCUSATE SODIUM 100 MG (COLACE) CAP PO SCH (08:32)
--- NOTE | 2022-03-06 10:50 | Progress Note - Surgery ---
[facility] 03/06/22 1050: Subjective Date Seen by a Provider: Mar 06, 2022 Time Seen by a Provider: 10:44 Subjective/Events-last exam Pt is doing better today. She reports no pain except when abdomen is palpated. Had 4 loose BM overnight without pain or blood, no issues urinating, she is p assing gas. She is walking more and this helps decrease any gas pain. She progressed to minced and moist diet and is doing well with this, no increased pain. Pt reports having a NOLAND that she attributes to not wearing her glasses as she does not have them with her here. The NOLAND resolves with Tylenol. Review of Systems General: No Chills; Appetite HEENT: Head Aches; No Visual Changes Pulmonary: No Dyspnea, No Pleuritic Chest Pain Cardiovascular: No: Chest Pain, Palpitations Gastrointestinal: Abdominal Pain; No: Constipation Genitourinary: No Dysuria, No Frequency Musculoskeletal: No: neck pain, shoulder pain Neurological: No: Weakness, Numbness Objective Exam Vital Signs Date Time Temp Pulse Resp B/P (MAP) Pulse Ox O2 Delivery O2 Flow Rate FiO2 03/06/22 08:04 36.2 57 20 143/88 (106) 95 Room Air 03/06/22 07:40 Room Air 03/06/22 04:19 36.2 57 18 140/74 (96) 95 Room Air 03/06/22 00:43 36.4 71 20 153/72 (99) 97 Room Air 03/05/22 20:10 Room Air 03/05/22 19:30 36.2 83 19 147/84 (105) 96 Room Air 03/05/22 16:01 36.1 71 20 165/74 (104) 95 Room Air 03/05/22 12:37 35.4 64 19 124/83 (97) 96 Room Air 03/05/22 10:57 97 Room Air 03/05/22 10:57 105 97 21 I & O 03/06/22 07:00 Intake Total 2030 ml Balance 2030 ml Capillary Refill : Less Than 3 Seconds General Appearance: No Apparent Distress, Chronically ill, Obese HEENT: PERRL/EOMI, Normal ENT Inspection Neck: Normal Inspection, Non Tender Respiratory: Chest Non Tender, No Accessory Muscle Use, No Respiratory Distress Cardiovascular: Regular Rate, Rhythm, No JVD Gastrointestinal: soft, tenderness (RUQ -less) Extremity: Normal Inspection, Non Tender 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: Alert, Oriented x3 Skin: Normal Color, Warm/Dry Lymphatic: No Adenopathy Results Lab Laboratory Tests 03/06/22 05:51: White Blood Count 7.6, Red Blood Count 3.70L, Hemoglobin 11.1L, Hematocrit 35, Mean Corpuscular Volume 94, Mean Corpuscular Hemoglobin 30, Mean Corpuscular Hemoglobin Concent 32, Red Cell Distribution Width 13.1, Platelet Count 245, Mean Platelet Volume 10.0, Immature Granulocyte % (Auto) 1, Neutrophils (%) (Auto) 55, Lymphocytes (%) (Auto) 33, Monocytes (%) (Auto) 7, Eosinophils (%) (Auto) 4, Basophils (%) (Auto) 1, Neutrophils # (Auto) 4.2, Lymphocytes # (Auto) 2.5, Monocytes # (Auto) 0.5, Eosinophils # (Auto) 0.3, Basophils # (Auto) 0.1, Immature Granulocyte # (Auto) 0.0, Sodium Level 141, Potassium Level 3.6, Chloride Level 112H, Carbon Dioxide Level 21, Anion Gap 8, Blood Urea Nitrogen 6L, Creatinine 0.95, Estimat Glomerular Filtration Rate 72, BUN/Creatinine Ratio 6, Glucose Level 115H, Calcium Level 8.6, Corrected Calcium 9.0, Total Bilirubin 0.4, Aspartate Amino Transf (AST/SGOT) 30, Alanine Aminotransferase (ALT/SGPT) 29, Alkaline Phosphatase 78, Total Protein 6.0L, Albumin 3.5 Assessment/Plan Assessment/Plan Assessment/Plan RUQ abdominal pain- improved nausea and vomiting- improved partial small bowel obstruction vs ileus possible ulcer patient passing gas and having BM continue Protonix minced and moist diet- tolerating well small bowel follow through no obstruction continue conservative management at this time if tolerating diet and continues to improve home soon Recommend EGD and colonoscopy outpatient Clinical Quality Measures DVT/VTE Risk/Contraindication: VTE Addressed: Yes VTE Present on Admission: No RADHA FONTANEZ DO 03/06/22 1126: Subjective Subjective/Events-last exam Patient is feeling better today. She has very minimal pain in the right upper quadrant. Patient is tolerating diet. Not having any nausea or vomiting. Patient wanting to go home. Denies fever sweats chills shortness of breath or chest pain. Objective Exam General Appearance: No Apparent Distress, Chronically ill, Obese HEENT: PERRL/EOMI Neck: Normal Inspection, Non Tender Respiratory: Chest Non Tender, No Accessory Muscle Use, No Respiratory Distress Cardiovascular: Regular Rate, Rhythm, No JVD Gastrointestinal: soft, tenderness (RUQ minimal) Extremity: Normal Inspection, Non Tender 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: Alert, Oriented x3 Skin: Normal Color, Warm/Dry Lymphatic: No Adenopathy Assessment/Plan Assessment/Plan Assessment/Plan RUQ abdominal pain- improved nausea and vomiting- improved partial small bowel obstruction vs ileus possible ulcer patient passing gas and having BM continue Protonix diet as tolerated small bowel follow through no obstruction continue conservative management at this time if tolerating diet and continues to improve home soon Recommend EGD and colonoscopy since due outpatient Supervisory-Addendum Brief Verification & Attestation Participated in pt care: history, MDM, physical Personally performed: exam, history, MDM, supervision of care Care discussed with: Medical Student Procedures: n/a Results interpretation: Verified all documentation Verification and Attestation of Medical Student E/M Service A medical student performed and documented this service in my presence. I reviewed and verified all information documented by the medical student and made modifications to such information, when appropriate. I personally performed the physical exam and medical decision making. Radha Fontanez, Mar 06, 2022,11:26 BECCA JENNINGS Mar 06, 2022 10:50 RADHA FONTANEZ DO Mar 06, 2022 11:26
[2022-03-06 11:20] VITALS: BP 148/89
--- NOTE | 2022-03-06 11:49 | Discharge Summary ---
Discharge Summary Hospital Course Was the Problem List Reviewed?: Yes Problems/Dx: (1) Intermittent small bowel obstruction due to adhesions Status: Acute (2) Epigastric abdominal pain Status: Acute Hospital Course Date of Admission: Mar 02, 2022 at 19:00 Admission Diagnosis : Family Physician/Provider: Damon Nassar MD Date of Discharge: 03/06/22 Discharge Diagnosis: [ ] Hospital Course: Pt had a lengthy hospital course. Pt was admitted for severe abdominal pain thought to be recurrent partial bowel obstruction. Small bowel series showed no evidence of any bowel obstruction. She was managed conservatively with IV fluids, IV pain medication, and antiemetics. Dr. Fontanez was consulted. Ultimately labs and vitals remained stable and she was deemed stable for discharge after tolerating diet. Labs and Pending Lab Test: Laboratory Tests 03/06/22 05:51: White Blood Count 7.6, Red Blood Count 3.70L, Hemoglobin 11.1L, Hematocrit 35, Mean Corpuscular Volume 94, Mean Corpuscular Hemoglobin 30, Mean Corpuscular Hemoglobin Concent 32, Red Cell Distribution Width 13.1, Platelet Count 245, Mean Platelet Volume 10.0, Immature Granulocyte % (Auto) 1, Neutrophils (%) (Auto) 55, Lymphocytes (%) (Auto) 33, Monocytes (%) (Auto) 7, Eosinophils (%) (Auto) 4, Basophils (%) (Auto) 1, Neutrophils # (Auto) 4.2, Lymphocytes # (Auto) 2.5, Monocytes # (Auto) 0.5, Eosinophils # (Auto) 0.3, Basophils # (Auto) 0.1, Immature Granulocyte # (Auto) 0.0, Sodium Level 141, Potassium Level 3.6, Chloride Level 112H, Carbon Dioxide Level 21, Anion Gap 8, Blood Urea Nitrogen 6L, Creatinine 0.95, Estimat Glomerular Filtration Rate 72, BUN/Creatinine Ratio 6, Glucose Level 115H, Calcium Level 8.6, Corrected Calcium 9.0, Total Bilirubin 0.4, Aspartate Amino Transf (AST/SGOT) 30, Alanine Aminotransferase (ALT/SGPT) 29, Alkaline Phosphatase 78, Total Protein 6.0L, Albumin 3.5 Home Meds Active Pantoprazole Sodium 40 Mg Tablet.dr 40 Mg PO DAILY 30 Days Levsin-Sl (Hyoscyamine Sulfate) 0.125 Mg Tab.subl 0.125 Mg SL Q6H 5 Days Reported Trazodone HCl 100 Mg Tablet 100 Mg PO HS PRN Iprat-Albut 0.5-3(2.5) mg/3 ml (Ipratropium/Albuterol Sulfate) 0.5 Mg-3 Mg (2.5 Mg Base)/3 Ml Ampul.neb 3 Ml IH Q6H PRN Aripiprazole 5 Mg Tablet 5 Mg PO 1200 Sertraline HCl 50 Mg Tablet 50 Mg PO DAILY Oxycodone-Acetaminophen 5-325 (Oxycodone HCl/Acetaminophen) 5 Mg-325 Mg Tablet 1 Tab PO Q6H PRN Ondansetron Odt (Ondansetron) 4 Mg Tab.rapdis 4 Mg SL Q6H PRN Lisinopril 20 Mg Tablet 20 Mg PO 1200 Atorvastatin Calcium 10 Mg Tablet 10 Mg PO HS Symbicort 80-4.5 Mcg Inhaler (Budesonide/Formoterol Fumarate) 80 Mcg-4.5 Mcg/Actuation Hfa.aer.ad 1 Puff INH DAILY ALPRAZolam 0.25 Mg Tablet 0.25 Mg PO DAILY Neurontin (Gabapentin) 300 Mg Capsule 300 Mg PO TID Ventolin Hfa (Albuterol Sulfate) 1 Puff Puff 2 Puff INH Q6H PRN Assessment/Pt Instructions PCP 1 week Discharge Planning: <30 minutes discharge planning Discharge Instructions Discharge Diet: Soft Diet Discharge Physical Examination Vital Signs Vital Signs Date Time Temp Pulse Resp B/P (MAP) Pulse Ox O2 Delivery O2 Flow Rate FiO2 03/06/22 11:20 36.5 64 20 148/89 (108) 95 Room Air 03/05/22 10:57 21 General Appearance: No Apparent Distress, WD/WN, Chronically ill, Obese Allergies: Coded Allergies: Penicillins (Verified Allergy, Unknown, 08/27/21) cephalexin (Verified Adverse Reaction, Unknown, 08/27/21) Discharge Summary Date of Admission Mar 02, 2022 at 19:00 Date of Discharge Discharge Date: Mar 06, 2022 Admission Diagnosis Assessment: Acute abdominal pain from small bowel obstruction Nausea and vomiting Anxiety Multiple abdominal surgeries in the past Plan: Supportive care Pain control Antiemetics Surgery consult appreciated Discharge Diagnosis Much improved status Clinical Quality Measures DVT/VTE Risk/Contraindication: VTE Addressed: Yes VTE Present on Admission: No PATRICK MCCALLUM DO Mar 06, 2022 11:49
[2022-03-06 12:52] VITALS: BP 148/89
== END 2022-03-06 11:48 | disposition home or self-care (01) ==
LOC: EDUNIT# 13:52 → ER FS 13:53 → UNDOADMOB 19:00 → 4TH 19:00 → UNDODISOB 03-06 11:48
PROVIDERS: ADMIT Internal Medicine; ATTEND Internal Medicine
DX: K56.609 Unspecified intestinal obstruction, unspecified as to partial versus complete obstruction (principal); F41.9 Anxiety disorder, unspecified; Z28.311 Partially vaccinated for COVID-19; Z79.899 Other long term (current) drug therapy
CPT/HCPCS: 36415; 71045 ×2; 74177; 74250; 80053 ×5; 81000; 83690; 85025 ×5; 94760 ×2; 96361; 96372 ×5; 96374; 96375 ×3; 96376 ×6; 99284; G0378; Q9967

== ENCOUNTER 2022-04-09 05:42 | Outpatient (CLI) | payer OTHER ==
[~2022-04-09] VITALS: Ht 170.2 cm; Wt 126.6 kg
[~2022-04-09 05:42] MED LIST changes: +ARIP5TAB57 PO; +IPRA3AMP31 IH
== END 2022-04-09 08:43 | disposition home or self-care (01) ==
LOC: PREOP 05:42
PROVIDERS: ATTEND Surgery
DX: Z01.818 Encounter for other preprocedural examination (principal); R10.11 Right upper quadrant pain; R19.4 Change in bowel habit

== ENCOUNTER 2022-04-17 12:58 | Day surgery (SDC) | payer OTHER ==
[~2022-04-17] VITALS: Ht 170.2 cm; Wt 126.6 kg
[2022-04-17] MEDS ORDERED: LACTATED RINGERS 1,000 ML IV STA (13:02)
--- NOTE | 2022-04-17 13:10 | Progress Note-Pre Operative ---
Pre-Operative Progress Note Date of Available H&P: Mar 23, 2022 Date H&P Reviewed: Apr 17, 2022 Time H&P Reviewed: 13:10 History & Physical: H&P Reviewed, Patient Examed Changes from last HP No changes Pre-Operative Diagnosis: altered bowel function RADHA KELSEY DO Apr 17, 2022 13:10
[2022-04-17 13:15] VITALS: BP 140/80
[2022-04-17] MEDS ORDERED: PROPOFOL INJECTION 50 ML IV ONE (13:38)
--- NOTE | 2022-04-17 14:08 | Discharge Inst-Simple/Standard ---
Discharge Inst-Standard Patient Instructions/Follow Up Plan of Care/Instructions/FU: Follow-up with Dr. Fontanez in two weeks at outpatient clinic Activity as Tolerated: Yes Discharge Diet: No Restrictions, Regular Diet RADHA FONTANEZ DO Apr 17, 2022 14:08
--- NOTE | 2022-04-17 14:13 | Anesthesia-General Post-Op ---
MAC Patient Condition Mental Status/LOC: Same as Preop Cardiovascular: Satisfactory Nausea/Vomiting: Absent Respiratory: Satisfactory Pain: Controlled Complications: Absent Post Op Complications Complications None Follow Up Care/Instructions Patient Instructions None needed. Anesthesiology Discharge Order Discharge Order Patient is doing well, no complaints, stable vital signs, no apparent adverse anesthesia problems. No complications reported per nursing. RAINER MOSQUEDA CRNA Apr 17, 2022 14:13
[2022-04-17 14:15] VITALS: BP 112/72
[2022-04-17 14:20] VITALS: BP 128/75
[2022-04-17 14:55] VITALS: BP 128/75
--- NOTE | 2022-04-18 01:08 | OPERATIVE REPORT ---
DATE OF SERVICE: 04/17/2022 PREOPERATIVE DIAGNOSES: Change in bowel habits, right upper quadrant abdominal pain. POSTOPERATIVE DIAGNOSIS: Transverse colon polyp x2. PROCEDURE: Colonoscopy with hot biopsy polypectomy x2. SURGEON: Radha Fontanez DO ANESTHESIA: Per ZONING ADMINISTRATOR. ESTIMATED BLOOD LOSS: None. COMPLICATIONS: None. INDICATIONS: The patient is a 51-year-old female who had a change in bowel habits and also right upper quadrant abdominal pain. She understands risks and benefits of procedure and wishes to proceed. Consent was signed and on the chart. DESCRIPTION OF PROCEDURE: The patient was taken to the endoscopy suite, placed in the left lateral recumbent position and a timeout was performed. Digital rectal exam was performed. No palpable polyps, masses or ulcerations. Scope was inserted in the rectum and advanced all the way to the cecum with minimal difficulty. Prep was adequate. Scope was slowly retracted back. No polyps, masses, ulcerations within the cecum, ascending colon and the transverse colon. Two small polyps were present, which hot biopsy polypectomies were performed. Scope was then continually retracted back. No polyps, masses, or ulcerations within the remainder of the transverse, descending and sigmoid colon. Once in the rectum, scope was retroflexed noting no other pathology. Scope was returned to its normal position and slowly withdrawn to completely remove. The patient tolerated the procedure well with no complications. She was taken to recovery room in stable condition. RECOMMENDATIONS: The patient will need repeat colonoscopy in 5 years, any issues before that be seen at that time. We will see how her symptoms are doing. Follow up in 2 weeks and call for pathology.. Job ID: [id number] DocumentID: [id number] Dictated Date: 04/17/2022 14:12:09 Steam Distribution Supervisor Date: 04/18/2022 01:06:00 Dictated By: RADHA FONTANEZ DO
== END 2022-04-17 14:55 | disposition home or self-care (01) ==
LOC: ENDO 12:58
PROVIDERS: ATTEND Surgery
DX: D12.3 Benign neoplasm of transverse colon (principal); E66.01 Morbid (severe) obesity due to excess calories; Z68.41 Body mass index [BMI] 40.0-44.9, adult

== ENCOUNTER → 2022-05-08 | Outpatient (CLI) | payer OTHER ==
--- NOTE | 2022-05-08 15:44 | Diagnostic Imaging Report ---
EXAMINATION: MRI of the abdomen without contrast. MRCP TECHNIQUE: Multiplanar, multisequence MR images of the abdomen were obtained without intravenous contrast including 3D MIP MRCP images generated at an independent workstation. HISTORY: UPPER ABD PAIN COMPARISON: 03/02/2022. FINDINGS: Liver: There is diffuse loss of signal on [id number] images, compatible with hepatic steatosis. The liver is normal in contour. Gallbladder and Bile Ducts: The gallbladder is surgically absent. No biliary ductal dilatation or filling defect. Pancreas: Normal in signal and morphology. No duct dilation. Spleen: Normal. Adrenal glands: Normal in configuration. No nodule. Kidneys: Normal in size and contour. No hydronephrosis. Lymph Nodes: No abdominal lymphadenopathy. Other: No ascites. IMPRESSION: 1. Hepatic steatosis. 2. Otherwise, unremarkable MRCP. Dictated by: Dictated on workstation # [id number]
== END ==
LOC: RAD 14:45
PROVIDERS: ATTEND Surgery
DX: K76.0 Fatty (change of) liver, not elsewhere classified (principal)
CPT/HCPCS: 74181

== ENCOUNTER 2022-08-16 13:25 | Emergency (ER) | payer OTHER ==
[2022-08-16 13:42] LABS: BASOPHILS # (AUTO) 0.1 10^3/uL (0.0-0.1); BASOPHILS % (AUTO) 1 % (0-10); EOSINOPHILS # (AUTO) 0.2 10^3/uL (0.0-0.3); EOSINOPHILS % (AUTO) 1 % (0-10); HEMATOCRIT 42 % (35-52); HEMOGLOBIN 13.4 g/dL (11.5-16.0); LYMPHOCYTES # (AUTO) 4.3 10^3/uL (1.0-4.0); LYMPHOCYTES % (AUTO) 31 % (12-44); MEAN CORPUSCULAR HEMOGLOBIN 30 pg (25-34); MEAN CORPUSCULAR HGB CONC 32 g/dL (32-36); MEAN CORPUSCULAR VOLUME 94 fL (80-99); MEAN PLATELET VOLUME 9.6 fL (9.0-12.2); MONOCYTES % (AUTO) 7 % (0-12); NEUTROPHILS # (AUTO) 8.4 10^3/uL (1.8-7.8); NEUTROPHILS % (AUTO) 60 % (42-75); PLATELET COUNT 341 10^3/uL (130-400); WHITE BLOOD COUNT 13.9 10^3/uL (4.3-11.0)
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
[2022-08-16 13:59] LABS: ALBUMIN 4.2 GM/DL (3.2-4.5); BILIRUBIN,TOTAL 0.3 MG/DL (0.1-1.0); CALCIUM 9.2 MG/DL (8.5-10.1); CREATININE SERUM 0.92 MG/DL (0.60-1.30); MAGNESIUM 1.8 MG/DL (1.6-2.4); POTASSIUM 4.1 MMOL/L (3.6-5.0); TOTAL PROTEIN 7.3 GM/DL (6.4-8.2)
--- NOTE | 2022-08-16 13:59 | Diagnostic Imaging Report ---
EXAMINATION: Chest 1 view HISTORY: Chest pain COMPARISON: 03/02/2022 FINDINGS: Heart size and pulmonary vasculature are normal. The lungs are clear without consolidation, pleural effusion, or pneumothorax. The osseous structures are intact. IMPRESSION: 1. No acute radiographic abnormality in the chest. Dictated by: Dictated on workstation # [id number]
[2022-08-16] MEDS ORDERED: KETOROLAC 15 MG/ML VIAL IVP ONE (14:15)
[2022-08-16 14:19] VITALS: BP 115/68
== END 2022-08-16 14:19 | disposition home or self-care (01) ==
LOC: EDUNIT# 13:25 → ER FS 13:28
DX: R07.89 Other chest pain (principal); E66.9 Obesity, unspecified; Z68.41 Body mass index [BMI] 40.0-44.9, adult; Z86.16 Personal history of COVID-19; Y04.8XXA Assault by other bodily force, initial encounter
CPT/HCPCS: 36415; 71045; 80053; 83735; 84484; 85025; 93005

== ENCOUNTER 2022-10-28 05:28 | Outpatient (CLI) | payer OTHER ==
[~2022-10-28] VITALS: Ht 170.2 cm; Wt 124.1 kg
[2022-10-28] MEDS ORDERED: ACHD5005 PO (11:53)
[2022-10-28] MEDS ORDERED: METF-397 PO (12:02)
== END 2022-10-28 13:55 | disposition home or self-care (01) ==
LOC: PREOP 05:28
PROVIDERS: ATTEND Orthopaedic Surgery
DX: Z01.818 Encounter for other preprocedural examination (principal)

== ENCOUNTER 2022-11-04 07:22 | Day surgery (SDC) | payer OTHER ==
--- NOTE | 2022-10-28 09:18 | HISTORY AND PHYSICAL ---
ADMISSION HISTORY AND PHYSICAL This will be for outpatient surgery on 11/04/2022 for right rotator cuff repair. HISTORY: The patient is a 52-year-old right hand dominant female with a known tear of her right shoulder rotator cuff. She reports that she has been having some pain, but fell about 2 months ago and since then has had weakness and pain with overhead activities. An MRI, which was obtained, which revealed a large retracted supraspinatus tear. Due to functional impairment and failure to improve with conservative measures, the patient elected to proceed with surgical intervention. REVIEW OF SYSTEMS: No chest pain, no shortness of breath. No dysuria. PAST MEDICAL HISTORY: Hypertension, asthma, arrhythmia, depression, pneumonia, COPD. PAST SURGICAL HISTORY: Appendectomy, breast biopsy, , cholecystectomy, appendectomy, hemorrhoidectomy and ankle ORIF. FAMILY HISTORY: Depression. PRIMARY CARE PROVIDER: Dr. Nassar. MEDICATIONS: Abilify, gabapentin, metoprolol, trazodone, Zoloft, tramadol, pantoprazole, metformin, lisinopril, albuterol, atorvastatin, aripiprazole and vitamin D. ALLERGIES: LEVAQUIN, CEPHALEXIN, LATEX GLOVES, PENICILLIN. SOCIAL HISTORY: The patient denies alcohol and tobacco use. PHYSICAL EXAMINATION: GENERAL: The patient is well-developed, well-nourished, in no acute distress. HEENT: Normocephalic, atraumatic. Pupils are equal, round and reactive to light. Oropharynx is clear. NECK: Supple, with no lymphadenopathy. LUNGS: Clear to auscultation bilaterally. HEART: Regular rate and rhythm. ABDOMEN: Soft, nontender, nondistended. EXTREMITIES: Right shoulder demonstrates weakness with abduction and external rotation. She has a positive Neer's and positive Koch sign. She has pain beyond 90 degrees of forward elevation, but is able to fully elevate externally and internally rotate the arm. IMPRESSIONS: Large right rotator cuff tear. PLAN: His right shoulder arthroscopy with open rotator cuff repair. The risks, benefits, options, ramifications and recovery have been discussed at length with the patient. She understands and wishes to proceed. Job ID: [id number] DocumentID: [id number] Dictated Date: 10/19/2022 12:34:55 Supervisor Dehydrogenation Date: 10/19/2022 14:15:00 Dictated By: BECKY HUTCHISON MD
[2022-11-04] VITALS (11 sets, daily range): BP systolic 106–166; BP diastolic 3–99
[~2022-11-04] VITALS: Ht 170.2 cm; Wt 124.1 kg
[~2022-11-04 07:22] MED LIST changes: +METF-397 PO
[2022-11-04] MEDS ORDERED: oxyCODONE/APAP 5/325MG (PERCOCET 5) TABLET PO PRN (07:30)
[2022-11-04] MEDS ORDERED: MIDAZOLAM 2 MG/2 ML (VERSED) VIAL IV ONE (08:00)
[2022-11-04] MEDS ORDERED: LACTATED RINGERS 1,000 ML IV PRN (08:30)
[2022-11-04] MEDS ORDERED: CLINDAMYCIN 600 MG/50 ML IVPB 50 ML IV ONE (08:30)
[2022-11-04] MEDS ORDERED: ONDANSETRON 4 MG/2 ML (SDV) Z0FRAN ONE ×2 (09:12→09:42)
[2022-11-04] MEDS ORDERED: SCOPOLAMINE 1.5 MG (TRANSDERM-SCOP) PATCH ONE (09:12)
[2022-11-04] MEDS ORDERED: FAMOTIDINE 20MG/2ML IV (PEPCID) ONE (09:13)
[2022-11-04] MEDS ORDERED: SCOPOLAMINE 1.5 MG (TRANSDERM-SCOP) PATCH TOP ONE (09:15)
[2022-11-04] MEDS ORDERED: FAMOTIDINE 20MG/2ML IV (PEPCID) IV ONE (09:15)
[2022-11-04] MEDS ORDERED: ONDANSETRON 4 MG/2 ML (SDV) Z0FRAN IV ONE (09:15)
--- NOTE | 2022-11-04 09:22 | Progress Note-Pre Operative ---
Pre-Operative Progress Note Date of Available H&P: Oct 28, 2022 Date H&P Reviewed: Nov 04, 2022 Time H&P Reviewed: 09:06 Changes from last HP none Pre-Operative Diagnosis: right rotator cuff tear BECKY HUTCHISON MD Nov 04, 2022 09:22
--- NOTE | 2022-11-04 09:23 | Progress Note-Post Operative ---
Post-Operative Progess Note Surgeon (s)/Dye Range Tender (s) Surgeon BECKY HUTCHISON MD Dye Range Tender: Norbert Rodriguez Pre-Operative Diagnosis right rotator cuff tear Post-Operative Diagnosis right rotator cuff and SLAP tear Procedure & Operative Findings Date of Procedure 11/04/22 Procedure Performed/Findings right shoulder arthroscopic acromioplasty and biceps tenotomy and open RCR Anesthesia Type GETA Estimated Blood Loss Estimated blood loss (mL): minimal Specimens/Packing Specimens Removed none Packing: none BECKY HUTCHISON MD Nov 04, 2022 09:23
[2022-11-04] MEDS ORDERED: SEVOFLURANE (ULTANE) 15 ML INHAL SOLN ONE ×2 (09:42→11:00)
[2022-11-04] MEDS ORDERED: LIDOCAINE PF 2% 5 ML (XYLOCAINE) VIAL ONE (09:42)
[2022-11-04] MEDS ORDERED: proPOfol 200 MG/20 ML (DIPRIVAN) VIAL IV ONE (09:42)
[2022-11-04] MEDS ORDERED: fentaNYL INJ 100 MCG/2 ML AMP ONE ×2 (09:42→10:26)
[2022-11-04] MEDS ORDERED: MIDAZOLAM 2 MG/2 ML (VERSED) VIAL ONE (09:42)
[2022-11-04] MEDS ORDERED: morphine PF (DURAMORPH) 10 MG/10 ML AMP ONE (09:43)
[2022-11-04] MEDS ORDERED: BUPIVACAINE 0.25% 30 ML (SENSORCAINE) VIAL ONE (09:43)
[2022-11-04] MEDS ORDERED: BUPIVACAINE 0.25% 30 ML (SENSORCAINE) VIAL INJ ONE (10:40)
[2022-11-04] MEDS ORDERED: morphine PF (DURAMORPH) 10 MG/10 ML AMP INJ ONE (10:41)
--- NOTE | 2022-11-04 11:06 | Anesthesia-General Post-Op ---
General Patient Condition Mental Status/LOC: Same as Preop Cardiovascular: Satisfactory Nausea/Vomiting: Absent Respiratory: Satisfactory Pain: Controlled Complications: Absent Post Op Complications Complications None Follow Up Care/Instructions Patient Instructions None needed. Anesthesia/Patient Condition Patient Condition Patient is doing well, no complaints, stable vital signs, no apparent adverse anesthesia problems. No complications reported per nursing. REBEL RICHARDSON CRNA Nov 04, 2022 11:06
[2022-11-04] MEDS ORDERED: MEPERIDINE (DEMEROL) INJ 50 MG/ML IVP ONE (11:15)
[2022-11-04] MEDS ORDERED: ONDANSETRON 4 MG/2 ML (SDV) Z0FRAN IVP PRN (11:15)
[2022-11-04] MEDS ORDERED: morphine INJ 10 MG/ML 1ML (SYR OR VIAL) IVP ONE (11:15)
[2022-11-04] MEDS ORDERED: HYDROmorphone 2 MG/ML VIAL (DILAUDID) IV ONE (11:15)
--- NOTE | 2022-11-04 16:28 | OPERATIVE REPORT ---
DATE OF SERVICE: 11/04/2022 PREOPERATIVE DIAGNOSES: 1. Right rotator cuff tear. 2. Right shoulder SLAP tear. POSTOPERATIVE DIAGNOSES: 1. Right rotator cuff tear. 2. Right shoulder SLAP tear. PROCEDURES: 1. Right shoulder open rotator cuff repair. 2. Right shoulder arthroscopic biceps tenotomy. 3. Right shoulder arthroscopic acromioplasty. SURGEON: Manuel Hutchison MD DEDICATED LOCAL TRUCK DRIVER: Norbert Rodriguez, who assisted throughout the procedure and closed the incisions. ANESTHESIA: General endotracheal by Rigo Love CRNA. ESTIMATED BLOOD LOSS: Minimal. DRAINS: None. COMPLICATIONS: None. POSTOPERATIVE PLAN: Sling wear and passive range of motion for 4 weeks. The patient was transported to the recovery room in awake and in stable condition. STATEMENT OF MEDICAL NECESSITY: The patient is a 52-year-old female with left shoulder pain and weakness. An MRI revealed a full-thickness supraspinatus tear. She tried rest, activity modifications, anti-inflammatories without relief. Due to functional impairment and failure to improve with conservative measures, the patient elected to proceed with surgical intervention. Examination under anesthesia revealed forward elevation to 170 degrees, external rotation of 85 degrees, internal rotation of 75 degrees. Arthroscopic findings demonstrated a 2 x 1 cm full-thickness supraspinatus tear anteriorly. There was a type 2 SLAP tear. The remaining labrum was intact. The glenoid and humeral head demonstrated no gross chondral abnormalities. The subacromial space demonstrated dense bursitis with sloping of the anterolateral acromion. DESCRIPTION OF PROCEDURE: After risks and benefits of the procedure were discussed and questions were answered, informed consent signed and placed on chart. The operative site was confirmed in the preoperative holding area, initialed by surgeon. The patient was then transferred to the operating room and after adequate levels of general endotracheal anesthetic were obtained, a timeout was called, confirming the operative site. Examination under anesthesia was performed with the above findings noted. Right shoulder and upper extremity were prepped and draped in the usual sterile fashion. The shoulder joint was injected with 20 mL of fluid as was the subacromial space. A standard posterior portal was placed. Diagnostic arthroscopy was carried out with above findings noted. Under direct visualization, anterior portal was created in the interval between biceps, subscapularis and glenoid. The biceps anchor was released. The stump was debrided with a shaver. The scope was then redirected in the subacromial space. A lateral portal was created. The acromion was planed to a flat type 1 acromion and a bursectomy was performed. The lateral portal was then extended. The rotator cuff tear was mobilized. A single corkscrew anchor was placed and a modified Partha-Conner repair was performed. An excellent repair was performed with no undue tension noted with arm at the side. The wound was copiously irrigated. The deltoid was repaired in a toee-rn-afpe fashion using #2 FiberWire in [id number] interrupted fashion. The wound was further irrigated, 2-0 Vicryl was used in the subcutaneous tissue. Skin was closed with 4-0 nylon in a running alternating horizontal mattress fashion. The portal sites were closed with 4-0 nylon in simple interrupted fashion. A soft dressing and sling were applied and the patient was transferred to the recovery room awake and in stable condition. Job ID: [id number] DocumentID: [id number] Dictated Date: 11/04/2022 11:11:51 Cold Patcher Date: 11/04/2022 15:41:00 Dictated By: MANUEL HUTCHISON MD
== END 2022-11-04 13:49 | disposition home or self-care (01) ==
LOC: SDC 07:22
PROVIDERS: ATTEND Orthopaedic Surgery
DX: M75.121 Complete rotator cuff tear or rupture of right shoulder, not specified as traumatic (principal); S43.431A Superior glenoid labrum lesion of right shoulder, initial encounter; M75.51 Bursitis of right shoulder; E66.01 Morbid (severe) obesity due to excess calories; Z68.41 Body mass index [BMI] 40.0-44.9, adult; X58.XXXA Exposure to other specified factors, initial encounter
CPT/HCPCS: 23412; 29822; 29826; 82947; 87081; C1713

== ENCOUNTER 2023-02-04 12:52 | Emergency (ER) | payer OTHER ==
[~2023-02-04] VITALS: Ht 170.1 cm; Wt 129.4 kg
[2023-02-04 13:33] LABS: BASOPHILS # (AUTO) 0.1 10^3/uL (0.0-0.1); BASOPHILS % (AUTO) 1 % (0-10); EOSINOPHILS # (AUTO) 0.2 10^3/uL (0.0-0.3); EOSINOPHILS % (AUTO) 2 % (0-10); HEMATOCRIT 42 % (35-52); HEMOGLOBIN 13.2 g/dL (11.5-16.0); LYMPHOCYTES # (AUTO) 5.1 10^3/uL (1.0-4.0); LYMPHOCYTES % (AUTO) 33 % (12-44); MEAN CORPUSCULAR HEMOGLOBIN 29 pg (25-34); MEAN CORPUSCULAR HGB CONC 32 g/dL (32-36); MEAN CORPUSCULAR VOLUME 93 fL (80-99); MEAN PLATELET VOLUME 9.9 fL (9.0-12.2); MONOCYTES # (AUTO) 1.3 10^3/uL (0.0-1.0); MONOCYTES % (AUTO) 8 % (0-12); NEUTROPHILS # (AUTO) 8.5 10^3/uL (1.8-7.8); NEUTROPHILS % (AUTO) 56 % (42-75); PLATELET COUNT 375 10^3/uL (130-400); WHITE BLOOD COUNT 15.3 10^3/uL (4.3-11.0)
--- NOTE | 2023-02-04 13:39 | Diagnostic Imaging Report ---
EXAMINATION: Chest 2 view HISTORY: Short of breath. COMPARISON: 08/16/2022. FINDINGS: The lungs are clear without edema or pneumonia. No pleural effusion or pneumothorax. Heart size is normal. IMPRESSION: 1. Clear lungs. Dictated by: Dictated on workstation # [id number]
--- NOTE | 2023-02-04 13:56 | ED General ---
General Chief Complaint: Respiratory Problems Stated Complaint: SENT BY PSYCHIATRIC SOA Nursing Triage Note: ARRIVES FROM PSYCHIATRIC WITH A C/O SOB, WAS SENT OVER BY HER PROVIDER, PATIENT STATES SHE WAS TOLD SHE HAS A BLOOD CLOT CAUSING HER SHORTNESS OF BREATH. REPORT FROM PSYCHIATRIC STATES PATIENT WAS SOA, 97% ON ROOM AIR, EKG SHOWED TACHYCARDIA @ 130BPM AND ORTHOSTATIC VS POSITIVE. Source of Information: Patient Exam Limitations: No Limitations History of Present Illness Date Seen by Provider: Feb 04, 2023 Time Seen by Provider: 13:10 Initial Comments This 52 year old woman presents to the ER with complaints of persistent dyspnea over the past 3 weeks. She has seen Dr. Dee and been on 2 rounds of antibiotics as well as a round of prednisone. She did have some improvement after the second round of medications but worsened again 4 days ago. She went to the walk-in clinic today and was deferred to the emergency room. She feels congested but denies any coughing. She has been clearing her throat and bringing up some green mucus. She denies chest pain, fever, nausea, vomiting, or diarrhea. She has been using albuterol breathing treatments without much improvement. She sometimes has some substernal pain with deep breathing. She otherwise denies chest pain. Allergies and Home Medications Allergies Coded Allergies: Penicillins (Verified Allergy, Unknown, 02/04/23) cephalexin (Verified Adverse Reaction, Unknown, 02/04/23) Patient Home Medication List Home Medication List Reviewed: Yes ALPRAZolam (ALPRAZolam) 0.25 Mg Tablet, 0.25 MG PO DAILY, (Reported) Entered as Reported by: ROLANDO AMADOR on 10/10/20 1530 Albuterol Sulfate (Ventolin Hfa) 1 Puff Puff, 2 PUFF INH Q6H PRN for SHORTNESS OF BREATH, (Reported) Entered as Reported by: TESSA HANEY on 01/24/19 1047 Budesonide/Formoterol Fumarate (Symbicort 80-4.5 Mcg Inhaler) 80 Mcg-4.5 Mcg/Actuation Hfa.aer.ad, 1 PUFF INH DAILY, (Reported) Entered as Reported by: MAX SHEPHERD on 02/27/22 0251 Fluticasone Propionate (Flonase Allergy Relief) 50 Mcg/Actuation Greene.susp, 2 SPRAY NSEACH DAILY Prescribed by: CARROLL ANTON on 02/04/23 1526 Gabapentin (Neurontin) 300 Mg Capsule, 300 MG PO TID, (Reported) Entered as Reported by: IARSEMA MAGUIRE on 11/15/19 0952 Hydrocodone/Acetaminophen (Hydrocodone-Acetamin 5-325 mg) 5 Mg-325 Mg Tablet, 1 TAB PO Q6H PRN for PAIN-MODERATE (5-7), (Reported) Entered as Reported by: Stephy Cardenas on 10/28/22 1153 Ipratropium/Albuterol Sulfate (Iprat-Albut 0.5-3(2.5) mg/3 ml) 0.5 Mg-3 Mg (2.5 Mg Base)/3 Ml Ampul.neb, 3 ML IH Q6H PRN for SHORTNESS OF BREATH Prescribed by: CARROLL ANTON on 02/04/23 1526 Lisinopril (Lisinopril) 20 Mg Tablet, 20 MG PO 1200, (Reported) Entered as Reported by: MAX SHEPHERD on 02/27/22 0251 Metformin HCl (Metformin HCl) 500 Mg Tablet, 500 MG PO BID WITH MEALS, (Reported) Entered as Reported by: Stephy Cardenas on 10/28/22 1202 Pantoprazole Sodium (Pantoprazole Sodium) 40 Mg Tablet.dr, 40 MG PO DAILY Prescribed by: ARIANA GONZALEZ on 02/27/22 0305 Sertraline HCl (Sertraline HCl) 50 Mg Tablet, 50 MG PO DAILY, (Reported) Entered as Reported by: ROLANDO AMADOR on 03/03/22 1507 Trazodone HCl (Trazodone HCl) 100 Mg Tablet, 100 MG PO HS PRN for SLEEP, (Reported) Entered as Reported by: ROLANDO AMADOR on 03/03/22 1507 Review of Systems Review of Systems Constitutional: no symptoms reported EENTM: no symptoms reported Respiratory: see HPI Cardiovascular: no symptoms reported Gastrointestinal: no symptoms reported Genitourinary: no symptoms reported Musculoskeletal: no symptoms reported Skin: no symptoms reported Psychiatric/Neurological: No Symptoms Reported Hematologic/Lymphatic: No Symptoms Reported Immunological/Allergic: no symptoms reported Past Mknaxwi-Fzjknc-Tnaqmy Hx Patient Social History Tobacco Use?: No Use of E-Cig and/or Vaping dev: No Substance use?: No Alcohol Use?: No Pt feels they are or have been: No Immunizations Up To Date Tetanus Booster (TDap): Less than 5yrs Influenza Vaccine Up-to-Date: No; Not Current First/Initial COVID19 Vaccinat: 05/23 Second COVID19 Vaccination Nathan: 06/23 Third COVID19 Vaccination Date: 05/23 Seasonal Allergies Seasonal Allergies: No Past Medical History Surgery/Hospitalization HX: Cholecystectomy, Appendectomy, X 2, Ankle surgery, COPD, Anxiety, HTN, Obesity, 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, Hyperlipidemia, Neuropathy; Type 2 DM Surgeries: Yes (c/s x2, hemorrhoidectomy) Appendectomy, Section, Gallbladder, Tubal Ligation Respiratory: Yes COPD Currently Using CPAP: No Currently Using BIPAP: No Cardiac: Yes Hypertension, Syncope Neurological: Yes Neuropathy 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 Disorders: No Female 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 Disorders: Denies [employer] History: Tubal Ligation, Menopausal Sexually Transmitted Disease: No Genitourinary: Yes UTI-Chronic Gastrointestinal: No Abdominal Hernia, Gastroesophageal Reflux, Hemorrhoids, Polyps, Gall Bladder Disease Musculoskeletal: Yes Arthritis, Fractures Endocrine: No Diabetes, Non-Insulin dep HEENT: Yes (GLASSES) Loss of Vision: Denies Hearing Impairment: Denies Cancer: No Psychosocial: Yes Anxiety, Depression Integumentary: No Blood Disorders: Yes (anemia) Adverse Reaction/Blood Tranf: No Family Medical History Cardiovascular disease 19 MOTHER Diabetes mellitus G8 BROTHER FH: breast cancer 19 MOTHER Hypertension G8 BROTHER Irregular Heartbeat 19 MOTHER Lung Cancer 19 FATHER Myocardial infarction 19 MOTHER Cancer Physical Exam Vital Signs Vital Signs - First Documented 02/04/23 12:59 Temp 36.8 Pulse 108 Resp 20 B/P (MAP) 112/69 (83) Pulse Ox 96 O2 Delivery Room Air Capillary Refill : Less Than 3 Seconds Height, Weight, BMI Height: 5'7.00" Weight: 258lbs. 0oz. 117.272825lw; 44.00 BMI Method:Stated General Appearance: No Apparent Distress, WD/WN, Obese HEENT: PERRL/EOMI, Normal ENT Inspection Neck: Normal Inspection; No JVD Respiratory: Lungs Clear, Normal Breath Sounds, No Accessory Muscle Use, No Respiratory Distress, Other (Forced expiration induces cough and very subtle wheeze) Cardiovascular: Regular Rate, Rhythm, No Edema, No Murmur Gastrointestinal: Non Tender, Soft Extremity: Normal Inspection, No Pedal Edema 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: Alert, Oriented x3, No Motor/Sensory Deficits, Normal Mood/Affect Skin: Normal Color, Warm/Dry Progress/Results/Core Measures Suspected Sepsis SIRS Temperature: Pulse: 108 Respiratory Rate: 20 Laboratory Tests 02/04/23 13:05: White Blood Count 15.3H Blood Pressure 112 /69 Mean: 83 Laboratory Tests 02/04/23 13:05: Creatinine 0.78, Platelet Count 375, Total Bilirubin 0.5 Results/Orders Lab Results Laboratory Tests Test 02/04/23 13:05 Range/Units White Blood Count 15.3 H 4.3-11.0 10^3/uL Red Blood Count 4.51 3.80-5.11 10^6/uL Hemoglobin 13.2 11.5-16.0 g/dL Hematocrit 42 35-52 % Mean Corpuscular Volume 93 80-99 fL Mean Corpuscular Hemoglobin 29 25-34 pg Mean Corpuscular Hemoglobin Concent 32 32-36 g/dL Red Cell Distribution Width 13.2 10.0-14.5 % Platelet Count 375 130-400 10^3/uL Mean Platelet Volume 9.9 9.0-12.2 fL Immature Granulocyte % (Auto) 1 % Neutrophils (%) (Auto) 56 42-75 % Lymphocytes (%) (Auto) 33 12-44 % Monocytes (%) (Auto) 8 0-12 % Eosinophils (%) (Auto) 2 0-10 % Basophils (%) (Auto) 1 0-10 % Neutrophils # (Auto) 8.5 H 1.8-7.8 10^3/uL Lymphocytes # (Auto) 5.1 H 1.0-4.0 10^3/uL Monocytes # (Auto) 1.3 H 0.0-1.0 10^3/uL Eosinophils # (Auto) 0.2 0.0-0.3 10^3/uL Basophils # (Auto) 0.1 0.0-0.1 10^3/uL Immature Granulocyte # (Auto) 0.1 0.0-0.1 10^3/uL Neutrophils % (Manual) 44 % Lymphocytes % (Manual) 34 % Monocytes % (Manual) 4 % Eosinophils % (Manual) 1 % Basophils % (Manual) 0 % Metamyelocytes % 2 % Band Neutrophils 15 % Percent Immature Platelet Fraction 3.0 0.0-7.6 % Blood Morphology Comment NORMAL D-Dimer 0.48 0.00-0.49 UG/ML Sodium Level 136 135-145 MMOL/L Potassium Level 4.2 3.6-5.0 MMOL/L Chloride Level 99 98-107 MMOL/L Carbon Dioxide Level 23 21-32 MMOL/L Anion Gap 14 5-14 MMOL/L Blood Urea Nitrogen 13 7-18 MG/DL Creatinine 0.78 0.60-1.30 MG/DL Estimat Glomerular Filtration Rate 91 BUN/Creatinine Ratio 17 Glucose Level 94 70-105 MG/DL Calcium Level 9.4 8.5-10.1 MG/DL Corrected Calcium 9.2 8.5-10.1 MG/DL Total Bilirubin 0.5 0.1-1.0 MG/DL Aspartate Amino Transf (AST/SGOT) 47 H 5-34 U/L Alanine Aminotransferase (ALT/SGPT) 47 0-55 U/L Alkaline Phosphatase 106 40-136 U/L Troponin I < 0.30 <0.30 NG/ML C-Reactive Protein 1.73 H <0.50 MG/DL Pro-B-Type Natriuretic Peptide 72.9 <125.0 PG/ML Total Protein 7.5 6.4-8.2 GM/DL Albumin 4.2 3.2-4.5 GM/DL My Orders Orders - CARROLL DYER MD Cbc And Automated Diff (02/04/23 13:20) Comprehensive Metabolic Panel (02/04/23 13:20) Probnp Fs (02/04/23 13:20) Crp Fs (02/04/23 13:20) Chest Pa/Lat (2 View) (02/04/23 13:20) Ed Iv/Invasive Line Start (02/04/23 13:20) Ekg Tracing (02/04/23 13:20) Monitor-Rhythm Ecg Trace Only (02/04/23 13:20) Fibrin Degradation Products (02/04/23 13:20) Troponin I Fs (02/04/23 13:43) Manual Differential (02/04/23 13:05) Vital Signs/I&O 02/04/23 02/04/23 02/04/23 12:59 12:59 15:45 Temp 36.8 36.4 Pulse 108 95 Resp 20 20 B/P (MAP) 112/69 (83) 110/66 Pulse Ox 96 97 O2 Delivery Room Air Room Air Room Air Capillary Refill : Less Than 3 Seconds Blood Pressure Mean: 83 Progress Note : Progress Note Patient was interviewed and examined. Exam was relatively unremarkable. There were no significant wheezes or crackles on auscultation of the chest. ECG was unremarkable for ischemia. Sinus tachycardia was noted. Chest x-ray was unremarkable per radiologist's report below. Labs were obtained, reviewed, and interpreted by me. CBC was notable for leukocytosis with relative lymphocytosis. Clinical relevance is obscured as patient has been on steroids recently. CRP was only minimally elevated suggesting the leukocytosis is not related to bacterial infection. BNP was normal. Troponin was negative. CMP w as relatively unremarkable. D-dimer was negative at 0.48. Her cause of shortness of air is uncertain. She may need more aggressive COPD treatment with the addition of maintenance inhaled medications. She did comment that DuoNeb treatments have helped her more than albuterol nebulized treatments in the past. I offered to prescribe her DuoNeb but also recommended that she follow-up with her PCP to discuss different maintenance therapies for COPD. I have also suggested that she discuss further work-up with her primary care provider such as PFTs and stress testing to further evaluate her dyspnea. Finally, she commented on postnasal drip which seem to be contributing to her symptoms. I recommended that she start treating with Flonase. See discharge instructions for further discussion. ECG Initial ECG Impression Date: Feb 04, 2023 Initial ECG Impression Time: 13:41 Initial ECG Rate: 100 Initial ECG Rhythm: S.Tach Initial ECG Impression: Normal Comment Sinus tachycardia with no ST elevation or depression. No abnormal intervals or axis deviation. Diagnostic Imaging Diagonstic Imaging: Xray Plain Films/CT/US/NM/MRI: chest Comments NAME: PAMELLA SALINAS MED REC#: [id number] PT STATUS: REG ER : 1970 PHYSICIAN: CARROLL DYER MD ADMIT DATE: 02/04/23/ER FS Signed Date of Exam:02/04/23 CHEST PA/LAT (2 VIEW) EXAMINATION: Chest 2 view HISTORY: Short of breath. COMPARISON: 08/16/2022. FINDINGS: The lungs are clear without edema or pneumonia. No pleural effusion or pneumothorax. Heart size is normal. IMPRESSION: 1. Clear lungs. Dictated by: Dictated on workstation # [id number] Dict: 02/04/23 1337 Trans: 02/04/23 1419 [id number] [id number] Interpreted by: MACI SAAB MD Electronically signed by: MACI SAAB MD 02/04/23 1419 Departure Impression Primary Impression: COPD exacerbation Additional Impressions: Dyspnea on exertion Postnasal drip Disposition: HOME, SELF-CARE Condition: Improved Departure-Patient Inst. Decision time for Depature: 15:22 Referrals: ORIANA DEE MD (PCP/Family) Primary Care Physician Patient Instructions: Chronic obstructive pulmonary disease (COPD) Add. Discharge Instructions: Discuss further evaluation of your COPD treatment with your primary care provider soon as possible. You may need further evaluation such as pulmonary function testing, cardiac stress test, etc. In the meantime, you may use DuoNeb instead of albuterol when you are more short of breath. Also work toward weight loss and discuss weight loss strategies with your primary care provider. It may be beneficial to start inhaled maintenance medications for your COPD as well. Please discuss this with your primary care provider. Use the nasal steroid spray as prescribed to help reduce postnasal drip and allergy symptoms. Return to the emergency room if you have worsening symptoms despite following these instructions. All discharge instructions reviewed with patient and/or family. Voiced understanding. Scripts Ipratropium/Albuterol Sulfate (Iprat-Albut 0.5-3(2.5) mg/3 ml) 0.5 Mg-3 Mg (2.5 Mg Base)/3 Ml Ampul.neb 3 ML IH Q6H PRN for SHORTNESS OF BREATH, #50 EACH Prov: CARROLL DYER MD 02/04/23 Fluticasone Propionate (Flonase Allergy Relief) 50 Mcg/Actuation Greene.susp 2 SPRAY NSEACH DAILY, #1 EACH 2 SPRAYS PER NOSTRIL DAILY X 2 DAYS THEN 1 SPRAY DAILY Prov: CARROLL DYER MD 02/04/23 Copy Copies To 1: ORIANA DEE MD, JOSHUA T MD Feb 04, 2023 13:56
[2023-02-04 14:04] LABS: ALBUMIN 4.2 GM/DL (3.2-4.5); BILIRUBIN,TOTAL 0.5 MG/DL (0.1-1.0); CALCIUM 9.4 MG/DL (8.5-10.1); CREATININE SERUM 0.78 MG/DL (0.60-1.30); POTASSIUM 4.2 MMOL/L (3.6-5.0); TOTAL PROTEIN 7.5 GM/DL (6.4-8.2)
[2023-02-04 14:42] LABS: BAND NEUTROPHILS 15 %; BASOPHILS % (MANUAL) 0 %; EOSINOPHILS % (MANUAL) 1 %; LYMPHOCYTES % (MANUAL) 34 %; METAMYELOCYTES % 2 %; MONOCYTES % (MANUAL) 4 %; NEUTROPHILS % (MANUAL) 44 %; RBC MORPH NORMAL
[2023-02-04] MEDS ORDERED: IPRA3AMP31 IH (15:26)
[2023-02-04] MEDS ORDERED: FLUT9.9S NSEACH (15:26)
[2023-02-04 15:45] VITALS: BP 110/66
== END 2023-02-04 15:45 | disposition home or self-care (01) ==
LOC: EDUNIT# 12:52 → ER FS 12:56
DX: J44.1 Chronic obstructive pulmonary disease with (acute) exacerbation (principal); R09.82 Postnasal drip; R00.0 Tachycardia, unspecified; E66.9 Obesity, unspecified; Z86.16 Personal history of COVID-19; Z68.41 Body mass index [BMI] 40.0-44.9, adult
CPT/HCPCS: 36415; 71046; 80053; 83880; 84484; 85007; 85027; 85379; 86141; 93005; 93041

== ENCOUNTER 2023-02-21 18:43 | Emergency (ER) | payer OTHER ==
[~2023-02-21 18:43] MED LIST changes: +FLUT9.9S NSEACH
[2023-02-21 18:50] VITALS: BP 146/107
[2023-02-21 18:56] LABS: BILIRUBIN,URINE NEGATIVE (NEGATIVE); CLARITY,URINE CLEAR; COLOR,URINE YELLOW; GLUCOSE, URINE (UA) NEGATIVE (NEGATIVE); KETONES,URINE NEGATIVE (NEGATIVE); LEUKOCYTE ESTERASE ,URINE TRACE (NEGATIVE); NITRITE,URINE NEGATIVE (NEGATIVE); PH,URINE 6.5 (5-9); PROTEIN,URINE NEGATIVE (NEGATIVE)
[2023-02-21] MEDS ORDERED: KETOROLAC INJ 15 MG/ML VIAL IVP STA ×2 (18:57→20:29)
[2023-02-21] MEDS ORDERED: NS IV 1000 ML 1,000 ML IV STA (18:57)
[2023-02-21] MEDS ORDERED: ONDANSETRON INJECTION 4 MG/2 ML (SDV) IVP STA (18:57)
[2023-02-21 19:02] LABS: BASOPHILS # (AUTO) 0.1 10^3/uL (0.0-0.1); BASOPHILS % (AUTO) 1 % (0-10); EOSINOPHILS # (AUTO) 0.3 10^3/uL (0.0-0.3); EOSINOPHILS % (AUTO) 2 % (0-10); HEMATOCRIT 40 % (35-52); LYMPHOCYTES # (AUTO) 5.1 10^3/uL (1.0-4.0); LYMPHOCYTES % (AUTO) 34 % (12-44); MEAN CORPUSCULAR HEMOGLOBIN 30 pg (25-34); MEAN CORPUSCULAR HGB CONC 33 g/dL (32-36); MEAN CORPUSCULAR VOLUME 94 fL (80-99); MEAN PLATELET VOLUME 9.5 fL (9.0-12.2); MONOCYTES % (AUTO) 7 % (0-12); NEUTROPHILS # (AUTO) 8.4 10^3/uL (1.8-7.8); NEUTROPHILS % (AUTO) 56 % (42-75); PLATELET COUNT 347 10^3/uL (130-400); WHITE BLOOD COUNT 14.9 10^3/uL (4.3-11.0)
[2023-02-21 19:05] LABS: BACTERIA,URINE FEW /HPF; SQUAMOUS EPITHELIAL CELL,UR 25-50 /HPF
[2023-02-21 19:08] LABS: AMPHETAMINE SCREEN, URINE NEGATIVE (NEGATIVE); BARBITURATE SCREEN URINE NEGATIVE (NEGATIVE); CANNABINOID SCREEN, URINE NEGATIVE (NEGATIVE); COCAINE SCREEN URINE NEGATIVE (NEGATIVE); METHADONE STAT NEGATIVE (NEGATIVE); OPIATE SCREEN URINE NEGATIVE (NEGATIVE); OXYCODONE STAT NEGATIVE (NEGATIVE); PROPOXYPHENE STAT NEGATIVE (NEGATIVE); TRICYCLIC ANTIDEPRESSANTS SCRE NEGATIVE (NEGATIVE)
--- NOTE | 2023-02-21 19:17 | ED General ---
General Chief Complaint: - 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 Stated Complaint: URINARY/RT FLANK PAIN; FEVER Nursing Triage Note: PT WAS DIAGNOSED WITH A UTI IN URGENT CARE ON WEDNESDAY. SHE WAS GIVEN A "SHOT" OF ANTIBIOTICS AND A SCRIPT FOR BACTRIM. SHE STARTED THE BACTRIM ON WEDNESDAY. SHE REPORTS THE PAIN AND FREQUENCY IS NO BETTER TODAY. Source of Information: Patient History of Present Illness Date Seen by Provider: Feb 21, 2023 Time Seen by Provider: 18:47 Initial Comments 52-year-old female presenting with complaints of right flank pain. She had been seen Wednesday at the urgent care clinic and told that she had a UTI. She was started on antibiotics and given a shot and then started on Bactrim the next morning. She states that she has had increasing pain to the right flank since then. She has had some nausea but no vomiting. She denies any diarrhea or change in her bowels. Timing/Duration: 2-3 Days Severity: Moderate Modifying Factors: worse with Movement Associated Systoms: No Chest Pain, No Cough, No Diaphoresis, No Fever/Chills, No Headaches, No Loss of Appetite, No Malaise, No Rash, No Seizure, No Shortness of Air, No Syncope, No Weakness Allergies and Home Medications Allergies Coded Allergies: Penicillins (Verified Allergy, Unknown, 02/04/23) cephalexin (Verified Adverse Reaction, Unknown, 02/04/23) Patient Home Medication List Home Medication List Reviewed: Yes ALPRAZolam (ALPRAZolam) 0.25 Mg Tablet, 0.25 MG PO DAILY, (Reported) Entered as Reported by: ROLANDO AMADOR on 10/10/20 1530 Albuterol Sulfate (Ventolin Hfa) 1 Puff Puff, 2 PUFF INH Q6H PRN for SHORTNESS OF BREATH, (Reported) Entered as Reported by: TESSA HANEY on 01/24/19 1047 Budesonide/Formoterol Fumarate (Symbicort 80-4.5 Mcg Inhaler) 80 Mcg-4.5 Mcg/Actuation Hfa.aer.ad, 1 PUFF INH DAILY, (Reported) Entered as Reported by: MAX SHEPHERD on 02/27/22 0251 Cyclobenzaprine HCl (Cyclobenzaprine HCl) 10 Mg Tablet, 10 MG PO Q8H PRN for SPASMS Prescribed by: ADELINE TAO on 02/21/232052 Fluticasone Propionate (Flonase Allergy Relief) 50 Mcg/Actuation [place].susp, 2 SPRAY NSEACH DAILY Prescribed by: CARROLL ANTON on 02/04/23 152 Gabapentin (Neurontin) 300 Mg Capsule, 300 MG PO TID, (Reported) Entered as Reported by: IRASEMA MAGUIRE on 11/15/19 0952 Hydrocodone/Acetaminophen (Hydrocodone-Acetamin 5-325 mg) 5 Mg-325 Mg Tablet, 1 TAB PO Q6H PRN for PAIN-MODERATE (5-7), (Reported) Entered as Reported by: Stephy Cardenas on 10/28/22 1153 Ibuprofen (Ibuprofen) 800 Mg Tablet, 800 MG PO Q8H PRN for PAIN Prescribed by: ADELINE TAO on 02/21/232052 Ipratropium/Albuterol Sulfate (Iprat-Albut 0.5-3(2.5) mg/3 ml) 0.5 Mg-3 Mg (2.5 Mg Base)/3 Ml Ampul.neb, 3 ML IH Q6H PRN for SHORTNESS OF BREATH Prescribed by: CARROLL ANTON on 02/04/23 152 Lisinopril (Lisinopril) 20 Mg Tablet, 20 MG PO 1200, (Reported) Entered as Reported by: MAX SHEPHERD on 02/27/22 0251 Metformin HCl (Metformin HCl) 500 Mg Tablet, 500 MG PO BID WITH MEALS, (Reported) Entered as Reported by: Stephy Cardenas on 10/28/22 1202 Pantoprazole Sodium (Pantoprazole Sodium) 40 Mg Tablet.dr, 40 MG PO DAILY Prescribed by: ARIANA GONZALEZ on 02/27/22 0305 Phenazopyridine HCl (Phenazopyridine HCl) 200 Mg Tablet, 200 MG PO TID Prescribed by: ADELINE TAO on 02/21/232052 Sertraline HCl (Sertraline HCl) 50 Mg Tablet, 50 MG PO DAILY, (Reported) Entered as Reported by: ROLANDO AMADOR on 03/03/22 1507 Trazodone HCl (Trazodone HCl) 100 Mg Tablet, 100 MG PO HS PRN for SLEEP, (Reported) Entered as Reported by: ROLANDO AMADOR on 03/03/22 1507 Review of Systems Review of Systems Constitutional: No chills, No fever EENTM: no symptoms reported Respiratory: no symptoms reported Cardiovascular: no symptoms reported Gastrointestinal: see HPI Genitourinary: see HPI Musculoskeletal: no symptoms reported Skin: no symptoms reported Psychiatric/Neurological: No Symptoms Reported Past Ryhuafi-Gjczbm-Tyvzsm Hx Patient Social History Tobacco Use?: No Use of E-Cig and/or Vaping dev: No Substance use?: No Alcohol Use?: No Pt feels they are or have been: No Immunizations Up To Date Tetanus Booster (TDap): Less than 5yrs First/Initial COVID19 Vaccinat: 05/23 Second COVID19 Vaccination Nathan: 06/23 Third COVID19 Vaccination Date: 05/23 Seasonal Allergies Seasonal Allergies: No Past Medical History Surgery/Hospitalization HX: Cholecystectomy, Appendectomy, X 2, Ankle surgery, COPD, Anxiety, HTN, Obesity, 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, Hyperlipidemia, Neuropathy; Type 2 DM Surgeries: Yes (c/s x2, hemorrhoidectomy) Appendectomy, Section, Gallbladder, Tubal Ligation Respiratory: Yes COPD Currently Using CPAP: No Currently Using BIPAP: No Cardiac: Yes Hypertension, Syncope Neurological: Yes Neuropathy 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 Disorders: No 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, 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 Sexually Transmitted Disease: No Genitourinary: Yes UTI-Chronic Gastrointestinal: No Abdominal Hernia, Gastroesophageal Reflux, Hemorrhoids, Polyps, Gall Bladder Disease Musculoskeletal: Yes Arthritis, Fractures Endocrine: No Diabetes, Non-Insulin dep HEENT: Yes (GLASSES) Loss of Vision: Denies Hearing Impairment: Denies Cancer: No Psychosocial: Yes Anxiety, Depression Integumentary: No Blood Disorders: Yes (anemia) Adverse Reaction/Blood Tranf: No Family Medical History Cardiovascular disease 19 MOTHER Diabetes mellitus G8 BROTHER FH: breast cancer 19 MOTHER Hypertension G8 BROTHER Irregular Heartbeat 19 MOTHER Lung Cancer 19 FATHER Myocardial infarction 19 MOTHER Cancer Physical Exam Vital Signs Vital Signs - First Documented 02/21/23 18:50 Temp 36.8 Pulse 111 Resp 18 B/P (MAP) 146/107 (120) Pulse Ox 100 O2 Delivery Room Air Capillary Refill : Less Than 3 Seconds Height, Weight, BMI Height: 5'7.00" Weight: 258lbs. 0oz. 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 Skin: Normal Color, Warm/Dry Progress/Results/Core Measures Suspected Sepsis SIRS Temperature: Pulse: 111 Respiratory Rate: 18 Laboratory Tests 02/21/23 18:55: White Blood Count 14.9H Blood Pressure 146 /107 Mean: 120 Laboratory Tests 02/21/23 18:55: Creatinine 1.17, Platelet Count 347, Total Bilirubin 0.3 Results/Orders Lab Results Laboratory Tests Test 02/21/23 18:50 02/21/23 18:55 Range/Units Urine Color YELLOW Urine Clarity CLEAR Urine pH 6.5 5-9 Urine Specific [place] 1.015 L 1.016-1.022 Urine Protein NEGATIVE NEGATIVE Urine Glucose (UA) NEGATIVE NEGATIVE Urine Ketones NEGATIVE NEGATIVE Urine Nitrite NEGATIVE NEGATIVE Urine Bilirubin NEGATIVE NEGATIVE Urine Urobilinogen 0.2 < = 1.0 MG/DL Urine Leukocyte Esterase TRACE H NEGATIVE Urine RBC (Auto) NEGATIVE NEGATIVE Urine RBC NONE /HPF Urine WBC 2-5 /HPF Urine Squamous Epithelial Cells 25-50 H /HPF Urine Crystals NONE /LPF Urine Bacteria FEW H /HPF Urine Casts NONE /LPF Urine Mucus MODERATE H /LPF Urine Culture Indicated NO Urine Opiates Screen NEGATIVE NEGATIVE Urine Oxycodone Screen NEGATIVE NEGATIVE Urine Methadone Screen NEGATIVE NEGATIVE Urine Propoxyphene Screen NEGATIVE NEGATIVE Urine Barbiturates Screen NEGATIVE NEGATIVE Ur Tricyclic Antidepressants Screen NEGATIVE NEGATIVE Urine Phencyclidine Screen NEGATIVE NEGATIVE Urine Amphetamines Screen NEGATIVE NEGATIVE Urine Methamphetamines Screen NEGATIVE NEGATIVE Urine Benzodiazepines Screen POSITIVE H NEGATIVE Urine Cocaine Screen NEGATIVE NEGATIVE Urine Cannabinoids Screen NEGATIVE NEGATIVE White Blood Count 14.9 H 4.3-11.0 10^3/uL Red Blood Count 4.28 3.80-5.11 10^6/uL Hemoglobin 13.0 11.5-16.0 g/dL Hematocrit 40 35-52 % Mean Corpuscular Volume 94 80-99 fL Mean Corpuscular Hemoglobin 30 25-34 pg Mean Corpuscular Hemoglobin Concent 33 32-36 g/dL Red Cell Distribution Width 13.7 10.0-14.5 % Platelet Count 347 130-400 10^3/uL Mean Platelet Volume 9.5 9.0-12.2 fL Immature Granulocyte % (Auto) 0 % Neutrophils (%) (Auto) 56 42-75 % Lymphocytes (%) (Auto) 34 12-44 % Monocytes (%) (Auto) 7 0-12 % Eosinophils (%) (Auto) 2 0-10 % Basophils (%) (Auto) 1 0-10 % Neutrophils # (Auto) 8.4 H 1.8-7.8 10^3/uL Lymphocytes # (Auto) 5.1 H 1.0-4.0 10^3/uL Monocytes # (Auto) 1.0 0.0-1.0 10^3/uL Eosinophils # (Auto) 0.3 0.0-0.3 10^3/uL Basophils # (Auto) 0.1 0.0-0.1 10^3/uL Immature Granulocyte # (Auto) 0.1 0.0-0.1 10^3/uL Neutrophils % (Manual) 62 % Lymphocytes % (Manual) 29 % Monocytes % (Manual) 8 % Eosinophils % (Manual) 1 % Sodium Level 133 L 135-145 MMOL/L Potassium Level 4.1 3.6-5.0 MMOL/L Chloride Level 97 L 98-107 MMOL/L Carbon Dioxide Level 21 21-32 MMOL/L Anion Gap 15 H 5-14 MMOL/L Blood Urea Nitrogen 12 7-18 MG/DL Creatinine 1.17 0.60-1.30 MG/DL Estimat Glomerular Filtration Rate 56 BUN/Creatinine Ratio 10 Glucose Level 131 H 70-105 MG/DL Calcium Level 9.5 8.5-10.1 MG/DL Corrected Calcium 9.3 8.5-10.1 MG/DL Total Bilirubin 0.3 0.1-1.0 MG/DL Aspartate Amino Transf (AST/SGOT) 38 H 5-34 U/L Alanine Aminotransferase (ALT/SGPT) 38 0-55 U/L Alkaline Phosphatase 105 40-136 U/L Total Protein 7.4 6.4-8.2 GM/DL Albumin 4.3 3.2-4.5 GM/DL Lipase 29 8-78 U/L My Hernan Becerra - ADELINE TAO MD Comprehensive Metabolic Panel (02/21/23 18:47) Lipase (02/21/23 18:47) Ua Culture If Indicated (02/21/23 18:47) Ed Iv/Invasive Line Start (02/21/23 18:47) Cbc And Automated Diff (02/21/23 18:47) Ct Abdomen/Pelvis Wo (02/21/23 19:00) Drug Screen Stat (Urine) (02/21/23 18:47) Ns Iv 1000 Ml (Ns Iv 1000 Ml) (02/21/23 18:57) Ketorolac Injection (Ketorolac Injection (02/21/23 18:57) Ondansetron Injection (Ondansetron Inj (02/21/23 18:57) Manual Differential (02/21/23 18:55) Ketorolac Injection (Ketorolac Injection (02/21/23 20:29) Orphenadrine Inj (Ed Only) (Orphenadrine (02/21/23 20:29) Phenazopyridine Tablet (Phenazopyridine (02/21/23 20:29) Vital Signs/I&O 02/21/23 18:50 Temp 36.8 Pulse 111 Resp 18 B/P (MAP) 146/107 (120) Pulse Ox 100 O2 Delivery Room Air Capillary Refill : Less Than 3 Seconds Blood Pressure Mean: 120 Progress Note #1: Progress Note Differential diagnosis includes kidney stone, pyelonephritis, UTI, colitis, diverticulitis, musculoskeletal flank pain. Establish peripheral IV access and send labs for complete blood count, comprehensive metabolic profile, lipase. Urinalysis with urine drug screen to look for infection or reason for her pain and nausea. Administer normal saline 1 L IV fluid bolus for hydration, Toradol 15 mg IV for pain, Zofran 4 mg for nausea and vomiting. Progress Note #2: Progress Note Complete blood count showed elevation of the white blood cells to 14.9. Comprehensive metabolic profile did not show acute significant electrolyte abnormality. She had trace leukocyte esterase on her urinalysis. The CT scan showed no acute process to explain her right flank pain. Patient continues to report that the pain feels similar to when she has had a kidney stone previously. It is conceivable that she could have a very small kidney stone but certainly not 1 that is obstructing or blocking since we are not seeing that on the CT. Some of the pain could also be from her urine infection but not showing signs of pyelonephritis on the CT. We will have her continue to take the antibiotics since it appears that her urine infection is improving since she is just showing a trace amount of leukocyte Estrace now. Encourage fluids and rest. Try and treat for possible musculoskeletal pain with adding in Norflex here and cyclobenzaprine for home. Use an anti-inflammatory such as ibuprofen to help with pain and inflammation. Repeat dose of Toradol 15 mg IV was admini stered. Also started on Pyridium to try to help with pain and inflammation to the urinary tract. Diagnostic Imaging Diagonstic Imaging: CT Plain Films/CT/US/NM/MRI: abdomen, pelvis Comments NAME: PAMELLA SALINAS [facility] REC#: [id number] PT STATUS: REG ER : 1970 PHYSICIAN: ADELINE TAO MD ADMIT DATE: 02/21/23/ER FS Draft Date of Exam:02/21/23 CT ABDOMEN/PELVIS WO PROCEDURE: CT abdomen and pelvis without contrast. TECHNIQUE: Multiple contiguous axial images were obtained through the abdomen and pelvis without the use of intravenous contrast. Auto Exposure Controls were utilized during the CT exam to meet ALARA standards for radiation dose reduction. INDICATION: Right flank pain COMPARISON: 03/02/2022 There is low-density throughout the liver indicating steatosis. Gallbladder surgically absent. No biliary ductal dilatation is identified. There is no evidence of pancreatic or adrenal gland or splenic lesion. Kidneys are unremarkable without evidence of mass, stone or hydronephrosis. There are calcified phleboliths in the right retroperitoneum. There is no evidence of bladder stone. No organized fluid collection is identified. The appendix is not visualized. No bowel obstruction is identified. IMPRESSION: Hepatic steatosis without evidence of acute abnormality or other adverse change. Dictated on workstation # [id number] Dict: 02/21/231914 Trans: 02/21/231920 [facility] [id number] Interpreted by: MERLIN YARBROUGH MD Electronically signed by: Reviewed: Reviewed by Me Departure Impression Primary Impression: Acute right flank pain Additional Impression: Cystitis without hematuria Disposition: HOME, SELF-CARE Condition: Stable Departure-Patient Inst. Decision time for Depature: 20:51 Referrals: ORIANA DEE MD (PCP/Family) Primary Care Physician Patient Instructions: Flank Pain ED, Urinary Tract Infection, Adult ED Add. Discharge Instructions: Continue taking antibiotics to completely treat for infection. Use medicine for musculoskeletal flank pain. If not improving check with clinic as they may need to set you up for colonoscopy or testing beyond what is available in the Emergency Department. All discharge instructions reviewed with patient and/or family. Voiced understanding. Scripts Ibuprofen (Ibuprofen) 800 Mg Tablet 800 MG PO Q8H PRN for PAIN for 10 Days, #30 TAB 0 Refills Prov: ADELINE TAO MD 02/21/23 Cyclobenzaprine HCl (Cyclobenzaprine HCl) 10 Mg Tablet 10 MG PO Q8H PRN for SPASMS for 5 Days, #15 TAB 0 Refills Prov: ADELINE TAO MD 02/21/23 Phenazopyridine HCl (Phenazopyridine HCl) 200 Mg Tablet 200 MG PO TID for UTI for 2 Days, #6 TAB 0 Refills Prov: ADELINE TAO MD 02/21/23 ADELINE TAO MD Feb 21, 2023 19:17
[2023-02-21 19:19] LABS: BILIRUBIN,TOTAL 0.3 MG/DL (0.1-1.0); CALCIUM 9.5 MG/DL (8.5-10.1); POTASSIUM 4.1 MMOL/L (3.6-5.0); TOTAL PROTEIN 7.4 GM/DL (6.4-8.2)
--- NOTE | 2023-02-21 19:23 | Diagnostic Imaging Report ---
PROCEDURE: CT abdomen and pelvis without contrast. TECHNIQUE: Multiple contiguous axial images were obtained through the abdomen and pelvis without the use of intravenous contrast. Auto Exposure Controls were utilized during the CT exam to meet ALARA standards for radiation dose reduction. INDICATION: Right flank pain COMPARISON: 03/02/2022 There is low-density throughout the liver indicating steatosis. Gallbladder surgically absent. No biliary ductal dilatation is identified. There is no evidence of pancreatic or adrenal gland or splenic lesion. Kidneys are unremarkable without evidence of mass, stone or hydronephrosis. There are calcified phleboliths in the right retroperitoneum. There is no evidence of bladder stone. No organized fluid collection is identified. The appendix is not visualized. No bowel obstruction is identified. IMPRESSION: Hepatic steatosis without evidence of acute abnormality or other adverse change. Dictated by: Dictated on workstation # [id number]
[2023-02-21 19:25] LABS: ALBUMIN 4.3 GM/DL (3.2-4.5); CREATININE SERUM 1.17 MG/DL (0.60-1.30)
[2023-02-21 19:26] LABS: EOSINOPHILS % (MANUAL) 1 %; LYMPHOCYTES % (MANUAL) 29 %; MONOCYTES % (MANUAL) 8 %; NEUTROPHILS % (MANUAL) 62 %
[2023-02-21] MEDS ORDERED: ORPHENADRINE 60 MG/2 ML AMP (ED ONLY) IVP STA (20:29)
[2023-02-21] MEDS ORDERED: PHENAZOPYRIDINE 100 MG TABLET PO STA (20:29)
[2023-02-21] MEDS ORDERED: CYCL10TA25 PO (20:53)
[2023-02-21] MEDS ORDERED: IBUP-1780 PO (20:53)
[2023-02-21] MEDS ORDERED: PHEN-827 PO (20:53)
== END 2023-02-21 21:06 | disposition home or self-care (01) ==
LOC: EDUNIT# 18:43 → ER FS 18:44
DX: N30.90 Cystitis, unspecified without hematuria (principal); E66.9 Obesity, unspecified; Z68.41 Body mass index [BMI] 40.0-44.9, adult; Z87.19 Personal history of other diseases of the digestive system; Z90.49 Acquired absence of other specified parts of digestive tract
CPT/HCPCS: 36415; 74176; 80053; 80306; 81000; 83690; 85007; 85027